=== PATIENT | female | born 1945 | race Caucasian/White ===

== ENCOUNTER 2020-03-01 09:52 | Observation (INO) | payer OTHER ==
[2020-03-01 11:25] LABS: Absolute Lymphocytes (CBC) 1.8 K/uL (0.7-4.9); Basophils % 0.6 % (0-1.3); Hematocrit 42.5 % (36.0-45.0); Lymphocytes % 27.6 % (15.3-44.8); MPV 8.3 fL (7.6-11.3); RBC Red Blood Cell Count 4.07 M/uL (3.86-4.86)
[2020-03-01 11:33] LABS: Protime INR 0.91
[2020-03-01 11:50] LABS: ALT/SGPT 24 U/L (12-78); AST/SGOT 23 U/L (15-37); Albumin 3.8 g/dL (3.4-5.0); Alkaline Phosphatase 73 U/L (45-117); BUN Blood Urea Nitrogen 18 mg/dL (7-18); Bicarbonate 21 mmol/L (21-32); Bilirubin Direct 0.1 mg/dL (0-0.2); Bilirubin Total 0.3 mg/dL (0.2-1.0); Glucose Level 109 mg/dL (74-106); Magnesium 1.9 mg/dL (1.8-2.4); NT PRO-BNP 206 pg/mL (<450); Potassium 3.4 mmol/L (3.5-5.1); Protein, Total 7.8 g/dL (6.4-8.2); Sodium Level 143 mmol/L (136-145); Troponin (Emerg Dept Use Only) < 0.02 ng/mL (0.0-0.045)
[2020-03-01] MEDS ORDERED: NA CHLORIDE 0.9% 500 ML ONE (12:22)
--- NOTE | 2020-03-01 13:18 | EDPHYS ---
Physician Documentation [facility] Name: Lina Fisher Age: 74 yrs Sex: Female : 1945 Arrival Date: 03/01/2020 Time: 09:53 Bed 16 Private MD: ED Physician Enoch Vázquez HPI: 03/01 11:00 This 74 yrs old Female presents to ER via Ambulatory with complaints of Fall snw Injury. 11:00 Details of fall: The patient fell from seated position, out of a chair. Onset: The snw symptoms/episode began/occurred suddenly, just prior to arrival. Associated injuries: The patient sustained injury to the head, contusion, hematoma, laceration, 1 cm(s), of the right side of forehead. Severity of symptoms: At their worst the symptoms were moderate. The patient has not experienced similar symptoms in the past. It is unknown whether or not the patient has recently seen a physician, sees Dr. Dolan. Syncope today. Pt states she has had a right sided headache for 3-4 days. Takes Topamax. Historical: - Allergies: 10:18 Bactrim; ll1 10:18 Codeine (Upset stomach); ll1 10:18 OPIOID ANALGESICS; ll1 - PMHx: 10:18 Arthritis; Chronic pain; Osteoporosis; Hypertension; Migraines; Seizures; ll1 - PSHx: 10:18 ear surgery; Hysterectomy; right ankle; back surgery; knee replacements; ll1 - Immunization history:: Flu vaccine is up to date. - Social history:: Smoking status: Patient denies any tobacco usage or history of. ROS: 10:58 Eyes: Negative for injury, pain, redness, and discharge, ENT: Negative for injury, snw pain, and discharge, Neck: Negative for injury, pain, and swelling, Cardiovascular: Negative for chest pain, palpitations, and edema, Respiratory: Negative for shortness of breath, cough, wheezing, and pleuritic chest pain, Abdomen/GI: Negative for abdominal pain, nausea, vomiting, diarrhea, and constipation, Back: Negative for injury and pain, : Negative for injury, bleeding, discharge, and swelling, MS/Extremity: Negative for injury and deformity, Skin: Negative for injury, rash, and discoloration. 10:58 Constitutional: Positive for fatigue. 10:58 Neuro: Positive for headache, syncope, of the right side of forehead, right temporal area, right eye and right taoism. Exam: 10:58 Constitutional: This is a well developed, well nourished patient who is awake, alert, snw and in no acute distress. 10:58 Eyes: Pupils equal round and reactive to light, extra-ocular motions intact. Lids and lashes normal. Conjunctiva and sclera are non-icteric and not injected. Cornea within normal limits. Periorbital areas with no swelling, redness, or edema. ENT: Nares patent. No nasal discharge, no septal abnormalities noted. Tympanic membranes are normal and external auditory canals are clear. Oropharynx with no redness, swelling, or masses, exudates, or evidence of obstruction, uvula midline. Mucous membranes moist. Neck: Trachea midline, no thyromegaly or masses palpated, and no cervical lymphadenopathy. Supple, full range of motion without nuchal rigidity, or vertebral point tenderness. No Meningismus. Chest/axilla: Normal chest wall appearance and motion. Nontender with no deformity. No lesions are appreciated. Cardiovascular: Regular rate and rhythm with a normal S1 and S2. No gallops, murmurs, or rubs. Normal PMI, no JVD. No pulse deficits. Respiratory: Lungs have equal breath sounds bilaterally, clear to auscultation and percussion. No rales, rhonchi or wheezes noted. No increased work of breathing, no retractions or nasal flaring. Abdomen/GI: Soft, non-tender, with normal bowel sounds. No distension or tympany. No guarding or rebound. No evidence of tenderness throughout. Back: No spinal tenderness. No costovertebral tenderness. Full range of motion. MS/ Extremity: Pulses equal, no cyanosis. Neurovascular intact. Full, normal range of motion. Neuro: Awake and alert, GCS 15, oriented to person, place, time, and situation. Cranial nerves II-XII grossly intact. Motor strength 5/5 in all extremities. Sensory grossly intact. Cerebellar exam normal. Normal gait. Psych: Awake, alert, with orientation to person, place and time. Behavior, mood, and affect are within normal limits. 10:58 Head/face: Noted is contusion, hematoma, swelling, that is moderate, of the right side of forehead. 10:58 Skin: Appearance: normal except for affected area, injury, abrasion(s), laceration(s), the wound is approximately 1 cm(s), with a depth of 1 cm(s), of the right supraorbital ridge. Vital Signs: 10:15 BP 159 / 81; Pulse 81; Resp 17; Temp 97.9; Pulse Ox 96% ; Pain 8/10; ll1 11:47 BP 160 / 95; Pulse 81; Resp 16; Pulse Ox 99% ; bp 12:49 BP 157 / 90; Pulse 85; Resp 16; Pulse Ox 100% ; bp 13:30 BP 165 / 83; Pulse 82; Resp 16; Pulse Ox 100% ; bp 14:30 BP 151 / 75; Pulse 88; Resp 16; Pulse Ox 100% ; bp 15:29 BP 132 / 79; Pulse 96; Resp 16; Temp 97.9; Pulse Ox 99% ; bp NIH Stroke Scale Scores: 13:17 NIHSS Score: 0 jr8 MDM: 10:52 Patient medically screened. snw 12:13 Data reviewed: vital signs, nurses notes. Data interpreted: Pulse oximetry: on room air snw is 99 %. Interpretation: normal. Transition of care: After a detail discussion of the patient's case, care is transferred to Edward TAYLOR. 13:11 Counseling: I had a detailed discussion with the patient and/or guardian regarding: the jr8 historical points, exam findings, and any diagnostic results supporting the discharge/admit diagnosis, lab results, radiology results, the need for further work-up and treatment in the hospital. Response to treatment: There is no appreciated change of the patient's symptoms at this time. 14:33 ED course: Talked to Dr. Dolan. Itz LONG and Ronnell consulted . jr8 03/01 10:35 Order name: Basic Metabolic Panel; Complete Time: 11:55 snw 03/01 10:35 Order name: CBC with Diff; Complete Time: 11:31 snw 03/01 10:35 Order name: LFT's; Complete Time: 11:55 snw 03/01 10:35 Order name: Magnesium; Complete Time: 11:55 snw 03/01 10:35 Order name: NT PRO-BNP; Complete Time: 11:55 snw 03/01 10:35 Order name: PT-INR; Complete Time: 11:47 snw 03/01 10:35 Order name: CT Head C Spine snw 03/01 10:35 Order name: Troponin (emerg Dept Use Only); Complete Time: 11:55 snw 03/01 10:35 Order name: XRAY Chest (1 view) snw 03/01 10:35 Order name: CT Facial Bones W/O Con snw 03/01 14:33 Order name: MRI - Brain Wo Cont jr8 03/01 10:35 Order name: EKG; Complete Time: 10:36 snw 03/01 10:35 Order name: Cardiac monitoring; Complete Time: 10:50 snw 03/01 10:35 Order name: EKG - Nurse/Tech; Complete Time: 11:07 snw 03/01 10:35 Order name: IV Saline Lock; Complete Time: 11:43 snw 03/01 10:35 Order name: Labs collected and sent; Complete Time: 11:43 snw 03/01 10:35 Order name: O2 Per Protocol; Complete Time: 10:50 snw 03/01 10:35 Order name: O2 Sat Monitoring; Complete Time: 10:50 snw 03/01 11:56 Order name: Ice pack; Complete Time: 12:01 snw 03/01 15:06 Order name: CONS Physician Consult EDMS EC:04 Rate is 78 beats/min. Rhythm is regular. QRS [place] is Normal. VT interval is normal. QRS snw interval is normal. T waves are Inverted in lead V2. Clinical impression: NSR w/ Non-specific ST/T Changes and low voltage. Administered Medications: 12:10 Drug: NS 0.9% 500 ml Route: IV; Rate: bolus; Site: left antecubital; bp 13:47 Follow up: IV Status: Completed infusion; IV Intake: 500ml bp 13:15 Drug: Ativan 0.5 mg Route: IVP; Site: left antecubital; bp 15:31 Follow up: Response: Anxiety decreased bp 13:15 Drug: hydrALAZINE 5 mg Route: IV; Rate: calculated rate; Site: left antecubital; bp 15:31 Follow up: IV Status: Completed infusion bp Disposition: 03/02 09:31 Co-signature as Attending Physician, Enoch Vázquez MD I agree with the assessment and kdr plan of care. Disposition: 03/01/20 13:17 Hospitalization ordered by Kate Dolan for Observation. Preliminary diagnosis are Hyptertensive Urgency, Syncope and collapse, Paresthesia of skin, Dysarthria and anarthria. - Bed requested for Telemetry/MedSurg (observation). - Status is Observation. bp - Condition is Stable. - Problem is new. - Symptoms are unchanged. NIH Stroke Scale - NIH Stroke Score Date: 03/01/2020 Time: 13:17 Total Score = 0 1a. Level of Consciousness (LOC) - 0(Alert) 1b. Level of Consciousness (LOC) (Year \T\ Age) - 0(Both) 1c. LOC Commands (Open \T\ Closes Eyes/Light Bulb Tester) - 0(Both) 2. Best Gaze (Lateral Gaze Paresis) - 0(Normal) 3. Visual Field Loss - 0(No visual loss) 4. Facial Palsy - 0(Normal) 5a. Left Arm: Motor (10-second hold) - 0(No drift) 5b. Right Arm: Motor (10-second hold) - 0(No drift) 6a. Left Leg: Motor (5-second hold - always test supine) - 0(No drift) 6b. Right Leg: Motor (5-second hold - always test supine) - 0(No drift) 7. Limb Ataxia (finger/nose \T\ heel/polanco - test with eyes open) - 0(Absent) 8. Sensory Loss (pinprick arms/legs/face) - 0(Normal) 9. Best Language: Aphasia (description/naming/reading) - 0(No aphasia) 10. Dysarthria (speech clarity - read or repeat words) - 0(Normal) 11. Extinction and Inattention (visual/tactile/auditory/spatial/personal) - 0(No abnormality) Initials: jr8 Signatures: Dispatcher [employer] EDMS Enoch Vázquez MD MD kdr Waters, Shelly, NETWORK CONTR[employer]PER[employer] SUPERVISOR-C [employer]PER[employer] SUPERVISOR-Edward Lee PA PA jr8 Chas Reardon RN RN ja1 Shelton Sood RN RN Logan Mccabe RN RN ll1 Corrections: (The following items were deleted from the chart) 03/01 11:02 10:58 Neuro: Positive for headache, syncope, of the left side of forehead, left snw temporal area, left eye and left taoism, snw 13:19 13:17 Hospitalization Ordered by A Magdaleno FOSTER for Observation. Preliminary jr8 diagnosis is Hyptertensive Urgency; Syncope and collapse; Paresthesia of skin; Dysphagia. Bed requested for Telemetry/MedSurg (observation). Status is Observation. Condition is Stable. Problem is new. Symptoms are unchanged. jr8 14:54 13:19 03/01/2020 13:17 Hospitalization Ordered by A Magdaleno FOSTER for Observation. ja1 Preliminary diagnosis is Hyptertensive Urgency; Syncope and collapse; Paresthesia of skin; Dysarthria and anarthria. Bed requested for Telemetry/MedSurg (observation). Status is Observation. Condition is Stable. Problem is new. Symptoms are unchanged. jr8 15:56 14:54 03/01/2020 13:17 Hospitalization Ordered by A Magdaleno FOSTER for Observation. bp Preliminary diagnosis is Hyptertensive Urgency; Syncope and collapse; Paresthesia of skin; Dysarthria and anarthria. Bed requested for Telemetry/MedSurg (observation). Status is Observation. Condition is Stable. Problem is new. Symptoms are unchanged. ja1
--- NOTE | 2020-03-01 13:18 | ER ---
Nurse's Notes [facility] Name: Lina Fisher Age: 74 yrs Sex: Female : 1945 Arrival Date: 03/01/2020 Time: 09:53 Bed 16 Private MD: Diagnosis: Hyptertensive Urgency;Syncope and collapse;Paresthesia of skin;Dysarthria and anarthria Presentation: 03/01 10:15 Chief complaint: Patient states: Syncope event today at 0730. Sat on a stool, then ll1 passed out. Hit right eye area. No active bleeding. R hip pain since. Both hands feel numb now. Coronavirus screen: Client denies travel out of the [place] in the last 14 days. At this time, the client does not indicate any symptoms associated with coronavirus-19. Ebola Screen: Patient denies travel to an Ebola-affected area in the 21 days before illness onset. Initial Sepsis Screen: Does the patient meet any 2 criteria? No. Patient's initial sepsis screen is negative. Risk Assessment: Do you want to hurt yourself or someone else? Patient reports no desire to harm self or others. Onset of symptoms was March 01, 2020. 10:15 Method Of Arrival: Ambulatory ll1 10:15 Acuity: MARQUITA 2 ll1 10:15 Initial Sepsis Screen: Does the patient have a suspected source of infection? No. bp Patient's initial sepsis screen is negative. Triage Assessment: 10:20 General: Appears in no apparent distress. uncomfortable, obese, Behavior is bp cooperative, appropriate for age, anxious. Pain: Complains of pain in right eye and right hip. EENT: No deficits noted. Neuro: Reports a syncopal episode. Cardiovascular: No deficits noted. Respiratory: No deficits noted. GI: No signs and/or symptoms were reported involving the gastrointestinal system. : No signs and/or symptoms were reported regarding the genitourinary system. Derm: No deficits noted. Musculoskeletal: No deficits noted. Historical: - Allergies: 10:18 Bactrim; ll1 10:18 Codeine (Upset stomach); ll1 10:18 OPIOID ANALGESICS; ll1 - PMHx: 10:18 Arthritis; Chronic pain; Osteoporosis; Hypertension; Migraines; Seizures; ll1 - PSHx: 10:18 ear surgery; Hysterectomy; right ankle; back surgery; knee replacements; ll1 - Immunization history:: Flu vaccine is up to date. - Social history:: Smoking status: Patient denies any tobacco usage or history of. Screenin:30 Abuse screen: Denies threats or abuse. Denies injuries from another. Nutritional bp screening: No deficits noted. Tuberculosis screening: No symptoms or risk factors identified. Fall Risk Fall in past 12 months (25 points). No secondary diagnosis (0 pts). No IV (0 pts). Ambulatory Aid- Crutches/Cane/Walker (15 pts). Gait- Normal/Bed Rest/Wheelchair (0 pts) Mental Status- Oriented to own ability (0 pts). Total Connor Fall Scale indicates Low Risk Score (25-44 pts). Fall prevention measures have been instituted. Side Rails Up X 2 Placed close to Nursing Station Frequent Obs/Assesments occuring Family Present and informed to notify staff if they need to leave bedside As available Patient and Family Educated on Fall Prevention Program and strategies. Assessment: 10:30 General: SEE TRIAGE NOTE. bp 11:47 Reassessment: PT RETURNED FROM CT. bp 12:50 Reassessment: ALL CURRENT ORDERS COMPLETED, CT RESULTS PENDING. bp Vital Signs: 10:15 BP 159 / 81; Pulse 81; Resp 17; Temp 97.9; Pulse Ox 96% ; Pain 8/10; ll1 11:47 BP 160 / 95; Pulse 81; Resp 16; Pulse Ox 99% ; bp 12:49 BP 157 / 90; Pulse 85; Resp 16; Pulse Ox 100% ; bp 13:30 BP 165 / 83; Pulse 82; Resp 16; Pulse Ox 100% ; bp 14:30 BP 151 / 75; Pulse 88; Resp 16; Pulse Ox 100% ; bp 15:29 BP 132 / 79; Pulse 96; Resp 16; Temp 97.9; Pulse Ox 99% ; bp NIH Stroke Scale Scores: 13:17 NIHSS Score: 0 jr8 ED Course: 09:53 Patient arrived in ED. ds1 10:17 Triage completed. ll1 10:17 Arm band placed on. ll1 10:19 Shelton Sood, RN is Primary Nurse. bp 10:30 Patient has correct armband on for positive identification. Bed in low position. Call bp light in reach. Side rails up X2. Adult w/ patient. 10:34 Clementine Gomez FNP-C is PHCP. snw 10:34 Enoch Vázquez MD is Attending Physician. snw 11:37 CT Head C Spine In Process Unspecified. EDMS 11:37 Inserted saline lock: 20 gauge in left antecubital area, using aseptic technique. Blood bp collected. 11:38 CT Facial Bones W/O Con In Process Unspecified. EDMS 11:44 XRAY Chest (1 view) In Process Unspecified. EDMS 12:16 PHCP role handed off by Clementine Gomez FNP-C jr8 12:16 Edward Davis PA is PHCP. jr8 13:16 Kate Dolan MD is Hospitalizing Provider. jr8 15:26 No provider procedures requiring assistance completed. Patient admitted, IV remains in bp place. Administered Medications: 12:10 Drug: NS 0.9% 500 ml Route: IV; Rate: bolus; Site: left antecubital; bp 13:47 Follow up: IV Status: Completed infusion; IV Intake: 500ml bp 13:15 Drug: Ativan 0.5 mg Route: IVP; Site: left antecubital; bp 15:31 Follow up: Response: Anxiety decreased bp 13:15 Drug: hydrALAZINE 5 mg Route: IV; Rate: calculated rate; Site: left antecubital; bp 15:31 Follow up: IV Status: Completed infusion bp Intake: 13:47 IV: 500ml; Total: 500ml. bp Outcome: 13:17 Decision to Hospitalize by Provider. jr8 15:30 Admitted to Med/surg accompanied by tech, family with patient, via stretcher, room 201, bp with chart, Report called to ALTHEA RN 15:30 Condition: stable 15:30 Instructed on the need for admit. 15:56 Patient left the ED. bp NIH Stroke Scale - NIH Stroke Score Date: 03/01/2020 Time: 13:17 Total Score = 0 1a. Level of Consciousness (LOC) - 0(Alert) 1b. Level of Consciousness (LOC) (Year \T\ Age) - 0(Both) 1c. LOC Commands (Open \T\ Closes Eyes/Packer Denture) - 0(Both) 2. Best Gaze (Lateral Gaze Paresis) - 0(Normal) 3. Visual Field Loss - 0(No visual loss) 4. Facial Palsy - 0(Normal) 5a. Left Arm: Motor (10-second hold) - 0(No drift) 5b. Right Arm: Motor (10-second hold) - 0(No drift) 6a. Left Leg: Motor (5-second hold - always test supine) - 0(No drift) 6b. Right Leg: Motor (5-second hold - always test supine) - 0(No drift) 7. Limb Ataxia (finger/nose \T\ heel/polanco - test with eyes open) - 0(Absent) 8. Sensory Loss (pinprick arms/legs/face) - 0(Normal) 9. Best Language: Aphasia (description/naming/reading) - 0(No aphasia) 10. Dysarthria (speech clarity - read or repeat words) - 0(Normal) 11. Extinction and Inattention (visual/tactile/auditory/spatial/personal) - 0(No abnormality) Initials: jrHira Signatures: Dispatcher [employer] EDMS Clementine Gomez, ORTHODONTIC BAND MAKER-C ORTHODONTIC BAND MAKER-Csnw Karuna Wilson ds1 Edward Davis PA PA jr8 Shelton Sood, RN RN bp Logan Yin RN RN ll1
[2020-03-01] MEDS ORDERED: LORazepam 2 MG/ML VIAL ONE (13:50)
[2020-03-01] MEDS ORDERED: HYDRALAZINE HCL 20 MG/ML VIAL ONE (13:51)
[2020-03-01] MEDS ORDERED: ACETAMINOPHEN 500 MG TAB PO PRN (15:55)
[2020-03-01] MEDS ORDERED: HYDRALAZINE HCL 20 MG/ML VIAL IV PRN (15:55)
[2020-03-01] MEDS ORDERED: ONDANSETRON 4 MG/2 ML VIAL IV PRN (15:55)
[2020-03-01 16:22] VITALS: BMI 32.1
[2020-03-01] MEDS: MORPHINE 2 MG/ML SYR IV PRN (17:43)
--- NOTE | 2020-03-01 23:51 | RAD REPORT ---
EXAM DESCRIPTION: MRI - Brain Wo Cont - 03/01/2020 10:22 pm CLINICAL HISTORY: Dizziness;Confused;Mental status change;Numbness Headache, drowsiness, dizziness COMPARISON: Facial Bones W/ Mpr dated 03/01/2020 TECHNIQUE: Multi-sequence, multiplanar MR imaging of the brain was performed without contrast. FINDINGS: No intracranial hemorrhage, hydrocephalus or extra-axial fluid collections.A few areas of T2 and FLAIR hyperintensity are seen in the periventricular subcortical white matter likely represent ing chronic microvascular ischemia. No edema or shift of midline structures. No findings to suspect b rain mass. DWI is negative for acute CVA. Midline structures are normally formed. Mastoid air cells and paranasal sinuses are clear. IMPRESSION: Negative for acute CVA or other acute intracranial abnormality.
[2020-03-02] MEDS: MORPHINE 2 MG/ML SYR IV PRN ×3 (00:07→15:22)
[2020-03-02] MEDS ORDERED: METOPROLOL TAR 25 MG TAB PO ONE (00:49)
[2020-03-02] MEDS ORDERED: METOPROLOL TAR 25 MG TAB ONE (01:05)
[2020-03-02 06:28] LABS: Basophils % 0.7 % (0-1.3); Hematocrit 38.1 % (36.0-45.0); Lymphocytes % 29.1 % (15.3-44.8); MPV 8.3 fL (7.6-11.3); RBC Red Blood Cell Count 3.68 M/uL (3.86-4.86)
[2020-03-02 06:40] LABS: Potassium 3.7 mmol/L (3.5-5.1)
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
--- NOTE | 2020-03-02 07:34 | RAD REPORT ---
EXAM DESCRIPTION: CT - Facial Bones W/ Mpr - 03/01/2020 10:19 pm CLINICAL HISTORY: Fall, right-sided facial trauma COMPARISON: None. TECHNIQUE: Axial 2 millimeter thick images of the facial bones were obtained with sagittal and coron al reconstruction imaging. All CT scans are performed using dose optimization technique as appropriate and may include automated exposure control or mA/KV adjustment according to patient size. FINDINGS: Mastoid air cells are clear. No skullbase fracture identified. Paranasal sinuses are also clear. No globe or orbital content abnormality. No facial bone fractures identified. Patient has righ t periorbital hematoma/contusion changes. Due to technical malfunction, the reporting system was not available at the time of the study. Images were reviewed and findings telephoned to the referring clinician at the time of the study. IMPRESSION: Right periorbital soft tissue injury. No facial bone fracture, orbital content injury or paranasal sinus abnormality.
[2020-03-02 10:19] VITALS: O2SAT 93
--- NOTE | 2020-03-02 10:19 | RAD REPORT ---
EXAM DESCRIPTION: US - Renal Ultrasound-Complete - 03/02/2020 9:38 am CLINICAL HISTORY: CKD COMPARISON: CT study August 2017 FINDINGS: The right kidney measures 7.9 x 4.8 x 4.6 cm. The left kidney measures 9.0 x 4.9 x 4.5 cm . Cortical thickness is normal. There is bilateral cortical increased echogenicity can be body habitu s affects, medical renal disease or a combination. No hydronephrosis or suspicious renal mass. No bladder wall thickening or mass. No intraluminal stone or mass. IMPRESSION: No hydronephrosis or suspicious renal mass. Increased cortical echogenicity is present likely medical renal disease.
--- NOTE | 2020-03-02 10:29 | HP ---
Date of Admission: 03/01/2020 Chief Complaint: Fainting spell, trouble with speech. History Of Present Illness: This is a 74-year-old female patient who has seen Dr. Russell, neurologist, over a long period of time and she gives a history of complicated migraine and says that she has migraine spells from time to time, and with this severe headache, she actually ends up having trouble with her speech. As she says, after evaluation neurologist, Dr. Russell, informed her that this was due to her complicated migraine. In any case in last 4 days, she is having a lot more spells where she has trouble expressing herself somewhat confusion and having bad headaches with this. Yesterday, she was sitting and as she tried to stand up, she felt extremely dizzy, so she immediately tried to sit down, and she actually ended up falling down on the floor and had a syncopal episode. She was in the bathroom on her own by herself. Her was in other part of the house. She does not know for how long she had passed out, but when she woke up she was on the bathroom floor, and she did not feel comfortable getting up on her own, so she started calling her , who came there and helped her to get up and subsequently she called my office. She was asked to come to the emergency room after she called my office, and later on, she decided to come, and after she was evaluated she was admitted to the hospital. When I saw her in the evening time, she was lying in the bed, not in any distress as far as her speech is concerned, it was clear, but I could see that she was struggling a little bit trying to communicate and explain it to me. Allergies: TO SULFA, NITROFURANTOIN, GABAPENTIN, AND LYRICA, SULFA CAUSING ITCHING, NITROFURANTOIN CAUSING DIARRHEA, GABAPENTIN CAUSING HALLUCINATION, LYRICA CAUSING FACE SWELLING. Medications: Fosamax 70 mg once a week, allopurinol 300 mg daily, Flexeril 10 mg daily at bedtime, doxycycline 50 mg daily, famotidine 40 mg at bedtime, metoprolol 25 mg daily in the evening, Lyrica 50 mg at bedtime, Crestor 5 mg daily in the evening time, tramadol 50 mg 3 times a day as needed, Topamax 100 mg daily, and Osphena 60 mg. Review of Systems: TYPEWRITER RIBBON WINDER: As mentioned above. Cardiovascular: As mentioned above. All other systems reviewed and negative. Past Medical History: Migraine, impaired fasting glucose, hypertension, mixed hyperlipidemia, gastroesophageal reflux disease, chronic kidney disease, lumbar radiculopathy, osteoarthritis at multiple sites, hyperuricemia, anemia due to chronic kidney disease, osteopenia. Past Surgical History: Cataract surgery, adenoidectomy, mastoidectomy, cholecystectomy, hysterectomy, bladder suspension, cervical spine surgery, lumbar spine surgery, wrist fracture surgery, carpal tunnel release, and bilateral knee surgery. Family History: Father had heart disease. Mother had breast cancer. Social History: Negative for smoking and alcohol use. Physical Examination: Vital Signs: Height 5 feet 1 inch, weight 170 pounds, temperature 97.9, pulse 113, respiratory rate 18, blood pressure 184/79. General: Awake, alert, oriented, not in distress. HEENT: Head; the patient has large area of bluish discoloration, contusion on the right frontal and right periorbital region and right forehead. On the right lateral forehead, she has a small laceration, there is no open wound, and this laceration is more like a skin tear more than anything else. No bleeding, no discharge. Conjunctivae nonerythematous. Sclerae white. Mouth, no thrush or edema noted. Ears/Nose, no mass, lesion, discharge noted. Neck: Supple. No JVD, lymph nodes, bruit, thyromegaly noted. Lungs: Bilateral good equal air entry. Clear to auscultation. No rhonchi. No rales. Heart: Normal heart sounds, no murmur or gallop. Abdomen: Soft, bowel sounds normal. No guarding, rigidity, tenderness, mass, hepatosplenomegaly, distention, or bruit noted. Extremities: No leg edema. No calf tenderness. Skin: No rash, ulcer, cellulitis. Lymphatics: No lymph node enlargement in neck, supraclavicular, infraclavicular region. Neuro: No focal neurological deficit. Chest: Unremarkable. External Genitalia: Deferred. Rectal: Deferred. Laboratory Data: Sodium 143, potassium 3.4, chloride 114, bicarb 21, BUN 18, creatinine 1.33, glucose 109, GFR 39. Liver function tests unremarkable. White count 6.4, hemoglobin 14, platelets 2.6. Troponin less than 0.02. ProBNP 206. Impression: 1. Syncope. 2. Complicated migraine. 3. Hypertension, uncontrolled. 4. Chronic kidney disease, stage III. 5. Mixed hyperlipidemia. 6. Osteoarthritis, multiple sites. 7. Gastroesophageal reflux disease. 8. Impaired fasting glucose. Plan: Admit the patient to hospital for further evaluation and management of this problem. The patient's CAT scan of the head was negative for any acute changes, done in the emergency room. MRI of the brain will be done. We will consult neurologist, Dr. Reynaga. The patient has these episodes of blood pressure going up all of a sudden for no reason as she describes lately and that happened actually while she was in the emergency room. We will go ahead and get a renal artery Doppler on her. We will also consult rapid extractor operator, get echo with Doppler. She will need a neurological workup. We need to make sure there is no underlying atypical seizure type of activity causing her to have these spells of dysarthria. Details and plan of treatment discussed with her. PRIYANKA/DENG Voice ID: [id number] MTDD
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
[2020-03-02 15:08] LABS: Urine Appearance CLEAR; Urine Bilirubin NEGATIVE (NEG); Urine Blood NEGATIVE (NEG); Urine Color YELLOW; Urine Glucose NEGATIVE (NEG); Urine Protein NEGATIVE (NEG); Urine pH 6.5 (5.0-7.0)
[2020-03-02 15:42] LABS: Urine Bacteria <20 /HPF (<20); Urine RBC <5 /HPF (NONE SEEN)
[2020-03-02 15:43] LABS: Urine Culture Reflex Order NOT NEEDED
[2020-03-02 17:01] VITALS: BP 126/57; TEMP 98.8
--- NOTE | 2020-03-02 18:16 | CON ---
Reason For Consultation: Syncope. History Of Present Illness: Ms. Fisher is a 74-year-old right-handed patient whom I had se en previously in clinic for complex partial seizures and migraine with aura. Her last clinic visit w as more than 7 years ago. She comes today after passing out while on a chair and she fell forward hi tting the right forehead, suffered a cut above her eye, and has significant bleeding and bruising in the right eye. She said after coming to and noting the blood, she had a difficult time getting up an d actually had to pull herself along the floor to get to her and then threw a shoe at him to wake him up. He came by and got help, but then she was brought into [facility] for evaluati on. Prior to this episode, she does admit to a long history of epilepsy from childhood and [facility]. She has been on multiple antiepileptic medications including Dilantin, Depakote and even Topa max, which was also used for headaches. Her head CT scan at [facility] showed no acute ischemic or hemorrhagic change. No fractures . No bleeding. Following day, brain MRI showed no ischemic stroke, no tumors, no fractures, no blee ding. The patient has had a fluctuating level of interaction, but is getting back towards baseline. On further questioning, does say that earlier within a week she did have an episode of going to the grocery store and as they got back out, actually did some other trips to dentist's office and one other office, but she forgot those activities and eventually, she was confused as well and eventu ally she did recall that as he prompted her. Past Medical History: Osteoporosis, hypertension, migraine with aura, complex partial seizures, and arthritis. Past Surgical History: Lumbar spinal fusion, right ankle surgery, knee replacement, hysterectomy, an d ear surgery. Allergies: BACTRIM, CODEINE, AND OPIOIDS. Social History: No alcohol, tobacco, or IV drug use. The patient lives with her . Medications: At home includes Topamax, and while hospitalized, she did receive Lopressor, apresoline , along with morphine. The patient's did note that she had some very elevated blood pressure s at times while in the emergency room. Review of Systems: As indicated, she had episodes of confusion, some difficulty of sleeping at night. Her said she may be up for 36 hours straight and may take naps during the day. She has occasional right-sided tingling and some numbness, but that is not present at this point. Otherwise negative on a 10-point systems review such as for shortness of breath, for cough, for fever, for increased urinary urgency and frequency, for diarrhea or any other issues like that. Physical Examination: Vital Signs: Blood pressure 127/59, pulse up to 110, respiratory rate 16 to 20, temperature 98.7, ox ygen saturation 95% on room air. Weight 170 pounds, height 5 feet 1 inch. General: Ms. Fisher is resting in bed, eating lunch. She is in no acute distress. HEENT: She has a cut above her right eye with some bruising around the right eye and there is a smal l cut. Otherwise, normocephalic, atraumatic. Sclerae anicteric. Oropharynx is pink and moist. Neck: Supple. Chest: Clear. Heart: Regular. Extremities: Show no clubbing, cyanosis, or edema. Neurologic: She is alert and oriented to situation, place, person, although she is slightly slow in her responses. She is appropriate, alert and oriented to place and situation, time. Cranial nerves show no focal deficits on 2 through 12. On motor exam, she does not have any focal weakness in the f josefa, arm, or leg, at least 4+/5 bilaterally. Sensation, stocking-glove loss, light touch, temperatur e, reflexes are symmetric in upper and lower extremities. Coordination intact in upper and lower ext remities. Gait, she has good stance and stride, is mildly unsteady. Laboratory Studies: Complete blood count with differential is essentially unremarkable except for sl ightly elevated MCV of 103.6. Her coagulation panel is normal. Chemistries show initially slightly low potassium 3.4, corrected now 3.7, glucose ranged from 109 to 120, calcium 9.0 on admission. Afte r hydration 8.6. Her head and C-spine, CT scan showed no evidence of any fractures in the orbits or in the cervical region. Assessment: Ms. Fisher is a 74-year-old patient with history of complex partial seizures, appears to have significant insomnia, also has hypertension, migraine with aura, chronic pain. She has had amandeep k surgery and osteoporosis, arthritis, who has a syncopal episode with a differential diagnosis that should include complex partial seizures, unlikely to be a stroke obviously because MRI is negative, s till a possibility of a transient ischemic attack. Furthermore, she may have episodes of micro burst s of sleep intruding, especially since she had episodes where she has not slept for 36 straight hours . However, the did not say that this occurred prior to the episode that led to admission. Plan: 1.She may be discharged home today. She should follow up in Dr. Reynaga's clinic. Plan to have an outpatient sleep study overnight and an outpatient ambulatory video EEG monitoring study for event c haracterization. 2.The patient and her should maintain an event diary. 3.She should work on using either melatonin such as 10 mg or trazodone 25 mg at night for more shahriar red and appropriate sleep. 4.At least maintain on aspirin daily given hypertension and risk for transient ischemic attack. 5.She may continue the Topamax for migraine frequency reduction. 6.She may use the CGRP receptor antagonist Ubrelvy for acute migraine abortive treatment. 7.She may consider using 1 of the monthly antibodies against the CGRP receptor for migraine prophyla xis. 8.She is encouraged to maintain a blood pressure diary and blood sugar diary. 9.Follow up with Dr. Reynaga in 1 month after discharge. MORRIS/DENG Voice ID: [id number] Report ID: [id number]
--- NOTE | 2020-03-02 23:04 | DS ---
Date of Discharge: 03/02/2020 Disposition: Discharged to go home. Physical Examination: HEENT: Unremarkable except contusion on the right side of the forehead and right periorbital region, better today than yesterday. Lungs: Clear to auscultation. Heart: Sounds normal. Abdomen: Soft. Bowel sounds normal. No guarding, rigidity, tenderness, or distention. Extremities: No leg edema. Discharge Medications And Instructions: 1.Continue all prior home medications. 2.Follow up at my office next week. 3.Drink 50-60 ounce of water daily. 4.Follow up with Dr. Reynaga in 2-3 weeks. Hospital Course: This is a 74-year-old female patient admitted to the hospital with syncopal episode . Please see dictated H and P for more information. After the patient was evaluated in the emergenc y room, she was admitted to the hospital. Overnight, her condition has remained stable. She was kep t on telemetry and on telemetry, she did not have any cardiac arrhythmia, but she did have sinus tach ycardia as noted. Hemodynamically, she was stable. We did obtain orthostatic vital signs today and her supine blood pressure 128/59, sitting 117/57, and standing 117/55. Urinalysis done today shows t race leukocyte esterase, 5-10 WBC, bacteria less than 20. Her BUN today 15, creatinine 1.08, sodium 142, potassium 3.7. White count 6.9, hemoglobin 12.8, platelets 212. Renal ultrasound done today wa s unremarkable. The patient was seen in consultation by neurologist, Dr. Reynaga. Her EEG that was done today was unremarkable. Echocardiogram done today, results pending. We will follow up on echo results on outpatient basis. Dr. Reynaga did talk to me and explained me that on outpatient basis, he will consider prolonged EEG monitoring for her, but he has not suggested any change in medication s or no new medication at this point. The patient started to ambulate well without any difficulty to day and from Neurology point of view, Dr. Reynaga has released her to go home. Medically, she is st able for discharge and I will see her next week for followup. Final Diagnoses: 1.Syncope. 2.Hypokalemia. 3.Complicated migraine. 4.Hypertension. 5.Chronic kidney disease stage 3. 6.Mixed hyperlipidemia. 7.Osteoarthritis, multiple sites. 8.Gastroesophageal reflux disease. 9.Impaired fasting glucose. PRIYANKA/MODL Voice ID: [id number] Report ID: [id number]
--- NOTE | 2020-03-03 08:22 | EKG ---
Test Date: 2020-03-01 Test Time: 11:06:22 Cigarette Machine Filler: JAYLIN MEASUREMENT RESULTS: Intervals: Rate: 78 MI: 150 QRSD: 74 QT: 386 QTc: 440 [place]: P: 4 MI: 150 QRS: 1 T: -2 INTERPRETIVE STATEMENTS: Normal sinus rhythm Left atrial enlargement Low voltage QRS Borderline ECG Compared to ECG 08/02/2017 10:02:39 Atrial abnormality now present Low QRS voltage now present Left ventricular hypertrophy no longer present Electronically Signed On 03-03-20 08:19:34 CDT by Elieser Topete
--- NOTE | 2020-03-05 08:58 | ECHO ---
HEIGHT: 5 ft 1 in WEIGHT: 170 lb 0 oz DATE OF STUDY: 03/02/[address]: Peter Dolan MD 2-DIMENSIONAL: YES M.MODE: YES DOPPLER: YES COLOR FLOW: YES TDS: PORTABLE: DEFINITY: BUBBLE STUDY: DIAGNOSIS: CONGESTIVE HEART FAILURE CARDIAC HISTORY: CATHERIZATION: NO SURGERY: NO PROSTHETIC VALVE: NO PACEMAKER: NO MEASUREMENTS (cm) DIASTOLIC (NORMALS) SYSTOLIC (NORMALS) IVSd 1.0 (0.6-1.2) LA Diam 3.1 (1.9-4.0) LVEF 55% LVIDd 3.0 (3.5-5.7) LVIDs 2.1 (2.0-3.5) %FS 27% LVPWd 1.2 (0.6-1.2) Ao Diam 2.8 (2.0-3.7) 2 DIMENSIONAL ASSESSMENT: RIGHT ATRIUM: NORMAL LEFT ATRIUM: NORMAL RIGHT VENTRICLE: NORMAL LEFT VENTRICLE: NORMAL TRICUSPID VALVE: NORMAL MITRAL VALVE: NORMAL PULMONIC VALVE: NORMAL AORTIC VALVE: SCLEROSIS PERICARDIAL EFFUSION: NONE AORTIC ROOT: NORMAL LEFT VENTRICULAR WALL MOTION: NORMAL DOPPLER/COLOR FLOW: NORMAL COMMENTS: NORMAL LEFT VENTRICULAR SIZE AND FUNCTION. AORTIC SCLEROSIS - NO STENOSIS. NO WALL MOTION ABNORMALITY. NO EFFUSION. TECHNOLOGIST: ANGEL CASTORENA
--- NOTE | 2020-03-05 09:18 | EEG ---
CHART: [id number] TEST ID#: [id number] DATE OF STUDY: 03/02/2020 THE EEG WAS RECORDED PORTABLE IN THE PATIENT'S ROOM ON A 17 CHANNEL MACHINE. ELECTRODES WERE APPLIED IN THE USUAL MANNER USING THE INTERNATIONAL 10-20 SYSTEM. THE WAKING BACKGROUND RHYTHM IN THIS RECORD CONSISTS OF FAIRLY WELL DEVELOPED AND FAIRLY WELL ORGANIZED WAVES OF 9.5 HZ., MAXIMAL IN THE POSTERIOR HEAD REGIONS WHICH ATTENUATE NORMALLY WITH EYE OPENING. LOW-VOLTAGE 18-22 HZ ACTIVITY IS EXPRESSED IN THE FRONTAL REGIONS. THERE ARE NO FOCAL OR LATERALIZING FEATURES. NO EPILEPTIFORM ACTIVITY APPEARS. SLEEP OCCURRED NATURALLY. HYPERVENTILATION WAS NOT PERFORMED. PHOTIC STIMULATION PRODUCED POOR DRIVING BILATERALLY. IMPRESSION: NORMAL EEG FOR THE AGE OF THE PATIENT IN [place], DROWSINESS AND SLEEP.
--- OUTSIDE RECORDS SUMMARY | 2020-03-07 15:18 | XMS REPORT | Continuity of Care Document ---
:1945 Author Organization [facility] t Address [address] [place] [address] [address]. [address] [place] [address] Care Team Providers Name Role Phone Arcelia FOSTER Primary Care Physician Drew FOSTER, Gene Attending Clinician Sloane FOSTER, T. Attending Clinician Payers Payer Name Policy Type Policy Effective Date Expiration Date Sour ce Number MEDICAREMEDICARE PART [id number] 2008 nimesh A AND 00:00:00 [employer] [id number] 2008[place] AND [id number] 2006 [place] [employer] LIFE 00:00:00 Meth odist AND [id number]/2006-PresentCommercia l Problems Condition Condition Condition Status Onset Resolution Last Treating Co mments Source Name Details Category Date Date Treatment Clinician Date Noncomplia Noncomplia Disease Active H god[place] nce with nce with 10-07 Method i medication medication 00:00: st treatment treatment 00 due to due to overuse of overuse of medication medication Lumbar Lumbar Disease Active [place] radiculopa radiculopa 2-14 Me thodi thy thy 00:00: st 00 Cervical Cervical Disease Active 2016-06 [place] radiculopa radiculopa 1-08 Me thodi thy thy 00:00: st 00 Pseudophak Pseudophak Disease Active Overview : [place] ia ia 12-16 OD Methodi 00:00: 12/16/16 st 00 ZXR00 13.0, FLACS with laser AK at 85 deg for 0.5 DOS 12/30/16 ZXR00 14.0, FLACS with laser AK Last Assessmen t & Plan: OD 12/16/16 ZXR00 13.0, FLACS with laser AK at 85 deg for 0.5 DOS 12/30/16 ZXR00 14.0, FLACS with laser AK Doing excellent . 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 Resume, ran out 3 months ago. Epiretinal Epiretinal Disease Active Last [place] membrane membrane 11-07 Assessmen Met hodi (ERM) of (ERM) of 00:00: t & Plan: st both eyes both eyes 00 Extremely trace. Follow. At low At low Disease Active Overview: Zak wakefield risk for risk for 11-07 C/D Method i open-angle open-angle 00:00: increase, st glaucoma glaucoma 00 symmetric in both in both . H/O eyes eyes normal MAR 2017.Last Assessmen t & Plan: C/D increase, symmetric . H/O normal MAR 2017. Chronic Chronic Disease Active [place] migraine migraine -20 Method i without without 00:00: st aura, aura, 00 intractabl intractabl e, without e, without status status migrainosu migrainosu s s Migraine Migraine Disease Active [place] with aura with aura 20 Meth karyna and and 00:00: st without without 00 status status migrainosu migrainosu s, not s, not intractabl intractabl e e Primary Primary Disease Active [place] insomnia insomnia -20 Method i 00:00: st 00 Depressive Depressive Disease Active [place] disorder disorder -20 Method i 00:00: st 00 Allergies, Adverse Reactions, Alerts Allergy Allergy Status Severity Reaction(s) Onset Inactive Treating Comm ents Source Name Type Date Date Clinician Codeine Propensi Active [place] ty to -20 Methodi adverse 00:00: st reaction 00 s to drug Nitrofur Propensi Active [place] antoin ty to 3-20 Methodi adverse 00:00: st reaction 00 s to drug Family History Family Member Diagnosis Comments Start Date Stop Date Source Natural father Heart disease [facility] Natural mother Dementia [facility]odist Natural mother Migraines [facility] Social History Social Habit Start Date Stop Date Quantity Comments Source Sex Assigned At [facility] ethodist Tobacco use and 2018-12-15 2018-12-15 Never used [facility] ethodist exposure 00:00:00 00:00:00 Alcohol intake 2018-12-15 2018-12-15 Current [facility] thodist 00:00:00 00:00:00 non-drinker of alcohol (finding) Smoking Status Start Date Stop Date Source Never smoker [place] Method[facility] t Medications Ordered Filled Start Stop Current Ordering Indication Dosage Frequency Signature Comments Components Source Medication Medication Date Date Medication? Clinician (SIG) Name Name cyanocobala Yes 2500ug QD Place Kristy ston min, 12-15 2,500 mcg [facility] vitamin 10:42: under the st B-12, 24 tongue (VITAMIN daily. B-12) 2,500 mcg tablet, sublingual cholecalcif Yes 1{tbl} Take 1 [place] ria, 12-15 tablet by [facility] vitamin D3, 10:42: mouth st (VITAMIN 24 daily. D3) 5,000 unit tablet fluticasone Yes 2{spray QD 2 sprays Garcia (FLONASE) 12-15 } by Each Methodi 50 10:42: Nare route st mcg/actuati 24 daily. on nasal spray cycloSPORIN Yes 1[drp] Q.5D Administer Garcia E 12-15 1 drop to Methodi (RESTASIS) 00:00: both eyes st 0.05 % 00 2 (two) ophthalmic times a emulsion day for 90 days. metoprolol Yes Migraine TAKE 1 [place] succinate 8-08 with aura TABLET BY [facility] XL 00:00: and without MOUTH st (TOPROL-XL) 00 status TWICE 25 mg 24 hr migrainosus DAILY, IN tablet , not THE intractable MORNING AND AT DINNER prochlorper Yes TAKE 1 [place] azine 6-06 TABLET BY [facility] (COMPAZINE) 00:00: MOUTH st 5 MG tablet 00 EVERY 6 TO 8 HOURS NEEDED FOR NAUSEA OR MIGRANE promethazin Yes Take 06/04- Garcia e 5-09 tablet [facility]i (PHENERGAN) 00:00: p.o. every st 12.5 MG 00 6 hours as tablet needed migraine as directed allopurinol Yes 1{tbl} 1 tablet Garcia (ZYLOPRIM) 3-15 daily. [facility] 300 MG 00:00: st tablet 00 omeprazole Yes 1{capsu 1 capsule Jose (PriLOSEC) 3-10 le} daily. Methodi 40 MG 00:00: st capsule 00 Procedures This patient has no known procedures. Plan of Care Planned Activity Planned Date Details Comments Source Future Scheduled 2019-12-31 INFLUENZA VACCINE [place] [facility] Test 00:00:00 [code = INFLUENZA VACCINE] Future Scheduled 2008-09-22 65+ PNEUMOCOCCAL [facility] Test 00:00:00 VACCINE (1 of 1 - PPSV23) [code = 65+ PNEUMOCOCCAL VACCINE (1 of 1 - PPSV23)] Future Scheduled 1993-09-22 COLONOSCOPY SCREENING Ho [facility] Test 00:00:00 [code = COLONOSCOPY SCREENING] Future Scheduled 1993-09-22 SHINGLES VACCINES (#1) [place] [facility] Test 00:00:00 [code = SHINGLES VACCINES (#1)] Encounters Start End Encounter Admission Attending Care Care Encounter Source Date/Time Date/Time Type Type Clinicians Facility Department ID 2019-10-07 2019-10-07 SULMA Hua [id number] 00:00:00 00:00:00 Teofilo Viera [id number] [facility] [id number] Irina [id number] nal 092 Building Results This patient has no known results.
--- OUTSIDE RECORDS SUMMARY | 2020-03-07 15:18 | XMS REPORT | Clinical Summary ---
:1945 Author Organization [facility] Address [address] [place] [address] Care Team Providers Name Role Phone MD Arcelia Primary Care Provider Allergies Active Allergy Reactions Severity Noted Date Comments Codeine 08/18/2016 Nitrofurantoin 08/18/2016 Medications Medication Sig Dispensed Refills Start Date End Date Status allopurinol (ZYLOPRIM) 1 tablet daily. 1 08/13/2016 Active 300 MG tablet omeprazole (PriLOSEC) 1 capsule daily. 2 08/08/2016 Active 40 MG capsule cyanocobalamin, vitamin Place 2,500 mcg 0 Active B-12, (VITAMIN B-12) under the tongue 2,500 mcg tablet, daily. sublingual cholecalciferol, Take 1 tablet by 0 Active vitamin D3, (VITAMIN mouth daily. D3) 5,000 unit tablet fluticasone (FLONASE) 2 sprays by Each 0 Active 50 mcg/actuation nasal Nare route daily. spray promethazine Take /-1 tablet 30 tablet 2 10/07/2017 Active (PHENERGAN) 12.5 MG p.o. every 6 tablet hours as needed migraine as directed prochlorperazine TAKE 1 TABLET BY 60 tablet 1 11/04/2017 Active (COMPAZINE) 5 MG tablet MOUTH EVERY 6 TO 8 HOURS NEEDED FOR NAUSEA OR MIGRANE metoprolol succinate XL TAKE 1 TABLET BY 60 tablet 0 8 Active (TOPROL-XL) 25 mg 24 hr MOUTH TWICE tabletIndications: DAILY, IN THE Chronic migraine MORNING AND AT without aura, DINNER intractable, without status migrainosus, Migraine with aura and without status migrainosus, not intractable cycloSPORINE (RESTASIS) Administer 1 drop 180 each 11 12/16/19 19 Active 0.05 % ophthalmic to both eyes 2 emulsion (two) times a day for 90 days. Active Problems Problem Noted Date Noncompliance with medication treatment due to overuse of medication 10/07/2017 Lumbar radiculopathy 07/15/2017 Cervical radiculopathy 04/08/2017 Pseudophakia 12/16/2016 Overview: OD 12/16/16 ZXR00 13.0, FLACS with laser AK at 85 deg for 0.5 D OS 12/30/16 ZXR00 14.0, FLACS with laser A K Last Assessment & Plan: OD 12/16/16 ZXR00 13.0, FLACS with laser AK at 85 deg for 0.5 D OS 12/30/16 ZXR00 14.0, FLACS with laser A K Doing excellent. Dry eye syndrome 11/07/2016 Last Assessment & Plan: Continue Restasis OU BID (attempted to d /c but worsened), ATs PRN. Resume, ran out 3 months ago. Epiretinal membrane (ERM) of both eyes 11/07/2016 Last Assessment & Plan: Extremely trace. Follow. At low risk for open-angle glaucoma in both eyes 11/07 Overview: C/D increase, symmetric. H/O normal MAR 2017. Last Assessment & Plan: C/D increase, symmetric. H/O normal MAR 2017. Chronic migraine without aura, intractable, without st atus migrainosus 08/18/2016 Migraine with aura and without status migrainosus, not intractable 08/18/2016 Primary insomnia 08/18/2016 Depressive disorder 08/18/2016 Encounters Date Type Specialty Care Team Description 09/12/2019 Telephone Ophthalmology Jaya Anton MD 06/28/2019 Telephone Ophthalmology Jaya Anton MD after 03/07/2019 Surgical History Surgery Date Site/Laterality Comments CARPAL TUNNEL RELEASE Right LAMINECTOMY BLADDER SUSPENSION TOTAL KNEE ARTHROPLASTY Bilateral ANKLE SURGERY Right HYSTERECTOMY PHACOEMULSIFICATION, CATARACT, 12/16/2016 Eye/Right P rocedure: PHACO W/ IOL WITH IOL IMPLANTATION UTILIZING LASER; Surgeon: Jaya Anton MD; Location: [facility] OR; Service: Ophthal mology; Laterality: Righ t; Medical devices from this surgery are in t he Implants section. LASER LEAD EXTRACTION FOR 12/16/2016 Eye/Right Proced ure: LASER ASSISTED SURGERY CATARACT SURGERY , RIGHT EYE; Surgeon: Chirag Anton MD; Loc ation: [facility] OR; Serv ice: Ophthalmology; Laterality: Right; Medical devices from this surgery are in t he Implants section. MASTOID SURGERY 1950 CATARACT EXTRACTION W/ 12/16/2016 Right INTRAOCULAR LENS IMPLANT CATARACT EXTRACTION W/ 12/30/[address] Anton INTRAOCULAR LENS IMPLANT PHACOEMULSIFICATION, CATARACT, 12/30/2016 Eye/Left P rocedure: PHACO W/ IOL WITH IOL IMPLANTATION UTILIZING LASER left eye; Surgeon: Jaya Anton MD; Location: [facility] OR; Service: Ophthalmology; Laterality: Left; Medical devices from this surgery are in t he Implants section. LASER LEAD EXTRACTION FOR 12/30/2016 Eye/Left Proced ure: LASER ASSISTED SURGERY CATARACT SURGERY , LEFT EYE; Surgeon: Jaya Anton MD; Location: [facility] OR; Service: Ophthalmology; Laterality: Left; Medical devices from this surgery are in t he Implants section. Medical History Medical History Date Comments Migraine Osteoarthritis Degenerative disc disease, cervical Mitral valve prolapse Diverticulitis Peptic ulcer Seizures (HCC) "shakes a little bit " Hypertension Chronic kidney disease kidney stones Family History Medical History Relation Name Comments Heart disease Father Dementia Mother Migraines Mother Relation Name Status Comments Father (Age 87) Mother Alive Social History Tobacco Use Types Packs/Day Years Used Date Never Smoker Smokeless Tobacco: Never Used Alcohol Use Drinks/Week oz/Week Comments No Sex Assigned at Date Recorded Not on file Last Filed Vital Signs Not on file Plan of Treatment Health Maintenance Due Date Last Done Comments COLONOSCOPY SCREENING 09/22/1993 SHINGLES VACCINES (#1) 09/22/1993 65+ PNEUMOCOCCAL VACCINE (1 of 1 - PPSV23) 09/22/2008 INFLUENZA VACCINE 12/31/2019 Implants Implanted Type Area Relationship Consultant Device Shelf Model / Serial Identifier Expiration Date / L ot Lens Iol [employer] Erv 13.0d - [id number] Right: HUNTER 04/29/2021 [id number] / Implanted: 12/16/2016 at [facility] (Quantity not on file) Eye [id number] / [id number] Lens Iol [employer] Erv 14.0d - [id number] N/A: N/A HUNTER 01/08/2021 [id number] / Implanted: 12/30/2016 at [facility] (Quantity not on file) [id number] / [id number] Results Not on fileafter 03/07/2019 Insurance Payer Benefit Plan / Subscriber ID Effective Phone Address T ype Group Dates MEDICARE MEDICARE PART [id number] 2008-Prese [place], [place] Medicare A AND B nt BANKERS LIFE BANKERS LIFE [id number] 2006-Prese Commercial AND CASUALTY AND CASUALTY nt Advance Directives For more information, please contact: [phone] Type Date Recorded 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
== END 2020-03-02 17:17 | disposition home or self-care (01) ==
LOC: ER 09:52 → ERHOLD 15:14 → 2ND 15:29
PROVIDERS: ADMIT Internal Medicine; ATTEND Internal Medicine
DX: R55 Syncope and collapse (principal); E87.6 Hypokalemia; G43.109 Migraine with aura, not intractable, without status migrainosus; I12.9 Hypertensive chronic kidney disease with stage 1 through stage 4 chronic kidney disease, or unspecified chronic kidney disease; N18.30 Chronic kidney disease, stage 3 unspecified; Z20.828 Contact with and (suspected) exposure to other viral communicable diseases; E78.2 Mixed hyperlipidemia; K21.9 Gastro-esophageal reflux disease without esophagitis; M15.9 Polyosteoarthritis, unspecified; R73.01 Impaired fasting glucose; S00.83XA Contusion of other part of head, initial encounter; S00.11XA Contusion of right eyelid and periocular area, initial encounter; R00.0 Tachycardia, unspecified; M81.0 Age-related osteoporosis without current pathological fracture; G40.209 Localization-related (focal) (partial) symptomatic epilepsy and epileptic syndromes with complex partial seizures, not intractable, without status epilepticus; M54.16 Radiculopathy, lumbar region; D63.1 Anemia in chronic kidney disease; W07.XXXA Fall from chair, initial encounter; Z96.659 Presence of unspecified artificial knee joint; S00.81XA Abrasion of other part of head, initial encounter
CPT/HCPCS: 36415; 70450; 70486; 70551; 71045; 72125; 76377; 76770; 80048; 80076; 81001; 83735; 83880; 84484; 85025; 85610; 87086; 87088; 93005; 93306; 95819; 96361; 96365; 96366; 96375; 97112; 97116; 97161; 99285; G0378; J0360; J2270; J7040; U0002

== ENCOUNTER 2020-11-05 17:04 | Inpatient (IN) | payer OTHER ==
--- OUTSIDE RECORDS SUMMARY | 2020-11-05 19:19 | XMS REPORT | Continuity of Care Document ---
:1945 Author Organization [facility] t Address [address] [place] [address] Care Team Providers Name Role Phone TAMARA, A Primary Care Physician Unavailable Ck Zamora DO Attending Clinician Brian Russell MD Attending Clinician Problems Condition Condition Condition Status Onset Resolution Last Treating Co mments Source Name Details Category Date Date Treatment Clinician Date Noncomplia Noncomplia Disease Active [place] nce with nce with 10-07 Method i medication medication 00:00: st treatment treatment 00 due to due to overuse of overuse of medication medication Lumbar Lumbar Disease Active [place] radiculopa radiculopa 2-14 Me thodi thy thy 00:00: st 00 Cervical Cervical Disease Active 2016-06 [place] radiculopa radiculopa 1-08 Me thodi thy thy 00:00: st 00 Pseudophak Pseudophak Disease Active Overview : [place] ia ia - Formattin Methodi 00:00: g of this note might be different from the original. OD 12/16/16 ZXR00 13.0, FLACS with laser AK at 85 deg for 0.5 DOS 12/30/16 ZXR00 14.0, FLACS with laser AK Last Assessmen t & Plan: Formattin g of this note might be different from the original. OD 12/16/16 ZXR00 13.0, FLACS with laser AK at 85 deg for 0.5 DOS 12/30/16 ZXR00 14.0, FLACS with laser AK Doing excellent . Dry eye Dry eye Disease Active Last [place] syndrome syndrome 11-07 Assessmen Met hodi 00:00: t & Plan: st 00 Formattin g of this note might be different from the original. Continue Restasis OU BID (attempte d to d/c but worsened) , ATs PRN. Resume, ran out 3 months ago. Epiretinal Epiretinal Disease Active Last [place] membrane membrane 11-07 Assessmen Met hodi (ERM) of (ERM) of 00:00: t & Plan: st both eyes both eyes 00 Formattin g of this note might be different from the original. Extremely trace. Follow. At low At low Disease Active Overview: Zak wakefield risk for risk for 11-07 Formattin Met hodi open-angle open-angle 00:00: g of this st glaucoma glaucoma 00 note in both in both might be eyes eyes different from the original. C/D increase, symmetric . H/O normal MAR 2017.Last Assessmen t & Plan: Formattin g of this note might be different from the original. C/D increase, symmetric . H/O normal MAR 2017. Chronic Chronic Disease Active [place] migraine migraine -20 Method i without without 00:00: st aura, aura, 00 intractabl intractabl e, without e, without status status migrainosu migrainosu s s Migraine Migraine Disease Active [place] with aura with aura 3-20 Meth karyna and and 00:00: st without without 00 status status migrainosu migrainosu s, not s, not intractabl intractabl e e Primary Primary Disease Active [place] insomnia insomnia -20 Method i 00:00: st 00 Depressive Depressive Disease Active [place] disorder disorder 3-20 Method i 00:00: st 00 Allergies, Adverse Reactions, Alerts Allergy Allergy Status Severity Reaction(s) Onset Inactive Treating Comm ents Source Name Type Date Date Clinician Codeine Propensi Active [place] ty to 3-20 Methodi adverse 00:00: st reaction 00 s to drug Nitrofur Propensi Active Zak n antoin ty to 3-20 Methodi adverse 00:00: st reaction 00 s to drug Family History Family Member Diagnosis Comments Start Date Stop Date Source Natural father Heart disease Jose Rastafarian Natural mother Dementia [facility] Natural mother Migraines [facility] Social History Social Habit Start Date Stop Date Quantity Comments Source Tobacco use and 2018-12-15 2018-12-15 Never used Jose sonodist exposure 00:00:00 00:00:00 Alcohol intake 2018-12-15 2018-12-15 Current Jose Cobos thodist 00:00:00 00:00:00 non-drinker of alcohol (finding) Sex [birth year] At [birth year] Jose sonodi 00:00:00 00:00:00 Smoking Status Start Date Stop Date Source Never smoker Jose Salinasis t Medications Ordered Filled Start Stop Current Ordering Indication Dosage Frequency Signature Comments Components Source Medication Medication Date Date Medication? Clinician (SIG) Name Name cyanocobala Yes 2500ug QD Place Kristy jovon [place], 12-15 2,500 mcg Methodi vitamin 10:42: under [...] nasal spray cycloSPORIN Yes 1[drp] Q.5D Administer Jose Suarez 12-15 1 drop to Methodi (RESTASIS) 00:00: [...] FOR NAUSEA OR MIGRANE promethazin Yes Take 1/4-1 Garcia e 5-09 tablet Methodi (PHENERGAN) 00:00: p.o. every st 12.5 MG 00 6 hours as tablet needed migraine as directed allopurinol 2016- Yes 1{tbl} 1 tablet Garcia (ZYLOPRIM) 3-15 daily. Methodi 300 MG 00:00: st tablet 00 omeprazole 2017- Yes 1{capsu 1 capsule Garcia (PriLOSEC) 3-10 le} daily. Methodi 40 MG 00:00: st capsule 00 Procedures This patient has no known procedures. Plan of Care Planned Activity Planned Date Details Comments Source Future Scheduled 2020-12-30 INFLUENZA VACCINE [place] [facility] Test 00:00:00 [code = INFLUENZA VACCINE] Future Scheduled 2008-09-22 65+ PNEUMOCOCCAL Garcia [facility] Test 00:00:00 VACCINE (1 of 1 - PPSV23) [code = 65+ PNEUMOCOCCAL VACCINE (1 of 1 - PPSV23)] Future Scheduled 1993-09-22 SHINGLES VACCINES (#1) H godwin [facility] Test 00:00:00 [code = SHINGLES VACCINES (#1)] Future Scheduled 1961-09-22 Hepatitis C screening [facility] Test 00:00:00 (procedure) [code = 052727699] Future Scheduled 1957 COVID-19 VACCINE (1) Kristyuriel sigala [facility] Test 00:00:00 [code = COVID-19 VACCINE (1)] Encounters Start End Encounter Admission Attending Care Care Encounter Source Date/Time Date/Time Type Type Clinicians Facility Department ID 2020-06-24 2020-06-24 Patient SULMA Zamora [id number] 00:00:00 00:00:00 Outreach Alex [facility] [id number] [facility] [id number] GOOD [id number] 2020-05-04 2020-05-04 Refill SULMA Russell [id number] 00:00:00 00:00:00 Teofilo Viera [id number] [place] [id number] Irina [id number] nal 092 Building 2019-10-07 2019-10-07 Refcullen Russell OKLA [id number] 00:00:00 00:00:00 Teofilo Viera [id number] [place] [id number] Profess [phone] [facility] Building Results This patient has no known results.
[2020-11-05 20:30] LABS: Absolute Lymphocytes (CBC) 4.1 K/uL (0.7-4.9); Basophils % 0.2 % (0-1.3); Hematocrit 46.7 % (36.0-45.0); Lymphocytes % 34.3 % (15.3-44.8); RBC Red Blood Cell Count 4.52 M/uL (3.86-4.86)
[2020-11-05 20:48] LABS: ALT/SGPT 23 U/L (12-78); AST/SGOT 17 U/L (15-37); Albumin 3.9 g/dL (3.4-5.0); Alkaline Phosphatase 68 U/L (45-117); BUN Blood Urea Nitrogen 29 mg/dL (7-18); Bicarbonate 20 mmol/L (21-32); Bilirubin Total 0.5 mg/dL (0.2-1.0); Creatine Phosphokinase 29 U/L (26-192); Glucose Level 137 mg/dL (74-106); Magnesium 2.1 mg/dL (1.8-2.4); NT PRO-BNP 543 pg/mL (<450); Potassium 3.7 mmol/L (3.5-5.1); Protein, Total 8.3 g/dL (6.4-8.2); Sodium Level 139 mmol/L (136-145); Troponin I < 0.02 ng/mL (0.0-0.045)
[2020-11-05 20:49] LABS: CKMB Creatine Kinase MB < 1.0 ng/mL (1.0-3.6)
[2020-11-05] MEDS ORDERED: ENOXAPARIN 60 MG/0.6 ML SQ ONE (22:24)
[2020-11-05] MEDS ORDERED: METOPROLOL XL 50 MG TAB PO ONE (22:25)
[2020-11-05] MEDS: FAMOTIDINE 20 MG TAB PO SCH (22:30)
[2020-11-05 22:54] VITALS: O2SAT 98
[2020-11-05] MEDS: NA CHLORIDE 0.9% 1,000 ML IV SCH (23:13)
[2020-11-06] MEDS ORDERED: ENOXAPARIN 60 MG/0.6 ML SQ SCH (09:00)
--- NOTE | 2020-11-06 11:42 | RAD REPORT ---
EXAM DESCRIPTION: CT - Chest For Pe Angio - 11/06/2020 11:26 am CLINICAL HISTORY: dyspnea, r/o PE COMPARISON: Chest Pa And Lat (2 Views) dated 11/05/2020 TECHNIQUE: Dynamically enhanced 3 mm thick images of the chest were obtained during administration o f approximately 150mL Isovue 370 IV contrast. Coronal and oblique MIP reconstruction images were gene rated and reviewed. Exam utilizes a protocol to evaluate the pulmonary arterial tree. All CT scans are performed using dose optimization technique as appropriate and may include automated exposure control or mA/KV adjustment according to patient size. FINDINGS: No pulmonary emboli are identified. The aorta as imaged shows no acute or suspicious finding. No pericardial thickening or effusion. No infiltrate or mass in the lung parenchyma. No pleural effusion or pleural thickening. Slight motio n degradation is present. No significant interstitial edema or infiltrate identifiable. Trace amount of atelectasis along the posterior right lung field. No mediastinal or hilar suspicious masses. No chest wall masses or abnormal axillary lymphadenopathy. IMPRESSION: No pulmonary emboli identified. No other significant or suspicious findings.
[2020-11-06] MEDS: METOPROLOL XL 50 MG TAB PO SCH ×2 (12:00→20:53)
--- NOTE | 2020-11-06 12:56 | HP ---
Date of Admission: 11/05/2020 Chief Complaint: Feeling weak, dizzy, tired, and short of breath. History Of Present Illness: This is a 75-year-old female patient, came into office with her today with 2 days history of feeling very weak, dizzy, tired and short of breath. The patient also f elt like her heart rate was beating faster than normal. Denies any chest pain. No vomiting. No yaneth rrhea. No bleeding. After the patient was evaluated at our office, decision was made to admit her t o the hospital. Allergies: TO SULFA CAUSING ITCHING, NITROFURANTOIN CAUSING DIARRHEA, GABAPENTIN CAUSING HALLUCINATI ON, AND LYRICA CAUSED SOME FACE SWELLING. Medications: Alendronate 70 mg once a week, allopurinol 300 mg daily, azelastine nasal spray, cyclob enzaprine 10 mg at bedtime, famotidine 40 mg at bedtime, metoprolol succinate 50 mg daily, oxycodone 5 mg, Lyrica 50 mg at bedtime which she is able to tolerate without any side effect, rosuvastatin 5 m g daily in the evening, topiramate 100 mg, and tramadol 50 mg 3 times a day as needed. Review of Systems: Constitutional: As mentioned above. Respiratory: As mentioned above. Cardiovascular: As mentioned above. All other systems reviewed and negative. Past Medical History: Significant for migraine headache, impaired fasting glucose, hypertension, mix ed hyperlipidemia, gastroesophageal reflux disease, chronic kidney disease, lumbar radiculopathy, ost eoarthritis at multiple sites, hyperuricemia, anemia due to chronic kidney disease, and osteopenia. The patient has history of paroxysmal supraventricular tachycardia and her last Holter done by her ca rdiologist, Dr. Grier was September 19, 2020 showing sinus rhythm with some paroxysmal supraventricular tachycardias. Past Surgical History: Cataract surgery, appendectomy, mastoidectomy, cholecystectomy, hysterectomy, bladder suspension, cervical spine surgery in 2000, lumbar spine surgery in 2011, wrist fracture jason marco antonio involving right wrist, carpal tunnel release from right hand, knee surgery which was arthroscopi c knee surgery in both knees. Family History: Father , had heart disease. Mother , had breast cancer. Social History: Negative for smoking, alcohol use. Physical Examination: Vital Signs: Blood pressure 135/80, pulse 128 per minute, temperature 96.9, respiratory rate 18. We ight 153.4 pounds, height 61 inches. General: Awake, alert, oriented, not in distress. HEENT: Head atraumatic, normocephalic. Conjunctivae nonerythematous. Sclerae white. Mouth, no thr ush or edema noted. Ears/Nose, no mass, lesion, discharge noted. Neck: Supple. No JVD, lymph nodes, bruit, thyromegaly noted. Lungs: Bilateral good equal air entry. Clear to auscultation. No rhonchi. No rales. Heart: Normal heart sounds, no murmur or gallop. Abdomen: Soft, bowel sounds normal. No guarding, rigidity, tenderness, mass, hepatosplenomegaly, dis tention, or bruit noted. Extremities: No leg edema. No calf tenderness. Skin: No rash, ulcer, cellulitis. Lymphatics: No lymph node enlargement in neck, supraclavicular, infraclavicular region. Neuro: No focal neurological deficit. Chest: Unremarkable. External Genitalia: Deferred. Rectal: Deferred. Laboratory Data: COVID-19 test negative. Chest x-ray, no acute cardiopulmonary changes. D-dimer el evated at 903. BNP 543. TSH 3.4. Troponin less than 0.02. Sodium 139, potassium 3.7, chloride 105 , bicarb 20, BUN 29, creatinine 1.44, glucose 133. White count 12, hemoglobin 15.4, platelets 304. Impression: 1.Palpitation. 2.Dyspnea. 3.Dizziness. 4.Paroxysmal supraventricular tachycardia. 5.Hypertension. 6.Hyperlipidemia, mixed. 7.Gastroesophageal reflux disease. 8.Impaired fasting glucose. 9.Chronic kidney disease, stage 3A. Plan: We will go ahead and admit the patient to hospital for further evaluation and management of th is problem. We will keep the patient on telemetry. EKG reviewed. We will go ahead and increase dos e of metoprolol and we will try to hydrate her with IV fluid per order, repeat blood work tomorrow mo rning, and plan is to do CAT scan tomorrow of the chest per PE protocol depending on her renal functi on and meanwhile we will start her on Lovenox. If her PE study comes back negative, we will plan to go ahead and discharge her to go home with higher dose of metoprolol. I will see her tomorrow for bev del rosario. PRIYANKA/MODOmar Voice ID: [id number]
--- NOTE | 2020-11-06 13:43 | RAD REPORT ---
EXAM DESCRIPTION: RAD - Chest Pa And Lat (2 Views) - 11/05/2020 10:00 pm CLINICAL HISTORY: Dyspnea COMPARISON: None. FINDINGS: Frontal and lateral radiographic views of the chest. Cardiomediastinal silhouette: Atherosclerotic calcification of the thoracic aorta. Heart is not enlar ged. Leads overlie the chest. Lungs: No consolidation, pneumothorax, or pleural effusion. Bones: Mild endplate spondylosis. Upper abdomen: No abnormality identified. IMPRESSION: 1. No acute pulmonary process identified. Electronically signed by: Cole Bender 11/05/2020 10:15 PM CDT Due to temporary technical issues with the PACS/Fluency reporting system, reports are being signed by the in house radiologists without review as a courtesy to insure prompt reporting. The interpreting radiologist is fully responsible for the content of the report.
[2020-11-06] MEDS: NA CHLORIDE 0.9% 1,000 ML IV SCH (14:14)
[2020-11-06] MEDS: OXYCODONE HCL 5 MG TAB PO PRN (14:25)
--- NOTE | 2020-11-06 18:35 | RAD REPORT ---
EXAM DESCRIPTION: USExtrem Venous W Compress Bil11/06/2020 6:19 pm CLINICAL HISTORY: Leg pain COMPARISON: none FINDINGS: The common femoral, superficial femoral, popliteal and posterior tibial veins bilaterally are compressible and demonstrate augmentation. Doppler demonstrates good flow. IMPRESSION: No evidence of deep venous thrombosis involving either lower extremity.
[2020-11-06] MEDS: FAMOTIDINE 20 MG TAB PO SCH (20:52)
[2020-11-06] MEDS ORDERED: ENOXAPARIN 40 MG/0.4 ML SQ SCH (21:00)
[2020-11-06 21:13] VITALS: BMI 27.3
--- NOTE | 2020-11-06 23:17 | PN ---
Date of Progress Note: 11/06/2020 Subjective: Patient was seen this morning for followup. No new complaints or problems reported by patient. Lying in bed. Not in distress. Overall, she feels better and looks better than yesterday. Objective: Vital Signs: Reviewed. HEENT: Examination unremarkable. Lungs: Clear to auscultation. Heart: Sounds normal. Abdomen: Soft, bowel sounds normal. No guarding, rigidity, tenderness, distention. Extremities: No leg edema. Laboratory Data: Labs reviewed. Impression: 1. Acute kidney injury, resolved. 2. Hypertension. Plan: We will go ahead and continue current management, patient's CT scan of the chest per PE protocol done today came back negative for pulmonary embolism, and we will get a venous Doppler of leg. Meanwhile, we will reduce dose of Lovenox from therapeutic dose to prophylactic dose. I will see her tomorrow for followup, possible discharge to go home tomorrow depending on her condition. PRIYANKA/MODL Voice ID: [id number] Report ID: [id number]
[2020-11-07] MEDS: OXYCODONE HCL 5 MG TAB PO PRN (00:32)
[2020-11-07] MEDS: NA CHLORIDE 0.9% 1,000 ML IV SCH (02:27)
[2020-11-07 04:31] LABS: Absolute Lymphocytes (CBC) 2.9 K/uL (0.7-4.9); Basophils % 0.4 % (0-1.3); Hematocrit 36.5 % (36.0-45.0); Lymphocytes % 40.6 % (15.3-44.8); RBC Red Blood Cell Count 3.54 M/uL (3.86-4.86)
[2020-11-07 04:37] LABS: Magnesium 1.9 mg/dL (1.8-2.4); Potassium 4.5 mmol/L (3.5-5.1)
--- NOTE | 2020-11-07 07:28 | EKG ---
Test Date: 2020-11-05 Test Time: 20:40:50 Medical Care Manager: BERNADETTE MEASUREMENT RESULTS: Intervals: Rate: 111 FL: 142 QRSD: 68 QT: 308 QTc: 418 [place]: P: 70 FL: 142 QRS: 35 T: 66 INTERPRETIVE STATEMENTS: Sinus tachycardia Biatrial enlargement Abnormal ECG Compared to ECG 03/01/2020 11:06:22 Sinus rhythm no longer present Electronically Signed On 11-07-20 07:26:41 CDT by Elieser Topete
[2020-11-07 08:10] VITALS: BP 157/72; TEMP 98.3
[2020-11-07] MEDS: METOPROLOL XL 50 MG TAB PO SCH (08:29)
--- NOTE | 2020-11-07 09:07 | ECHO ---
HEIGHT: 5 ft 4 in WEIGHT: 159 lb 11.2 oz DATE OF STUDY: 11/06/[address]: Peter Dolan MD 2-DIMENSIONAL: YES M.MODE: YES DOPPLER: YES COLOR FLOW: YES TDS: NO PORTABLE: NO DEFINITY: NO BUBBLE STUDY: NO DIAGNOSIS: PALPITATIONS CARDIAC HISTORY: CATHERIZATION: SURGERY: PROSTHETIC VALVE: PACEMAKER: MEASUREMENTS (cm) DIASTOLIC (NORMALS) SYSTOLIC (NORMALS) IVSd 0.9 (0.6-1.2) LA Diam (1.9-4.0) LVEF 62% LVIDd 3.7 (3.5-5.7) LVIDs 2.5 (2.0-3.5) %FS 33% LVPWd 0.8 (0.6-1.2) Ao Diam 3.0 (2.0-3.7) 2 DIMENSIONAL ASSESSMENT: RIGHT ATRIUM: NORMAL LEFT ATRIUM: NORMAL RIGHT VENTRICLE: NORMAL LEFT VENTRICLE: NORMAL TRICUSPID VALVE: NORMAL MITRAL VALVE: NORMAL PULMONIC VALVE: NORMAL AORTIC VALVE: NORMAL PERICARDIAL EFFUSION: NONE AORTIC ROOT: NORMAL LEFT VENTRICULAR WALL MOTION: NORMAL. DOPPLER/COLOR FLOW: MILD TRICUSPID REGURGITATION. COMMENTS: MILD TRICUSPID REGURGITATION. NORMAL 2D ECHO. NORMAL LEFT VENTRICULAR SIZE AND FUNCTION. NO EFFUSION. TECHNOLOGIST: ANGEL NOBLE
--- NOTE | 2020-11-08 04:42 | DS ---
Date of Discharge: 11/07/2020 Disposition: Discharged to go home. Physical Examination: HEENT: Unremarkable. Lungs: Clear to auscultation. Heart: Sounds normal. Abdomen: Soft. Bowel sounds are normal. Extremities: No leg edema. Discharge Medications And Instructions: Continue all prior home medications except change metoprolol succinate 50 mg, the patient to take 1 tablet by mouth 2 times a day. Next followup at my office next week on Thursday which is 11/13/2020 at 10 a.m. Final Diagnosis: 1. Volume depletion. 2. Palpitation. 3. Dyspnea. 4. Dizziness. 5. Paroxysmal supraventricular tachycardia. 6. Hypertension. 7. Hyperlipidemia, mixed. 8. Gastroesophageal reflux disease. 9. Impaired fasting glucose. Hospital Course: This is a 75-year-old female patient who came into office and subsequently admitted to the hospital. Please see dictated H and P for more information. After the patient was evaluated at the office, she was admitted to the hospital. Initial blood work; CBC chemistry was unremarkable, her D-dimer was elevated. BUN and creatinine were abnormal, consistent with volume depletion. The patient was started on IV fluid and repeat BUN and creatinine came back to normal after IV fluid hydration was given to her. The patient was started on Lovenox therapeutic dose because of elevated D-dimer and CAT scan of the chest was done yesterday morning, which came back negative for pulmonary embolism and venous Doppler of lower extremity was done and it was negative for DVT. The patient's condition has improved. She is feeling much better. At home, she takes metoprolol 50 mg once a day, dose was increased to twice a day, and the patient reported that with IV fluid and increasing dose of metoprolol, she is feeling much better and today she was discharged to go home in stable condition with above- mentioned medications and instructions. PRIYANKA/MODL Voice ID: [id number] Report ID: [id number]
== END 2020-11-07 10:30 | disposition home or self-care (01) | DRG 641 ==
LOC: 2ND 19:17 → OBSVTOIN 11-06 15:10
PROVIDERS: ADMIT Internal Medicine; ATTEND Internal Medicine
DX: E86.9 Volume depletion, unspecified (principal); I47.1 Supraventricular tachycardia; N17.9 Acute kidney failure, unspecified; R00.2 Palpitations; R06.00 Dyspnea, unspecified; R42 Dizziness and giddiness; E78.2 Mixed hyperlipidemia; K21.9 Gastro-esophageal reflux disease without esophagitis; I12.9 Hypertensive chronic kidney disease with stage 1 through stage 4 chronic kidney disease, or unspecified chronic kidney disease; N18.31 Chronic kidney disease, stage 3a; Z20.822 Contact with and (suspected) exposure to COVID-19
CPT/HCPCS: 36415; 71046; 71275; 80048; 80053; 82550; 82553; 83735; 83880; 84443; 84484; 85025; 85379; 93005; 93306; 93970; G0378; G0379; J1650; J7030; Q9967; U0003

== ENCOUNTER 2022-05-06 14:12 | Emergency (ER) | payer OTHER ==
--- OUTSIDE RECORDS SUMMARY | 2022-05-06 14:21 | XMS REPORT | Continuity of Care Document ---
:1945 Author Organization [facility] t Address [address] [place] [address] Care Team Providers Name Role Phone [phone] Primary Care Physician Unavailable Vaccine, Ang Db Cbc Fam Attending Clinician Unavailable Anegray TEACHER MUSIC, Carmen Attending Clinician CARMEN MANNING Attending Clinician Unavailable Doctor Unassigned, [place] Attending Clinician Unavailable Juan Tucker MD Attending Clinician JUAN TUCKER Attending Clinician Unavailable HARINDER DAIGLE Attending Clinician Unavailable Alex Zamora DO Attending Clinician Teofilo Russell MD Attending Clinician Keri PTTiera Attending Clinician Unavailable Jake Weaver MD Attending Clinician Lashonda Caceres PTA Attending Clinician Unavailable Payers Payer Name Policy Type Policy Number Effective Date Expiration Date S solo BAZZI LIFE & C1 [id number] [facility] Spi rit CASUALTY - [facility] MEDICARE MB [id number] [facility] NOVITAS [facility] Problems Condition Condition Condition Status Onset Resolution Last Treating Co mments Source Name Details Category Date Date Treatment Clinician Date Noncomplia Noncomplia Disease Active 2018-0 M ethodi nce with nce with 10-07 st medication medication 00:00: Ho spita treatment treatment 00 l due to due to overuse of overuse of medication medication Lumbar Lumbar Disease Active Methodi radiculopa radiculopa 2-14 st thy thy 00:00: Hospita 00 l Cervical Cervical Disease Active 2016-06 Metho di radiculopa radiculopa 1-08 st thy thy 00:00: Hospita 00 l Pseudophak Pseudophak Disease Active Overview : Methodi ia ia 12-[address] 00:00: g of this Hospita 00 note l might be different from the original. 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 Continue Restasis OU BID (attempte d to d/c but worsened) , ATs PRN. Resume, ran out 3 months ago. Epiretinal Epiretinal Disease Active Last M ethodi membrane membrane 11-[address] (ERM) of (ERM) of 00:00: t & Plan: Hos erich both eyes both eyes 00 Formattin l g of this note might be different from the original. Extremely trace. Follow. At low At low Disease Active Overview: Method i risk for risk for 11-[address] open-angle open-angle 00:00: g of this Hospita glaucoma glaucoma 00 note l in both in both might be eyes eyes different from the original. C/D increase, symmetric . H/O normal MAR 2017.Last Assessmen t & Plan: Formattin g of this note might be different from the original. C/D increase, symmetric . H/O normal MAR 2017. Chronic Chronic Disease Active Methodi migraine migraine 3-20 st without without 00:00: Hospita aura, aura, 00 l intractabl intractabl e, without e, without status status migrainosu migrainosu s s Migraine Migraine Disease Active Metho di with aura with aura 3 st and and 00:00: Hospita without without 00 l status status migrainosu migrainosu s, not s, not intractabl intractabl e e Primary Primary Disease Active Methodi insomnia insomnia 08-18 00:00: Hospita 00 l Depressive Depressive Disease Active M ethodi disorder disorder 08-18 00:00: Hospita 00 l Obesity Obesity Disease Active Univers (BMI (BMI 1-18 ity of 30-39.9) 30-39.9) 00:00: [place] [address] Medical Branch Persistent Persistent Disease Active U nivers vomiting vomiting 01-04 ity of 00:00: [address] History of History of Problem C ommon urinary recurrent Spirit tract UTI - CHI infection (urinary tract [facility] infection) [facility]ica [facility] [id number] Acute Problem Common cystitis [facility] with - [facility]I hematuria [facility] [id number] Suprapubic Problem Co mmon pain [facility] [id number] RLQ Problem Common abdominal Spirit pain [facility] Kidney Kidney Problem Common stone stones [facility] [id number] Incomplete Problem Co mmon emptying Spirit of bladder [facility] [id number] History of Problem Co mmon nephrolith Spirit iasis [facility] [id number] Lower Problem Common urinary [facility] tract - symptoms (LUTS) [facility] Allergies, Adverse Reactions, Alerts Allergy Allergy Status Severity Reaction(s) Onset Inactive Treating Comm ents Source Name Type Date Date Clinician Codeine Propensi Active Methodi ty to [address] st adverse 00:00: Hospita reaction 00 l s to drug Nitrofur Propensi Active Method i antoin ty to 3-20 st adverse 00:00: Hospita reaction 00 l s to drug HYDROCOD DRUG Active Med ITCHING Univers ONE-ACET 01-04 ity of AMINOPHE 00:00: [place] N [address] [place] [address] NITROFUR DRUG Active Diarrhea Univer s ANTOIN 01-04 ity of MONOHYD/ 00:00: [place] M-CRYST 00 Medical Branch Nitrofur Propensi Active Diarrhea 2015- Univ ers antoin ty to 01-04 ity of Monohyd/ adverse 00:00: [place] M-Cryst reaction 00 Medical s Branch Hydrocod Propensi Active Itching Can take Uni vers one-Acet ty to 01-04 with ity of aminophe adverse 00:00: Benadryl [place] n reaction 00 Medical s to Branch drug Nitrofur Nitrofur Active Unknown Commo n antoin antoin [facility] Hydrocod Hydrocod Active Unknown Commo n one one [facility] Family History Family Member Diagnosis Comments Start Date Stop Date Source Natural father Heart disease [facility] Natural mother Dementia [facility] Natural mother Migraines [facility] Social History Social Habit Start Date Stop Date Quantity Comments Source History of [facility] Spirit - Tobacco Use [facility] Exposure to 2021-09-30 2021-10-10 Not sure [facility] SARS-CoV-2 00:00:00 15:02:00 [facility] (event) [place] Alcohol intake 2018-12-15 2018-12-15 [facility] 00:00:00 00:00:00 non-drinker of alcohol (finding) Tobacco use and 2015-10-30 2015-10-30 Never used Universit y of exposure 00:00:00 00:00:00 [facility] Sex Ass[birth year] [facility] 00:00:00 00:00:00 Smoking Status Start Date Stop Date Source Never smoker [facility] Medications Ordered Filled Start Stop Current Ordering Indication Dosage Frequency Signature Comments Components Source Medication Medication Date Date Medication? Clinician (SIG) Name Name Cephalexin Cephalexin 2021-06- No 1{capsu TID Cephalexin 500 MG 500 MG 04-07 le} 500 MG 00:00: 00:00 00 :00 Cefuroxime Cefuroxime 2021-06- No 1{table BID Cefuroxime Axetil 250 Axetil 250 0- t} Axetil 250 MG MG 00:00: 00:00 MG 00 :00 Cefuroxime Cefuroxime 2021-06- No 1{table BID Cefuroxime Axetil 250 Axetil 250 003-31 t} Axetil 250 MG MG 00:00: 00:00 MG 00 :00 Cefuroxime Cefuroxime 2021-06- No 1{table BID Cefuroxime Axetil 250 Axetil 250 003-31 t} Axetil 250 MG MG 00:00: 00:00 MG 00 :00 Cipro 500 Cipro 500 2020-06- No 1{table BID Cipro 500 MG MG 07-22 t} MG 00:00: 00:00 00 :00 Cipro 500 Cipro 500 2020-06- No 1{table BID Cipro 500 MG MG 07-22 t} MG 00:00: 00:00 00 :00 topiramate 2020-1 Yes [id number] 100mg Take 1 Univers 100 mg 2-07 9105 tablet by ity of tablet 00:00: mouth 2 [place] (two) Medical times Branch daily. topiramate 2020-1 Yes [id number] 100mg Take 1 Univers 100 mg 2-07 9105 tablet by ity of tablet 00:00: mouth 2 [place] (two) Medical times Branch daily. topiramate 2020-1 Yes [id number] 100mg Take 1 Univers 100 mg 2-07 9105 tablet by ity of tablet 00:00: mouth 2 [place] 00 (two) Medical times Branch daily. topiramate 2020-1 Yes [id number] 100mg Take 1 Univers 100 mg 2-07 9105 tablet by ity of tablet 00:00: mouth 2 [place] 00 (two) Medical times Branch daily. topiramate 2020-1 Yes [id number] 100mg Take 1 Univers 100 mg 2-07 9105 tablet by ity of tablet 00:00: mouth 2 [place] 00 (two) Medical times Branch daily. topiramate 2020-0 Yes [id number] 100mg Take 1 Univers 100 mg 6-08 9105 tablet by ity of tablet 00:00: mouth 2 [place] 00 (two) Medical times Branch daily. topiramate 2020-0 2020- No [id number] 100mg Take 1 Univers 100 mg 6-08 12-07 9105 tablet by ity of tablet 00:00: 00:00 mouth 2 [place] 00 :00 (two) Medical times Branch daily. TOPIRAMATE 2020-0 Yes [id number] TAKE 1 Univers 100 mg 5-08 9105 TABLET BY ity of tablet 00:00: MOUTH 00 TWICE Medical DAILY Branch TOPIRAMATE 2020-0 2020- No [id number] TAKE 1 Univers 100 mg 10-06 9105 TABLET BY ity of tablet 00:00: 00:00 MOUTH [place] 00 :00 TWICE Medical DAILY Branch TOPIRAMATE 2020-0 2020- No [id number] TAKE 1 Univers 100 mg 06-09 9105 TABLET BY ity of tablet 00:00: 00:00 MOUTH [place] 00 :00 TWICE Medical DAILY Branch TOPIRAMATE 2019-0 2020- No [id number] TAKE 1 Univers 100 mg 06-09 9105 TABLET BY ity of tablet 00:00: 00:00 MOUTH [place] 00 :00 TWICE Medical DAILY Branch cycloSPORIN 2019- Yes 1[drp] Place 1 U nivers E 8-13 Drop in ity of (RESTASIS) 21:04: left eye [place] as 0.05 % 36 every 12 Medical drops (twelve) Branch hours. CALCIUM 2019- Yes 2{tbl} Take 2 Univer s CARBONATE/V 8-13 tablets by it y of ITAMIN D3 21:04: mouth. [place] (CALCIUM 36 Medical 500 + D Branch ORAL) cycloSPORIN 2018- Yes 1[drp] Place 1 U nivers E 8-13 Drop in ity of (RESTASIS) 21:04: left eye [place] as 0.05 % 36 every 12 Medical drops (twelve) Branch hours. CALCIUM 2019-0 Yes 2{tbl} Take 2 Univer s CARBONATE/V 8-13 tablets by it y of ITAMIN D3 21:04: mouth. [place] (CALCIUM 36 Medical 500 + D Branch ORAL) cycloSPORIN 2019-0 Yes 1[drp] Place 1 U nivers E 8-13 Drop in ity of (RESTASIS) 21:04: left eye [place] as 0.05 % 36 every 12 Medical drops (twelve) Branch hours. CALCIUM 2019-0 Yes 2{tbl} Take 2 Univer s CARBONATE/V 8-13 tablets by it y of ITAMIN D3 21:04: mouth. [place] (CALCIUM 36 Medical 500 + D Branch ORAL) cycloSPORIN 2019-0 Yes 1[drp] Place 1 U nivers E 8-13 Drop in ity of (RESTASIS) 21:04: left eye [place] as 0.05 % 36 every 12 Medical drops (twelve) Branch hours. CALCIUM 2019-0 Yes 2{tbl} Take 2 Univer s CARBONATE/V 8-13 tablets by it y of ITAMIN D3 21:04: mouth. [place] (CALCIUM 36 Medical 500 + D Branch ORAL) cycloSPORIN 2019-0 Yes 1[drp] Place 1 U nivers E 8-13 Drop in ity of (RESTASIS) 21:04: left eye [place] as 0.05 % 36 every 12 Medical drops (twelve) Branch hours. CALCIUM 2019-0 Yes 2{tbl} Take 2 Univer s CARBONATE/V 8-13 tablets by it y of ITAMIN D3 21:04: mouth. [place] (CALCIUM 36 Medical 500 + D Branch ORAL) cycloSPORIN 2019-0 Yes 1[drp] Place 1 U nivers E 8-13 Drop in ity of (RESTASIS) 21:04: left eye [place] as 0.05 % 36 every 12 Medical drops (twelve) Branch hours. CALCIUM 2019-0 Yes 2{tbl} Take 2 Univer s CARBONATE/V 8-13 tablets by it y of ITAMIN D3 21:04: mouth. [place] (CALCIUM 36 Medical 500 + D Branch ORAL) cycloSPORIN 2019-0 Yes 1[drp] Place 1 U nivers E 8-13 Drop in ity of (RESTASIS) 21:04: left eye [place] as 0.05 % 36 every 12 Medical drops (twelve) Branch hours. CALCIUM 2019-0 Yes 2{tbl} Take 2 Univer s CARBONATE/V 8-13 tablets by it y of ITAMIN D3 21:04: mouth. [place] (CALCIUM 36 Medical 500 + D Branch ORAL) cycloSPORIN 2019-0 Yes 1[drp] Place 1 U nivers E 8-13 Drop in ity of (RESTASIS) 21:04: left eye [place] as 0.05 % 36 every 12 Medical drops (twelve) Branch hours. CALCIUM 2019-0 Yes 2{tbl} Take 2 Univer s CARBONATE/V 8-13 tablets by it y of ITAMIN D3 21:04: mouth. [place] (CALCIUM 36 Medical 500 + D Branch ORAL) cycloSPORIN 2019-0 Yes 1[drp] Place 1 U nivers E 8-13 Drop in ity of (RESTASIS) 21:04: left eye [place] as 0.05 % 36 every 12 Medical drops (twelve) Branch hours. CALCIUM 2019-0 Yes 2{tbl} Take 2 Univer s CARBONATE/V 8-13 tablets by it y of ITAMIN D3 21:04: mouth. [place] (CALCIUM 36 Medical 500 + D Branch ORAL) cycloSPORIN 2019-0 Yes 1[drp] Place 1 U nivers E 8-13 Drop in ity of (RESTASIS) 21:04: left eye [place] 0.05 % 36 every 12 Medical drops (twelve) Branch hours. CALCIUM 2019-0 Yes 2{tbl} Take 2 Univer s CARBONATE/V 8-13 tablets by it y of ITAMIN D3 21:04: mouth. [place] (CALCIUM 36 Medical 500 + D Branch ORAL) cycloSPORIN 2019-0 Yes 1[drp] Place 1 U nivers E 8-13 Drop in ity of (RESTASIS) 21:04: left eye [place] as 0.05 % 36 every 12 Medical drops (twelve) Branch hours. CALCIUM 2019- Yes 2{tbl} Take 2 Univer s CARBONATE/V 8-13 tablets by it y of ITAMIN D3 21:04: mouth. [place] (CALCIUM 36 Medical 500 + D Branch ORAL) cycloSPORIN 2019-0 Yes 1[drp] Place 1 U nivers E 8-13 Drop in ity of (RESTASIS) 21:04: left eye [place] 0.05 % 36 every 12 Medical drops (twelve) Branch hours. CALCIUM 2019-0 Yes 2{tbl} Take 2 Univer s CARBONATE/V 8-13 tablets by it y of ITAMIN D3 21:04: mouth. [place] (CALCIUM 36 Medical 500 + D Branch ORAL) cycloSPORIN 2019-0 Yes 1[drp] Place 1 U nivers E 8-13 Drop in ity of (RESTASIS) 21:04: left eye [place] 0.05 % 36 every 12 Medical drops (twelve) Branch hours. CALCIUM 2019-0 Yes 2{tbl} Take 2 Univer s CARBONATE/V 8-13 tablets by it y of ITAMIN D3 21:04: mouth. [place] (CALCIUM 36 Medical 500 + D Branch ORAL) cycloSPORIN 2019-0 Yes 1[drp] Place 1 U nivers E 8-13 Drop in ity of (RESTASIS) 21:04: left eye [place] 0.05 % 36 every 12 Medical drops (twelve) Branch hours. CALCIUM 2019-0 Yes 2{tbl} Take 2 Univer s CARBONATE/V 8-13 tablets by it y of ITAMIN D3 21:04: mouth. [place] (CALCIUM 36 Medical 500 + D Branch ORAL) DIAZEPAM 2019- No 5mg Take 5 mg Uni vers ORAL 8- 08-13 by mouth ity of 21:04: 00:00 as needed. [place] 16 :00 [facility] Branch DIAZEPAM 2019- No 5mg Take 5 mg Uni vers ORAL 8 08-13 by mouth ity of 21:04: 00:00 as needed. [place] 16 :00 Medical Branch CYANOCOBALA 2019- No 1mL Place 1 mL Univers MIN/COBAMAM 8- 0813 under the it y of [place] (B12 21:04: 00:00 tongue [facility]) 07 :00 daily. Medical Branch CYANOCOBALA 2019- No 1mL Place 1 mL Univers MIN/COBAMAM 8- 0813 under the it y of [place] (B12 21:04: 00:00 tongue [facility]) 07 :00 daily. Medical Branch ESTROGENS, Yes 1{appli Insert 1 Univers CONJUGATED 8-13 catorfu Applicator ity of (PREMARIN 21:03: l} ful into [place] VAGINAL) 17 vagina Medical weekly. Branch Indication s: Three times weekly metoprolol Yes 25mg Take 25 mg U nivers succinate 8-13 by mouth ity of XL 25 mg 24 21:03: [place]. [place] hr tablet [address] [place] [address] Branch omeprazole Yes 40mg Take 40 mg U nivers 40 mg 8-13 by mouth ity of capsule 21:03: daily. [address] Branch alendronate 0 Yes 70mg Take 70 mg Univers 70 mg 8-13 by mouth ity of tablet 21:03: weekly. [place] [address] Medical Branch ALLOPURINOL 2018-0 Yes 300mg Take 300 U nivers ORAL 8-13 mg by ity of 21:03: mouth [place] 17 daily. Medical Branch Tramadol Yes 50mg Take 50 mg Uni vers (RYBIX ODT) 8-13 by mouth ity of 50 mg 21:03: as needed. [address] Branch FLUTICASONE 0 Yes 1{spray Use 1 Un [place] PROPIONATE 8-13 } [place] in ity o f (FLUTICASON 21:03: each [place] E NASAL) 17 nostril as Medic al needed. Branch ESTROGENS, Yes 1{appli Insert 1 Univers CONJUGATED 8-13 catorfu Applicator ity of (PREMARIN 21:03: l} ful into [place] VAGINAL) 17 vagina Medical weekly. Branch Indication s: Three times weekly metoprolol Yes 25mg Take 25 mg U nivers succinate 8-13 by mouth ity of XL 25 mg 24 21:03: daily. [place] hr tablet [address] [place] [address] omeprazole Yes 40mg Take 40 mg U nivers 40 mg 8-13 by mouth ity of capsule 21:03: daily. [address] alendronate Yes 70mg Take 70 mg Univers 70 mg 8-13 by mouth ity of tablet 21:03: weekly. [address] ALLOPURINOL Yes 300mg Take 300 U nivers ORAL 8-13 mg by ity of 21:03: mouth [place] 17 daily. [facility] Branch Tramadol Yes 50mg Take 50 mg Uni vers (RYBIX ODT) 8-13 by mouth ity of 50 mg 21:03: as needed. [address] FLUTICASONE Yes 1{spray Use 1 Un [place] PROPIONATE 8-13 } [place] in ity o f (FLUTICASON 21:03: each [place] E NASAL) 17 nostril as Medic al needed. Branch ESTROGENS, Yes 1{appli Insert 1 Univers CONJUGATED 8-13 catorfu Applicator ity of (PREMARIN 21:03: l} ful into [place] VAGINAL) 17 vagina Medical weekly. Branch Indication s: Three times weekly metoprolol Yes 25mg Take 25 mg U nivers succinate 8-13 by mouth ity of XL 25 mg 24 21:03: daily. [place] hr tablet [address] [place] [address] omeprazole Yes 40mg Take 40 mg U nivers 40 mg 8-13 by mouth ity of capsule 21:03: daily. [address] alendronate Yes 70mg Take 70 mg Univers 70 mg 8-13 by mouth ity of tablet 21:03: weekly. [address] ALLOPURINOL Yes 300mg Take 300 U nivers ORAL 8-13 mg by ity of 21:03: mouth [place] 17 daily. Medical Branch Tramadol Yes 50mg Take 50 mg Uni vers (RYBIX ODT) 8-13 by mouth ity of 50 mg 21:03: as needed. [place] tablet [address] [place] [address] FLUTICASONE Yes 1{spray Use 1 Un [place] PROPIONATE 8-13 } [place] in ity o f (FLUTICASON 21:03: each [place] E NASAL) 17 nostril as Medic al needed. [place] ESTROGENS, Yes 1{appli Insert 1 Univers CONJUGATED 8-13 catorfu Applicator ity of (PREMARIN 21:03: l} ful into [place] VAGINAL) 17 vagina Medical weekly. Branch Indication s: Three times weekly metoprolol Yes 25mg Take 25 mg U nivers succinate 8-13 by mouth ity of XL 25 mg 24 21:03: daily. [place] hr tablet [address] [place] [address] omeprazole Yes 40mg Take 40 mg U nivers 40 mg 8-13 by mouth ity of capsule 21:03: daily. [address] alendronate Yes 70mg Take 70 mg Univers 70 mg 8-13 by mouth ity of tablet 21:03: weekly. [address] ALLOPURINOL Yes 300mg Take 300 U nivers ORAL 8-13 mg by ity of 21:03: mouth [place] 17 daily. [facility] Branch Tramadol Yes 50mg Take 50 mg Uni vers (RYBIX ODT) 8-13 by mouth ity of 50 mg 21:03: as needed. [place] tablet [address] [place] [address] FLUTICASONE Yes 1{spray Use 1 Un [place] PROPIONATE 8-13 } [place] in ity o f (FLUTICASON 21:03: each [place] E NASAL) 17 nostril as Medic al needed. [place] ESTROGENS, Yes 1{appli Insert 1 Univers CONJUGATED 8-13 catorfu Applicator ity of (PREMARIN 21:03: l} ful into [place] VAGINAL) 17 vagina Medical weekly. Branch Indication s: Three times weekly metoprolol 2018-0 Yes 25mg Take 25 mg U nivers succinate 8-13 by mouth ity of XL 25 mg 24 21:03: daily. [place] hr tablet [address] [place] [address] omeprazole Yes 40mg Take 40 mg U nivers 40 mg 8-13 by mouth ity of capsule 21:03: daily. [address] alendronate 2018- Yes 70mg Take 70 mg Univers 70 mg 8-13 by mouth ity of tablet 21:03: weekly. [address] ALLOPURINOL 2018- Yes 300mg Take 300 U nivers ORAL 8-13 mg by ity of 21:03: mouth [place] 17 daily. [facility] Branch Tramadol Yes 50mg Take 50 mg Uni vers (RYBIX ODT) 8-13 by mouth ity of 50 mg 21:03: as needed. [place] tablet [address] [place] [address] FLUTICASONE Yes 1{spray Use 1 Un [place]ito PROPIONATE 8-13 } [place] in ity o f (FLUTICASON 21:03: each [place] E NASAL) 17 nostril as Medic al needed. [place] ESTROGENS, Yes 1{appli Insert 1 Univers CONJUGATED 8-13 catorfu Applicator ity of (PREMARIN 21:03: l} ful into [place] VAGINAL) 17 vagina Medical weekly. Branch Indication s: Three times weekly metoprolol Yes 25mg Take 25 mg U nivers succinate 8-13 by mouth ity of XL 25 mg 24 21:03: daily. [place] hr tablet [address] [place] [address] omeprazole Yes 40mg Take 40 mg U nivers 40 mg 8-13 by mouth ity of capsule 21:03: daily. [address] alendronate Yes 70mg Take 70 mg Univers 70 mg 8-13 by mouth ity of tablet 21:03: weekly. [address] ALLOPURINOL 2018- Yes 300mg Take 300 U nivers ORAL 8-13 mg by ity of 21:03: mouth [place] 17 daily. [facility] Branch Tramadol Yes 50mg Take 50 mg Uni vers (RYBIX ODT) 8-13 by mouth ity of 50 mg 21:03: as needed. [place] tablet [address] [place] [address] FLUTICASONE 2018- Yes 1{spray Use 1 Un [place] PROPIONATE 8-13 } [place] in ity o f (FLUTICASON 21:03: each [place] E NASAL) 17 nostril as Medic al needed. [place] ESTROGENS, Yes 1{appli Insert 1 Univers CONJUGATED 8-13 catorfu Applicator ity of (PREMARIN 21:03: l} ful into [place] VAGINAL) 17 vagina Medical weekly. Branch Indication s: Three times weekly metoprolol Yes 25mg Take 25 mg U nivers succinate 8-13 by mouth ity of XL 25 mg 24 21:03: daily. [place] hr tablet [address] [place] [address] omeprazole Yes 40mg Take 40 mg U nivers 40 mg 8-13 by mouth ity of capsule 21:03: daily. [address] alendronate Yes 70mg Take 70 mg Univers 70 mg 8-13 by mouth ity of tablet 21:03: weekly. [address] ALLOPURINOL Yes 300mg Take 300 U nivers ORAL 8-13 mg by ity of 21:03: mouth [place] 17 daily. [facility] Branch Tramadol Yes 50mg Take 50 mg Uni vers (RYBIX ODT) 8-13 by mouth ity of 50 mg 21:03: as needed. [address] FLUTICASONE Yes 1{spray Use 1 Un lobito PROPIONATE 8-13 } [place] in ity o f (FLUTICASON 21:03: each [place] E NASAL) 17 nostril as Medic al needed. Branch ESTROGENS, Yes 1{appli Insert 1 Univers CONJUGATED 8-13 catorfu Applicator ity of (PREMARIN 21:03: l} ful into [place] VAGINAL) vagina Medical weekly. Branch Indication s: Three times weekly metoprolol Yes 25mg Take 25 mg U nivers succinate 8-13 by mouth ity of XL 25 mg 24 21:03: daily. [place] hr tablet [address] [place] [address] omeprazole Yes 40mg Take 40 mg U nivers 40 mg 8-13 by mouth ity of capsule 21:03: daily. [address] alendronate Yes 70mg Take 70 mg Univers 70 mg 8-13 by mouth ity of tablet 21:03: weekly. [address] ALLOPURINOL Yes 300mg Take 300 U nivers ORAL 8-13 mg by ity of 21:03: mouth [place] 17 daily. [facility] Branch Tramadol Yes 50mg Take 50 mg Uni vers (RYBIX ODT) 8-13 by mouth ity of 50 mg 21:03: as needed. [address] FLUTICASONE Yes 1{spray Use 1 Un lobito PROPIONATE 8-13 } [place] in ity o f (FLUTICASON 21:03: each [place] E NASAL) 17 nostril as Medic al needed. Branch ESTROGENS, Yes 1{appli Insert 1 Univers CONJUGATED 8-13 catorfu Applicator ity of (PREMARIN 21:03: l} ful into [place] VAGINAL) 17 vagina Medical weekly. Branch Indication s: Three times weekly metoprolol Yes 25mg Take 25 mg U nivers succinate 8-13 by mouth ity of XL 25 mg 24 21:03: daily. [place] hr tablet [address] [place] [address] omeprazole Yes 40mg Take 40 mg U nivers 40 mg 8-13 by mouth ity of capsule 21:03: daily. [address] alendronate Yes 70mg Take 70 mg Univers 70 mg 8-13 by mouth ity of tablet 21:03: weekly. [address] ALLOPURINOL Yes 300mg Take 300 U nivers ORAL 8-13 mg by ity of 21:03: mouth [place] daily. [facility] Branch Tramadol Yes 50mg Take 50 mg Uni vers (RYBIX ODT) 8-13 by mouth ity of 50 mg 21:03: as needed. [address] FLUTICASONE Yes 1{spray Use 1 Un [place] PROPIONATE 8-13 } [place] in ity o f (FLUTICASON 21:03: each [place] E NASAL) 17 nostril as Medic al needed. Branch ESTROGENS, Yes 1{appli Insert 1 Univers CONJUGATED 8-13 catorfu Applicator ity of (PREMARIN 21:03: l} ful into [place] VAGINAL) 17 vagina Medical weekly. Branch Indication s: Three times weekly metoprolol Yes 25mg Take 25 mg U nivers succinate 8-13 by mouth ity of XL 25 mg 24 21:03: daily. [place] hr tablet [address] [place] [address] omeprazole Yes 40mg Take 40 mg U nivers 40 mg 8-13 by mouth ity of capsule 21:03: daily. [address] alendronate Yes 70mg Take 70 mg Univers 70 mg 8-13 by mouth ity of tablet 21:03: weekly. [place] 17 Medical Branch ALLOPURINOL Yes 300mg Take 300 U nivers ORAL 8-13 mg by ity of 21:03: mouth [place] 17 daily. Medical Branch Tramadol Yes 50mg Take 50 mg Uni vers (RYBIX ODT) 8-13 by mouth ity of 50 mg 21:03: as needed. [place] tablet Medical Branch FLUTICASONE Yes 1{spray Use 1 Un lobito PROPIONATE 8-13 } [place] in ity o f (FLUTICASON 21:03: each [place] E NASAL) 17 nostril as Medic al needed. Branch ESTROGENS, Yes 1{appli Insert 1 Univers CONJUGATED 8-13 catorfu Applicator ity of (PREMARIN 21:03: l} ful into [place] VAGINAL) 17 vagina Medical weekly. Branch Indication s: Three times weekly metoprolol Yes 25mg Take 25 mg U nivers succinate 8-13 by mouth ity of XL 25 mg 24 21:03: [place] [facility] omeprazole Yes 40mg Take 40 mg U nivers 40 mg 8-13 by mouth ity of capsule 21:03: daily. [address] alendronate Yes 70mg Take 70 mg [facility] 70 mg 8-13 by mouth ity of tablet 21:03: weekly. [address] Branch ALLOPURINOL Yes 300mg Take 300 U nivers ORAL 8-13 mg by ity of 21:03: mouth [place] 17 daily. Medical Branch Tramadol Yes 50mg Take 50 mg Uni vers (RYBIX ODT) 8-13 by mouth ity of 50 mg 21:03: as needed. [place] tablet [address] [place] [address] Branch FLUTICASONE Yes 1{spray Use 1 Un lobito PROPIONATE 8-13 } [place] in ity o f (FLUTICASON 21:03: each [place] E NASAL) 17 nostril as Medic al needed. Branch ESTROGENS, Yes 1{appli Insert 1 Univers CONJUGATED 8-13 catorfu Applicator ity of (PREMARIN 21:03: l} ful [place] VAGINAL) 17 vagina Medical weekly. Branch Indication s: Three times weekly metoprolol 0 Yes 25mg Take 25 mg U nivers succinate 8-13 by mouth ity of XL 25 mg 24 21:03: daily. [place] tablet [address] [place] [address] omeprazole Yes 40mg Take 40 mg U nivers 40 mg 8-13 by mouth ity of capsule 21:03: daily. [address] alendronate 2018- Yes 70mg Take 70 mg [facility] 70 mg 8-13 by mouth ity of tablet 21:03: weekly. [address] ALLOPURINOL 2018- Yes 300mg Take 300 U nivers ORAL 8-13 mg by ity of 21:03: mouth [place] 17 daily. [facility] Branch Tramadol Yes 50mg Take 50 mg Uni vers (RYBIX ODT) 8-13 by mouth ity of 50 mg 21:03: as needed. [place] tablet [address] [place] [address] FLUTICASONE Yes 1{spray Use 1 Un lobito PROPIONATE 8-13 } [place] in ity o f (FLUTICASON 21:03: each [place] E NASAL) 17 nostril as Medic al needed. Branch ESTROGENS, Yes 1{appli Insert 1 Univers CONJUGATED 8-13 catorfu Applicator ity of (PREMARIN 21:03: l} ful [place] VAGINAL) 17 vagina Medical weekly. Branch Indication s: Three times weekly metoprolol Yes 25mg Take 25 mg U nivers succinate 8-13 by mouth ity of XL 25 mg 24 21:03: daily. [place] tablet [address] [place] [address] omeprazole Yes 40mg Take 40 mg U nivers 40 mg 8-13 by mouth ity of capsule 21:03: daily. [address] alendronate 2018- Yes 70mg Take 70 mg [facility] 70 mg 8-13 by mouth ity of tablet 21:03: weekly. [address] ALLOPURINOL 2018- Yes 300mg Take 300 U nivers ORAL 8-13 mg by ity of 21:03: mouth [place] 17 daily. [facility] Branch Tramadol Yes 50mg Take 50 mg Uni vers (RYBIX ODT) 8-13 by mouth ity of 50 mg 21:03: as needed. [address] FLUTICASONE Yes 1{spray Use 1 Un lobito PROPIONATE 8-13 } [place] in ity o f (FLUTICASON 21:03: each [place] E NASAL) 17 nostril as Medic al needed. Branch ESTROGENS, Yes 1{appli Insert 1 [facility] CONJUGATED 8-13 catorfu Applicator ity of (PREMARIN 21:03: l} ful [place] VAGINAL) 17 vagina Medical weekly. Branch Indication s: Three times weekly metoprolol Yes 25mg Take 25 mg U nivers succinate 8-13 by mouth ity of XL 25 mg 24 21:03: daily. [place] tablet [address] [place] [address] Branch omeprazole Yes 40mg Take 40 mg U nivers 40 mg 8-13 by mouth ity of capsule 21:03: daily. [address] alendronate Yes 70mg Take 70 mg [facility] 70 mg 8-13 by mouth ity of tablet 21:03: weekly. [address] ALLOPURINOL Yes 300mg Take 300 U nivers ORAL 8-13 mg by ity of 21:03: mouth [place] 17 daily. Medical Branch Tramadol Yes 50mg Take 50 mg Uni vers (RYBIX ODT) 8-13 by mouth ity of 50 mg 21:03: as needed. [place] tablet [address] [place] [address] Branch FLUTICASONE Yes 1{spray Use 1 Un [place] PROPIONATE 8-13 } [place] in ity o f (FLUTICASON 21:03: each [place] E NASAL) 17 nostril as Medic al needed. Branch AMOXICILLIN 2019- No 2000mg Take 2,000 Univers ORAL 8-13 08-13 mg by ity of 21:01: 00:00 mouth as [place] 00 :00 needed Medical (Prior to Branch dentist appointmen ts). AMOXICILLIN 2018- No 2000mg Take 2,000 Univers ORAL 8-13 08-13 mg by ity of 21:01: 00:00 mouth as [place] 00 :00 needed Medical (Prior to Branch dentist appointmen ts). cycloSPORIN Yes 1[drp] Place 1 U nivers E 8-13 Drop in ity of (RESTASIS) 16:04: left eye [place] as 0.05 % 36 every 12 Medical drops (twelve) Branch hours. CALCIUM 2018- Yes 2{tbl} Take 2 Univer s CARBONATE/V 8-13 tablets by it y of ITAMIN D3 16:04: mouth. [place] (CALCIUM 36 Medical 500 + D Branch ORAL) cycloSPORIN Yes 1[drp] Place 1 U nivers E 8-13 Drop in ity of (RESTASIS) 16:04: left eye [place] 0.05 % 36 every 12 Medical drops (twelve) Branch hours. CALCIUM 2019- Yes 2{tbl} Take 2 Univer s CARBONATE/V 8-13 tablets by it y of ITAMIN D3 16:04: mouth. [place] (CALCIUM 36 Medical 500 + D Branch ORAL) cycloSPORIN 2019- Yes 1[drp] Place 1 U nivers E 8-13 Drop in ity of (RESTASIS) 16:04: left eye [place] as 0.05 % 36 every 12 Medical drops (twelve) Branch hours. CALCIUM 2019- Yes 2{tbl} Take 2 Univer s CARBONATE/V 8-13 tablets by it y of ITAMIN D3 16:04: mouth. [place] (CALCIUM 36 Medical 500 + D Branch ORAL) ALLOPURINOL 2019- Yes 300mg Take 300 U nivers ORAL 8-13 mg by ity of 16:03: mouth [place] 17 daily. Medical Branch Tramadol Yes 50mg Take 50 mg Uni vers (RYBIX ODT) 8-13 by mouth ity of 50 mg 16:03: as needed. [place] tablet [address] [place] [address] Branch FLUTICASONE 2018- Yes 1{spray Use 1 Un [place] PROPIONATE 8-13 } [place] in ity o f (FLUTICASON 16:03: each [place] E NASAL) 17 nostril as Medic al needed. Branch ESTROGENS, 2018-0 Yes 1{appli Insert 1 [facility] CONJUGATED 8-13 catorfu Applicator ity of (PREMARIN 16:03: l} ful into [place] VAGINAL) 17 vagina Medical weekly. Branch Indication s: Three times weekly metoprolol 2019-0 Yes 25mg Take 25 mg U nivers succinate 8-13 by mouth ity of XL 25 mg 24 16:03: daily. [place] hr tablet 17 [facility] Branch omeprazole 2019-0 Yes 40mg Take 40 mg U nivers 40 mg 8-13 by mouth ity of capsule 16:03: daily. [address] Branch alendronate 2019-0 Yes 70mg Take 70 mg [facility] 70 mg 8-13 by mouth ity of tablet 16:03: weekly. [address] Branch ALLOPURINOL 2019-0 Yes 300mg Take 300 U nivers ORAL 8-13 mg by ity of 16:03: mouth [place] 17 daily. Medical Branch Tramadol 0 Yes 50mg Take 50 mg Uni vers (RYBIX ODT) 8-13 by mouth ity of 50 mg 16:03: as needed. [place] tablet 17 Medical Branch FLUTICASONE 0 Yes 1{spray Use 1 Un [place] PROPIONATE 8-13 } [place] in ity o f (FLUTICASON 16:03: each [place] E NASAL) 17 nostril as Medic al needed. Branch ESTROGENS, Yes 1{appli Insert 1 [facility] CONJUGATED 8-13 catorfu Applicator ity of (PREMARIN 16:03: l} ful [place] VAGINAL) 17 vagina Medical weekly. Branch Indication s: Three times weekly metoprolol Yes 25mg Take 25 mg U nivers succinate 8-13 by mouth ity of XL 25 mg 24 16:03: daily. [place] hr tablet [place] omeprazole Yes 40mg Take 40 mg U nivers 40 mg 8-13 by mouth ity of capsule 16:03: daily. [address] alendronate 0 Yes 70mg Take 70 mg [facility] 70 mg 8-13 by mouth ity of tablet 16:03: weekly. [address] Branch ALLOPURINOL 0 Yes 300mg Take 300 U nivers ORAL 8-13 mg by ity of 16:03: mouth [place] 17 daily. Medical Branch Tramadol Yes 50mg Take 50 mg Uni vers (RYBIX ODT) 8-13 by mouth ity of 50 mg 16:03: as needed. [place] tablet 17 [facility] FLUTICASONE 2018- Yes 1{spray Use 1 Un [place] PROPIONATE 8-13 } [place] in ity o f (FLUTICASON 16:03: each [place] E NASAL) 17 nostril as Medic al needed. Branch ESTROGENS, Yes 1{appli Insert 1 [facility] CONJUGATED 8-13 catorfu Applicator ity of (PREMARIN 16:03: l} ful [place] VAGINAL) 17 vagina Medical weekly. Branch Indication s: Three times weekly metoprolol 0 Yes 25mg Take 25 mg U nivers succinate 8-13 by mouth ity of XL 25 mg 24 16:03: daily. [place] hr tablet 17 [facility] omeprazole Yes 40mg Take 40 mg U nivers 40 mg 8-13 by mouth ity of capsule 16:03: daily. [address] alendronate 2019-0 Yes 70mg Take 70 mg [facility] 70 mg 8-13 by mouth ity of tablet 16:03: weekly. [address] Branch topiramate 2019-0 Yes [id number] 100mg Take 1 [facility] 100 mg 8-13 tablet by ity of tablet 00:00: mouth [place] (two) Medical times Branch daily. topiramate 2019-0 Yes [id number] 100mg Take 1 [facility] 100 mg 8-13 tablet by ity of tablet 00:00: mouth [place] (two) Medical times Branch daily. topiramate 2019-0 Yes [id number] 100mg Take 1 [facility] 100 mg 8-13 tablet by ity of tablet 00:00: mouth [place] (two) Medical times Branch daily. topiramate 2019-0 Yes [id number] 100mg Take 1 [facility] 100 mg 8-13 tablet by ity of tablet 00:00: mouth [place] ([facility]) Medical times Branch daily. topiramate 2018-0 Yes [id number] 100mg Take 1 [facility] 100 mg 8-13 tablet by ity of tablet 00:00: mouth [place] ([facility]) Medical times Branch daily. topiramate 2019-0 Yes [id number] 100mg Take 1 [facility] 100 mg 8-13 tablet by ity of tablet 00:00: mouth [place] ([facility]) Medical times Branch daily. topiramate 2018-0 Yes [id number] 100mg Take 1 [facility] 100 mg 8-13 tablet by ity of tablet 00:00: mouth [place] ([facility]) Medical times Branch daily. topiramate 2019-0 Yes [id number] 100mg Take 1 [facility] 100 mg 8-13 tablet by ity of tablet 00:00: mouth [place] (two) Medical times Branch daily. topiramate 2019-0 Yes [id number] 100mg Take 1 [facility] 100 mg 8-13 tablet by ity of tablet 00:00: mouth [place] ([facility]) Medical times Branch daily. topiramate 2019-0 Yes [id number] 100mg Take 1 [facility] 100 mg 8-13 tablet by ity of tablet 00:00: mouth 2 [place] (two) Medical times Branch daily. LYRICA 50 2019-0 Yes TK 1 C PO Uni vers mg capsule 8 QHS. ity of 00:00: [place] [facility] LYRICA 50 0 Yes TK 1 C PO Uni vers mg capsule 8-06 QHS. ity of 00:00: [place] [facility] Branch LYRICA 50 0 Yes TK 1 C PO Uni vers mg capsule 8-06 QHS. ity of 00:00: [place] [facility] Branch LYRICA 50 0 Yes TK 1 C PO Uni vers mg capsule 8-06 QHS. ity of 00:00: [place] [facility] Branch LYRICA 50 0 Yes TK 1 C PO Uni vers mg capsule 8-06 QHS. ity of 00:00: [place] [facility] LYRICA 50 0 Yes TK 1 C PO Uni vers mg capsule 8-06 QHS. ity of 00:00: [place] [facility] LYRICA 50 Yes TK 1 C PO Uni vers mg capsule 8-06 QHS. ity of 00:00: [place] [facility] LYRICA 50 Yes TK 1 C PO Uni vers mg capsule 8-06 QHS. ity of 00:00: [place] [facility] LYRICA 50 0 Yes TK 1 C PO Uni vers mg capsule 8-06 QHS. ity of 00:00: [place] [facility] LYRICA 50 Yes TK 1 C PO Uni vers mg capsule 8-06 QHS. ity of 00:00: [place] [facility] LYRICA 50 0 Yes TK 1 C PO Uni vers mg capsule 8-06 QHS. ity of 00:00: [place] [facility] LYRICA 50 Yes TK 1 C PO Uni vers mg capsule 8-06 QHS. ity of 00:00: [place] [facility] Branch LYRICA 50 0 Yes TK 1 C PO Uni vers mg capsule 8-06 QHS. ity of 00:00: [place] [facility] Branch LYRICA 50 Yes TK 1 C PO Uni vers mg capsule 8-06 QHS. ity of 00:00: [place] [facility] LYRICA 50 0 Yes TK 1 C PO Uni vers mg capsule 8-06 QHS. ity of 00:00: [place] [facility] LYRICA 50 0 Yes TK 1 C PO Uni vers mg capsule 8-06 QHS. ity of 00:00: [place] [facility] LYRICA 50 2019-0 Yes TK 1 C PO Uni vers mg capsule 806 QHS. ity of 00:00: [place] [facility] doxycycline 2019-0 Yes Univer s 50 mg 7-27 ity of capsule 00:00: [place] [facility] doxycycline 2019-0 Yes Univer s 50 mg 7-27 ity of capsule 00:00: [place] [facility] doxycycline 2019-0 Yes Univer s 50 mg 7-27 ity of capsule 00:00: [place] [facility] doxycycline 2019-0 Yes Univer s 50 mg 7-27 ity of capsule 00:00: [place] [facility] doxycycline 2019-0 Yes Univer s 50 mg 7-27 ity of capsule 00:00: [place] [facility] doxycycline 2019-0 Yes Univer s 50 mg 7-27 ity of capsule 00:00: [place] [address] Medical Branch doxycycline 2019-0 Yes Univer s 50 mg 7-27 ity of capsule 00:00: [place] [facility] doxycycline 2019-0 Yes Univer s 50 mg 7-27 ity of capsule 00:00: [place] [facility] doxycycline 2019-0 Yes Univer s 50 mg 7-27 ity of capsule 00:00: [place] [facility] doxycycline 2019-0 Yes Univer s 50 mg 7-27 ity of capsule 00:00: [place] [facility] doxycycline 2019-0 Yes Univer s 50 mg 7-27 ity of capsule 00:00: [place] [address] Medical Branch doxycycline 2019-0 Yes Univer s 50 mg 7-27 ity of capsule 00:00: [place] [facility] doxycycline 2019-0 Yes Univer s 50 mg 7-27 ity of capsule 00:00: [place] [facility] doxycycline 2019-0 Yes Univer s 50 mg 7-27 ity of capsule 00:00: [place] [address] Medical Branch doxycycline 2019-0 Yes Univer s 50 mg 7-27 ity of capsule 00:00: [place] [address] Medical Branch doxycycline 2019-0 Yes Univer s 50 mg 7-27 ity of capsule 00:00: [place] [address] Medical Branch doxycycline 2019-0 Yes Univer s 50 mg 7-27 ity of capsule 00:00: [place] [address] Medical Branch cyanocobala 2019-[address] Met hodi min, 7-17 2,[address] vitamin 10:42: under the Hospi ta B-12, 24 tongue l (VITAMIN daily. B-12) 2,500 mcg tablet, sublingual cholecalcif Yes 1{tbl} Take 1 Me thodi ria, 7-[address] vitamin D3, 10:42: mouth Hospi ta (VITAMIN 24 daily. l D3) 5,000 unit tablet fluticasone Yes 2{spray QD 2 sprays Methodi (FLONASE) 12-15 } by Each st 50 10:42: Nare route Hospita mcg/actuati 24 daily. l on nasal spray cycloSPORIN Yes 1[drp] Q.5D Administer Methodi E 12-[address] (RESTASIS) 00:00: both eyes [facility] 0.05 % 00 2 (two) l ophthalmic times a emulsion day for 90 days. topiramate Yes 50mg Take 1 Unive rs 50 mg 5-28 tablet by ity of tablet 00:00: mouth 2 [place] 00 (two) Medical times Branch daily. topiramate 2018- No 50mg Take 1 Univ ers 50 mg 5-28 08-13 tablet by ity of tablet 00:00: 00:00 mouth 2 [place] 00 :00 (two) Medical times Branch daily. topiramate 2019- No 50mg Take 1 Univ ers 50 mg 5-28 08-13 tablet by ity of tablet 00:00: 00:00 mouth 2 [place] 00 :00 (two) Medical times Branch daily. metoprolol Yes [id number] TAKE 1 Me thodi succinate 8-[address] XL 00:00: MOUTH [facility]osp[facility] (TOPROL-XL) 00 TWICE l 25 mg 24 hr DAILY, IN tablet THE MORNING AND AT DINNER multivit-mi Yes Take by Uni vers n/FA/lycope 8-07 mouth. ity of n/lutein 19:42: [place] (COMPLETE 22 Medical 50+ ORAL) Branch vit A/vit Yes Take by Unive rs C/vit 8- mouth. ity of E/zinc/cristine 19:42: [facility] [place] (OCUVITE 22 Medical PRESERVISIO Branch N ORAL) multivit-mi Yes Take by Uni vers n/FA/lycope 8-07 mouth. ity of n/lutein 19:42: [place] (COMPLETE 22 Medical 50+ ORAL) Branch vit A/vit 2017-0 Yes Take by Unive rs C/vit 8-07 mouth. ity of E/zinc/cristine 19:42: [place] er (OCUVITE 22 Medical PRESERVISIO Branch N ORAL) multivit-mi Yes Take by Uni vers n/FA/lycope 8-07 mouth. ity of n/lutein 19:42: [place] (COMPLETE 22 Medical 50+ ORAL) Branch vit A/vit 2017- Yes Take by Univ ers C/vit 8-07 mouth. ity of E/zinc/cristine 19:42: [place] er (OCUVITE 22 Medical PRESERVISIO Branch N ORAL) multivit-mi Yes Take by Uni vers n/FA/lycope 8-07 mouth. ity of n/lutein 19:42: [place] (COMPLETE 22 Medical 50+ ORAL) Branch vit A/vit 2017-0 Yes Take by Unive rs C/vit 8-07 mouth. ity of E/zinc/cristine 19:42: [facility] [place] (OCUVITE 22 Medical PRESERVISIO Branch N ORAL) multivit-mi Yes Take by Uni vers n/FA/lycope 8-07 mouth. ity of n/lutein 19:42: [place] (COMPLETE 22 Medical 50+ ORAL) Branch vit A/vit 2017-0 Yes Take by Unive rs C/vit 8-07 mouth. ity of E/zinc/cristine 19:42: [facility] [place] (OCUVITE 22 Medical PRESERVISIO Branch N ORAL) multivit-mi Yes Take by Uni vers n/FA/lycope 8-07 mouth. ity of n/lutein 19:42: [place] (COMPLETE 22 Medical 50+ ORAL) Branch vit A/vit 2017-0 Yes Take by Unive rs C/vit 8-07 mouth. ity of E/zinc/cristine 19:42: [place] er (OCUVITE 22 Medical PRESERVISIO Branch N ORAL) multivit-mi 2017- Yes Take by Uni vers n/FA/lycope 8-07 mouth. ity of n/lutein 19:42: [place] (COMPLETE 22 Medical 50+ ORAL) Branch vit A/vit 2017-0 Yes Take by Unive rs C/vit 8-07 mouth. ity of E/zinc/cristine 19:42: [place] er (OCUVITE 22 Medical PRESERVIS Branch N ORAL) multivit-mi Yes Take by Uni vers n/FA/lycope 8-07 mouth. ity of n/lutein 19:42: [place] (COMPLETE 22 Medical 50+ ORAL) Branch vit A/vit Yes Take by Unive rs C/vit 8-07 mouth. ity of E/zinc/cristine 19:42: [place] er (OCUVITE 22 Medical PRESERVIS Branch N ORAL) alendronate Yes 70mg Take 70 mg Univers 70 mg 01-05 by mouth ity of tablet 19:42: weekly. [place] [address] Medical Branch multivit-mi Yes Take by Uni vers n/FA/lycope 8-07 mouth. ity of n/lutein 19:42: [place] (COMPLETE 22 Medical 50+ ORAL) Branch multivit-mi Yes Take by Uni vers n/FA/lycope 8-07 mouth. ity of n/lutein 19:42: [place] (COMPLETE 22 Medical 50+ ORAL) Branch vit A/vit Yes Take by Unive rs C/vit 8-07 mouth. ity of E/zinc/cristine 19:42: [facility] [place] (OCUVITE 22 Medical [facility] N [facility]) vit A/vit Yes Take by Unive rs C/vit 8-07 mouth. ity of E/zinc/cristine 19:42: [facility] [place] (OCUVITE 22 Medical [facility] N ORAL) multivit-me Yes Take by Uni vers n/FA/lycope 8-07 mouth. ity of n/lutein 19:42: [place] (COMPLETE 22 Medical 50+ ORAL) Branch vit A/vit 2017- Yes Take by Univ ers C/vit 8-07 mouth. ity of E/zinc/cristine 19:42: [facility] [place] (OCUVITE 22 Medical PRESERVIS Branch N ORAL) multivit-mi Yes Take by Uni vers n/FA/lycope 8-07 mouth. ity of n/lutein 19:42: [place] (COMPLETE 22 Medical 50+ ORAL) Branch vit A/vit 2017- Yes Take by Unive rs C/vit 8-07 mouth. ity of E/zinc/cristine 19:42: [place] er (OCUVITE 22 Medical PRESERVIS Branch N ORAL) multivit-mi Yes Take by Uni vers n/FA/lycope 8-07 mouth. ity of n/lutein 19:42: [place] (COMPLETE 22 Medical 50+ ORAL) Branch vit A/vit 0 Yes Take by Unive rs C/vit 8-07 mouth. ity of E/zinc/cristine 19:42: [place] er (OCUVITE 22 Medical PRESERVIS Branch N ORAL) multivit-mi Yes Take by Uni vers n/FA/lycope 8-07 mouth. ity of n/lutein 19:42: [place] (COMPLETE 22 Medical 50+ ORAL) Branch vit A/vit Yes Take by Unive rs C/vit 8-07 mouth. ity of E/zinc/cristine 19:42: [place] er (OCUVITE 22 Medical PRESERVIS Branch N ORAL) multivit-mi Yes Take by Uni vers n/FA/lycope 8-07 mouth. ity of n/lutein 19:42: [place] (COMPLETE 22 Medical 50+ ORAL) Branch vit A/vit Yes Take by Unive rs C/vit 8-07 mouth. ity of E/zinc/cristine 19:42: [place] er (OCUVITE 22 Medical PRESERVIS Branch N ORAL) carisoprodo Yes 350mg Take 350 U nivers l (SOMA) 8-07 mg by ity of 350 mg 19:40: mouth 4 [place] tablet 05 (four) Medical times Branch daily. venlafaxine Yes 150mg Take 150 U nivers (EFFEXOR) 8-07 mg by ity of 75 mg 19:40: mouth at [place] tablet 05 bedtime. Medical Branch ISOMETHEPT/ Yes 2{tbl} Take 2 Un [place] DICHLPHN/AC 8-07 tablets by it y of ETAMINOP 19:40: mouth as [place] (MIDRIN 05 needed (2 Medical ORAL) tablets at Branch the beginning of a migraine, then 1 tablet Q hr up to a max of 5 tablets). ISOMETHEPT/ Yes 2{tbl} Take 2 Un [place] DICHLPHN/AC 8-07 tablets by it y of ETAMINOP 19:40: mouth as [place] (MIDRIN 05 needed (2 Medical ORAL) tablets at Branch the beginning of a migraine, then 1 tablet Q hr up to a max of 5 tablets). PROCHLORPER 2018-0 Yes 5mg Take 5 mg U nivers AZINE 8-07 by mouth ity of MALEATE 19:40: [place]. [place] (COMPAZINE 05 Medical ORAL) Branch montelukast 2017-0 Yes 10mg Take 10 mg Univers (SINGULAIR) 8-07 by mouth ity of 10 mg 19:40: daily. [place] tablet 05 Medical Branch PROCHLORPER 2018-0 Yes 5mg Take 5 mg U nivers AZINE 8-07 by mouth ity of MALEATE 19:40: as [place]. [place] (COMPAZINE 05 Medical ORAL) Branch carisoprodo 0 Yes 350mg Take 350 U nivers l (SOMA) 8-07 mg by ity of 350 mg 19:40: mouth 4 [place] tablet 05 (four) Medical times Branch daily. venlafaxine 0 Yes 150mg Take 150 U nivers (EFFEXOR) 8-07 mg by ity of 75 mg 19:40: mouth at [place] tablet 05 bedtime. Medical Branch DIAZEPAM 0 Yes 5mg Take 5 mg Univ ers ORAL 8-07 by mouth ity of 19:40: as needed. [place] [address] Medical Branch ISOMETHEPT/ 2018-0 Yes 2{tbl} Take 2 Un [place] DICHLPHN/AC 8-07 tablets by it y of ETAMINOP 19:40: mouth as [place] (MIDRIN 05 needed (2 Medical ORAL) tablets at Branch the beginning of a migraine, then 1 tablet Q hr up to a max of 5 tablets). PROCHLORPER 2018-0 Yes 5mg Take 5 mg U nivers AZINE 8-07 by mouth ity of MALEATE 19:40: [place]. [place] (COMPAZINE 05 Medical ORAL) Branch montelukast 2017-0 Yes 10mg Take 10 mg Univers (SINGULAIR) 8-07 by mouth ity of 10 mg 19:40: daily. [place] tablet 05 Medical Branch ALLOPURINOL 2018-0 Yes 300mg Take 300 U nivers ORAL 8-07 mg by ity of 19:40: mouth [place] 05 daily. Medical Branch carisoprodo 2017-0 Yes 350mg Take 350 U nivers l (SOMA) 8-07 mg by ity of 350 mg 19:40: mouth 4 [place] tablet 05 (four) Medical times Branch daily. venlafaxine Yes 150mg Take 150 U nivers (EFFEXOR) 8-07 mg by ity of 75 mg 19:40: mouth at [place] tablet 05 bedtime. Medical Branch Tramadol Yes 50mg Take 50 mg Uni vers (RYBIX ODT) 8-07 by mouth ity of 50 mg 19:40: as needed. [place] tablet 05 Medical Branch ISOMETHEPT/ Yes 2{tbl} Take 2 Un [place] DICHLPHN/AC 8-07 tablets by it y of ETAMINOP 19:40: mouth as [place] (MIDRIN 05 needed (2 Medical ORAL) tablets at Branch the beginning of a migraine, then 1 tablet Q hr up to a max of 5 tablets). PROCHLORPER Yes 5mg Take 5 mg U nivers AZINE 8-07 by mouth ity of MALEATE 19:40: [place]. [place] (COMPAZINE 05 Medical ORAL) Branch montelukast Yes 10mg Take 10 mg Univers (SINGULAIR) 8-07 by mouth ity of 10 mg 19:40: daily. [place] tablet 05 Medical Branch montelukast Yes 10mg Take 10 mg Univers (SINGULAIR) 8-07 by mouth ity of 10 mg 19:40: daily. [place] tablet 05 Medical Branch carisoprodo Yes 350mg Take 350 U nivers l (SOMA) 8-07 mg by ity of 350 mg 19:40: mouth 4 [place] tablet 05 (four) Medical times Branch daily. venlafaxine Yes 150mg Take 150 U nivers (EFFEXOR) 8-07 mg by ity of 75 mg 19:40: mouth at [place] tablet 05 bedtime. Medical Branch FLUTICASONE Yes 1{spray Use 1 Un [place] PROPIONATE 8-07 } [place] in ity o f (FLUTICASON 19:40: each [place] E NASAL) 05 nostril as Medic al needed. Branch AMOXICILLIN Yes 2000mg Take 2,000 Univers ORAL 8-07 mg by ity of 19:40: mouth as [place] 05 needed Medical (Prior to Branch dentist appointmen ts). ISOMETHEPT/ Yes 2{tbl} Take 2 Un [place] DICHLPHN/AC 8-07 tablets by it y of ETAMINOP 19:40: mouth as [place] (MIDRIN 05 needed (2 Medical ORAL) tablets at Branch the beginning of a migraine, then 1 tablet Q hr up to a max of 5 tablets). PROCHLORPER 2017- Yes 5mg Take 5 mg U nivers AZINE 8-07 by mouth ity of MALEATE 19:40: [place]. [place] (COMPAZINE 05 Medical ORAL) Branch montelukast Yes 10mg Take 10 mg Univers (SINGULAIR) 8-07 by mouth ity of 10 mg 19:40: daily. [place] tablet 05 Medical Branch CYANOCOBALA Yes 1mL Place 1 mL Univers MIN/COBAMAM 01-05 under the ity of [place] (B12 19:40: tongue [place] SL) 05 daily. Medical Branch carisoprodo Yes 350mg Take 350 U nivers l (SOMA) 8-07 mg by ity of 350 mg 19:40: mouth 4 [place] tablet 05 (four) Medical times Branch daily. venlafaxine Yes 150mg Take 150 U nivers (EFFEXOR) 8-07 mg by ity of 75 mg 19:40: mouth at [place] tablet 05 bedtime. Medical Branch ISOMETHEPT/ 0 Yes 2{tbl} Take 2 Un [place] DICHLPHN/AC 8-07 tablets by it y of ETAMINOP 19:40: mouth as [place] (MIDRIN 05 needed (2 Medical ORAL) tablets at Branch the beginning of a migraine, then 1 tablet Q hr up to a max of 5 tablets). ESTROGENS, Yes 1{appli Insert 1 [facility] CONJUGATED 8-07 catorfu Applicator ity of (PREMARIN 19:40: l} ful into [place] VAGINAL) 05 vagina Medical weekly. Branch Indication s: Three times weekly PROCHLORPER 2017-0 Yes 5mg Take 5 mg U nivers AZINE 8-07 by mouth ity of MALEATE 19:40: as [place]. [place] (COMPAZINE 05 Medical ORAL) Branch montelukast Yes 10mg Take 10 mg Univers (SINGULAIR) 8-07 by mouth ity of 10 mg 19:40: daily. [place] tablet 05 Medical Branch carisoprodo Yes 350mg Take 350 U nivers l (SOMA) 8-07 mg by ity of 350 mg 19:40: mouth 4 [place] tablet 05 (four) Medical times Branch daily. cycloSPORIN 2018- Yes 1[drp] Place 1 U nivers E 8-07 Drop in ity of (RESTASIS) 19:40: left eye [place] as 0.05 % 05 every 12 Medical drops (twelve) Branch hours. venlafaxine 2017- Yes 150mg Take 150 U nivers (EFFEXOR) 8-07 mg by ity of 75 mg 19:40: mouth at [place] tablet 05 bedtime. Medical Branch CALCIUM Yes 2{tbl} Take 2 Univer s CARBONATE/V 8-07 tablets by it y of ITAMIN D3 19:40: mouth. [place] (CALCIUM 05 Medical 500 + D Branch ORAL) ISOMETHEPT/ 2017- Yes 2{tbl} Take 2 Un [place] DICHLPHN/AC 8-07 tablets by it y of ETAMINOP 19:40: mouth as [place] (MIDRIN 05 needed (2 Medical ORAL) tablets at Branch the beginning of a migraine, then 1 tablet Q hr up to a max of 5 tablets). PROCHLORPER 2017-0 Yes 5mg Take 5 mg [facility] AZINE 8-07 by mouth ity of MALEATE 19:40: [place] (COMPAZINE 05 Medical ORAL) Branch montelukast Yes 10mg Take 10 mg [facility] (SINGULAIR) 8-07 by mouth ity of 10 mg 19:40: daily. [place] tablet 05 Medical Branch carisoprodo 2017-0 Yes 350mg Take 350 U nivers l (SOMA) 8-07 mg by ity of 350 mg 19:40: mouth 4 [place] tablet 05 (four) Medical times Branch daily. carisoprodo 2018-0 Yes 350mg Take 350 U nivers l (SOMA) 8-07 mg by ity of 350 mg 19:40: mouth 4 [place] tablet 05 (four) Medical times Branch daily. venlafaxine 2017- Yes 150mg Take 150 U nivers (EFFEXOR) 8-07 mg by ity of 75 mg 19:40: mouth at [place] tablet 05 bedtime. Medical Branch venlafaxine Yes 150mg Take 150 U nivers (EFFEXOR) 8-07 mg by ity of 75 mg 19:40: mouth at [place] tablet 05 bedtime. Medical Branch ISOMETHEPT/ 2018-0 Yes 2{tbl} Take 2 Un [place] DICHLPHN/AC 8-07 tablets by it y of ETAMINOP 19:40: mouth as [place] (MIDRIN 05 needed (2 Medical ORAL) tablets at Branch the beginning of a migraine, then 1 tablet Q hr up to a max of 5 tablets). PROCHLORPER 2018-0 Yes 5mg Take 5 mg [facility] AZINE 8-07 by mouth ity of MALEATE 19:40: [place]. [place] (COMPAZINE 05 Medical ORAL) [facility] montelukast 0 Yes 10mg Take 10 mg [facility] (SINGULAIR) 8-07 by mouth ity of 10 mg 19:40: daily. [place] tablet 05 Medical Branch metoprolol Yes 25mg Take 25 mg [facility] succinate 8-07 by mouth ity of XL 25 mg 24 19:40: daily. [place] hr tablet 05 [facility] carisoprodo Yes 350mg Take 350 U nivers l (SOMA) 8-07 mg by ity of 350 mg 19:40: mouth 4 [place] tablet 05 (four) Medical times Branch daily. venlafaxine Yes 150mg Take 150 U n[facility] (EFFEXOR) 8-07 mg by ity of 75 mg 19:40: mouth at [place] tablet 05 bedtime. Medical Branch omeprazole Yes 40mg Take 40 mg [facility] 40 mg 8-07 by mouth ity of capsule 19:40: daily. [place] [id number] Medical Branch ISOMETHEPT/ 0 Yes 2{tbl} Take 2 Un [place] DICHLPHN/AC 8-07 tablets by it y of ETAMINOP 19:40: mouth as [place] (MIDRIN 05 needed (2 Medical ORAL) tablets at Branch the beginning of a migraine, then 1 tablet Q hr up to a max of 5 tablets). PROCHLORPER 2018-0 Yes 5mg Take 5 mg [facility] AZINE 8-07 by mouth ity of MALEATE 19:40: [place]. [place] (COMPAZINE 05 Medical ORAL) Branch montelukast 0 Yes 10mg Take 10 mg [facility] (SINGULAIR) 8-07 by mouth ity of 10 mg 19:40: daily. [place] tablet 05 Medical Branch carisoprodo 2018-0 Yes 350mg Take 350 U nivers l (SOMA) 8-07 mg by ity of 350 mg 19:40: mouth 4 [place] tablet 05 (four) Medical times Branch daily. venlafaxine 2018-0 Yes 150mg Take 150 U [facility]ivers (EFFEXOR) 8-07 mg by ity of 75 mg 19:40: mouth at [place] tablet 05 bedtime. Medical Branch ISOMETHEPT/ 2018-0 Yes 2{tbl} Take 2 [facility] [place] DICHLPHN/AC 8-07 tablets by it y of ETAMINOP 19:40: mouth as [place] (MIDRIN 05 needed (2 Medical ORAL) tablets at Branch the beginning of a migraine, then 1 tablet Q hr up to a max of 5 tablets). PROCHLORPER 2018-0 Yes 5mg Take 5 mg [facility] AZINE 8-07 by mouth ity of MALEATE 19:40: [place] needed. [place] (COMPAZINE 05 Medical ORAL) Branch montelukast Yes 10mg Take 10 mg [facility] (SINGULAIR) 8-07 by mouth ity of 10 mg 19:40: daily. [place] tablet 05 Medical Branch carisoprodo 0 Yes 350mg Take 350 U nivers l (SOMA) 8-07 mg by ity of 350 mg 19:40: mouth 4 [place] tablet 05 (four) Medical times [place] daily. venlafaxine 2017-0 Yes 150mg Take 150 U n[facility] (EFFEXOR) 8-07 mg by ity of 75 mg 19:40: mouth at [place] tablet 05 bedtime. Medical Branch ISOMETHEPT/ 2018-0 Yes 2{tbl} Take 2 [facility] [place] DICHLPHN/AC 8-07 tablets by it y of ETAMINOP 19:40: mouth as [place] (MIDRIN 05 needed (2 Medical ORAL) tablets at Branch the beginning of a migraine, then 1 tablet Q hr up to a max of 5 tablets). PROCHLORPER 2018-0 Yes 5mg Take 5 mg [facility] AZINE 8-07 by mouth ity of MALEATE 19:40: [place] needed. [place] (COMPAZINE 05 Medical ORAL) Branch montelukast 2017-0 Yes 10mg Take 10 mg [facility] (SINGULAIR) 8-07 by mouth ity of 10 mg 19:40: daily. [place] tablet 05 Medical Branch carisoprodo 2018-0 Yes 350mg Take 350 U nivers l (SOMA) 8-07 mg by ity of 350 mg 19:40: mouth 4 [place] tablet 05 (four) Medical times Branch daily. venlafaxine 2018-0 Yes 150mg Take 150 [facility] (EFFEXOR) 8-07 mg by ity of 75 mg 19:40: mouth at [place] tablet 05 bedtime. Medical Branch ISOMETHEPT/ 2018-0 Yes 2{tbl} Take 2 [facility] [place] DICHLPHN/AC 8-07 tablets by it y of ETAMINOP 19:40: mouth as [place] (MIDRIN 05 needed (2 Medical ORAL) tablets at Branch the beginning of a migraine, then 1 tablet Q hr up to a max of 5 tablets). ISOMETHEPT/ 2018-0 Yes 2{tbl} Take 2 [facility] [place] DICHLPHN/AC 8-07 tablets by it y of ETAMINOP 19:40: mouth as [place] (MIDRIN 05 needed (2 Medical ORAL) tablets at Branch the beginning of a migraine, then 1 tablet Q hr up to a max of 5 tablets). PROCHLORPER 2018-0 Yes 5mg Take 5 mg [facility] AZINE 8-07 by mouth ity of MALEATE 19:40: [place] needed. [place] (COMPAZINE 05 Medical ORAL) Branch montelukast 2017-0 Yes 10mg Take 10 mg [facility] (SINGULAIR) 8-07 by mouth ity of 10 mg 19:40: daily. [place] tablet 05 Medical Branch carisoprodo 2018-0 Yes 350mg Take 350 U nivers l (SOMA) 8-07 mg by ity of 350 mg 19:40: mouth 4 [place] tablet 05 (four) Medical times Branch daily. PROCHLORPER 2018-0 Yes 5mg Take 5 mg [facility] AZINE 8-07 by mouth ity of MALEATE 19:40: [place] needed. [place] (COMPAZINE 05 Medical ORAL) Branch venlafaxine 2018-0 Yes 150mg Take 150 U n[facility] (EFFEXOR) 8-07 mg by ity of 75 mg 19:40: mouth at [place] tablet 05 bedtime. Medical Branch montelukast 2018-0 Yes 10mg Take 10 mg [facility] (SINGULAIR) 8-07 by mouth ity of 10 mg 19:40: daily. [place] tablet 05 Medical Branch carisoprodo 2018-0 Yes 350mg Take 350 U n[facility] l (SOMA) 8-07 mg by ity of 350 mg 19:40: mouth 4 [place] tablet 05 (four) Medical times Branch daily. venlafaxine 2018-0 Yes 150mg Take 150 U [facility] (EFFEXOR) 8-07 mg by ity of 75 mg 19:40: mouth at [place] tablet 05 bedtime. Medical Branch ISOMETHEPT/ 2018-0 Yes 2{tbl} Take 2 [facility] [place] DICHLPHN/AC 8-07 tablets by it y of ETAMINOP 19:40: mouth as [place] (MIDRIN 05 needed (2 Medical ORAL) tablets at Branch the beginning of a migraine, then 1 tablet Q hr up to a max of 5 tablets). PROCHLORPER 2018-0 Yes 5mg Take 5 mg [facility] AZINE 8-07 by mouth ity of MALEATE 19:40: as needed. [place] (COMPAZINE 05 Medical ORAL) Branch montelukast Yes 10mg Take 10 mg [facility] (SINGULAIR) 8-07 by mouth ity of 10 mg 19:40: daily. [place] tablet 05 Medical Branch carisoprodo 0 Yes 350mg Take 350 U nivers l (SOMA) 8-07 mg by ity of 350 mg 19:40: mouth 4 [place] tablet 05 (four) Medical times [place] daily. venlafaxine 2017-0 Yes 150mg Take 150 U [facility] (EFFEXOR) 8-07 mg by ity of 75 mg 19:40: mouth at [place] tablet 05 bedtime. Medical Branch ISOMETHEPT/ 2018-0 Yes 2{tbl} Take 2 [facility] [place] DICHLPHN/AC 8-07 tablets by it y of ETAMINOP 19:40: mouth as [place] (MIDRIN 05 needed (2 Medical ORAL) tablets at Branch the beginning of a migraine, then 1 tablet Q hr up to a max of 5 tablets). PROCHLORPER 2018-0 Yes 5mg Take 5 mg [facility] AZINE 8-07 by mouth ity of MALEATE 19:40: [place] needed. [place] (COMPAZINE 05 Medical ORAL) Branch montelukast 2017-0 Yes 10mg Take 10 mg [facility] (SINGULAIR) 8-07 by mouth ity of 10 mg 19:40: daily. [place] tablet 05 Medical Branch multivit-mi Yes Take by Uni vers n/FA/lycope 8-07 mouth. ity of n/lutein 14:42: [place] (COMPLETE 22 Medical 50+ ORAL) Branch vit A/vit Yes Take by Unive rs C/vit 8-07 mouth. ity of E/zinc/cristine 14:42: [place] [facility] (OCUVITE 22 Medical PRESERVISIO Branch N ORAL) multivit-mi Yes Take by Uni vers n/FA/lycope 8-07 mouth. ity of n/lutein 14:42: [place] (COMPLETE 22 Medical 50+ ORAL) Branch vit A/vit Yes Take by Unive rs C/vit 8-07 mouth. ity of E/zinc/cristine 14:42: [place] er (OCUVITE 22 Medical PRESERVIS Branch N ORAL) multivit-mi Yes Take by Uni vers n/FA/lycope 8-07 mouth. ity of n/lutein 14:42: [place] (COMPLETE 22 Medical 50+ ORAL) Branch vit A/vit Yes Take by Unive rs C/vit 8-07 mouth. ity of E/zinc/cristine 14:42: [place] er (OCUVITE 22 Medical PRESERVIS Branch N ORAL) ISOMETHEPT/ Yes 2{tbl} Take 2 Un [place] DICHLPHN/AC 8-07 tablets by it y of ETAMINOP 14:40: mouth as [place] (MIDRIN 05 needed (2 Medical ORAL) tablets at Branch the beginning of a migraine, then 1 tablet Q hr up to a max of 5 tablets). PROCHLORPER Yes 5mg Take 5 mg [facility] AZINE 8-07 by mouth ity of MALEATE 14:40: [place] needed. [place] (COMPAZINE 05 Medical ORAL) Branch montelukast Yes 10mg Take 10 mg [facility] (SINGULAIR) 8-07 by mouth ity of 10 mg 14:40: daily. [place] tablet 05 Medical Branch carisoprodo Yes 350mg Take 350 U nivers l (SOMA) 8-07 mg by ity of 350 mg 14:40: mouth 4 [place] tablet 05 (four) Medical times Branch daily. venlafaxine 2018-0 Yes 150mg Take 150 U n[facility] (EFFEXOR) 8-07 mg by ity of 75 mg 14:40: mouth at [place] tablet 05 bedtime. Medical Branch ISOMETHEPT/ 2018-0 Yes 2{tbl} Take 2 [facility] [place] DICHLPHN/AC 8-07 tablets by it y of ETAMINOP 14:40: mouth as [place] (MIDRIN 05 needed (2 Medical ORAL) tablets at Branch the beginning of a migraine, then 1 tablet Q hr up to a max of 5 tablets). PROCHLORPER 2018-0 Yes 5mg Take 5 mg [facility] AZINE 8-07 by mouth ity of MALEATE 14:40: as needed. [place] (COMPAZINE 05 Medical ORAL) Branch montelukast 0 Yes 10mg Take 10 mg [facility] (SINGULAIR) 8-07 by mouth ity of 10 mg 14:40: daily. [place] tablet 05 Medical Branch carisoprodo 0 Yes 350mg Take 350 U nivers l (SOMA) 8-07 mg by ity of 350 mg 14:40: mouth 4 [place] tablet 05 (four) Medical times Branch daily. venlafaxine 2017-0 Yes 150mg Take 150 U n[facility] (EFFEXOR) 8-07 mg by ity of 75 mg 14:40: mouth at [place] tablet 05 bedtime. Medical Branch ISOMETHEPT/ 2018-0 Yes 2{tbl} Take 2 [facility] [place] DICHLPHN/AC 8-07 tablets by it y of ETAMINOP 14:40: mouth as [place] (MIDRIN 05 needed (2 Medical ORAL) tablets at Branch the beginning of a migraine, then 1 tablet Q hr up to a max of 5 tablets). PROCHLORPER 2018-0 Yes 5mg Take 5 mg [facility] AZINE 8-07 by mouth ity of MALEATE 14:40: as needed. [place] (COMPAZINE 05 Medical ORAL) Branch montelukast 0 Yes 10mg Take 10 mg [facility] (SINGULAIR) 8-07 by mouth ity of 10 mg 14:40: daily. [place] tablet 05 Medical Branch carisoprodo 2018-0 Yes 350mg Take 350 U nivers l (SOMA) 8-07 mg by ity of 350 mg 14:40: mouth 4 [place] tablet 05 (four) Medical times Branch daily. venlafaxine 2018-0 Yes 150mg Take 150 U [facility] (EFFEXOR) 8-07 mg by ity of 75 mg 14:40: mouth at [place] tablet 05 bedtime. Medical Branch prochlorper Yes TAKE 1 Meth karyna azine 6-[address] (COMPAZINE) 00:00: [facility]OUTH [facility] 5 MG tablet 00 EVERY 6 TO l 8 HOURS NEEDED FOR NAUSEA OR MIGRANE promethazin Yes Take 1/4-1 [facility] (PHENERGAN) 00:[facility]: [facility] 12.5 MG 00 6 hours as l tablet needed migraine as directed allopurinol Yes 1{tbl} 1 tablet [facility] (ZYLOPRIM) 3-[address] 300 MG 00:00: [facility] tablet 00 l omeprazole Yes 1{capsu 1 capsule [facility] (PriLOSEC) 3-10 le} daily. st 40 MG 00:00: [facility] capsule 00 l tolterodine Yes 4mg Take 4 mg [place] [facility] [place] (DETROL 1-18 by mouth [place]y [place]) 4 mg 24 18:49: [place]. [place] capsule 57 [facility] tolterodine Yes 4mg Take 4 mg [place] [place] (DETROL 1-18 by mouth ity [place]) 4 mg 24 18:49: daily. [place] capsule 57 [facility] tolterodine Yes 4mg Take 4 mg [facility] [place] (DETROL 1-18 by mouth ity o f [place]) 4 mg 24 18:49: daily. [place] hr capsule 57 [facility] tolterodine Yes 4mg Take 4 mg [place] [place] (DETROL 1-18 by mouth ity o [place]) 4 mg 24 18:49: daily. [place] hr capsule 57 [facility] tolterodine Yes 4mg Take 4 mg [place] [place] (DETROL 1-18 by mouth [place]y o [place]) 4 mg 24 18:49: daily. [place] hr capsule 57 [facility] tolterodine Yes 4mg Take 4 mg [place] [place] (DETROL 1-18 by mouth ity o [place]) 4 mg 24 18:49: daily. [place] hr capsule 57 [facility] tolterodine 2017-0 Yes 4mg Take 4 mg [place] [place] (DETROL 1-18 by mouth [place]y [place]) 4 mg 24 18:49: daily. [place] capsule 57 [facility] tolterodine 2017-0 Yes 4mg Take 4 mg [place] [place] (DETROL 1-18 by mouth ity o f [place]) 4 mg 24 18:49: daily. [place] hr capsule 57 [facility] tolterodine 2017-0 Yes 4mg Take 4 mg [place] [place] (DETROL 1-18 by mouth ity o f [place]) 4 mg 24 18:49: daily. [place] hr capsule 57 [facility] tolterodine 2017-0 Yes 4mg Take 4 mg [place] [place] (DETROL 1-18 by mouth ity o f [place]) 4 mg 24 18:49: daily. [place] hr capsule 57 [facility] tolterodine 2017-0 Yes 4mg Take 4 mg [place] [place] (DETROL 1-18 by mouth ity o f [place]) 4 mg 24 18:49: daily. [place] hr capsule 57 [facility] tolterodine 2017-0 Yes 4mg Take 4 mg [place] [place] (DETROL 1-18 by mouth ity o [place]) 4 mg 24 18:49: daily. [place] hr capsule 57 [facility] tolterodine 2017-0 Yes 4mg Take 4 mg [place] [place] (DETROL 1-18 by mouth ity o f [place]) 4 mg 24 18:49: daily. [place] hr capsule 57 [facility] tolterodine 2017-0 Yes 4mg Take 4 mg [place] [place] (DETROL 1-18 by mouth ity o f [place]) 4 mg 24 18:49: daily. [place] capsule 57 [facility] tolterodine 2017-0 Yes 4mg Take 4 mg [place] [place] (DETROL 1-18 by mouth ity o f [place]) 4 mg 24 18:49: daily. [place] hr capsule 57 [facility] tolterodine 2017-0 Yes 4mg Take 4 mg [place] [place] (DETROL 1-18 by mouth ity o [place]) 4 mg 24 12:49: daily. [place] hr capsule 57 [facility] tolterodine 2017-0 Yes 4mg Take 4 mg [place] [place] (DETROL 1-18 by mouth ity o f [place]) 4 mg 24 12:49: daily. [place] hr capsule 57 [facility] tolterodine 2017-0 Yes 4mg Take 4 mg [place] [place] (DETROL 1-18 by mouth ity o f [place]) 4 mg 24 12:49: daily. [place] hr capsule 57 [facility] Alendronate Alendronate No Alendronat Sodium 70 Sodium 70 e Sodium MG MG 70 MG Calcium 500 Calcium 500 No 1{table BID Calcium MG MG t_with_ 500 MG meals} Azelastine Azelastine No 1{puff_ BID Azelastine HCl 0.1 % HCl 0.1 % in_each HCl 0.1 % _nostri l} Fluticasone Fluticasone No 1{puff} BID Fluticason Propionate Propionate e HFA 44 HFA 44 Propionate MCG/ACT MCG/ACT HFA 44 MCG/ACT Montelukast Montelukast No 1{table QD Montelukas Sodium 10 Sodium 10 t} t Sodium MG MG 10 MG Famotidine Famotidine No 1{table QD Famotidine 20 MG 20 MG t_at_be 20 MG dtime_a s_neede d} Restasis Restasis No 1{drop_ BID Restasis 0.05 % 0.05 % into_af 0.05 % fected_ eye} Osphena 60 Osphena 60 No Osphena 60 mg mg mg Rosuvastati Rosuvastati No 1{table QD Rosuvastat n Calcium 5 n Calcium 5 t} in Calcium MG MG 5 MG Topiramate Topiramate No 1{table QD Topiramate 50 MG 50 MG t} 50 MG Pregabalin Pregabalin No 1{capsu QD Pregabalin 50 MG 50 MG le} 50 MG Estradiol Estradiol No Estradiol 0.1 MG/GM 0.1 MG/GM 0.1 MG/GM Metoprolol Metoprolol No 1{table QD Metoprolol Succinate Succinate t} Succinate ER 50 MG ER 50 MG ER 50 MG traMADol traMADol No 1{table QD traMADol HCl 50 MG HCl 50 MG t_as_ne HCl 50 MG eded} Vitamin D Vitamin D No 1{table QD Vitamin D 25 MCG 25 MCG t} 25 MCG (1000 UT) (1000 UT) (1000 UT) cyclobenzap cyclobenzap No cyclobenza rine rine nitza Allopurinol Allopurinol No 1{table QD Allopurino 300 MG 300 MG t} l 300 MG Alendronate Alendronate No Alendronat Sodium 70 Sodium 70 e Sodium MG MG 70 MG Calcium 500 Calcium 500 No 1{table BID Calcium MG MG t_with_ 500 MG meals} Azelastine Azelastine No 1{puff_ BID Azelastine HCl 0.1 % HCl 0.1 % in_each HCl 0.1 % _nostri l} Alendronate Alendronate No Alendronat Sodium 70 Sodium 70 e Sodium MG MG 70 MG Famotidine Famotidine No 1{table QD Famotidine 20 MG 20 MG t_at_be 20 MG dtime_a s_neede d} cyclobenzap cyclobenzap No cyclobenza rine rine nitza Rosuvastati Rosuvastati No 1{table QD Rosuvastat n Calcium 5 n Calcium 5 t} in Calcium MG MG 5 MG Metoprolol Metoprolol No 1{table QD Metoprolol Succinate Succinate t} Succinate ER 50 MG ER 50 MG ER 50 MG cyclobenzap cyclobenzap No cyclobenza rine rine nitza Rosuvastati Rosuvastati No 1{table QD Rosuvastat n Calcium 5 n Calcium 5 t} in Calcium MG MG 5 MG Alendronate Alendronate No Alendronat Sodium 70 Sodium 70 e Sodium MG MG 70 MG Famotidine Famotidine No 1{table QD Famotidine 20 MG 20 MG t_at_be 20 MG dtime_a s_neede d} Metoprolol Metoprolol No 1{table QD Metoprolol Succinate Succinate t} Succinate ER 50 MG ER 50 MG ER 50 MG cyclobenzap cyclobenzap No cyclobenza rine rine nitza Rosuvastati Rosuvastati No 1{table QD Rosuvastat n Calcium 5 n Calcium 5 t} in Calcium MG MG 5 MG Alendronate Alendronate No Alendronat Sodium 70 Sodium 70 e Sodium MG MG 70 MG Famotidine Famotidine No 1{table QD Famotidine 20 MG 20 MG t_at_be 20 MG dtime_a s_neede d} Metoprolol Metoprolol No 1{table QD Metoprolol Succinate Succinate t} Succinate ER 50 MG ER 50 MG ER 50 MG Metoprolol Metoprolol No 1{table QD Metoprolol Succinate Succinate t} Succinate ER 50 MG ER 50 MG ER 50 MG Rosuvastati Rosuvastati No 1{table QD Rosuvastat n Calcium 5 n Calcium 5 t} in Calcium MG MG 5 MG Famotidine Famotidine No 1{table QD Famotidine 20 MG 20 MG t_at_be 20 MG dtime_a s_neede d} cyclobenzap cyclobenzap No cyclobenza rine rine nitza Alendronate Alendronate No Alendronat Sodium 70 Sodium 70 e Sodium MG MG 70 MG cyclobenzap cyclobenzap No cyclobenza rine rine nitza Alendronate Alendronate No Alendronat Sodium 70 Sodium 70 e Sodium MG MG 70 MG Rosuvastati Rosuvastati No 1{table QD Rosuvastat n Calcium 5 n Calcium 5 t} in Calcium MG MG 5 MG Famotidine Famotidine No 1{table QD Famotidine 20 MG 20 MG t_at_be 20 MG dtime_a s_neede d} Metoprolol Metoprolol No 1{table QD Metoprolol Succinate Succinate t} Succinate ER 50 MG ER 50 MG ER 50 MG Fluticasone Fluticasone No 1{puff} BID Fluticason Propionate Propionate e HFA 44 HFA 44 Propionate MCG/ACT MCG/ACT HFA 44 MCG/ACT Montelukast Montelukast No 1{table QD Montelukas Sodium 10 Sodium 10 t} t Sodium MG MG 10 MG traMADol traMADol No 1{table QD traMADol HCl 50 MG HCl 50 MG t_as_ne HCl 50 MG eded} Osphena 60 Osphena 60 No Osphena 60 mg mg mg Rosuvastati Rosuvastati No 1{table QD Rosuvastat n Calcium 5 n Calcium 5 t} in Calcium MG MG 5 MG cyclobenzap cyclobenzap No cyclobenza rine rine nitza Pregabalin Pregabalin No 1{capsu QD Pregabalin 50 MG 50 MG le} 50 MG Alendronate Alendronate No Alendronat Sodium 70 Sodium 70 e Sodium MG MG 70 MG Famotidine Famotidine No 1{table QD Famotidine 20 MG 20 MG t_at_be 20 MG dtime_a s_neede d} Metoprolol Metoprolol No 1{table QD Metoprolol Succinate Succinate t} Succinate ER 50 MG ER 50 MG ER 50 MG Topiramate Topiramate No 1{table QD Topiramate 50 MG 50 MG t} 50 MG Calcium 500 Calcium 500 No 1{table BID Calcium MG MG t_with_ 500 MG meals} Restasis Restasis No 1{drop_ BID Restasis 0.05 % 0.05 % into_af 0.05 % fected_ eye} Vitamin D Vitamin D No 1{table QD Vitamin D 25 MCG 25 MCG t} 25 MCG (1000 UT) (1000 UT) (1000 UT) Estradiol Estradiol No Estradiol 0.1 MG/GM 0.1 MG/GM 0.1 MG/GM Allopurinol Allopurinol No 1{table QD Allopurino 300 MG 300 MG t} l 300 MG Azelastine Azelastine No 1{puff_ BID Azelastine HCl 0.1 % HCl 0.1 % in_each HCl 0.1 % _nostri l} Fluticasone Fluticasone No 1{puff} BID Fluticason Propionate Propionate e HFA 44 HFA 44 Propionate MCG/ACT MCG/ACT HFA 44 MCG/ACT Montelukast Montelukast No 1{table QD Montelukas Sodium 10 Sodium 10 t} t Sodium MG MG 10 MG Famotidine Famotidine No 1{table QD Famotidine 20 MG 20 MG t_at_be 20 MG dtime_a s_neede d} Restasis Restasis No 1{drop_ BID Restasis 0.05 % 0.05 % into_af 0.05 % fected_ eye} Osphena 60 Osphena 60 No Osphena 60 mg mg mg Rosuvastati Rosuvastati No 1{table QD Rosuvastat n Calcium 5 n Calcium 5 t} in Calcium MG MG 5 MG Topiramate Topiramate No 1{table QD Topiramate 50 MG 50 MG t} 50 MG Pregabalin Pregabalin No 1{capsu QD Pregabalin 50 MG 50 MG le} 50 MG Estradiol Estradiol No Estradiol 0.1 MG/GM 0.1 MG/GM 0.1 MG/GM Metoprolol Metoprolol No 1{table QD Metoprolol Succinate Succinate t} Succinate ER 50 MG ER 50 MG ER 50 MG traMADol traMADol No 1{table QD traMADol HCl 50 MG HCl 50 MG t_as_ne HCl 50 MG eded} Vitamin D Vitamin D No 1{table QD Vitamin D 25 MCG 25 MCG t} 25 MCG (1000 UT) (1000 UT) (1000 UT) cyclobenzap cyclobenzap No cyclobenza rine rine nitza Allopurinol Allopurinol No 1{table QD Allopurino 300 MG 300 MG t} l 300 MG Immunizations Ordered Filled Immunization Date Status Comments [facility] e Immunization Name Name SARS-COV-2 COVID-19 2021-10-10 Completed Unive rsity of MODERNA 0.25ML 00:00:00 [place] [facility] BOOSTER VACCINE Branch SARS-COV-2 COVID-19 2021-04-19 Completed Unive rsity of MODERNA BOOSTER 00:00:00 [place] [facility] ical VACCINE Branch SARS-COV-2 COVID-19 2021-04-19 Completed Unive rsity of MODERNA 0.25ML 00:00:00 [place] [facility] mamie BOOSTER VACCINE Branch SARS-COV-2 COVID-19 2021-04-19 Completed Unive rsity of MODERNA 0.25ML 00:00:00 [place] [facility] mamie BOOSTER VACCINE Branch SARS-COV-2 COVID-19 2020-07-25 Completed Unive rsity of MODERNA VACCINE 00:00:00 [place] [facility] SARS-COV-2 COVID-19 2020-07-25 Completed Unive rsity of MODERNA VACCINE 00:00:00 [place] [facility] SARS-COV-2 COVID-19 2020-07-25 Completed Unive rsity of MODERNA VACCINE 00:00:00 [place] [facility] SARS-COV-2 COVID-19 2020-06-27 Completed Unive rsity of MODERNA VACCINE 00:00:00 [place] [facility] SARS-COV-2 COVID-19 2020-06-27 Completed Unive rsity of MODERNA VACCINE 00:00:00 [place] [facility] SARS-COV-2 COVID-19 2020-06-27 Completed Unive rsity of MODERNA VACCINE 00:00:00 [place] [facility] Vital Signs Vital Name Observation Time Observation Value Comments Source height 2022-03-31 15:45:00 61 [in_i] Common S pirit - [facility] weight 2022-03-31 15:45:00 151.6 [lb_av] Common [facility] temperature 2022-03-31 15:45:00 97.6 [degF] Common [facility] bmi 2022-03-31 15:45:00 28.64 kg/m2 Common S [facility] oximetry 2022-03-31 15:45:00 99 % Common S [facility] respiratory rate 2022-03-31 15:45:00 18 /min Comm on [facility] blood pressure 2022-03-31 15:45:00 137 mm[Hg] Common [facility] - systolic [facility] blood pressure 2022-03-31 15:45:00 63 mm[Hg] Common [facility] - diastolic [facility] height 2021-12-12 16:30:00 61 [in_i] Common [facility] weight 2021-12-12 16:30:00 148 [lb_av] Common [facility] temperature 2021-12-12 16:30:00 97.3 [degF] Common S [facility] bmi 2021-12-12 16:30:00 27.96 kg/m2 [facility] oximetry 2021-12-12 16:30:00 98 % Common [facility] respiratory rate 2021-12-12 16:30:00 16 /min Comm on [facility] blood pressure 2021-12-12 16:30:00 126 mm[Hg] [facility] - [facility] blood pressure 2021-12-12 16:30:00 60 mm[Hg] [facility] - diastolic [facility] height 2021-05-15 10:20:00 61 [in_i] Common [facility] weight 2021-05-15 10:20:00 164 [lb_av] Common [facility] temperature 2021-05-15 10:20:00 97.2 [degF] Common [facility] bmi 2021-05-15 10:20:00 30.98 kg/m2 [facility] oximetry 2021-05-15 10:20:00 93 % Common [facility] blood pressure 2021-05-15 10:20:00 142 mm[Hg] [facility] - systolic [facility] blood pressure 2021-05-15 10:20:00 67 mm[Hg] [facility] diastolic [facility] height 2021-03-28 11:20:00 61 [in_i] [facility] weight 2021-03-28 11:20:00 164 [lb_av] [facility] temperature 2021-03-28 11:20:00 97.8 [degF] [facility] bmi 2021-03-28 11:20:00 30.98 kg/m2 [facility] oximetry 2021-03-28 11:20:00 98 % [facility] blood pressure 2021-03-28 11:20:00 144 mm[Hg] [facility] blood pressure 2021-03-28 11:20:00 84 mm[Hg] [facility] - diastolic [facility] Systolic blood 2019-01-11 21:05:00 155 mm[Hg] [facility] Diastolic blood 2019-01-11 21:05:00 99 mm[Hg] Unive rsity [facility] Heart rate 2019-01-11 20:59:00 87 /min [facility] Respiratory rate 2019-01-11 20:59:00 19 /min [facility] Body weight 2019-01-11 20:59:00 74.844 kg [facility] BMI 2019-01-11 20:59:00 31.18 kg/m2 [facility] Oxygen saturation in 2019-01-11 20:59:00 100 /min [facility] blood by [place] [facility] Pulse oximetry Branch Procedures Procedure Date / Time Performed Performing Clinician [facility] daniel SARS-COV-2 COVID-19 2021-10-10 20:56:46 Doctor Unassigned, No [facility] [place] VACCINE Name Medical Branch BOOSTER,0.25ML,IM (MODERNA) ASSIGNMENT OF BENEFITS 2021-10-10 20:03:12 Doctor Unassigned, No [facility] Name Medical Branch SARS-COV-2 COVID-19 2021-04-19 21:19:32 Doctor Unassigned, No [facility] [place] VACCINE Name Medical Branch BOOSTER,0.25ML,IM (MODERNA) ASSIGNMENT OF BENEFITS 2019-02-07 16:05:10 Doctor Unassigned, No [facility] Name Medical Branch REFERRAL- 2019-01-28 05:01:00 Doctor Unassigned, No [facility] [place] REQUEST/RESPONSE Name Medical Branch Plan of Care Planned Activity Planned Date Details Comments Source Future Scheduled 2022-04-02 HEPATITIS B VACCINES Met [facility] [place] Test 02:50:23 (1 of 3 - 3-dose series) [code = HEPATITIS B VACCINES (1 of 3 - 3-dose series)] Future Scheduled 2022-04-02 COVID-19 VACCINE (#1) [facility] Test 02:50:23 [code = COVID-19 VACCINE (#1)] Future Scheduled 2022-04-02 SHINGLES VACCINES (1 Met [facility] [place] Test 02:50:23 of 2) [code = SHINGLES VACCINES (1 of 2)] Future Scheduled 2022-04-02 65+ [facility]OCOCCAL [facility] Test 02:50:23 VACCINE (1 - PCV) [code = 65+ PNEUMOCOCCAL VACCINE (1 - PCV)] Future Scheduled 2022-04-02 INFLUENZA VACCINE Method is Hospital Test 02:50:23 [code = INFLUENZA VACCINE] Encounters Start End Encounter Admission Attending Care Care Encounter Source Date/Time Date/Time Type Type Clinicians Facility Department ID 2021-06-26 Outpatient [facility] [id number] Common 14:06:07 [id number] [facility] 2022-04-03 2022-04-03 (TEL) [facility] [id number] Co mmon 00:00:00 00:00:00 [facility] 2022-03-312022-03-31 OFFICE STLMLC STLMLC [id number] Co mmon 00:00:00 00:00:00 VISIT EST Spir it PT LEVEL 3 - [facility] 2022-03-26 2022-03-26 (TEL) STLMLC STLMLC [id number] Co mmon 00:00:00 00:00:00 [facility] 2022-03-24 2022-03-24 (NV) Nurse [facility] [id number] Common 00:00:00 00:00:00 Visit [facility] 2021-12-12 2021-12-12 OFFICE STLMLC STLC [id number] Co mmon 00:00:00 00:00:00 VISIT [facility] PT - LEVEL 4 [facility] 2021-10-10 2021-10-10 Imm/Inj Vaccine, Ang Db Cbc Fam [facility] 1. 2.840.114 [id number] Univers 15:00:00 15:10:00 Visit Carmen Manning [facility] [id number] ity [facility] [id number] Alvin as MIGNON?BLEA [phone] [address] MEDICAL OFFICE BUILDING 2021-10-10 2021-10-10 Outpatient R MARGIE [facility] [id number] Univers 15:00:00 15:00:00 CARMEN kothari [facility] 2021-10-10 2021-10-10 Orders Doctor JAGDISH 1.2.840.114 [id number] Univers 00:00:00 00:00:00 Only Unassigned, ABBIE [id number] ity of [facility] [id number] Alvin as [phone] [address] 2021-05-21 2021-05-21 (TEL) STLMLC STLC [id number] Co mmon 00:00:00 00:00:00 [facility] 2021-05-15 2021-05-15 OFFICE STLMLC STLMLC [id number] Co mmon 00:00:00 00:00:00 VISIT EST Spir it PT LEVEL 3 [facility] 2021-04-19 2021-04-19 Imm/Inj Vaccine, Ang Db Cbc Fam [facility] 1. 2.840.114 [id number] Univers 15:07:20 15:17:20 Visit Garrett Juan [facility] [id number] ity saranya HERNANDEZ [id number] Alvin as MIGNON?BLEA [phone] [address] MEDICAL OFFICE BUILDING 2021-04-19 2021-04-19 Outpatient R GARRETT [facility] [id number] Univers 15:00:00 15:00:00 JUAN [facility] 2021-03-28 2021-03-28 OFFICE [facility] [id number] Co mmon 00:00:00 00:00:00 VISIT EST Spir it PT LEVEL 3 - [facility] 2020-07-25 2020-07-25 Outpatient Chirag DAIGLE [facility] [id number] Univers 11:50:00 11:50:00 HARINDER [facility] 2020-06-27 2020-06-27 Outpatient Chirag DAIGLE [facility] [id number] Univers 11:50:00 11:50:00 HARINDER [facility] 2020-06-24 2020-06-24 [facility] 1.2.840.114 [id number] 00:00:00 00:00:00 Outreach Alex PRIMARY [id number] Ck CARE [id number] PAVILLION [id number] [id number] 2020-06-24 2020-06-24 Patient Noah [facility] 1.2.840.114 [id number] Univers 00:00:00 00:00:00 Outreach Alex PRIMARY [id number] i ty of [id number] [id number] [address] 2020-05-04 2020-05-04 Yovany Russell [facility] 1.2.840.114 [id number] Univers 00:00:00 00:00:00 Teofilo Hernandez [id number] [id number] [phone] [place] dical nal 092 [facility] 2020-05-04 2020-05-04 Refill Drew, [facility] 1.2.840.114 [id number] 00:00:00 00:00:00 Teofilo Hernandez [id number] [place] [id number] Professio [phone] [address] 2019-10-07 2019-10-07 Refill Drew, [facility] 1.2.840.114 [id number] Univers 00:00:00 00:00:00 Teofilo Hernandez [id number] [id number] [phone] [address] 2019-10-07 2019-10-07 Refill Drew, [facility] 1.2.840.114 [id number] 00:00:00 00:00:00 Teofilo [place] [id number] [place] [id number] Professio [phone] [address] 2019-02-17 2019-02-17 Ancillary Tiera Saavedra DEMB 1.2.840. 114 [id number] [facility] 15:52:45 16:46:00 Visit Jake Weaver [id number] [id number] [phone] [facility] 179 [facility] 2019-02-07 2019-02-15 Ancillary Tiera Saavedra [facility] 1.2.840. 114 [id number] [facility] 11:06:13 15:30:12 Visit Jake Weaver [id number] it[id number] [phone] [facility] 179 [facility] 2019-02-14 2019-02-14 Ancillary Tiera Saavedra [facility] 1.2.840. 114 [id number] [facility] 16:04:49 17:19:26 Visit Jkae Weaver [id number] [id number] [phone] [place] dical nal 179 [facility] 2019-02-09 2019-02-09 Ancillary Lashonda Caceres [facility] 1.2.840 .114 [id number] Univers 14:46:29 15:31:29 Visit WeaverJake [id number] it[id number] [phone] N[place] dicny nal 179 [facility] 2019-02-07 2019-02-07 Orders Doctor JAGDISH 1.2.840.114 [id number] Univers 00:00:00 00:00:00 Only Unassigned, ABBIE [id number] ity of [facility] [id number] Alvin as [phone] [address] 2019-01-28 2019-01-28 Orders Doctor DUBON 1.2.840.114 [id number] Univers 00:00:00 00:00:00 Only Unassigned, ABBIE [id number] ity of [facility] [id number] Alvin as [phone] [address] 2019-01-11 2019-01-11 Office Drew [facility] 1.2.840.114 [id number] [facility] 15:53:10 16:27:27 Visit Teofilo Hernandez [id number] [id number] [phone] [facility] 092 [facility] 2019-01-06 2019-01-06 Telephone Drew [facility] 1.2.840.114 [id number] Univers 00:00:00 00:00:00 Teofilo Hernandez [id number] [id number] [phone] [facility] 092 [facility] Results This patient has no known results.
[2022-05-06] MEDS ORDERED: MORPHINE 4 MG/ML SYR ONE (14:44)
[2022-05-06 14:49] LABS: Urine Blood Trace-intact (Negative); Urine Glucose Negative (Negative); Urine Protein Negative (Negative); Urine pH 5.5 (5.0-7.0)
--- NOTE | 2022-05-06 15:01 | RAD REPORT ---
EXAM DESCRIPTION: CT - Stone Protocol - 05/06/2022 2:50 pm CLINICAL HISTORY: Abdominal pain. COMPARISON: April 2022 TECHNIQUE: Computed axial tomography of the abdomen pelvis was obtained without oral or IV contrast. Lack of IV and oral contrast limits evaluation of solid organs, appendix, bowel, and vessels. Craft l reformatted images were obtained and reviewed. All CT scans are performed using dose optimization technique as appropriate and may include automated exposure control or mA/KV adjustment according to patient size. FINDINGS: Tiny bilateral renal calculi. No hydronephrosis. A ureteral calculus is not seen. A bladder calculus. The liver, spleen, pancreas and adrenals appear grossly normal There is no evidence of diverticulitis. A 3 centimeter duodenal diverticulum Mild to moderate anterior subluxation L4 on L5. 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 Mild posterior subluxation L5 on S1. These are chronic findings Hysterectomy IMPRESSION: Tiny bilateral nonobstructing renal calculi
[2022-05-06] MEDS ORDERED: CIPROFLOXACIN HCL 500 MG TAB ONE (15:10)
[2022-05-06 15:14] LABS: Urine WBC Clump Occasional /HPF (None Seen)
--- NOTE | 2022-05-06 15:24 | ER ---
Nurse's Notes [facility] Name: Lina Fisher Age: 76 yrs Sex: Female : 1945 Arrival Date: 05/06/2022 Time: 14:17 Bed 18 Private MD: Diagnosis: UTI/ Urinary tract infection, site not specified Presentation: 05/06 14:30 Chief complaint: Patient states: [address] scan done that showed multiple jh5 kidney stones bilaterally. Pt also had UTI, was on PO antibiotics but states her infection is back. It torres very much when she pee's and is cloudy. Coronavirus screen: Vaccine status: Patient reports receiving the 2nd dose of the covid vaccine. Client denies travel out of the [place] in the last 14 days. Ebola Screen: Patient negative for fever greater than or equal to 101.5 degrees Fahrenheit, and additional compatible Ebola Virus Disease symptoms Patient denies exposure to infectious person. Patient denies travel to an Ebola-affected area in the 21 days before illness onset. Initial Sepsis Screen: Does the patient meet any 2 criteria? No. Patient's initial sepsis screen is negative. Does the patient have a suspected source of infection? No. Patient's initial sepsis screen is negative. Risk Assessment: Do you want to hurt yourself or someone else? Patient reports no desire to harm self or others. Onset of symptoms was April 2022. 14:30 Method Of Arrival: Ambulatory [facility] 14:30 Acuity: MARQUITA 3 jh5 Triage Assessment: 14:33 General: Appears in no apparent distress. uncomfortable, Behavior is calm, cooperative, jh5 appropriate for age. Pain: Denies pain. GI: Reports. Historical: - Allergies: 14:30 Bactrim; ss 14:30 Codeine (Upset stomach); ss 14:30 OPIOID ANALGESICS; ss - PMHx: 14:30 Arthritis; Osteoporosis; Migraines; Hypertension; Chronic pain; Seizures; ss - Immunization history:: Adult Immunizations up to date. - Social history:: Smoking status: Patient denies any tobacco usage or history of. Screenin:01 Abuse screen: Denies threats or abuse. Nutritional screening: No deficits noted. vg1 Tuberculosis screening: No symptoms or risk factors identified. Fall Risk No fall in past 12 months (0 pts). No secondary diagnosis (0 pts). No IV (0 pts). Ambulatory Aid- None/Bed Rest/Nurse Assist (0 pts). Gait- Normal/Bed Rest/Wheelchair (0 pts) Mental Status- Oriented to own ability (0 pts). Total Connor Fall Scale indicates No Risk (0-24 pts). Assessment: 14:59 General: Appears in no apparent distress. uncomfortable, Behavior is calm, cooperative. vg1 Pain: Complains of pain in posterior aspect of right lateral abdomen, right lower quadrant and left lower quadrant Pain currently is 7 out of 10 on a pain scale. Neuro: Level of Consciousness is awake, alert, obeys commands, Oriented to person, place, time, situation. Cardiovascular: Patient's skin is warm and dry. Respiratory: Airway is patent Respiratory effort is even, unlabored. GI: Abdomen is flat, non-distended, Bowel sounds present X 4 quads. Abdomen is tender to palpation in right lower quadrant and left lower quadrant. : No signs and/or symptoms were reported regarding the genitourinary system. EENT: No signs and/or symptoms were reported regarding the EENT system. Derm: Skin is pink, warm \T\ dry. Musculoskeletal: Circulation, motion, and sensation intact. Vital Signs: 14:30 BP 116 / 54; Pulse 83; Resp 18; Temp 97.0; Pulse Ox 99% ; Weight 68.04 kg; Height 5 ft. jh5 1 in. (154.94 cm); Pain 7/10; 14:30 BP 115 / 69; Pulse 80; Resp 15; Pulse Ox 100% on R/A; vg1 15:30 BP 116 / 68; Pulse 75; Resp 15; Pulse Ox 99% on R/A; vg1 14:30 Body Mass Index 28.34 (68.04 kg, 154.94 cm) jh5 ED Course: 14:17 Patient arrived in ED. rg4 14:20 Clementine Gomez FNP-C is [facility]. snw 14:20 Enoch Vázquez MD is Attending Physician. snw 14:28 Rosa Love, KYE is Primary Nurse. vg1 14:33 Triage completed. jh5 14:33 Arm band placed on right wrist. jh5 14:48 Urine Microscopic Only Sent. em6 14:48 Urine Culture Sent. em6 14:52 CT Stone Protocol In Process Unspecified. EDMS 15:01 Patient has correct armband on for positive identification. Bed in low position. Call vg1 light in reach. Side rails up X 1. 15:41 No provider procedures requiring assistance completed. Patient did not have IV access vg1 during this emergency room visit. Administered Medications: 14:58 Drug: morphine 4 mg Route: IM; Site: right deltoid; vg1 15:41 Follow up: Response: No adverse reaction; Marked relief of symptoms vg1 15:12 Drug: Cipro (ciprofloxacin) 500 mg Route: PO; em6 15:41 Follow up: Response: No adverse reaction vg1 Medication: 15:02 VIS not applicable for this client. vg1 Outcome: 15:24 Discharge ordered by . snw 15:41 Discharged to home ambulatory, with family. vg1 15:41 Condition: good 15:41 Discharge instructions given to patient, family, Instructed on discharge instructions, follow up and referral plans. medication usage, Demonstrated understanding of instructions, follow-up care, medications, Prescriptions given X 1. 15:42 Patient left the ED. vg1 Signatures: Dispatcher [employer] EDMI Clementine Gomez, NICK SETTER-C NICK SETTER-Csnw Kayli Aguero RN RN Cheri Priest rg4 Rosa Love RN RN vg1 Adriana Stovall, RN RN jh5 Gilma Aly RN RN em6
--- NOTE | 2022-05-06 15:24 | EDPHYS ---
Physician Documentation [facility] Name: Lina Fisher Age: 76 yrs Sex: Female : 1945 Arrival Date: 05/06/2022 Time: 14:17 Bed 18 Private MD: ED Physician Enoch Vázquez HPI: 05/06 14:41 This 76 yrs old Female presents to ER via Ambulatory with complaints of Possible Kidney snw Stone. 14:41 The patient complains of pain in the left low back and left mid back. The pain radiates snw to the left lower quadrant. Onset: The symptoms/episode began/occurred acutely. Associated signs and symptoms: Pertinent positives: dysuria, left lower quad pain. Severity of pain: At its worst the pain was moderate. over the past [address] Dolan for check up 3 weeks ago, Dr. Arita for renal calculi two weeks ago. Historical: - Allergies: 14:30 Bactrim; ss 14:30 Codeine (Upset stomach); ss 14:30 OPIOID ANALGESICS; ss - PMHx: 14:30 Arthritis; Osteoporosis; Migraines; Hypertension; Chronic pain; Seizures; ss - Immunization history:: Adult Immunizations up to date. - Social history:: Smoking status: Patient denies any tobacco usage or history of. ROS: 14:43 Constitutional: Negative for fever, chills, and weight loss, Eyes: Negative for injury, snw pain, redness, and discharge, ENT: Negative for injury, pain, and discharge, Neck: Negative for injury, pain, and swelling, Cardiovascular: Negative for chest pain, palpitations, and edema, Respiratory: Negative for shortness of breath, cough, wheezing, and pleuritic chest pain, Back: Negative for injury and pain, : Negative for injury, bleeding, discharge, and swelling, MS/Extremity: Negative for injury and deformity, Skin: Negative for injury, rash, and discoloration, Neuro: Negative for headache, weakness, numbness, tingling, and seizure. 14:43 Abdomen/GI: Positive for abdominal pain, of the left upper quadrant and left lower quadrant. Exam: 14:44 Constitutional: This is a well developed, well nourished patient who is awake, alert, snw and in no acute distress. Head/Face: Normocephalic, atraumatic. Eyes: Pupils equal round and reactive to light, extra-ocular motions intact. Lids and lashes normal. Conjunctiva and sclera are non-icteric and not injected. Cornea within normal limits. Periorbital areas with no swelling, redness, or edema. ENT: Nares patent. No nasal discharge, no septal abnormalities noted. Tympanic membranes are normal and external auditory canals are clear. Oropharynx with no redness, swelling, or masses, exudates, or evidence of obstruction, uvula midline. Mucous membranes moist. Neck: Trachea midline, no thyromegaly or masses palpated, and no cervical lymphadenopathy. Supple, full range of motion without nuchal rigidity, or vertebral point tenderness. No Meningismus. Chest/axilla: Normal chest wall appearance and motion. Nontender with no deformity. No lesions are appreciated. Cardiovascular: Regular rate and rhythm with a normal S1 and S2. No gallops, murmurs, or rubs. Normal PMI, no JVD. No pulse deficits. Respiratory: Lungs have equal breath sounds bilaterally, clear to auscultation and percussion. No rales, rhonchi or wheezes noted. No increased work of breathing, no retractions or nasal flaring. Back: No spinal tenderness. No costovertebral tenderness. Full range of motion. Skin: Warm, dry with normal turgor. Normal color with no rashes, no lesions, and no evidence of cellulitis. MS/ Extremity: Pulses equal, no cyanosis. Neurovascular intact. Full, normal range of motion. Neuro: Awake and alert, GCS 15, oriented to person, place, time, and situation. Cranial nerves II-XII grossly intact. Motor strength 5/5 in all extremities. Sensory grossly intact. Cerebellar exam normal. Normal gait. 14:44 Abdomen/GI: Inspection: abdomen appears normal, Bowel sounds: normal, Palpation: mild abdominal tenderness, moderate abdominal tenderness, in the anterior aspect of left lateral abdomen. Vital Signs: 14:30 BP 116 / 54; Pulse 83; Resp 18; Temp 97.0; Pulse Ox 99% ; Weight 68.04 kg; Height 5 ft. jh5 1 in. (154.94 cm); Pain 7/10; 14:30 BP 115 / 69; Pulse 80; Resp 15; Pulse Ox 100% on R/A; vg1 15:30 BP 116 / 68; Pulse 75; Resp 15; Pulse Ox 99% on R/A; vg1 14:30 Body Mass Index 28.34 (68.04 kg, 154.94 cm) 5 MDM: 14:35 Patient medically screened. snw 15:25 Data reviewed: vital signs, nurses notes. Data interpreted: Pulse oximetry: on room air snw is 100 %. Interpretation: normal. Counseling: I had a detailed discussion with the patient and/or guardian regarding: the historical points, exam findings, and any diagnostic results supporting the discharge/admit diagnosis, lab results, radiology results, the need for outpatient follow up, to return to the emergency department if symptoms worsen or persist or if there are any questions or concerns that arise at home. Special discussion: Based on the patient's Hx, exam, and Dx evaluation, there is no indication for emergent surgery or inpatient Tx. It is understood by the patient/guardian that if the Sx's persist or worsen they need to return immediately for re-evaluation. Based on the history and exam findings, there is no indication for further emergent testing or inpatient evaluation. I discussed with the patient/guardian the need to see the primary care provider for further evaluation of the symptoms. I discussed with the patient/guardian the need to see the urologist for further evaluation of the symptoms. 05/06 14:21 Order name: Urine Culture snw 05/06 14:21 Order name: Urine Microscopic Only; Complete Time: 15:23 snw 05/06 14:31 Order name: CT Stone Protocol; Complete Time: 15:02 snw 05/06 14:49 Order name: Urine Dipstick-Ancillary; Complete Time: 14:59 EDMS 05/06 14:21 Order name: Urine Dipstick-Ancillary (obtain specimen); Complete Time: 14:48 snw Administered Medications: 14:58 Drug: morphine 4 mg Route: IM; Site: right deltoid; vg1 15:41 Follow up: Response: No adverse reaction; Marked relief of symptoms vg1 15:12 Drug: Cipro (ciprofloxacin) 500 mg Route: PO; em6 15:41 Follow up: Response: No adverse reaction vg1 Disposition: 18:45 Co-signature as Attending Physician, Enoch Vázquez MD I agree with the assessment and kdr plan of care. Disposition Summary: 05/06/22 15:24 Discharge Ordered Location: Home snw Condition: Stable snw Diagnosis - UTI/ Urinary tract infection, site not specified snw Followup: snw - With: Emergency Department - When: As needed - Reason: Worsening of condition Followup: snw - With: Private Physician - When: 1 - 2 days - Reason: Recheck today's complaints, Continuance of care, Re-evaluation by your physician Discharge Instructions: - Discharge Summary Sheet snw - Urinary Tract Infection, Adult snw - Rehydration, Adult snw - Form - Blood Pressure Record Sheet snw Forms: - Medication Reconciliation Form snw - Thank You Letter snw - Antibiotic Education snw - Prescription Opioid Use snw Prescriptions: - Cipro 500 mg Oral Tablet - take 1 tablet by ORAL route every 12 hours for 7 days; 14 tablet; Refills: 0, snw Product Selection Permitted Signatures: Dispatcher [employer] EDMS Enoch Vázquez MD MD kdr Waters, Shelly, GROUND DEFENCE OFFICER-C GROUND DEFENCE OFFICER-Csnw Kayli Aguero, RN KYE ss Rosa Love RN RN vg1 Adriana Stovall RN RN jh5 Gilma Aly, RN RN em6
[2022-05-06 18:49] VITALS: TEMP 97; O2SAT 99
[2022-05-06 18:50] VITALS: BP 116/68
== END 2022-05-06 15:42 | disposition home or self-care (01) ==
LOC: ER 14:12
DX: N39.0 Urinary tract infection, site not specified (principal); Z88.1 Allergy status to other antibiotic agents; Z88.5 Allergy status to narcotic agent
CPT/HCPCS: 74176; 76377; 81003; 81015; 96372; 99284

== ENCOUNTER 2022-05-24 13:20 | Emergency (ER) | payer OTHER ==
--- OUTSIDE RECORDS SUMMARY | 2022-05-24 13:40 | XMS REPORT | Continuity of Care Document ---
:1945 Author Organization [facility] t Address [address] [place] [address] Care Team Providers Name Role Phone [phone] Primary Care Physician Unavailable Vaccine, Ang Db Cbc Fam Attending Clinician Unavailable Kerri HEAVY EQUIPMENT OPERATOR APPRENTICE, Carmen Attending Clinician CARMEN MANNING Attending Clinician Unavailable Doctor Unassigned, [place] Attending Clinician Unavailable Juan Tucker MD Attending Clinician JUAN TUCKER Attending Clinician Unavailable HARINDER DAIGLE Attending Clinician Unavailable Alex Zamora DO Attending Clinician Teofilo Russell MD Attending Clinician Keri PTTiera Attending Clinician Unavailable Jake Weaver MD Attending Clinician Lashonda Caceres PTA Attending Clinician Unavailable Payers Payer Name Policy Type Policy Number Effective Date Expiration Date S solo BAZZI LIFE & C1 [id number] Common Spi rit CASUALTY - [facility] MEDICARE MB [id number] [facility] NOVITAS [facility] Problems Condition Condition Condition Status Onset Resolution [...] Active Metho di with aura with aura 08-18 st and and 00:00: Hospita without without 00 l status status migrainosu migrainosu s, not s, not intractabl intractabl e e Primary Primary Disease Active Methodi insomnia insomnia 08-18 st 00:00: Hospita 00 l 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 infection (urinary tract [facility] infection) Medica [facility] [id number] Acute Problem Common cystitis [facility] with [facility] hematuria [facility] [id number] Suprapubic Problem Co mmon pain [facility] [id number] RLQ Problem Common abdominal Spirit pain [facility] Kidney Kidney Problem Common stone stones [facility] [id number] Recurrent Problem Com mon UTI [facility] [id number] Other Problem Common urethral Spirit stricture, [facility] female [facility] [id number] Incomplete Problem Co mmon emptying Spirit of bladder [facility] [id number] History of Problem Co mmon nephrolith Spirit iasis [facility] [id number] Lower Problem Common urinary [facility] tract - [facility] symptoms (LUTS) [facility] Allergies, Adverse Reactions, Alerts Allergy Allergy Status Severity Reaction(s) Onset Inactive Treating Comm ents Source Name Type Date Date Clinician Codeine Propensi Active Methodi ty to [address] adverse 00:00: Hospita reaction 00 l s to drug Nitrofur Propensi Active Method i antoin ty to [address] adverse 00:00: Hospita reaction 00 l s to drug HYDROCOD DRUG Active Med ITCHING Univers ONE-ACET 8 ity of AMINOPHE 00:00: [place] N 00 Medical Branch NITROFUR DRUG Active Diarrhea Univer s ANTOIN 01-04 ity of MONOHYD/ 00:00: [place] M-CRYST 00 Medical Branch Nitrofur Propensi Active Diarrhea Univ ers antoin ty to 01-04 ity of Monohyd/ adverse 00:00: [place] M-Cryst reaction 00 Medical s Branch Hydrocod Propensi Active Itching Can take Uni vers one-Acet ty to 01-04 with ity of aminophe adverse 00:00: Benadryl [place] n reaction 00 Medical s to Branch drug Nitrofur Nitrofur Active Unknown Commo n antoin antoin [facility] Hydrocod Hydrocod Active Unknown Commo n one one [facility] Family History Family Member Diagnosis Comments Start Date Stop Date Source Natural father Heart disease [facility] Natural mother Dementia [facility] Natural mother Migraines [facility] Social History Social Habit Start Date Stop Date Quantity Comments Source History of Common Spirit - Tobacco Use [facility] Exposure to 2021-09-30 2021-10-10 Not sure [facility] SARS-CoV-2 00:00:00 15:02:00 [facility] (event) [place] Alcohol intake 2018-12-15 2018-12-15 Current [facility] 00:00:00 00:00:00 non-drinker of alcohol (finding) Tobacco use and 2015-10-30 2015-10-30 Never used Universit y of exposure 00:00:00 00:00:00 [facility] Sex Ass[birth year] At [birth year] [facility] [place] [facility] 00:00:00 00:00:00 Smoking Status Start Date Stop Date Source Never smoker [facility] Medications Ordered Filled Start Stop Current Ordering Indication Dosage Frequency Signature Comments Components Source Medication Medication Date Date Medication? Clinician (SIG) Name Name Clotrimazol Clotrimazol 2021-06- BID Clotrimazo e-Betametha e-Betametha 07-23 le-Betamet sone 1-0.05 sone 1-0.05 00:00: 00:00 hasone % % 00 :00 1-0.05 % Alfuzosin Alfuzosin 2021-06- No 1{table QD Alfuzosin HCl ER 10 HCl ER 10 2-15 06-13 t_immed HCl ER 10 MG MG 00:00: 00:00 iately_ MG 00 :00 after_t he_same _meal} Alfuzosin Alfuzosin 2021-06- No 1{table QD Alfuzosin HCl ER 10 HCl ER 10 07-16 t_immed HCl ER 10 MG MG 00:00: 00:00 iately_ MG 00 :00 after_t he_same _meal} Cephalexin Cephalexin 2021-06- No 1{capsu TID Cephalexin 500 MG 500 MG 07-16 le} 500 MG 00:00: 00:00 00 :00 Cephalexin Cephalexin 2021-06- No 1{capsu TID Cephalexin 500 MG 500 MG 07-16 le} 500 MG 00:00: 00:00 00 :00 Cephalexin Cephalexin 2021-06- No 1{capsu TID Cephalexin [...] 00:00: 00:00 00 :00 topiramate 2020-1 Yes [id number] 100mg Take 1 Univers 100 mg 2-07 9105 tablet by ity of tablet 00:00: mouth 2 [place] 00 (two) Medical times Branch daily. topiramate 2020-1 Yes [id number] 100mg Take 1 Univers 100 mg 2- 9105 tablet by ity of tablet 00:00: mouth 2 00 (two) Medical times Branch daily. topiramate 2020-1 Yes [id number] 100mg Take 1 Univers 100 mg 2- 9105 tablet by ity of tablet 00:00: mouth 2 [place] 00 (two) Medical times Branch daily. topiramate 2020-1 Yes [id number] 100mg Take 1 Univers 100 mg 2- 9105 tablet by ity of tablet 00:00: mouth 2 [place] 00 (two) Medical times Branch daily. topiramate 2020-1 Yes [id number] 100mg Take 1 Univers 100 mg 2- 9105 tablet by ity of tablet 00:00: mouth 2 [place] 00 (two) Medical times Branch daily. topiramate 2020-0 Yes [id number] 100mg Take 1 Univers 100 mg 6- 9105 tablet by ity of tablet 00:00: mouth 2 [place] 00 (two) Medical times Branch daily. topiramate 2019-0 2020- No [id number] 100mg Take 1 Univers 100 mg 6-01 10- 9105 tablet by ity of tablet 00:00: 00:00 mouth 2 [place] 00 :00 (two) Medical times Branch daily. TOPIRAMATE 2020-0 Yes [id number] TAKE 1 Univers 100 mg 5-08 9105 TABLET BY ity of tablet 00:00: MOUTH [place] 00 TWICE Medical DAILY Branch TOPIRAMATE 2020-0 2020- No [id number] TAKE 1 Univers 100 mg 5- 06-08 9105 TABLET BY ity of tablet 00:00: 00:00 MOUTH [place] 00 :00 TWICE Medical DAILY Branch TOPIRAMATE 2020-0 2020- No [id number] TAKE 1 Univers 100 mg 06-09-08 9105 TABLET BY ity of tablet 00:00: 00:00 MOUTH [place] 00 :00 TWICE Medical DAILY Branch TOPIRAMATE 2019-0 2020- No [id number] TAKE 1 Univers 100 mg 06-09-08 9105 TABLET BY ity of tablet 00:00: 00:00 MOUTH [place] 00 :00 TWICE Medical DAILY Branch cycloSPORIN 2019-0 Yes 1[drp] Place 1 U [...] it y of ITAMIN D3 21:04: mouth. [place] (CALCIUM 36 Medical 500 + D Branch [...] it y of ITAMIN D3 21:04: mouth. [place] (CALCIUM 36 Medical 500 + D Branch ORAL) cycloSPORIN 2019-0 Yes 1[drp] Place 1 U nivers E 8-13 Drop in ity of (RESTASIS) 21:04: left eye [place] as 0.05 % 36 every 12 Medical drops (twelve) Branch hours. CALCIUM 2019-0 Yes 2{tbl} Take 2 Univer s CARBONATE/V 8-13 tablets by it y of ITAMIN D3 21:04: mouth. [place] (CALCIUM 36 Medical 500 + D Branch ORAL) cycloSPORIN 2019-0 Yes 1[drp] Place 1 U nivers E 8-13 Drop in ity of (RESTASIS) 21:04: left eye [place] as 0.05 % 36 every 12 Medical drops (twelve) Branch hours. CALCIUM 2019-0 Yes 2{tbl} Take 2 Univer s CARBONATE/V 8-13 tablets by it y of ITAMIN D3 21:04: mouth. [place] (CALCIUM 36 Medical 500 + D Branch ORAL) cycloSPORIN 2019-0 Yes 1[drp] Place 1 U nivers E 8-13 Drop in ity of (RESTASIS) 21:04: left eye [place] as 0.05 % 36 every 12 Medical drops (twelve) Branch hours. CALCIUM 2019-0 Yes 2{tbl} Take 2 Univer s CARBONATE/V 8-13 tablets by it y of ITAMIN D3 21:04: mouth. [place] (CALCIUM 36 Medical 500 + D Branch ORAL) DIAZEPAM 2019- No 5mg Take 5 mg Uni vers ORAL 01-11 by mouth ity of 21:04: 00:00 as needed. [place] 16 :00 [facility] DIAZEPAM 2019- No 5mg Take 5 mg Uni vers ORAL 01-11 by mouth ity of 21:04: 00:00 as needed. [place] 16 :00 [facility] CYANOCOBALA 2019- No 1mL Place 1 mL Univers MIN/COBAMAM 01-11 under the it y of [place] (B12 21:04: 00:00 tongue [place] SL) 07 :00 daily. Medical Branch CYANOCOBALA 2019-0 2019- No 1mL Place 1 mL Univers MIN/COBAMAM 01-11 08 under the it y of [place] (B12 21:04: 00:00 tongue [place] SL) 07 :00 daily. Medical Branch ESTROGENS, 2018-0 Yes 1{appli Insert 1 Univers CONJUGATED 8-13 catorfu Applicator ity of (PREMARIN 21:03: l} ful into [place] V[place]AL) 17 vagina Medical weekly. Branch Indication s: Three times weekly metoprolol 2018- Yes 25mg Take 25 mg U nivers succinate 8-13 by mouth ity of XL 25 mg 24 21:03: [place]. [place] hr tablet [place] Branch omeprazole Yes 40mg Take 40 mg U nivers 40 mg 8-13 by mouth ity of capsule 21:03: daily. [address] alendronate 2018- Yes 70mg Take 70 mg Univers 70 mg 8-13 by mouth ity of tablet 21:03: weekly. [address] ALLOPURINOL 2018-0 Yes 300mg Take 300 U nivers ORAL 8-13 mg by ity of 21:03: mouth [place] [address] daily. Medical Branch Tramadol 2018-0 Yes 50mg Take 50 mg Uni vers (RYBIX ODT) 8-13 by mouth ity of 50 mg 21:03: as needed. [address] FLUTICASONE 2018-0 Yes 1{spray Use 1 Un [place] PROPIONATE -13 } [place] in ity o f (FLUTICASON 21:03: each [...] 24 21:03: [place]. [place] tablet [address] [place] [address] Branch omeprazole 2018-0 Yes 40mg Take 40 mg U nivers 40 mg 8-13 by mouth ity of capsule 21:03: daily. [address] alendronate 2018-0 Yes 70mg Take 70 mg Univers 70 mg 8-13 by mouth ity of tablet 21:03: weekly. [address] ALLOPURINOL Yes 300mg Take 300 U nivers ORAL 8-13 mg by ity of 21:03: mouth [place] 17 daily. [facility] Branch Tramadol Yes 50mg Take 50 mg Uni vers (RYBIX ODT) 8-13 by mouth ity of 50 mg 21:03: as needed. [place] tablet [address] [place] [address] FLUTICASONE Yes 1{spray Use 1 Un [place] PROPIONATE 8-13 } [place] in ity o f (FLUTICASON 21:03: each [...] 24 21:03: [place]. [place] [address] [place] [address] omeprazole Yes 40mg Take 40 mg U nivers 40 mg 8-13 by mouth ity of capsule 21:03: daily. [address] alendronate Yes 70mg Take 70 mg Univers 70 mg 8-13 by mouth ity of tablet 21:03: weekly. [address] ALLOPURINOL Yes 300mg Take 300 U nivers ORAL 8-13 mg by ity of 21:03: mouth [place] 17 daily. [facility] Branch Tramadol Yes 50mg Take 50 mg Uni vers (RYBIX ODT) 8-13 by mouth ity of 50 mg 21:03: as needed. [place] tablet [address] [place] [address] FLUTICASONE Yes 1{spray Use 1 Un [place] PROPIONATE 8-13 } [place] in ity o f (FLUTICASON 21:03: each [...] 24 21:03: daily. [place] [address] [place] [address] omeprazole Yes 40mg Take 40 mg U nivers 40 mg 8-13 by mouth ity of capsule 21:03: daily. [address] alendronate 2018-0 Yes 70mg Take 70 mg Univers 70 mg 8-13 by mouth ity of tablet 21:03: weekly. [address] ALLOPURINOL 2018-0 Yes 300mg Take 300 U nivers ORAL 8-13 mg by ity of 21:03: mouth [place] 17 daily. [facility] Branch Tramadol Yes 50mg Take 50 mg Uni vers (RYBIX ODT) 8-13 by mouth ity of 50 mg 21:03: as needed. [place] tablet [address] [place] [address] FLUTICASONE Yes 1{spray Use 1 Un [place] PROPIONATE 8-13 } [place] in ity o f (FLUTICASON 21:03: each [...] 24 21:03: daily. [place] [address] [place] [address] omeprazole Yes 40mg Take 40 mg U nivers 40 mg 8-13 by mouth ity of capsule 21:03: daily. [address] alendronate 2018- Yes 70mg Take 70 mg Univers 70 mg 8-13 by mouth ity of tablet 21:03: weekly. [address] ALLOPURINOL 2018-0 Yes 300mg Take 300 U nivers ORAL 8-13 mg by ity of 21:03: mouth [place] 17 daily. [facility] Branch Tramadol 0 Yes 50mg Take 50 mg Uni vers (RYBIX ODT) 8-13 by mouth ity of 50 mg 21:03: as needed. [address] FLUTICASONE 2018- Yes 1{spray Use 1 Un [place] PROPIONATE 8-13 } [place] in ity o f (FLUTICASON 21:03: each [...] 24 21:03: daily. [place] tablet [address] [place] [address] omeprazole Yes 40mg Take 40 mg U nivers 40 mg 8-13 by mouth ity of capsule 21:03: daily. [address] alendronate Yes 70mg Take 70 mg Univers 70 mg 8-13 by mouth ity of tablet 21:03: weekly. [address] ALLOPURINOL Yes 300mg Take 300 U nivers ORAL 8-13 mg by ity of 21:03: mouth [place] 17 daily. [facility] Tramadol Yes 50mg Take 50 mg Uni vers (RYBIX ODT) 8-13 by mouth ity of 50 mg 21:03: as needed. [address] FLUTICASONE Yes 1{spray Use 1 Un [place] PROPIONATE 8-13 } [place] in ity o f (FLUTICASON 21:03: each [place] E NASAL) 17 nostril as Medic al needed. [place] ESTROGENS, Yes 1{appli Insert 1 Univers CONJUGATED 8-13 catorfu Applicator ity of (PREMARIN 21:03: l} ful into [place] V[place]) 17 vagina Medical weekly. Branch Indication s: Three times weekly metoprolol Yes 25mg Take 25 mg U nivers succinate 8-13 by mouth ity of XL 25 mg 24 21:03: daily. [place] [address] [place] [address] omeprazole Yes 40mg Take 40 mg U nivers 40 mg 8-13 by mouth ity of capsule 21:03: daily. [address] alendronate Yes 70mg Take 70 mg Univers 70 mg 8-13 by mouth ity of tablet 21:03: weekly. [address] ALLOPURINOL Yes 300mg Take 300 U nivers ORAL 8-13 mg by ity of 21:03: mouth [place] 17 daily. [facility] Branch Tramadol 2019-0 Yes 50mg Take 50 mg Uni vers (RYBIX ODT) 8-13 by mouth ity of 50 mg 21:03: as needed. [address] FLUTICASONE 2018- Yes 1{spray Use 1 Un [place] PROPIONATE 8-13 } [place] in ity o f (FLUTICASON 21:03: each [place] E NASAL) 17 nostril as Medic al needed. Branch ESTROGENS, Yes 1{appli Insert 1 Univers CONJUGATED 8-13 catorfu Applicator ity of (PREMARIN 21:03: l} ful into [place] V[place]IN[place]) 17 vagina Medical weekly. Branch Indication s: Three times weekly metoprolol 2018- Yes 25mg Take 25 mg U nivers succinate 8-13 by mouth ity of XL 25 mg 24 21:03: daily. [place] tablet [address] [place] [address] omeprazole Yes 40mg Take 40 mg U nivers 40 mg 8-13 by mouth ity of capsule 21:03: daily. [address] alendronate 2018- Yes 70mg Take 70 mg Univers 70 mg 8-13 by mouth ity of tablet 21:03: weekly. [address] ALLOPURINOL 2018-0 Yes 300mg Take 300 U nivers ORAL 8-13 mg by ity of 21:03: mouth [place] [address] daily. [facility] Branch Tramadol Yes 50mg Take 50 mg Uni vers (RYBIX ODT) 8-13 by mouth ity of 50 mg 21:03: as needed. [address] FLUTICASONE 2018- Yes 1{spray Use 1 Un [place] PROPIONATE 8-13 } [place] in ity o f (FLUTICASON 21:03: each [...] 24 21:03: daily. [place] [address] [place] [address] omeprazole Yes 40mg Take 40 mg U nivers 40 mg 8-13 by mouth ity of capsule 21:03: daily. [address] alendronate 2018-0 Yes 70mg Take 70 mg Univers 70 mg 8-13 by mouth ity of tablet 21:03: weekly. [address] ALLOPURINOL 2018-0 Yes 300mg Take 300 U nivers ORAL 8-13 mg by ity of 21:03: mouth [place] [address] daily. [facility] Branch Tramadol Yes 50mg Take 50 mg Uni vers (RYBIX ODT) 8-13 by mouth ity of 50 mg 21:03: as needed. [place] tablet [address] [place] [address] FLUTICASONE 2018- Yes 1{spray Use 1 Un [place] PROPIONATE 8-13 } [place] in ity o f (FLUTICASON 21:03: each [...] 24 21:03: daily. [place] [address] [place] [address] omeprazole Yes 40mg Take 40 mg U nivers 40 mg 8-13 by mouth ity of capsule 21:03: daily. [address] alendronate Yes 70mg Take 70 mg Univers 70 mg 8-13 by mouth ity of tablet 21:03: weekly. [address] ALLOPURINOL 2018- Yes 300mg Take 300 U nivers ORAL 8-13 mg by ity of 21:03: mouth [place] [address] daily. [facility] Branch Tramadol Yes 50mg Take 50 mg Uni vers (RYBIX ODT) 8-13 by mouth ity of 50 mg 21:03: as needed. [place] tablet [address] [place] [address] FLUTICASONE 2018- Yes 1{spray Use 1 Un [place] PROPIONATE 8-13 } [place] in ity o f (FLUTICASON 21:03: each [...] 24 21:03: daily. [place] [address] [place] [address] omeprazole Yes 40mg Take 40 mg U nivers 40 mg 8-13 by mouth ity of capsule 21:03: daily. [address] alendronate Yes 70mg Take 70 mg Univers 70 mg 8-13 by mouth ity of tablet 21:03: weekly. [address] ALLOPURINOL Yes 300mg Take 300 U nivers ORAL 8-13 mg by ity of 21:03: mouth [place] 17 daily. [facility] Branch Tramadol Yes 50mg Take 50 mg Uni vers (RYBIX ODT) 8-13 by mouth ity of 50 mg 21:03: as needed. [address] FLUTICASONE Yes 1{spray Use 1 Un [place] PROPIONATE 8-13 } [place] in ity o f (FLUTICASON 21:03: each [...] 24 21:03: daily. [place] [address] [place] [address] omeprazole Yes 40mg Take 40 mg U nivers 40 mg 8-13 by mouth ity of capsule 21:03: daily. [address] alendronate Yes 70mg Take 70 mg Univers 70 mg 8-13 by mouth ity of tablet 21:03: weekly. [address] ALLOPURINOL Yes 300mg Take 300 U nivers ORAL 8-13 mg by ity of 21:03: mouth [place] 17 daily. [facility] Branch Tramadol Yes 50mg Take 50 mg Uni vers (RYBIX ODT) 8-13 by mouth ity of 50 mg 21:03: as needed. [place] tablet [address] [place] [address] FLUTICASONE Yes 1{spray Use 1 Un [place] PROPIONATE 8-13 } [place] in ity o f (FLUTICASON 21:03: each [...] 24 21:03: daily. [place] [address] [place] [address] omeprazole Yes 40mg Take 40 mg U nivers 40 mg 8-13 by mouth ity of capsule 21:03: daily. [address] alendronate Yes 70mg Take 70 mg Univers 70 mg 8-13 by mouth ity of tablet 21:03: weekly. [address] ALLOPURINOL Yes 300mg Take 300 U nivers ORAL 8-13 mg by ity of 21:03: mouth [place] [address] daily. [facility] Branch Tramadol Yes 50mg Take 50 mg Uni vers (RYBIX ODT) 8-13 by mouth ity of 50 mg 21:03: as needed. [address] FLUTICASONE Yes 1{spray Use 1 Un [place] PROPIONATE 8-13 } [place] in ity o f (FLUTICASON 21:03: each [...] 24 21:03: daily. [place] tablet [address] [place] [address] omeprazole Yes 40mg Take 40 mg U nivers 40 mg 8-13 by mouth ity of capsule 21:03: daily. [address] alendronate Yes 70mg Take 70 mg Univers 70 mg 8-13 by mouth ity of tablet 21:03: weekly. [address] ALLOPURINOL Yes 300mg Take 300 U nivers ORAL 8-13 mg by ity of 21:03: mouth [place] 17 daily. Medical Branch Tramadol Yes 50mg Take 50 mg Uni vers (RYBIX ODT) 8-13 by mouth ity of 50 mg 21:03: as needed. [place] tablet 17 Medical Branch FLUTICASONE Yes 1{spray Use 1 Un [place] PROPIONATE 8-13 } [place] in ity o f (FLUTICASON 21:03: each [...] 12 Medical drops (twelve) Branch hours. CALCIUM Yes 2{tbl} Take 2 Univer s CARBONATE/V 8-13 tablets by it y of ITAMIN D3 16:04: mouth. [place] (CALCIUM 36 Medical 500 + D Branch ORAL) cycloSPORIN Yes 1[drp] Place 1 U nivers E 8-13 Drop in ity of (RESTASIS) 16:04: left eye [place] as 0.05 % 36 every 12 Medical drops (twelve) Branch hours. CALCIUM 2018- Yes 2{tbl} Take 2 Univer s CARBONATE/V 8-13 tablets by it y of ITAMIN D3 16:04: mouth. [place] (CALCIUM 36 Medical 500 + D Branch ORAL) cycloSPORIN 2018- Yes 1[drp] Place 1 U nivers E 8-13 Drop in ity of (RESTASIS) 16:04: left eye [place] as 0.05 % 36 every 12 Medical drops (twelve) Branch hours. CALCIUM 2019- Yes 2{tbl} Take 2 Univer s CARBONATE/V 8-13 tablets by it y of ITAMIN D3 16:04: mouth. [place] (CALCIUM 36 Medical 500 + D Branch ORAL) ALLOPURINOL 2019-0 Yes 300mg Take 300 U nivers ORAL 8-13 mg by ity of 16:03: mouth [place] 17 daily. Medical Branch Tramadol 2019-0 Yes 50mg Take 50 mg Uni vers (RYBIX ODT) 8-13 by mouth ity of 50 mg 16:03: as needed. [place] tablet [address] [place] [address] Branch FLUTICASONE 2018-0 Yes 1{spray Use 1 Un [place] PROPIONATE 8-13 } [place] in ity o f (FLUTICASON 16:03: each [place] E NASAL) 17 nostril as Medic al needed. Branch ESTROGENS, 2018- Yes 1{appli Insert 1 Univers CONJUGATED 8-13 catorfu Applicator ity of (PREMARIN 16:03: l} ful into [place] V[place]) 17 vagina Medical weekly. Branch Indication s: Three times weekly metoprolol 2019-0 Yes 25mg Take 25 mg U nivers succinate 8-13 by mouth ity of XL 25 mg 24 16:03: daily. [place] [address] [place] [address] Branch omeprazole 2018-0 Yes 40mg Take 40 mg U nivers 40 mg 8-13 by mouth ity of capsule 16:03: daily. [address] alendronate 2018-0 Yes 70mg Take 70 mg Univers 70 mg 8-13 by mouth ity of tablet 16:03: weekly. [address] ALLOPURINOL 2019-0 Yes 300mg Take 300 U nivers ORAL 8-13 mg by ity of 16:03: mouth [place] 17 daily. [facility] Branch Tramadol 2018-0 Yes 50mg Take 50 mg Uni vers (RYBIX ODT) 8-13 by mouth ity of 50 mg 16:03: as needed. [place] tablet [address] [place] [address] FLUTICASONE 2018-0 Yes 1{spray Use 1 Un [place] PROPIONATE 8-13 } [place] in ity o f (FLUTICASON 16:03: each [...] 24 16:03: daily. [place] [address] [place] [address] omeprazole Yes 40mg Take 40 mg U nivers 40 mg 8-13 by mouth ity of capsule 16:03: daily. [address] alendronate 2018- Yes 70mg Take 70 mg Univers 70 mg 8-13 by mouth ity of tablet 16:03: weekly. [address] ALLOPURINOL 2018-0 Yes 300mg Take 300 U nivers ORAL 8-13 mg by ity of 16:03: mouth [place] 17 daily. [facility] Branch Tramadol Yes 50mg Take 50 mg Uni vers (RYBIX ODT) 8-13 by mouth ity of 50 mg 16:03: as needed. [address] FLUTICASONE Yes 1{spray Use 1 Un [place] PROPIONATE 8-13 } [place] in ity o f (FLUTICASON 16:03: each [...] 24 16:03: daily. [place] [address] [place] [address] omeprazole Yes 40mg Take 40 mg U nivers 40 mg 8-13 by mouth ity of capsule 16:03: daily. [address] alendronate Yes 70mg Take 70 mg Univers 70 mg 8-13 by mouth ity of tablet 16:03: weekly. [address] topiramate 2018- Yes [id number] 100mg Take 1 Univers 100 mg 8-13 tablet by ity of tablet 00:00: mouth 2 [place] 00 (two) Medical times Branch daily. topiramate 2018-0 Yes [id number] 100mg Take 1 Univers 100 mg 8-13 tablet by ity of tablet 00:00: mouth 2 [place] 00 (two) Medical times Branch daily. topiramate 2018- Yes [id number] 100mg Take 1 Univers 100 mg 8-13 tablet by ity of tablet 00:00: mouth 2 [place] 00 (two) Medical times Branch daily. topiramate 2019-0 Yes [id number] 100mg Take 1 Univers 100 mg 8-13 tablet by ity of tablet 00:00: mouth 2 (two) Medical times Branch daily. topiramate 2019-0 Yes [id number] 100mg Take 1 Univers 100 mg 8-13 tablet by ity of tablet 00:00: mouth 2 (two) Medical times Branch daily. topiramate 2019-0 Yes [id number] 100mg Take 1 Univers 100 mg 8-13 tablet by ity of tablet 00:00: mouth 2 (two) Medical times Branch daily. topiramate 2019-0 Yes [id number] 100mg Take 1 Univers 100 mg 8-13 tablet by ity of tablet 00:00: mouth 2 (two) Medical times Branch daily. topiramate 2019-0 Yes [id number] 100mg Take 1 Univers 100 mg 8-13 tablet by ity of tablet 00:00: mouth 2 (two) Medical times Branch daily. topiramate 2019-0 Yes [id number] 100mg Take 1 Univers 100 mg 8-13 tablet by ity of tablet 00:00: mouth 2 (two) Medical times Branch daily. topiramate 2019-0 Yes [id number] 100mg Take 1 Univers 100 mg 8-13 tablet by ity of tablet 00:00: mouth 2 [place] (two) Medical times Branch daily. LYRICA 50 0 Yes TK 1 C PO Uni vers mg capsule 8-06 QHS. ity of 00:00: Medical Branch LYRICA 50 0 Yes TK 1 C PO Uni vers mg capsule 8-06 QHS. ity of 00:00: Medical Branch LYRICA 50 2018-0 Yes TK 1 C PO Uni vers mg capsule 8-06 QHS. ity of 00:00: Medical Branch LYRICA 50 2018-0 Yes TK 1 C PO Uni vers mg capsule 8-06 QHS. ity of 00:00: Medical Branch LYRICA 50 2018-0 Yes TK 1 C PO Uni vers mg capsule 8-06 QHS. ity of 00:00: Medical Branch LYRICA 50 2018-0 Yes TK 1 C PO Uni vers mg capsule 8-06 QHS. ity of 00:00: Medical Branch LYRICA 50 0 Yes TK 1 C PO Uni vers mg capsule 8-06 QHS. ity of 00:00: [place] [facility] LYRICA 50 2018-0 Yes TK 1 C PO Uni vers mg capsule 8-06 QHS. ity of 00:00: [place] [facility] LYRICA 50 0 Yes TK 1 C PO Uni vers mg capsule 8-06 QHS. ity of 00:00: [place] [facility] LYRICA 50 2018-0 Yes TK 1 C PO Uni vers mg capsule 8-06 QHS. ity of 00:00: [place] [facility] LYRICA 50 0 Yes TK 1 C PO Uni vers mg capsule 8-06 QHS. ity of 00:00: [place] [facility] LYRICA 50 0 Yes TK 1 C PO Uni vers mg capsule 8-06 QHS. ity of 00:00: [place] [facility] LYRICA 50 0 Yes TK 1 C PO Uni vers mg capsule 8-06 QHS. ity of 00:00: [place] [facility] LYRICA 50 0 Yes TK 1 C PO Uni vers mg capsule 8-06 QHS. ity of 00:00: [place] [facility] LYRICA 50 0 Yes TK 1 C PO Uni vers mg capsule 8-06 QHS. ity of 00:00: [place] [facility] LYRICA 50 0 Yes TK 1 C PO Uni vers mg capsule 8-06 QHS. ity of 00:00: [place] [facility] LYRICA 50 0 Yes TK 1 C PO Uni vers mg capsule 8-06 QHS. ity of 00:00: [place] [facility] doxycycline 2019-0 Yes Univer s 50 mg 7-27 ity of capsule 00:00: [place] [facility] doxycycline 2019-0 Yes Univer s 50 mg 7-27 ity of capsule 00:00: [place] [facility] doxycycline 2019-0 Yes Univer s 50 mg 7-27 ity of capsule 00:00: [place] [facility] doxycycline 2019-0 Yes Univer s 50 mg 7-27 ity of capsule 00:00: [place] [facility] doxycycline 2019-0 Yes Univer s 50 mg 7-27 ity of capsule 00:00: [place] [facility] doxycycline 2019-0 Yes Univer s 50 mg 7-27 ity of capsule 00:00: [place] [facility] doxycycline 2019-0 Yes Univer s 50 mg 7-27 ity of capsule 00:00: [place] [facility] doxycycline 2019-0 Yes Univer s 50 mg 7-27 ity of capsule 00:00: [place] [facility] doxycycline 2019-0 Yes Univer s 50 mg 7-27 ity of capsule 00:00: [place] [facility] doxycycline 2019-0 Yes Univer s 50 mg 7-27 ity of capsule 00:00: [place] [facility] doxycycline 2019-0 Yes Univer s 50 mg 7-27 ity of capsule 00:00: [place] [facility] doxycycline 2019-0 Yes Univer s 50 mg 7-27 ity of capsule 00:00: [place] [facility] doxycycline 2019-0 Yes Univer s 50 mg 7-27 ity of capsule 00:00: [place] [facility] doxycycline 2019-0 Yes Univer s 50 mg 7-27 ity of capsule 00:00: [place] [facility] doxycycline 2019-0 Yes Univer s 50 mg 7-27 ity of capsule 00:00: [place] [facility] doxycycline 2019-0 Yes Univer s 50 mg 7-27 ity of capsule 00:00: [place] [facility] doxycycline 2019-0 Yes Univer s 50 mg 7-27 ity of capsule 00:00: [place] [facility] cyanocobala Yes 2500ug QD Place Met hodi min, 12-15 2,[address] vitamin 10:42: under the Hospi ta B-12, 24 tongue l (VITAMIN daily. B-12) 2,500 mcg tablet, sublingual cyanocobala Yes 2500ug QD Place [facility], 12-[facility] 2,[address] vitamin 10:42: under the Hospi ta B-12, 24 tongue l (VITAMIN daily. B-12) 2,500 mcg tablet, sublingual cholecalcif Yes 1{tbl} Take 1 Me thodi ria, 12-[address] vitamin D3, 10:42: mouth Hospi ta (VITAMIN 24 daily. l D3) 5,000 unit tablet fluticasone Yes 2{spray QD 2 sprays Methodi (FLONASE) 12-15 } by Each st 50 10:42: Nare route Hospita mcg/actuati 24 daily. l on nasal spray cholecalcif Yes 1{tbl} Take 1 Me thodi ria, 7-[address] vitamin D3, 10:42: mouth Hospi ta (VITAMIN 24 daily. l D3) 5,000 unit tablet fluticasone Yes 2{spray QD 2 sprays [facility] (FLONASE) 717 } by Each st 50 10:42: Nare route Hospita mcg/actuati 24 daily. l on nasal spray cycloSPORIN Yes 1[drp] Q.5D Administer Methodi E 7-[address] (RESTASIS) 00:00: both eyes Ho spita 0.05 % 00 2 (two) l ophthalmic times a emulsion day for 90 days. cycloSPORIN Yes 1[drp] Q.5D Administer Methodi E 7-[address] (RESTASIS) 00:00: both eyes Ho spita 0.05 % 00 2 (two) l ophthalmic times a emulsion day for 90 days. topiramate Yes 50mg Take 1 Unive rs 50 mg 5-28 tablet by ity of tablet 00:00: mouth 2 [place] 00 (two) Medical times Branch daily. topiramate 2019- No 50mg Take 1 Univ ers 50 mg 5-28 08-13 tablet by ity of tablet 00:00: 00:00 mouth 2 [place] 00 :00 (two) Medical times Branch daily. topiramate 2019- No 50mg Take 1 Univ ers 50 mg 5-28 08-13 tablet by ity of tablet 00:00: 00:00 mouth 2 [place] 00 :00 (two) Medical times Branch daily. metoprolol Yes [id number] TAKE 1 Me thodi succinate 8-[address] XL 00:00: MOUTH Hospita (TOPROL-XL) 00 TWICE l 25 mg 24 hr DAILY, IN tablet THE MORNING AND AT DINNER metoprolol Yes [id number] TAKE 1 Me thodi succinate 8-[address] XL 00:00: MOUTH Hospita (TOPROL-XL) 00 TWICE l 25 mg 24 hr DAILY, IN tablet THE MORNING AND AT DINNER multivit-mi Yes Take by Uni vers n/FA/lycope 8-07 mouth. ity of n/lutein 19:42: [place] (COMPLETE 22 Medical 50+ ORAL) Branch vit A/vit 2017-0 Yes Take by Unive rs C/vit 8-07 mouth. ity of E/zinc/cristine 19:42: [place] er (OCUVITE 22 Medical PRESERVISIO Branch N ORAL) multivit-mi Yes Take by Uni vers n/FA/lycope 8-07 mouth. ity of n/lutein 19:42: [place] (COMPLETE 22 Medical 50+ ORAL) Branch vit A/vit 2017-0 Yes Take by Unive rs C/vit 8-07 mouth. ity of E/zinc/cristine 19:42: [place] er (OCUVITE 22 Medical PRESERVISIO Branch N ORAL) multivit-mi Yes Take by Uni vers n/FA/lycope 8-07 mouth. ity of n/lutein 19:42: [place] (COMPLETE 22 Medical 50+ ORAL) Branch vit A/vit 2017- Yes Take by Unive rs C/vit 8-07 mouth. ity of E/zinc/cristine 19:42: [facility] (OCUVITE 22 Medical PRESERVISIO Branch N ORAL) multivit-mi Yes Take by Uni vers n/FA/lycope 8-07 mouth. ity of n/lutein 19:42: [place] (COMPLETE 22 Medical 50+ ORAL) Branch vit A/vit 2017-0 Yes Take by Unive rs C/vit 8-07 mouth. ity of E/zinc/cristine 19:42: [facility] (OCUVITE 22 Medical PRESERVISIO Branch N ORAL) multivit-mi Yes Take by Uni vers n/FA/lycope 8-07 mouth. ity of n/lutein 19:42: [place] (COMPLETE 22 Medical 50+ ORAL) Branch vit A/vit 2017- Yes Take by Unive rs C/vit 8-07 mouth. ity of E/zinc/cristine 19:42: [facility] (OCUVITE 22 Medical PRESERVISIO Branch N ORAL) multivit-mi Yes Take by Uni vers n/FA/lycope 8-07 mouth. ity of n/lutein 19:42: [place] (COMPLETE 22 Medical 50+ ORAL) Branch vit A/vit 2017- Yes Take by Unive rs C/vit 8-07 mouth. ity of E/zinc/cristine 19:42: [place] er (OCUVITE 22 Medical PRESERVIS Branch N ORAL) multivit-mi Yes Take by Uni vers n/FA/lycope 8-07 mouth. ity of n/lutein 19:42: [place] (COMPLETE 22 Medical 50+ ORAL) Branch vit A/vit 0 Yes Take by Unive rs C/vit 8-07 mouth. ity of E/zinc/cristine 19:42: [place] er (OCUVITE 22 Medical PRESERVIS Branch N ORAL) multivit-mi Yes Take by Uni vers n/FA/lycope 8-07 mouth. ity of n/lutein 19:42: [place] (COMPLETE 22 Medical 50+ ORAL) Branch vit A/vit 2017-0 Yes Take by Unive rs C/vit 8-07 mouth. ity of E/zinc/cristine 19:42: [facility] (OCUVITE 22 Medical [facility] N ORAL) alendronate Yes 70mg Take 70 mg Univers 70 mg 01-05 by mouth ity of tablet 19:42: weekly. [place] [id number] Medical Branch multivit-mi Yes Take by Uni vers n/FA/lycope 8-07 mouth. ity of n/lutein 19:42: [place] (COMPLETE 22 Medical 50+ ORAL) Branch multivit-mi Yes Take by Uni vers n/FA/lycope 8-07 mouth. ity of n/lutein 19:42: [place] (COMPLETE 22 Medical 50+ ORAL) Branch vit A/vit Yes Take by Unive rs C/vit 8-07 mouth. ity of E/zinc/cristine 19:42: [facility] (OCUVITE 22 Medical [facility] N [facility]) vit A/vit 2017- Yes Take by Unive rs C/vit 8-07 mouth. ity of E/zinc/cristine 19:42: [facility] (OCUVITE 22 Medical PRESERVIS Branch N ORAL) multivit-mi Yes Take by Uni vers n/FA/lycope 8-07 mouth. ity of n/lutein 19:42: [place] (COMPLETE 22 Medical 50+ ORAL) Branch vit A/vit 2017- Yes Take by Unive rs C/vit 8-07 mouth. ity of E/zinc/cristine 19:42: [place] er (OCUVITE 22 Medical PRESERVISIO Branch N ORAL) multivit-mi Yes Take by Uni vers n/FA/lycope 8-07 mouth. ity of n/lutein 19:42: [place] (COMPLETE 22 Medical 50+ ORAL) Branch vit A/vit Yes Take by Unive rs C/vit 8-07 mouth. ity of E/zinc/cristine 19:42: [place] er (OCUVITE 22 Medical PRESERVISIO Branch N ORAL) multivit-mi Yes Take by Uni vers n/FA/lycope 8-07 mouth. ity of n/lutein 19:42: [place] (COMPLETE 22 Medical 50+ ORAL) Branch vit A/vit Yes Take by Unive rs C/vit 8-07 mouth. ity of E/zinc/cristine 19:42: [facility] (OCUVITE 22 Medical PRESERVISIO Branch N ORAL) multivit-mi Yes Take by Uni vers n/FA/lycope 8-07 mouth. ity of n/lutein 19:42: [place] (COMPLETE 22 Medical 50+ ORAL) Branch vit A/vit Yes Take by Unive rs C/vit 8-07 mouth. ity of E/zinc/cristine 19:42: [facility] (OCUVITE 22 Medical PRESERVISIO Branch N ORAL) multivit-mi Yes Take by Uni vers n/FA/lycope 8-07 mouth. ity of n/lutein 19:42: [place] (COMPLETE 22 Medical 50+ ORAL) Branch vit A/vit Yes Take by Unive rs C/vit 8-07 mouth. ity of E/zinc/cristine 19:42: [place] er (OCUVITE 22 Medical PRESERVISIO Branch N ORAL) carisoprodo Yes 350mg Take [...] [place] tablet 05 bedtime. Medical Branch DIAZEPAM 2017-0 Yes 5mg Take 5 mg Univ ers ORAL 8-07 by mouth ity of 19:40: as needed. [place] 05 Medical Branch ISOMETHEPT/ 2018-0 Yes 2{tbl} Take [...] mouth [place] 05 daily. Medical Branch carisoprodo 2018-0 Yes 350mg Take 350 U nivers l (SOMA) 8-07 mg by ity of 350 mg 19:40: mouth 4 [place] tablet 05 (four) Medical times Branch daily. venlafaxine 2018-0 Yes 150mg Take 150 U nivers (EFFEXOR) 8-07 mg by ity of 75 mg 19:40: mouth at [place] tablet 05 bedtime. Medical Branch Tramadol 0 Yes 50mg Take 50 mg Uni vers (RYBIX ODT) 8-07 by mouth ity of 50 mg 19:40: as needed. [place] tablet 05 [facility] ISOMETHEPT/ 2018-0 Yes 2{tbl} Take 2 Un [...] mouth ity of MALEATE 19:40: as needed. [place] (COMPAZINE 05 Medical ORAL) Branch montelukast 0 Yes 10mg Take 10 mg Univers (SINGULAIR) 8-07 by mouth ity of 10 mg 19:40: daily. [place] tablet 05 Medical [place] montelukast [address] Yes 10mg Take 10 mg Univers (SINGULAIR) 8-07 by mouth ity of 10 mg 19:40: daily. [place] tablet 05 Medical Branch carisoprodo 2018-0 Yes 350mg Take 350 U nivers l (SOMA) 8-07 mg by ity of 350 mg 19:40: mouth 4 [place] tablet 05 (four) Medical times [place] daily. venlafaxine 2018-0 Yes 150mg Take 150 U nivers (EFFEXOR) 8-07 mg by ity of 75 mg 19:40: mouth at [place] tablet 05 bedtime. Medical Branch FLUTICASONE Yes 1{spray Use 1 Un lobito PROPIONATE 8-07 } [place] in ity o f (FLUTICASON 19:40: each [...] Yes 1mL Place 1 mL Univers MIN/COBAMAM 8-07 under the ity of [place] (B12 19:40: [...] Branch Indication s: Three times weekly PROCHLORPER 2018-0 Yes 5mg Take 5 mg [...] 05 (four) Medical times Branch daily. cycloSPORIN 2018-0 Yes 1[drp] Place 1 U nivers E 8-07 Drop in ity of (RESTASIS) 19:40: left eye [place] as 0.05 % 05 every 12 Medical drops (twelve) Branch hours. venlafaxine 2018-0 Yes 150mg Take 150 U nivers (EFFEXOR) 8-07 mg by ity of 75 mg 19:40: mouth at [place] tablet 05 bedtime. Medical Branch CALCIUM 2017-0 Yes 2{tbl} Take 2 Univer s CARBONATE/V 8-07 tablets by it y of ITAMIN D3 19:40: mouth. [place] (CALCIUM 05 Medical 500 + D Branch ORAL) ISOMETHEPT/ 2018-0 Yes 2{tbl} Take 2 Un [...] s (COMPAZINE 05 Medical ORAL) Branch montelukast [id number] Yes 10mg Take 10 mg Univers (SINGULAIR) [...] [place] tablet 05 bedtime. Medical Branch venlafaxine 2017-0 Yes 150mg Take 150 U [...] mouth ity of 10 mg 19:40: daily. [place] tablet 05 Medical Branch metoprolol 0 Yes 25mg Take 25 mg U nivers succinate 8-07 by mouth ity of XL 25 mg 24 19:40: [place]. [place] tablet 05 [facility] carisoprodo Yes 350mg Take 350 U nivers l (SOMA) 8-07 mg by ity of 350 mg 19:40: mouth 4 [place] tablet 05 (four) Medical times Branch daily. venlafaxine 2018 Yes 150mg Take 150 U nivers (EFFEXOR) 8-07 mg by ity of 75 mg 19:40: mouth at [place] tablet 05 bedtime. Medical Branch omeprazole 20180 Yes 40mg Take 40 mg U nivers 40 mg 8-07 by mouth ity of capsule 19:40: daily. [address] ISOMETHEPT/ 2017-0 Yes 2{tbl} Take 2 Un [place] DICHLPHN/AC [...] [place] (COMPAZINE 05 Medical ORAL) [facility] Yes 10[facility] Take 10 mg Univers (SINGULAIR) [...] s (COMPAZINE 05 Medical ORAL) Branch montelukast 2018-0 Yes 10mg Take 10 mg Univers (SINGULAIR) 8-07 by mouth ity of 10 mg 19:40: daily. [place] tablet 05 Medical Branch carisoprodo 2018-0 Yes 350mg Take 350 U nivers l (SOMA) 8-07 mg by ity of 350 mg 19:40: mouth 4 [place] tablet 05 (four) Medical times [place] daily. venlafaxine 2018-0 Yes 150mg Take 150 U nivers (EFFEXOR) 8-07 mg by ity of 75 mg 19:40: mouth at [place] tablet 05 bedtime. Medical Branch ISOMETHEPT/ 2018-0 [...] s (COMPAZINE 05 Medical ORAL) Branch montelukast 2018-0 Yes 10mg Take 10 mg Univers (SINGULAIR) 8-07 by mouth ity of 10 mg 19:40: daily. [place] tablet 05 Medical Branch carisoprodo 2018-0 Yes 350mg Take 350 U nivers l (SOMA) 8-07 mg by ity of 350 mg 19:40: mouth 4 [place] tablet 05 (four) Medical times [place] daily. PROCHLORPER 2018-0 Yes 5mg Take 5 mg U nivers AZINE 8-07 by mouth ity of MALEATE 19:40: as needed. [place] (COMPAZINE 05 Medical ORAL) Branch venlafaxine Yes 150mg Take 150 U nivers (EFFEXOR) 8-07 mg by ity of 75 mg 19:40: mouth at [place] tablet 05 bedtime. Medical Branch montelukast Yes 10mg Take 10 [...] daily. [place] tablet 05 Medical Branch multivit-mi 0 Yes Take by Uni vers n/FA/lycope 8-07 mouth. ity of n/lutein 14:42: [place] (COMPLETE 22 Medical 50+ ORAL) Branch vit A/vit 2017-0 Yes Take by Unive rs C/vit 8-07 mouth. ity of E/zinc/cristine 14:42: [facility] (OCUVITE 22 Medical PRESERVISIO Branch N ORAL) multivit-mi Yes Take by Uni vers n/FA/lycope 8-07 mouth. ity of n/lutein 14:42: [place] (COMPLETE 22 Medical 50+ ORAL) Branch vit A/vit 0 Yes Take by Unive rs C/vit 8-07 mouth. ity of E/zinc/cristine 14:42: [facility] (OCUVITE 22 Medical PRESERVIS Branch N ORAL) multivit-mi 0 Yes Take by Uni vers n/FA/lycope 8-07 mouth. ity of n/lutein 14:42: [place] (COMPLETE 22 Medical 50+ ORAL) Branch vit A/vit 2017-0 Yes Take by Unive rs C/vit 8-07 mouth. ity of E/zinc/cristine 14:42: [facility] (OCUVITE 22 Medical PRESERVIS Branch N ORAL) ISOMETHEPT/ [id number] Yes 2{tbl} Take 2 Un lob[place] DICHLPHN/AC [...] s (COMPAZINE 05 Medical ORAL) Branch montelukast 2018-0 Yes 10mg Take 10 [...] [place] tablet 05 bedtime. Medical Branch ISOMETHEPT/ [id number] Yes 2{tbl} Take 2 Un [place] DICHLPHN/AC [...] 8 HOURS NEEDED FOR NAUSEA OR MIGRANE prochlorper Yes TAKE 1 Meth karyna azine 6-[address] (COMPAZINE) 00:00: MOUTH Hospi ta 5 MG tablet 00 EVERY 6 TO l 8 HOURS NEEDED FOR NAUSEA OR MIGRANE promethazin Yes Take Methodi e 5-[address] (PHENERGAN) 00:00: p.o. every Hospita 12.5 MG 00 6 hours as l tablet needed migraine as directed promethazin Yes Take Methodi e 5-[address] (PHENERGAN) 00:00: p.o. every Hospita 12.5 MG 00 6 hours as l tablet needed migraine as directed allopurinol Yes 1{tbl} 1 tablet Methodi (ZYLOPRIM) 3-[address] 300 MG 00:00: Hospita tablet 00 l allopurinol Yes 1{tbl} 1 tablet [facility]i (ZYLOPRIM) 3-[address] 300 MG 00:00: Hospita tablet 00 l omeprazole Yes 1{capsu 1 capsule Methodi (PriLOSEC) 3-10 le} daily. st 40 MG 00:00: Hospita capsule 00 l omeprazole Yes 1{capsu 1 capsule Methodi (PriLOSEC) 3-10 le} daily. st 40 MG 00:00: Hospita capsule 00 l tolterodine 2017-0 Yes 4mg Take 4 mg U nivers [place] (DETROL 1-18 by mouth ity o [place]) 4 mg 24 18:49: [place] capsule 57 [facility] tolterodine 2017-0 Yes 4mg Take 4 mg [place] nivers [place] (DETROL 1-18 by mouth ity o f [place]) 4 mg 24 18:49: daily. [place] capsule 57 [facility] tolterodine 2017-0 Yes 4mg Take 4 mg [place]ivers [place] (DETROL 1-18 by mouth ity o f [place]) 4 mg 24 18:49: daily. [place] capsule 57 [facility] tolterodine 2017-0 Yes 4mg Take 4 mg [place]ivers [place] (DETROL 1-18 by mouth ity o f [place]) 4 mg 24 18:49: daily. [place] capsule 57 [facility] tolterodine 2017-0 Yes 4mg Take 4 mg [place]ivers [place] (DETROL 1-18 by mouth ity o f [place]) 4 mg 24 18:49: daily. [place] hr capsule 57 [facility] tolterodine 2016-0 Yes 4mg Take 4 mg U [place]ivers [place] (DETROL 1-18 by mouth ity o f [place]) 4 mg 24 18:49: daily. [place] hr capsule 57 [facility] tolterodine 2016-0 Yes 4mg Take 4 mg [place]ivers [place] (DETROL 1-18 by mouth ity o f [place]) 4 mg 24 18:49: daily. [place] hr capsule 57 [facility] tolterodine 2016-0 Yes 4mg Take 4 mg [place]ivers [place] (DETROL 1-18 by mouth ity o f [place]) 4 mg 24 18:49: daily. [place] capsule 57 [facility] tolterodine 2016-0 Yes 4mg Take 4 mg [place]ivers [place] (DETROL 1-18 by mouth ity o f [place]) 4 mg 24 18:49: daily. [place] capsule 57 [facility] tolterodine 2017-0 Yes 4mg Take 4 mg [place]ivers [place] (DETROL 1-18 by mouth ity o f [place]) 4 mg 24 18:49: daily. [place] capsule 57 [facility] tolterodine 2017-0 Yes 4mg Take 4 mg [place]ivers [place] (DETROL 1-18 by mouth ity o f [place]) 4 mg 24 18:49: daily. [place] capsule 57 [facility] Branch tolterodine 2017 Yes 4mg Take 4 mg U nivers [place] (DETROL 1-18 by mouth ity o f [place]) 4 mg 24 18:49: daily. [place] capsule 57 [facility] Branch tolterodine Yes 4mg Take 4 mg [place]ivers [place] (DETROL 1-18 by mouth ity o f [place]) 4 mg 24 18:49: daily. [place] capsule 57 [facility] Branch tolterodine Yes 4mg Take 4 mg [place]ivers [place] (DETROL 1-18 by mouth ity o f [place]) 4 mg 24 18:49: daily. [place] capsule 57 [facility] tolterodine Yes 4mg Take 4 mg [place]ivers [place] (DETROL 1-18 by mouth ity o f [place]) 4 mg 24 18:49: daily. [place] capsule 57 [facility] tolterodine 2017 Yes 4mg Take 4 mg U [place]ivers [place] (DETROL 1-18 by mouth ity o f [place]) 4 mg 24 12:49: daily. [place] capsule 57 [facility] tolterodine Yes 4mg Take 4 mg [place]ivers [place] (DETROL 1-18 by mouth ity o f [place]) 4 mg 24 12:49: daily. [place] capsule 57 [facility] tolterodine 0 Yes 4mg Take 4 mg [place]ivers [place] (DETROL 1-18 by mouth ity o f [place]) 4 mg 24 12:49: daily. [place] hr capsule 57 [facility] Branch Metoprolol Metoprolol No 1{table QD Metoprolol Succinate [...] cyclobenzap cyclobenzap No cyclobenza rine rine nitza Famotidine Famotidine No 1{table QD Famotidine 20 MG 20 MG t_at_be 20 MG dtime_a s_neede d} Alendronate Alendronate No Alendronat Sodium 70 Sodium 70 e Sodium MG MG 70 MG Rosuvastati Rosuvastati No 1{table QD Rosuvastat n Calcium 5 n Calcium 5 t} in Calcium MG MG 5 MG Metoprolol Metoprolol No 1{table QD Metoprolol Succinate Succinate t} Succinate ER 50 MG ER 50 MG ER 50 MG cyclobenzap cyclobenzap No cyclobenza rine rine nitza Famotidine Famotidine No 1{table QD Famotidine 20 MG 20 MG t_at_be 20 MG dtime_a s_neede d} Alendronate Alendronate No Alendronat Sodium 70 Sodium 70 e Sodium MG MG 70 MG cyclobenzap cyclobenzap No cyclobenza rine rine nitza Famotidine Famotidine No 1{table QD Famotidine 20 MG 20 MG t_at_be 20 MG dtime_a s_neede d} Metoprolol Metoprolol No 1{table QD Metoprolol Succinate Succinate t} Succinate ER 50 MG ER 50 MG ER 50 MG Alendronate Alendronate No Alendronat Sodium 70 Sodium 70 e Sodium MG MG 70 MG Rosuvastati Rosuvastati No 1{table QD Rosuvastat n Calcium 5 n Calcium 5 t} in Calcium MG MG 5 MG Fluticasone Fluticasone No 1{puff} BID Fluticason Propionate Propionate e HFA 44 HFA 44 Propionate MCG/ACT MCG/ACT HFA 44 MCG/ACT Montelukast Montelukast No 1{table QD Montelukas Sodium 10 Sodium 10 t} t Sodium MG MG 10 MG Metoprolol Metoprolol No 1{table QD Metoprolol [...] cyclobenzap cyclobenzap No cyclobenza rine rine nitza traMADol traMADol No 1{table QD traMADol HCl [...] t} in Calcium MG MG 5 MG Immunizations Ordered Filled Immunization Date Status Comments Sour e Immunization Name Name SARS-COV-2 COVID-2021-10-10 Completed Unive rsity of MODERNA 0.25ML 00:00:00 [facility] mamie BOOSTER VACCINE Branch SARS-COV-2 COVID-19 2021-04-19 Completed Unive rsity of MODERNA BOOSTER 00:00:00 [facility] ical VACCINE Branch SARS-COV-2 COVID-19 2021-04-19 Completed [...] Unive rsity of MODERNA VACCINE 00:00:00 [facility] ical Branch SARS-COV-2 COVID-19 2020-06-27 Completed Unive rsity of MODERNA VACCINE 00:00:00 [place] [facility] ical Branch SARS-COV-2 COVID-19 2020-06-27 Completed Unive rsity of MODERNA VACCINE 00:00:00 [facility] ical Branch SARS-COV-2 COVID-19 2020-06-27 Completed Unive rsity of MODERNA VACCINE 00:00:00 [facility] Vital Signs Vital Name Observation Time Observation Value Comments Source height 2022-05-22 16:45:00 61 [in_i] [facility] weight 2022-05-22 16:45:00 152 [lb_av] [facility] temperature 2022-05-22 16:45:00 97.9 [degF] [facility] bmi 2022-05-22 16:45:00 28.72 kg/m2 [facility] oximetry 2022-05-22 16:45:00 98 % [facility] respiratory rate 2022-05-22 16:45:00 18 /min Comm on [facility] blood pressure 2022-05-22 16:45:00 129 mm[Hg] Common [facility] - systolic [facility] blood pressure 2022-05-22 16:45:00 67 mm[Hg] [facility] height 2022-05-15 15:00:00 61 [in_i] Common S pirit [facility] weight 2022-05-15 15:00:00 146.2 [lb_av] [facility] temperature 2022-05-15 15:00:00 97.2 [degF] Common S pirit [facility] bmi 2022-05-15 15:00:00 27.62 kg/m2 Common S pirit - [facility] oximetry 2022-05-15 15:00:00 96 % Common S [facility] respiratory rate 2022-05-15 15:00:00 16 /min Comm on [facility] blood pressure 2022-05-15 15:00:00 159 mm[Hg] [facility] - systolic [facility] blood pressure 2022-05-15 15:00:00 86 mm[Hg] [facility] - diastolic [facility] height 2022-03-31 15:45:00 61 [in_i] Common S pirit [facility] weight 2022-03-31 15:45:00 151.6 [lb_av] [facility] temperature 2022-03-31 15:45:00 97.6 [degF] Common S pirit [facility] bmi 2022-03-31 15:45:00 28.64 kg/m2 [facility] oximetry 2022-03-31 15:45:00 99 % Common S pirit [facility] respiratory rate 2022-03-31 15:45:00 18 /min Comm on [facility] blood pressure 2022-03-31 15:45:00 137 mm[Hg] [facility] blood pressure 2022-03-31 15:45:00 63 mm[Hg] [facility] diastolic [facility] height 2021-12-12 16:30:00 61 [in_i] Common S [facility]irit [facility] weight 2021-12-12 16:30:00 148 [lb_av] [facility] - [facility] temperature 2021-12-12 16:30:00 97.3 [degF] Common [facility] - [facility] bmi 2021-12-12 16:30:00 27.96 kg/m2 Common S pirit [facility] oximetry 2021-12-12 16:30:00 98 % Common S pirit [facility] respiratory rate 2021-12-12 16:30:00 16 /min Comm on [facility] - [facility] blood pressure 2021-12-12 16:30:00 126 mm[Hg] [facility] systolic [facility] blood pressure 2021-12-12 16:30:00 60 mm[Hg] [facility] diastolic [facility] height 2021-05-15 10:20:00 61 [in_i] Common [facility] weight 2021-05-15 10:20:00 164 [lb_av] [facility] temperature 2021-05-15 10:20:00 97.2 [degF] [facility] bmi 2021-05-15 10:20:00 30.98 kg/m2 [facility] oximetry 2021-05-15 10:20:00 93 % [facility] blood pressure 2021-05-15 10:20:00 142 mm[Hg] [facility] blood pressure 2021-05-15 10:20:00 67 mm[Hg] [facility] height 2021-03-28 11:20:00 61 [in_i] [facility] weight 2021-03-28 11:20:00 164 [lb_av] [facility] temperature 2021-03-28 11:20:00 97.8 [degF] [facility] bmi 2021-03-28 11:20:00 30.98 kg/m2 [facility] oximetry 2021-03-28 11:20:00 98 % [facility] - [facility] blood pressure 2021-03-28 11:20:00 144 mm[Hg] [facility] systolic [facility] blood pressure 2021-03-28 11:20:00 84 mm[Hg] [facility] Systolic blood 2019-01-11 21:05:00 155 mm[Hg] Univer sity of pressure [facility] Diastolic blood 2019-01-11 21:05:00 99 mm[Hg] Unive rsity of [facility] Heart rate 2019-01-11 20:59:00 87 /min [facility] Respiratory rate 2019-01-11 20:59:00 19 /min [facility] Body weight 2019-01-11 20:59:00 74.844 kg [facility] BMI 2019-01-11 20:59:00 31.18 kg/m2 [facility] Oxygen saturation in 2019-01-11 20:59:00 100 /min [facility] Arterial blood by [facility] Pulse oximetry Branch Procedures Procedure Date / Time Performed Performing Clinician Sour e SARS-COV-2 COVID-19 2021-10-10 20:56:46 Doctor Un[facility]igned, [facility] [place] [facility] BOOSTER,0.25ML,IM (MODERNA) ASSIGNMENT OF BENEFITS 2021-10-10 20:03:12 Doctor Unassigned, No [facility] SARS-COV-2 COVID-19 2021-04-19 21:19:32 Doctor Unassigned, No [facility] [place] VACCINE Name Medical [facility] BOOSTER,0.25ML,IM (MODERNA) ASSIGNMENT OF BENEFITS 2019-02-07 16:05:10 Doctor Unassigned, No [facility] REFERRAL- 2019-01-28 05:01:00 Doctor Unassigned, No [facility] REQUEST/RESPONSE [facility] Plan of Care Planned Activity Planned Date Details Comments Source Future Scheduled 2022-05-14 COVID-19 VACCINE (#1) [facility] Test 02:43:16 [code = COVID-19 VACCINE (#1)] Future Scheduled 2022-05-14 SHINGLES VACCINES (1 Met [facility] Test 02:43:16 of 2) [code = SHINGLES VACCINES (1 of 2)] Future Scheduled 2022-05-14 65+ [facility] Test 02:43:16 VACCINE (1 - PCV) [code = 65+ PNEUMOCOCCAL VACCINE (1 - PCV)] Future Scheduled 2022-05-14 INFLUENZA VACCINE Method [facility] Test 02:43:16 [code = INFLUENZA VACCINE] Future Scheduled 2022-04-02 HEPATITIS B VACCINES Met [facility] Test 02:50:23 (1 of 3 - 3-dose series) [code = HEPATITIS B VACCINES (1 of 3 - 3-dose series)] Future Scheduled 2022-04-02 COVID-19 VACCINE (#1) Me [facility] Test 02:50:23 [code = COVID-19 VACCINE (#1)] Future Scheduled 2022-04-02 SHINGLES VACCINES (1 Met [facility] Test 02:50:23 of 2) [code = SHINGLES VACCINES (1 of 2)] Future Scheduled 2022-04-02 65+ [facility]OCOCCAL [facility] Test 02:50:23 VACCINE (1 - PCV) [code = 65+ PNEUMOCOCCAL VACCINE (1 - PCV)] Future Scheduled 2022-04-02 INFLUENZA VACCINE Method [facility] Test 02:50:23 [code = INFLUENZA VACCINE] Encounters Start End Encounter Admission Attending Care Care Encounter Source Date/Time Date/Time Type Type Clinicians Facility Department ID 2021-06-26 [facility] [id number] Common 14:06:07 [id number] [facility] 2022-05-22 2022-05-22 OFFICE [facility] [id number] Co mmon 00:00:00 00:00:00 VISIT EST Spir it PT LEVEL 3 - [facility] 2022-05-15 2022-05-15 OFFICE STLC STLC [id number] Co mmon 00:00:00 00:00:00 VISIT Spirit ESTAB PT - CHI LEVEL 4 [facility] 2022-05-06 2022-05-06 (TEL) STLC STLC [id number] Co mmon 00:00:00 00:00:00 Spirit [facility] 2022-05-05 2022-05-05 OFFICE STLMLC STLMLC [id number] Co mmon 00:00:00 00:00:00 VISIT Spirit ESTAB PT - CHI LEVEL 1 [facility] 2022-04-03 2022-04-03 (TEL) STLMLC STLMLC [id number] Co mmon 00:00:00 00:00:00 Spirit - [facility] 2022-03-31 2022-03-31 OFFICE STLMLC STLMLC [id number] Co mmon 00:00:00 00:00:00 VISIT EST Spir it PT LEVEL 3 - [facility] 2022-03-26 2022-03-26 (TEL) STLMLC STLMLC [id number] Co mmon 00:00:00 00:00:00 [facility] 2022-03-24 2022-03-24 ([place]) Nurse STLMLC STLMLC [id number] Common 00:00:00 00:00:00 Visit [facility] - [facility] 2021-12-12 2021-12-12 OFFICE STLMLC STLMLC [id number] Co mmon 00:00:00 00:00:00 VISIT Spirit ESTAB PT - CHI LEVEL 4 [facility] 2021-10-10 2021-10-10 Imm/Inj Vaccine, Ang Db Cbc Fam [facility] 1. 2.840.114 [id number] Univers 15:00:00 15:10:00 Visit Carmen Manning [id number] ity [facility] [id number] Alvin as MIGNON?BLEA [phone] [address] MEDICAL OFFICE BUILDING 2021-10-10 2021-10-10 Outpatient R [facility] [id number] Univers 15:00:00 15:00:00 CARMEN kothari [facility] 2021-10-10 2021-10-10 Orders Doctor JAGDISH 1.2.840.114 [id number] Univers 00:00:00 00:00:00 Only Unassigned, ABBIE [id number] ity of [place] [facility] [id number] Alvin as [phone] [address] 2021-05-21 2021-05-21 (TEL) STLMLC STLC [id number] Co mmon 00:00:00 00:00:00 Spirit - [facility] 2021-05-15 2021-05-15 OFFICE STLMLC STLC [id number] Co mmon 00:00:00 00:00:00 VISIT EST Spir it PT LEVEL 3 - [facility] 2021-04-19 2021-04-19 Imm/Inj Vaccine, Ang Db Cbc Fam [facility] 1. 2.840.114 [id number] Univers 15:07:20 15:17:20 Visit Juan Tucker [facility] [id number] [facility] [id number] Alvin as MIGNON?BLEA [phone] [address] MEDICAL OFFICE BUILDING 2021-04-19 2021-04-19 Outpatient Chirag [facility] [id number] Univers 15:00:00 15:00:00 [facility] 2021-03-28 2021-03-28 [facility] [id number] Co mmon 00:00:00 00:00:00 VISIT EST Spir it PT LEVEL 3 - [facility] 2020-07-25 2020-07-25 Outpatient Chirag [facility] [id number] Univers 11:50:00 11:50:00 HARINDER [facility] 2020-06-27 2020-06-27 Outpatient Chirag [facility] [id number] Univers 11:50:00 11:50:00 [facility] 2020-06-24 2020-06-24 [facility] 1.2.840.114 [id number] Univers 00:00:00 00:00:00 Outreach Alex PRIMARY [id number] i ty of [place] C[place] [id number] [place] [phone] [address] 2020-06-24 2020-06-24 Patient Noah [facility] 1.2.840.114 [id number] 00:00:00 00:00:00 Outreach Alex PRIMARY [id number] Ck CARE [id number] PAVILLION [phone] [facility] 2020-05-04 2020-05-04 Refcullen Russell [facility] 1.2.840.114 [id number] [facility] 00:00:00 00:00:00 Teofilo [place] [id number] [id number] [phone] [facility] 092 [facility] 2020-05-04 2020-05-04 Refcullen Russell [facility] 1.2.840.114 [id number] 00:00:00 00:00:00 Teofilo Torres Aylin [id number] [place] [id number] Professio [phone] [address] 2019-10-07 2019-10-07 Refcullen Russell [facility] 1.2.840.114 [id number] Univers 00:00:00 00:00:00 Teofilo [place] [id number] [id number] [phone] [place] [id number] [facility] 2019-10-07 2019-10-07 [facility] 1.2.840.114 [id number] 00:00:00 00:00:00 Teofilo Torres Aylin [id number] [place] [id number] Professio [phone] [address] 2019-02-17 2019-02-17 Ancillary Tiera Saavedra [facility] 1.2.840. 114 [id number] [facility] 15:52:45 16:46:00 Visit Jake Weaver [id number] [id number] [phone] [facility] 179 [facility] 2019-02-07 2019-02-15 Ancillary Tiera Saavedra [facility] 1.2.840. 114 [id number] [facility] 11:06:13 15:30:12 Visit Jake Weaver [id number] [id number] [phone] Ia dical nal 179 [facility] 2019-02-14 2019-02-14 Ancillary Tiera Saavedra [facility] 1.2.840. 114 [id number] [facility] 16:04:49 17:19:26 Visit Jake Weaver [id number] [id number] [phone] Ia dical nal 179 [facility] 2019-02-09 2019-02-09 Ancillary Lashonda Caceres [facility] 1.2.840 .114 [id number] [facility] 14:46:29 15:31:29 Visit Jake Weaver [id number] [id number] [phone] Ia [facility] 179 [facility] 2019-02-07 2019-02-07 Orders Doctor DUBON 1.2.840.114 [id number] Univers 00:00:00 00:00:00 Only Unassigned, ABBIE [id number] ity of [place] [facility] [id number] Alvin as [phone] [address] 2019-01-28 2019-01-28 Orders Doctor DUBON 1.2.840.114 [id number] Univers 00:00:00 00:00:00 Only Unassigned, ABBIE [id number] ity of [place] [facility] [id number] Alvin as [phone] [address] 2019-01-11 2019-01-11 Office [facility] 1.2.840.114 [id number] [facility] 15:53:10 16:27:27 Visit Teofilo Viera [id number] [id number] [phone] Ia dicor nal 092 [facility] 2019-01-06 2019-01-06 Telephone Drew [facility] 1.2.840.114 [id number] Univers 00:00:00 00:00:00 Teofilo Viera [id number] ity of [place] [id number] [place]icit[place] Professio [phone] Ia dical nal 092 Branch Building Results This patient has no known results.
[2022-05-24 15:03] LABS: Hematocrit 32.5 % (36.0-45.0); Lymphocytes % 21.2 % (15.3-44.8); MCV 103.5 fL (80-100); MPV 7.7 fL (7.6-11.3); RBC Red Blood Cell Count 3.14 M/uL (3.86-4.86)
[2022-05-24 15:12] LABS: Protime INR 0.93
[2022-05-24 15:21] LABS: Albumin 3.2 g/dL (3.4-5.0); Bilirubin Total 0.3 mg/dL (0.2-1.0); Potassium 4.8 mmol/L (3.5-5.1); Protein, Total 6.4 g/dL (6.4-8.2)
[2022-05-24 15:31] LABS: Urine Blood Negative (Negative); Urine Glucose Negative (Negative); Urine Protein Negative (Negative); Urine Specific Gravity 1.015 (1.005-1.030)
[2022-05-24 15:40] LABS: SARS-COV-2 RT PCR NEGATIVE (NEGATIVE)
[2022-05-24] MEDS ORDERED: NA CHLORIDE 0.9% 1,000 ML ONE (15:56)
[2022-05-24] MEDS ORDERED: ACETAMINOPHEN 325 MG TABLET ONE (15:56)
--- NOTE | 2022-05-24 17:42 | ER ---
Nurse's Notes [facility] Name: Lina Fisher Age: 76 yrs Sex: Female : 1945 Arrival Date: 05/24/2022 Time: 13:25 Bed 14 Private MD: Peter Dolan Diagnosis: Fever Presentation: 05/24 13:45 Chief complaint: Spouse and/or significant other states: Body aches, fatigue, nausea, ph chills, headache and confusion, is currently being treated for UTI and had a recent cystoscopy. Coronavirus screen: Vaccine status: Patient reports receiving the 2nd dose of the covid vaccine. Ebola Screen: No symptoms or risks identified at this time. Initial Sepsis Screen: Does the patient meet any 2 criteria? Altered Mental Status. HR > 90 bpm. Does the patient have a suspected source of infection? Yes: Dysuria/Frequency/Urgency/UTI. Risk Assessment: Do you want to hurt yourself or someone else? Patient reports no desire to harm self or others. Onset of symptoms was May 24, 2022. 13:45 Method Of Arrival: Wheelchair ph 13:45 Acuity: MARQUITA 2 ph Triage Assessment: 14:30 Headache History: Denies prior headaches. General: Appears in no apparent distress. eh3 Pain: Pain currently is 6 out of 10 on a pain scale. Pain began 4 hours ago. 14:30 General: Behavior is calm, cooperative, appropriate for age. Pain: Complains of pain in eh3 head. 14:30 Pain: Pain does not radiate. eh3 14:30 Pain: Quality of pain is described as aching, Is continuous, Alleviated by nothing. eh3 Also complains of nausea. Historical: - Allergies: 13:48 Bactrim; ph 13:48 Codeine (Upset stomach); ph 13:48 OPIOID ANALGESICS; ph - PMHx: 13:48 Arthritis; Chronic pain; Hypertension; Migraines; Osteoporosis; Seizures; ph - Immunization history:: Adult Immunizations unknown. - Social history:: Smoking status: Patient denies any tobacco usage or history of. Screenin:30 [facility] ED Fall Risk Assessment (Adult) History of falling in the last 3 months, eh3 including since admission No falls in past 3 months (0 pts) Confusion or Disorientation No (0 pts) Intoxicated or Sedated No (0 pts) Impaired Gait No (0 pts) Mobility Assist Device Used No (0 pt) Altered Elimination No (0 pt) Score/Fall Risk Level 0 - 2 = Low Risk Oriented to surroundings, Maintained a safe environment, Educated pt \T\ family on fall prevention, incl call for assistance when getting out of bed, Assessed \T\ reinforced patient's understanding of fall precautions, Hourly rounding (assess needs \T\ fall precautionary measures) done. Abuse screen: Denies threats or abuse. Denies injuries from another. Nutritional screening: No deficits noted. Tuberculosis screening: No symptoms or risk factors identified. Assessment: 14:30 General: Appears in no apparent distress. uncomfortable. Pain: Complains of pain in eh3 head Also complains of nausea. Neuro: Level of Consciousness is awake, alert, obeys commands, Oriented to person, place, time, situation. Cardiovascular: Capillary refill < 3 seconds Patient's skin is warm and dry. Respiratory: Airway is patent Respiratory effort is even, unlabored, Respiratory pattern is regular, symmetrical. GI: Abdomen is round non-distended. : No signs and/or symptoms were reported regarding the genitourinary system. EENT: No signs and/or symptoms were reported regarding the EENT system. Derm: No signs and/or symptoms reported regarding the dermatologic system. Musculoskeletal: No signs and/or symptoms reported regarding the musculoskeletal system. Circulation, motion, and sensation intact. Range of motion: intact in all extremities. 15:30 Reassessment: Patient appears in no apparent distress at this time. Patient and/or 3 family updated on plan of care and expected duration. Pain level reassessed. Patient is alert, oriented x 3, equal unlabored respirations, skin warm/dry/pink. 16:30 Reassessment: Patient appears in no apparent distress at this time. Patient and/or 3 family updated on plan of care and expected duration. Pain level reassessed. Patient is alert, oriented x 3, equal unlabored respirations, skin warm/dry/pink. 17:30 Reassessment: Patient appears in no apparent distress at this time. Patient and/or 3 family updated on plan of care and expected duration. Pain level reassessed. Patient is alert, oriented x 3, equal unlabored respirations, skin warm/dry/pink. Vital Signs: 13:45 BP 104 / 63; Pulse 91; Resp 18; Temp 97.3; Pulse Ox 94% on R/A; Weight 66.22 kg; Height ph 5 ft. 1 in. (154.94 cm); 14:30 BP 108 / 56; Pulse 87; Resp 18; Temp 99.4(O); Pulse Ox 97% on R/A; eh3 15:30 BP 104 / 55; Pulse 82; Resp 15; Pulse Ox 97% on R/A; eh3 16:30 BP 101 / 97; Pulse 77; Resp 18; Pulse Ox 99% on R/A; eh3 17:30 BP 111 / 97; Pulse 64; Resp 20; Pulse Ox 98% on R/A; eh3 13:45 Body Mass Index 27.59 (66.22 kg, 154.94 cm) ph ED Course: 13:25 Patient arrived in ED. mr 13:25 Peter Dolan MD is Private Physician. mr 13:39 Hao Hunter PA is PHCP. [facility] 13:39 Rajani Jhaveri MD is Attending Physician. [facility] 13:48 Triage completed. ph 13:48 Arm band placed on Patient placed in an exam room. ph 14:25 Maritza Dooley, KYE is Primary Nurse. eh3 14:30 Patient has correct armband on for positive identification. Bed in low position. Call [facility] light in reach. Side rails up X2. Adult w/ patient. Client placed on continuous cardiac and pulse oximetry monitoring. NIBP monitoring applied. Door closed. Noise minimized. Warm blanket given. 14:30 Inserted saline lock: 20 gauge in left antecubital area, using aseptic technique. Blood eh3 collected. 14:52 COVID-19/FLU A+B Sent. eh3 18:08 No provider procedures requiring assistance completed. IV discontinued, intact, eh3 bleeding controlled, No redness/swelling at site. Pressure dressing applied. Administered Medications: 16:00 Drug: NS 0.9% 1000 ml Route: IV; Rate: 1 bolus; Site: left antecubital; eh3 17:00 Follow up: IV Status: Completed infusion; IV Intake: 1000ml eh3 16:00 Drug: Acetaminophen 650 mg Route: PO; eh3 17:49 Follow up: Response: Pain is decreased eh3 Medication: 18:08 VIS not applicable for this client. eh3 Intake: 17:00 IV: 1000ml; Total: 1000ml. eh3 Outcome: 17:42 Discharge ordered by MD. wright 18:08 Discharged to home ambulatory, with family. eh3 18:08 Condition: stable 18:08 Discharge instructions given to patient, family, Instructed on discharge instructions, follow up and referral plans. Demonstrated understanding of instructions, follow-up care. 18:08 Patient left the ED. eh3 Signatures: Hao Hunter PA PA jmm Rivera, Mary Manda Dooley RN RN Maritza Dooley RN RN eh3 Corrections: (The following items were deleted from the chart) 17:53 17:52 General: Behavior is eh3 eh3
--- NOTE | 2022-05-24 17:42 | EDPHYS ---
Physician Documentation [facility] Name: Lina Fisher Age: 76 yrs Sex: Female : 1945 Arrival Date: 05/24/2022 Time: 13:25 Bed 14 Private MD: Peter Dolan ED Physician Rajani Jhaveri HPI: 05/24 13:51 This 76 yrs old Female presents to ER via Wheelchair with complaints of Fever, jmm Headache, Nausea. 13:51 Onset: The symptoms/episode began/occurred gradually, today. This is a 76-year-old jmm female with history of arthritis, chronic pain, hypertension, migraines and presents emerged part with complaints of fever beginning today along with headache and body aches. Patient is currently taking antibiotics for UTI and is under the care of Dr. Arita. Denies any dysuria, nausea, abdominal pain, vomiting. Patient states she did receive shingles vaccine yesterday.. Historical: - Allergies: 13:48 Bactrim; ph 13:48 Codeine (Upset stomach); ph 13:48 OPIOID ANALGESICS; ph - PMHx: 13:48 Arthritis; Chronic pain; Hypertension; Migraines; Osteoporosis; Seizures; ph - Immunization history:: Adult Immunizations unknown. - Social history:: Smoking status: Patient denies any tobacco usage or history of. ROS: 13:51 Cardiovascular: Negative for chest pain, palpitations, and edema, Respiratory: Negative jmm for shortness of breath, cough, wheezing, and pleuritic chest pain. 13:51 Constitutional: Positive for fever. 13:51 Cardiovascular: Positive for 13:51 All other systems are negative. Exam: 13:51 Constitutional: This is a well developed, well nourished patient who is awake, alert, jmm and in no acute distress. Head/Face: atraumatic. Eyes: EOMI, no conjunctival erythema appreciated ENT: Moist Mucus Membranes 13:51 Cardiovascular: Regular rate and rhythm. No edema appreciated Respiratory: Normal respirations, no respiratory distress appreciated Abdomen/GI: Non distended Back: Normal ROM Skin: General appearance color normal MS/ Extremity: Moves all extremities, no obvious deformities appreciated, no edema noted to the lower extremities Neuro: Awake and alert Psych: Behavior is normal, Mood is normal, Patient is cooperative and pleasant 13:51 Neck: ROM/movement: is normal, is supple. Vital Signs: 13:45 BP 104 / 63; Pulse 91; Resp 18; Temp 97.3; Pulse Ox 94% on R/A; Weight 66.22 kg; Height ph 5 ft. 1 in. (154.94 cm); 14:30 BP 108 / 56; Pulse 87; Resp 18; Temp 99.4(O); Pulse Ox 97% on R/A; eh3 15:30 BP 104 / 55; Pulse 82; Resp 15; Pulse Ox 97% on R/A; eh3 16:30 BP 101 / 97; Pulse 77; Resp 18; Pulse Ox 99% on R/A; eh3 17:30 BP 111 / 97; Pulse 64; Resp 20; Pulse Ox 98% on R/A; eh3 13:45 Body Mass Index 27.59 (66.22 kg, 154.94 cm) ph MDM: 14:03 Patient medically screened. [facility] 17:39 Data reviewed: vital signs, nurses notes. Counseling: I had a detailed discussion with kyle the patient and/or guardian regarding: the historical points, exam findings, and any diagnostic results supporting the discharge/admit diagnosis, lab results, the need for outpatient follow up, to return to the emergency department if symptoms worsen or persist or if there are any questions or concerns that arise at home. 18:39 ED course: Patient is alert nontoxic in appearance in the ED. Labs are unremarkable. I kyle do not currently suspect sepsis. Fever may be due to a viral illness, post immunization. I did recommend that the patient follow-up with her PCP and was also given strict return precautions. Patient understood agrees plan of care peer. 05/24 13:51 Order name: Blood Culture Adult (2) [facility] 05/24 13:51 Order name: CBC with Diff; Complete Time: 15:10 [facility] 05/24 13:51 Order name: CMP; Complete Time: 15:22 [facility] 05/24 13:51 Order name: Lactate w/ 2H reflex if indic.; Complete Time: 15:22 [facility] 05/24 13:51 Order name: Protime (+inr); Complete Time: 15:13 [facility] 05/24 13:51 Order name: Ptt, Activated; Complete Time: 15:13 [facility] 05/24 13:51 Order name: EKG; Complete Time: 13:52 [facility] 05/24 13:51 Order name: Accucheck; Complete Time: 14:52 [facility] 05/24 13:51 Order name: Cardiac monitoring; Complete Time: 14:52 [facility] 05/24 13:52 Order name: COVID-19/FLU A+B; Complete Time: 15:42 [facility] 05/24 14:44 Order name: Glucose, Ancillary Testing; Complete Time: 14:54 [facility] 05/24 15:32 Order name: Urine Dipstick-Ancillary; Complete Time: 15:33 [facility] 05/24 13:51 Order name: EKG - Nurse/Tech; Complete Time: 15:18 [facility] 05/24 13:51 Order name: IV Saline Lock - Large Bore; Complete Time: 14:52 [facility] 05/24 13:51 Order name: Labs collected and sent; Complete Time: 14:52 [facility] 05/24 13:51 Order name: O2 Per Protocol; Complete Time: 14:52 [facility] 05/24 13:51 Order name: O2 Sat Monitoring; Complete Time: 14:52 [facility] 05/24 13:51 Order name: Vital Signs; Complete Time: 14:52 [facility] Administered Medications: 16:00 Drug: NS 0.9% 1000 ml Route: IV; Rate: 1 bolus; Site: left antecubital; 3 17:00 Follow up: IV Status: Completed infusion; IV Intake: 1000ml [facility] 16:00 Drug: Acetaminophen 650 mg Route: PO; 3 17:49 Follow up: Response: Pain is decreased [facility] Disposition: 18:56 STAFF ATTESTATION STATEMENT: I was immediately available onsite in the emergency sd2 department for consultation in the care of this patient. I did not see or examine this patient. Rajani Jhaveri MD. Chart complete. Disposition Summary: 05/24/22 17:42 Discharge Ordered Location: Home jm Condition: Stable jm Diagnosis - Fever jmm Followup: jmm - With: Private Physician - When: 2 - 3 days - Reason: Recheck today's complaints, Continuance of care, Re-evaluation by your physician Discharge Instructions: - Discharge Summary Sheet jmm - Fever, Adult jmm Forms: - Medication Reconciliation Form jm - Thank You Letter jmm - Antibiotic Education jmm - Prescription Opioid Use m Signatures: Dispatcher [employer] Hao Holcomb PA PA jmm Hall, Patricia, RN RN ph DooleyMaritza RN RN 3 Rajani Jhaveri MD MD sd2
[2022-05-24 18:21] VITALS: TEMP 99.4
[2022-05-24 18:24] VITALS: BP 111/97; O2SAT 98
--- NOTE | 2022-05-25 17:02 | EKG ---
Test Date: 2022-05-24 Test Time: 15:11:17 Geothermal Technician: BERNADETTE MEASUREMENT RESULTS: Intervals: Rate: 84 NC: 140 QRSD: 68 QT: 348 QTc: 411 Burns: P: 43 NC: 140 QRS: -12 T: 0 INTERPRETIVE STATEMENTS: Normal sinus rhythm Voltage criteria for left ventricular hypertrophy Abnormal ECG Compared to ECG 11/05/2020 20:40:50 Left ventricular hypertrophy now present Sinus tachycardia no longer present Atrial abnormality no longer present Electronically Signed On 05-25-22 17:01:14 EDGE PLUGGER by Magan Mathis
== END 2022-05-24 18:08 | disposition home or self-care (01) ==
LOC: ER 13:20
DX: R50.9 Fever, unspecified (principal); R11.0 Nausea; Z20.822 Contact with and (suspected) exposure to COVID-19; I10 Essential (primary) hypertension; Z88.1 Allergy status to other antibiotic agents; Z88.5 Allergy status to narcotic agent
CPT/HCPCS: 93005; 87040; 85025; 36415; 85610; 82947; 83605; 85730; 81003; 80053; 0240U; J7030

== ENCOUNTER 2022-07-26 17:21 | Emergency (ER) | payer OTHER ==
--- OUTSIDE RECORDS SUMMARY | 2022-07-26 17:27 | XMS REPORT | Continuity of Care Document ---
:[address] [facility] t Address [address] [place] [address] Care Team Providers Name Role Phone [phone] Primary Care Physician Unavailable Vaccine, Ang Db Cbc Fam Attending Clinician Unavailable Kerri NUCLEAR REACTOR OPERATOR Carmen Attending Clinician CARMEN MANNING Attending Clinician Unavailable Doctor Unassigned, Foster Brook Attending Clinician Unavailable Juan Tucker MD Attending Clinician JUAN TUCKER Attending Clinician Unavailable HARINDER DAIGLE Attending Clinician Unavailable Alex Zamora DO Attending Clinician Teofilo Russell MD Attending Clinician Keri PTTiera Attending Clinician Unavailable Jake Weaver MD Attending Clinician Lashonda Caceres PTA Attending Clinician Unavailable Payers Payer Name Policy Type Policy Number Effective Date Expiration Date S solo [employer] & C1 [id number] Common Spi rit CASUALTY - [facility] MEDICARE MB [id number] [facility] NOVITAS - [facility] Problems Condition Condition Condition Status Onset [...] (BMI 1-18 ity of 30-39.9) 30-39.9) 00:00: [place] 00 Medical Branch Persistent Persistent Disease Active U nivers vomiting vomiting 01-04 ity of 00:00: [place] [id number] Medical Branch History of History of Problem C ommon urinary recurrent Spirit tract UTI - [facility] infection (urinary tract [facility] infection) [facility] [id number] Acute Problem Common cystitis [facility] with [facility] hematuria [facility] [id number] Suprapubic Problem Co mmon pain [facility] [id number] RLQ Problem Common abdominal Spirit pain [facility] Kidney Kidney Problem Common stone stones [facility] [id number] Recurrent Problem Com mon UTI [facility] [id number] Other Problem Common urethral Spirit stricture, [facility] female [facility] [id number] Incomplete Problem Co mmon emptying Spirit of bladder [facility] [id number] History of Problem Co mmon nephrolith Spirit iasis [facility] [id number] Lower Problem Common urinary [facility] tract - [facility] symptoms (LUTS) [facility] Allergies, Adverse Reactions, Alerts Allergy [...] Nitrofur Active Unknown Commo n antoin antoin [facility] Hydrocod Hydrocod Active Unknown Commo n one one [facility] Family History Family Member Diagnosis Comments Start Date Stop Date Source Natural father Heart disease [facility] Natural mother Dementia [facility] Natural mother Migraines [facility] Social History Social Habit Start Date Stop Date Quantity Comments Source History of [facility] - Tobacco Use [facility] Exposure to 2021-09-30 2021-10-10 Not sure [facility] SARS-CoV-2 00:00:00 15:02:00 [facility] (event) [place] Alcohol intake 2018-12-15 2018-12-15 Current [facility] 00:00:00 00:00:00 non-drinker of alcohol (finding) Tobacco use and 2015-10-30 2015-10-30 Never used [facility] exposure 00:00:00 00:00:00 [facility] Sex Ass[birth year] At [birth year] [facility] 00:00:00 00:00:00 Smoking Status Start Date Stop Date Source Never smoker [facility] Medications Ordered Filled Start Stop Current Ordering Indication Dosage Frequency Signature Comments Components Source Medication Medication Date Date Medication? Clinician (SIG) Name Name Clotrimazol Clotrimazol 2021-06- No BID Clotrimazo e-Betametha e-Betametha 07-23 le-Betamet sone 1-0.05 sone 1-0.05 00:00: 00:00 hasone % % 00 :00 1-0.05 % Clotrimazol Clotrimazol 2021-06- No BID Clotrimazo e-Betametha e-Betametha 07-23 le-Betamet sone 1-0.05 sone 1-0.05 00:00: 00:00 hasone % % 00 :00 1-0.05 % Alfuzosin Alfuzosin 2021-06- No 1{table QD Alfuzosin HCl ER 10 HCl ER 10 07-16- t_immed HCl ER 10 MG MG 00:00: 00:00 iately_ MG 00 :00 after_t he_same _meal} Alfuzosin Alfuzosin 2021-06- No 1{table QD Alfuzosin HCl ER 10 HCl ER 10 07-16- t_immed HCl ER 10 MG MG 00:00: 00:00 iately_ MG 00 :00 after_t he_same _meal} Alfuzosin Alfuzosin 2021-06- No 1{table QD Alfuzosin HCl ER 10 HCl ER 10 07-16 t_immed HCl ER 10 MG MG 00:00: 00:00 iately_ MG 00 :00 after_t he_same _meal} Cephalexin Cephalexin 2021-06- No 1{capsu TID Cephalexin 500 MG 500 MG 2-15 12-25 le} 500 MG 00:00: 00:00 00 :00 Cephalexin Cephalexin 2021-06- No 1{capsu TID Cephalexin 500 MG 500 MG 2-15 12-25 le} 500 MG 00:00: 00:00 00 :00 Cephalexin Cephalexin 2021-06- No 1{capsu TID Cephalexin 500 MG 500 MG 0-31 11-07 le} 500 MG 00:00: 00:00 00 :00 Cefuroxime Cefuroxime 2021-06- No 1{table BID Cefuroxime Axetil 250 Axetil 250 0-26 03-31 t} Axetil 250 MG MG 00:00: 00:00 MG 00 :00 Cefuroxime Cefuroxime 2021-06- No 1{table BID Cefuroxime Axetil 250 Axetil 250 0-26 -31 t} Axetil 250 MG MG 00:00: 00:00 MG 00 :00 Cefuroxime Cefuroxime 2021-06- No 1{table BID Cefuroxime Axetil 250 Axetil 250 0-03-31 t} Axetil 250 MG MG 00:00: 00:00 MG 00 :00 Cipro 500 Cipro 500 2020-06- No 1{table BID Cipro 500 MG MG 07-22 t} MG 00:00: 00:00 00 :00 Cipro 500 Cipro 500 2020-06- No 1{table BID Cipro 500 MG MG 07-22 t} MG 00:00: 00:00 00 :00 topiramate 2019- Yes [id number] 100mg Take 1 Univers 100 mg 2-07 9105 tablet by ity of tablet 00:00: mouth 2 (two) Medical times Branch daily. topiramate 2019- Yes [id number] 100mg Take 1 Univers 100 mg 2-07 9105 tablet by ity of tablet 00:00: mouth 2 00 (two) Medical times Branch daily. topiramate 2019- Yes [id number] 100mg Take 1 Univers 100 mg 2-07 9105 tablet by ity of tablet 00:00: mouth 2 00 (two) Medical times Branch daily. topiramate 2019- Yes [id number] 100mg Take 1 Univers 100 mg 2-07 9105 tablet by ity of tablet 00:00: mouth 2 [place] 00 (two) Medical times Branch daily. topiramate 2019- Yes [id number] 100mg Take 1 Univers 100 mg 2-07 9105 tablet by ity of tablet 00:00: mouth 2 [place] 00 (two) Medical times Branch daily. topiramate 2020-0 Yes [id number] 100mg Take 1 Univers 100 mg 6-08 9105 tablet by ity of tablet 00:00: mouth 2 [place] 00 (two) Medical times Branch daily. topiramate 20200 2020- No [id number] 100mg Take 1 Univers 100 mg 6-08 12-07 9105 tablet by ity of tablet 00:00: 00:00 mouth 2 [place] 00 :00 (two) Medical times Branch daily. TOPIRAMATE 2020-0 Yes [id number] TAKE 1 Univers 100 mg 5-08 9105 TABLET BY ity of tablet 00:00: MOUTH [place] 00 TWICE Medical DAILY Branch TOPIRAMATE 0 2020- No [id number] TAKE 1 Univers 100 mg 10-06 9105 TABLET BY ity of tablet 00:00: 00:00 MOUTH 00 :00 TWICE Medical DAILY Branch TOPIRAMATE 2020-0 2020- No [id number] TAKE 1 Univers 100 mg 06-09 9105 TABLET BY ity of tablet 00:00: 00:00 MOUTH 00 :00 TWICE Medical DAILY Branch TOPIRAMATE 2020-0 2020- No [id number] TAKE 1 Univers 100 mg 06-09 9105 [...] it y of ITAMIN D3 21:04: mouth. [place] (CALCIUM 36 Medical 500 + D Branch ORAL) cycloSPORIN 2019- Yes 1[drp] Place 1 U nivers E 8-13 Drop in ity of (RESTASIS) 21:04: left eye [place] 0.05 % 36 every 12 Medical drops (twelve) Branch hours. CALCIUM 2019- Yes 2{tbl} Take 2 Univer s CARBONATE/V 8-13 tablets by it y of ITAMIN D3 21:04: mouth. [place] (CALCIUM 36 Medical 500 + D Branch ORAL) cycloSPORIN 2019- Yes 1[drp] Place 1 U nivers E 8-13 Drop in ity of (RESTASIS) 21:04: left eye [place] 0.05 % 36 every 12 Medical drops (twelve) Branch hours. CALCIUM 2019- Yes 2{tbl} Take 2 Univer s CARBONATE/V 8-13 tablets by it y of ITAMIN D3 21:04: mouth. [place] (CALCIUM 36 Medical 500 + D Branch ORAL) cycloSPORIN 2019-0 Yes 1[drp] Place 1 U nivers E 8-13 Drop in ity of (RESTASIS) 21:04: left eye [place] 0.05 % 36 every 12 Medical drops (twelve) Branch hours. CALCIUM 2019-0 Yes 2{tbl} Take 2 Univer s CARBONATE/V 8-13 tablets by it y of ITAMIN D3 21:04: mouth. [place] (CALCIUM 36 Medical 500 + D Branch ORAL) cycloSPORIN 2019-0 Yes 1[drp] Place 1 U nivers E 8-13 Drop in ity of (RESTASIS) 21:04: left eye [place] 0.05 % 36 every 12 Medical drops (twelve) Branch hours. CALCIUM 2019-0 Yes 2{tbl} Take 2 Univer s CARBONATE/V 8-13 tablets by it y of ITAMIN D3 21:04: mouth. [place] (CALCIUM 36 Medical 500 + D Branch ORAL) cycloSPORIN 2019-0 Yes 1[drp] Place 1 U nivers E 8-13 Drop in ity of (RESTASIS) 21:04: left eye [place] 0.05 % 36 every 12 Medical drops (twelve) Branch hours. CALCIUM 2019-0 Yes 2{tbl} Take 2 Univer s CARBONATE/V 8-13 tablets by it y of ITAMIN D3 21:04: mouth. [place] (CALCIUM 36 Medical 500 + D Branch ORAL) cycloSPORIN 2019-0 Yes 1[drp] Place 1 U nivers E 8-13 Drop in ity of (RESTASIS) 21:04: left eye [place] 0.05 % 36 every 12 Medical drops (twelve) Branch hours. CALCIUM 2019- Yes 2{tbl} Take 2 Univer s CARBONATE/V 8-13 tablets by it y of ITAMIN D3 21:04: mouth. [place] (CALCIUM 36 Medical 500 + D Branch ORAL) cycloSPORIN 2019-0 Yes 1[drp] Place 1 U nivers E 8-13 Drop in ity of (RESTASIS) 21:04: left eye [place] 0.05 % 36 every 12 Medical drops (twelve) Branch hours. CALCIUM 2019-0 Yes 2{tbl} Take 2 Univer s CARBONATE/V 8-13 tablets by it y of ITAMIN D3 21:04: mouth. [place] (CALCIUM 36 Medical 500 + D Branch ORAL) cycloSPORIN 2019-0 Yes 1[drp] Place 1 U nivers E 8-13 Drop in ity of (RESTASIS) 21:04: left eye [place] 0.05 % 36 every 12 Medical drops (twelve) Branch hours. CALCIUM 2019-0 Yes 2{tbl} Take 2 Univer s CARBONATE/V 8-13 tablets by it y of ITAMIN D3 21:04: mouth. [place] (CALCIUM 36 Medical 500 + D Branch ORAL) cycloSPORIN 2019-0 Yes 1[drp] Place 1 U nivers E 8-13 Drop in ity of (RESTASIS) 21:04: left eye [place] 0.05 % 36 every 12 Medical drops (twelve) Branch hours. CALCIUM 2019-0 Yes 2{tbl} Take 2 Univer s CARBONATE/V 8-13 tablets by it y of ITAMIN D3 21:04: mouth. [place] (CALCIUM 36 Medical 500 + D Branch ORAL) cycloSPORIN 2019-0 Yes 1[drp] Place 1 U nivers E 8-13 Drop in ity of (RESTASIS) 21:04: left eye [place] 0.05 % 36 every 12 Medical drops (twelve) Branch hours. CALCIUM 2019-0 Yes 2{tbl} Take 2 Univer s CARBONATE/V 8-13 tablets by it y of ITAMIN D3 21:04: mouth. [place] (CALCIUM 36 Medical 500 + D Branch ORAL) cycloSPORIN 2019-0 Yes 1[drp] Place 1 U nivers E 8-13 Drop in ity of (RESTASIS) 21:04: left eye [place] 0.05 % 36 every 12 Medical drops (twelve) Branch hours. CALCIUM 2019-0 Yes 2{tbl} Take 2 Univer s CARBONATE/V 8-13 tablets by it y of ITAMIN D3 21:04: mouth. [place] (CALCIUM 36 Medical 500 + D Branch ORAL) cycloSPORIN 2019-0 Yes 1[drp] Place 1 U nivers E 8-13 Drop in ity of (RESTASIS) 21:04: left eye [place] 0.05 % 36 every 12 Medical drops (twelve) Branch hours. CALCIUM 2019-0 Yes 2{tbl} Take 2 Univer s CARBONATE/V 8-13 tablets by it y of ITAMIN D3 21:04: mouth. [place] (CALCIUM 36 Medical 500 + D Branch ORAL) cycloSPORIN 2019-0 Yes 1[drp] Place 1 U nivers E 8-13 Drop in ity of (RESTASIS) 21:04: left eye [place] 0.05 % 36 every 12 Medical drops (twelve) Branch hours. CALCIUM 2019-0 Yes 2{tbl} Take 2 Univer s CARBONATE/V 8-13 tablets by it y of ITAMIN D3 21:04: mouth. [place] (CALCIUM 36 Medical 500 + D Branch ORAL) DIAZEPAM 2019- No 5mg Take 5 mg Uni vers ORAL 01-11-13 by mouth ity of 21:04: 00:00 as needed. [place] 16 :00 [facility] Branch DIAZEPAM 2019- No 5mg Take 5 mg Uni vers ORAL 01-11-13 by mouth ity of 21:04: 00:00 as needed. [place] 16 :00 Medical Branch CYANOCOBALA 2019- No 1mL Place 1 mL Univers MIN/COBAMAM 01-11-13 under the it y of [place] (B12 21:04: 00:00 tongue [facility]) 07 :00 daily. Medical Branch CYANOCOBALA 2019- No 1mL Place 1 mL Univers MIN/COBAMAM 01-1113 under the it y of [place] (B12 21:04: 00:00 tongue [facility]) 07 :00 daily. Medical Branch ESTROGENS, Yes 1{appli Insert 1 Univers CONJUGATED 8- catorfu Applicator ity of (PREMARIN 21:03: l} ful [place] 17 vagina Medical weekly. Branch Indication s: Three times weekly metoprolol Yes 25mg Take 25 mg U nivers succinate 8-13 by mouth ity of XL 25 mg 24 21:03: [place]. [place] [address] [place] [address] Branch omeprazole Yes 40mg Take 40 mg U nivers 40 mg 8-13 by mouth ity of capsule 21:03: daily. [address] alendronate Yes 70mg Take 70 mg Univers 70 mg 8-13 by mouth ity of tablet 21:03: weekly. [address] Branch ALLOPURINOL 2018- Yes 300mg Take 300 U nivers ORAL 8-13 mg by ity of 21:03: mouth [place] 17 daily. Medical Branch Tramadol Yes 50mg Take 50 mg Uni vers (RYBIX ODT) 8-13 by mouth ity of 50 mg 21:03: as needed. [place] tablet [address] [place] [address] Branch FLUTICASONE 2018- Yes 1{spray Use 1 Un lobito PROPIONATE 8- } [place] in ity o f (FLUTICASON 21:03: each [...] 24 21:03: daily. [place] [address] [place] [address] omeprazole Yes 40mg Take 40 mg U nivers 40 mg 8-13 by mouth ity of capsule 21:03: daily. [address] alendronate Yes 70mg Take 70 mg Univers 70 mg 8-13 by mouth ity of tablet 21:03: weekly. [address] ALLOPURINOL Yes 300mg Take 300 U nivers ORAL 8-13 mg by ity of 21:03: mouth [place] 17 daily. [facility] Branch Tramadol Yes 50mg Take 50 mg Uni vers (RYBIX ODT) 8-13 by mouth ity of 50 mg 21:03: as needed. [address] FLUTICASONE Yes 1{spray Use 1 Un lobito PROPIONATE 8-13 } [place] in ity o f (FLUTICASON 21:03: each [...] 24 21:03: daily. [place] tablet [address] [place] [address] omeprazole Yes 40mg Take 40 mg U nivers 40 mg 8-13 by mouth ity of capsule 21:03: daily. [address] alendronate Yes 70mg Take 70 mg Univers 70 mg 8-13 by mouth ity of tablet 21:03: weekly. [address] ALLOPURINOL Yes 300mg Take 300 U nivers ORAL 8-13 mg by ity of 21:03: mouth [place] 17 daily. Medical Branch Tramadol Yes 50mg Take 50 mg Uni vers (RYBIX ODT) 8-13 by mouth ity of 50 mg 21:03: as needed. [place] tablet [address] [place] [address] FLUTICASONE Yes 1{spray Use 1 Un lobito PROPIONATE 8-13 } [place] in ity o f (FLUTICASON 21:03: each [place] E NASAL) 17 nostril as Medic al needed. [place] ESTROGENS, Yes 1{appli Insert 1 Univers CONJUGATED 8-13 catorfu Applicator ity of (PREMARIN 21:03: l} ful into [place]) 17 vagina Medical weekly. Branch Indication s: Three times weekly metoprolol Yes 25mg Take 25 mg U nivers succinate 8-13 by mouth ity of XL 25 mg 24 21:03: daily. [place] tablet [address] [place] [address] omeprazole Yes 40mg Take 40 mg U nivers 40 mg 8-13 by mouth ity of capsule 21:03: daily. [address] alendronate Yes 70mg Take 70 mg Univers 70 mg 8-13 by mouth ity of tablet 21:03: weekly. [address] ALLOPURINOL Yes 300mg Take 300 U nivers ORAL 8-13 mg by ity of 21:03: mouth [place] 17 daily. [facility] Branch Tramadol Yes 50mg Take 50 mg Uni vers (RYBIX ODT) 8-13 by mouth ity of 50 mg 21:03: as needed. [address] FLUTICASONE Yes 1{spray Use 1 Un [place] PROPIONATE 8-13 } [place] in ity o f (FLUTICASON 21:03: each [place] E NASAL) 17 nostril as Medic al needed. [place] ESTROGENS, Yes 1{appli Insert 1 Univers CONJUGATED 8-13 catorfu Applicator ity of (PREMARIN 21:03: l} ful into [place] V[place]) 17 vagina Medical weekly. Branch Indication s: Three times weekly metoprolol Yes 25mg Take 25 mg U nivers succinate 8-13 by mouth ity of XL 25 mg 24 21:03: daily. [place] tablet [address] [place] [address] omeprazole Yes 40mg Take 40 mg U nivers 40 mg 8-13 by mouth ity of capsule 21:03: daily. [address] alendronate Yes 70mg Take 70 mg Univers 70 mg 8-13 by mouth ity of tablet 21:03: weekly. [address] ALLOPURINOL 2018-0 Yes 300mg Take 300 U nivers ORAL 8-13 mg by ity of 21:03: mouth [place] 17 daily. Medical Branch Tramadol 2018- Yes 50mg Take 50 mg Uni vers (RYBIX ODT) 8-13 by mouth ity of 50 mg 21:03: as needed. [place] tablet [address] [place] [address] FLUTICASONE 2018- Yes 1{spray Use 1 Un lobito PROPIONATE 8-13 } [place] in ity o f (FLUTICASON 21:03: each [...] 24 21:03: daily. [place] tablet [address] [place] [address] omeprazole 2018- Yes 40mg Take 40 mg U nivers 40 mg 8-13 by mouth ity of capsule 21:03: daily. [address] alendronate 0 Yes 70mg Take 70 mg Univers 70 mg 8-13 by mouth ity of tablet 21:03: weekly. [address] ALLOPURINOL 2018-0 Yes 300mg Take 300 U nivers ORAL 8-13 mg by ity of 21:03: mouth [place] [address] daily. [facility] Branch Tramadol Yes 50mg Take 50 mg Uni vers (RYBIX ODT) 8-13 by mouth ity of 50 mg 21:03: as needed. [address] FLUTICASONE 2018- Yes 1{spray Use 1 Un lobito PROPIONATE 8-13 } [place] in ity o f (FLUTICASON 21:03: each [...] 24 21:03: daily. [place] tablet [address] [place] [address] omeprazole Yes 40mg Take 40 mg U nivers 40 mg 8-13 by mouth ity of capsule 21:03: daily. [address] alendronate Yes 70mg Take 70 mg Univers 70 mg 8-13 by mouth ity of tablet 21:03: weekly. [address] ALLOPURINOL Yes 300mg Take 300 U nivers ORAL 8-13 mg by ity of 21:03: mouth [place] 17 daily. [facility] Branch Tramadol Yes 50mg Take 50 mg Uni vers (RYBIX ODT) 8-13 by mouth ity of 50 mg 21:03: as needed. [address] FLUTICASONE Yes 1{spray Use 1 Un [place] PROPIONATE 8-13 } [place] in ity o f (FLUTICASON 21:03: each [...] 24 21:03: daily. [place] tablet [address] [place] [address] omeprazole Yes 40mg Take 40 mg U nivers 40 mg 8-13 by mouth ity of capsule 21:03: daily. [address] alendronate Yes 70mg Take 70 mg Univers 70 mg 8-13 by mouth ity of tablet 21:03: weekly. [address] ALLOPURINOL Yes 300mg Take 300 U nivers ORAL 8-13 mg by ity of 21:03: mouth [place] 17 daily. [facility] Branch Tramadol Yes 50mg Take 50 mg Uni vers (RYBIX ODT) 8-13 by mouth ity of 50 mg 21:03: as needed. [address] FLUTICASONE Yes 1{spray Use 1 Un [place] PROPIONATE 8-13 } [place] in ity o f (FLUTICASON 21:03: each [...] 24 21:03: daily. [place] tablet [address] [place] [address] omeprazole Yes 40mg Take 40 mg U nivers 40 mg 8-13 by mouth ity of capsule 21:03: daily. [address] alendronate Yes 70mg Take 70 mg Univers 70 mg 8-13 by mouth ity of tablet 21:03: weekly. [address] ALLOPURINOL Yes 300mg Take 300 U nivers ORAL 8-13 mg by ity of 21:03: mouth [place] 17 daily. [facility] Tramadol Yes 50mg Take 50 mg Uni vers (RYBIX ODT) 8-13 by mouth ity of 50 mg 21:03: as needed. [address] FLUTICASONE Yes 1{spray Use 1 Un [place] PROPIONATE 8-13 } [place] in ity o f (FLUTICASON 21:03: each [...] 24 21:03: daily. [place] tablet [address] [place] [address] omeprazole Yes 40mg Take 40 mg U nivers 40 mg 8-13 by mouth ity of capsule 21:03: daily. [address] alendronate Yes 70mg Take 70 mg Univers 70 mg 8-13 by mouth ity of tablet 21:03: weekly. [address] ALLOPURINOL Yes 300mg Take 300 U nivers ORAL 8-13 mg by ity of 21:03: mouth [place] 17 daily. Medical Branch Tramadol 2018-0 Yes 50mg Take 50 mg Uni vers (RYBIX ODT) 8-13 by mouth ity of 50 mg 21:03: as needed. [place] tablet [address] [place] [address] FLUTICASONE Yes 1{spray Use 1 Un [place]ito PROPIONATE 8-13 } [place] in ity o f (FLUTICASON 21:03: each [...] 24 21:03: daily. [place] tablet [address] [place] [address] omeprazole Yes 40mg Take 40 mg U nivers 40 mg 8-13 by mouth ity of capsule 21:03: daily. [address] alendronate Yes 70mg Take 70 mg Univers 70 mg 8-13 by mouth ity of tablet 21:03: weekly. [address] ALLOPURINOL Yes 300mg Take 300 U nivers ORAL 8-13 mg by ity of 21:03: mouth [place] 17 daily. Medical Branch Tramadol Yes 50mg Take 50 mg Uni vers (RYBIX ODT) 8-13 by mouth ity of 50 mg 21:03: as needed. [place] tablet [address] [place] [address] FLUTICASONE 2018- Yes 1{spray Use 1 Un [place] PROPIONATE 8-13 } [place] in ity o f (FLUTICASON 21:03: each [...] 24 21:03: daily. [place] tablet [address] [place] [address] omeprazole 2018- Yes 40mg Take 40 mg U nivers 40 mg 8-13 by mouth ity of capsule 21:03: daily. [address] alendronate 2018- Yes 70mg Take 70 mg Univers 70 mg 8-13 by mouth ity of tablet 21:03: weekly. [address] ALLOPURINOL 2018- Yes 300mg Take 300 U nivers ORAL 8-13 mg by ity of 21:03: mouth [place] 17 daily. [facility] Branch Tramadol Yes 50mg Take 50 mg Uni vers (RYBIX ODT) 8-13 by mouth ity of 50 mg 21:03: as needed. [place] tablet [address] [place] [address] FLUTICASONE Yes 1{spray Use 1 Un lobito PROPIONATE 8-13 } [place] in ity o f (FLUTICASON 21:03: each [place] E NASAL) 17 nostril as Medic al needed. [place] ESTROGENS, Yes 1{appli Insert 1 Univers CONJUGATED 8-13 catorfu Applicator ity of (PREMARIN 21:03: l} ful into [place]) 17 vagina Medical weekly. [place] Indication s: Three times weekly metoprolol Yes 25mg Take 25 mg U nivers succinate 8-13 by mouth ity of XL 25 mg 24 21:03: daily. [place] tablet [address] [place] [address] omeprazole Yes 40mg Take 40 mg U nivers 40 mg 8-13 by mouth ity of capsule 21:03: daily. [address] alendronate Yes 70mg Take 70 mg Univers 70 mg 8-13 by mouth ity of tablet 21:03: weekly. [address] ALLOPURINOL Yes 300mg Take 300 U nivers ORAL 8-13 mg by ity of 21:03: mouth [place] 17 daily. [facility] Branch Tramadol Yes 50mg Take 50 mg Uni vers (RYBIX ODT) 8-13 by mouth ity of 50 mg 21:03: as needed. [place] tablet [address] [place] [address] FLUTICASONE 2018- Yes 1{spray Use 1 Un lobito PROPIONATE 8-13 } [place] in ity o f (FLUTICASON 21:03: each [place] E NASAL) 17 nostril as Medic al needed. [place] ESTROGENS, Yes 1{appli Insert 1 Univers CONJUGATED 8-13 catorfu Applicator ity of (PREMARIN 21:03: l} ful into [place]) 17 vagina Medical weekly. Branch Indication s: Three times weekly metoprolol 2018- Yes 25mg Take 25 mg U nivers succinate 8-13 by mouth ity of XL 25 mg 24 21:03: daily. [place] tablet [address] [place] [address] Branch omeprazole 2019- Yes 40mg Take 40 mg U nivers 40 mg 8-13 by mouth ity of capsule 21:03: daily. [address] alendronate 2018- Yes 70mg Take 70 mg Univers 70 mg 8-13 by mouth ity of tablet 21:03: weekly. [address] Branch ALLOPURINOL 2019- Yes 300mg Take 300 U nivers ORAL 8-13 mg by ity of 21:03: mouth [place] 17 daily. Medical Branch Tramadol Yes 50mg Take 50 mg Uni vers (RYBIX ODT) 8-13 by mouth ity of 50 mg 21:03: as needed. [place] tablet 17 [facility] Branch FLUTICASONE Yes 1{spray Use 1 Un lobito PROPIONATE 8-13 } [place] in ity o f (FLUTICASON 21:03: each [place] E NASAL) 17 nostril as Medic al needed. Branch AMOXICILLIN 2019- No 2000mg Take 2,000 Univers ORAL 8-13 08-13 mg by ity of 21:01: 00:00 mouth as [place] 00 :00 needed Medical (Prior to Branch dentist appointmen ts). AMOXICILLIN 2019- No 2000mg Take 2,000 Univers ORAL 8-13 08-13 mg by ity of 21:01: 00:00 mouth as [place] 00 :00 needed Medical (Prior to Branch dentist appointmen ts). cycloSPORIN 2019- Yes 1[drp] Place 1 U nivers E 8-13 Drop in ity of (RESTASIS) 16:04: left eye [place] 0.05 % 36 every 12 Medical drops (twelve) Branch hours. CALCIUM 2019- Yes 2{tbl} Take 2 Univer s CARBONATE/V 8-13 tablets by it y of ITAMIN D3 16:04: mouth. [place] (CALCIUM 36 Medical 500 + D Branch ORAL) cycloSPORIN 2018- Yes 1[drp] Place 1 U nivers E 8-13 Drop in ity of (RESTASIS) 16:04: left eye [place] as 0.05 % 36 every 12 Medical drops (twelve) Branch hours. CALCIUM 2019- Yes 2{tbl} Take 2 Univer s CARBONATE/V 8-13 tablets by it y of ITAMIN D3 16:04: mouth. [place] (CALCIUM 36 Medical 500 + D Branch ORAL) cycloSPORIN 2018- Yes 1[drp] Place 1 U nivers E 8-13 Drop in ity of (RESTASIS) 16:04: left eye [place] as 0.05 % 36 every 12 Medical drops (twelve) Branch hours. CALCIUM 2019- Yes 2{tbl} Take 2 Univer s CARBONATE/V 8-13 tablets by it y of ITAMIN D3 16:04: mouth. [place] (CALCIUM 36 Medical 500 + D Branch ORAL) ALLOPURINOL Yes 300mg Take 300 U nivers ORAL 8-13 mg by ity of 16:03: mouth [place] 17 daily. Medical Branch Tramadol Yes 50mg Take 50 mg Uni vers (RYBIX ODT) 8-13 by mouth ity of 50 mg 16:03: as needed. [place] tablet [address] [place] [address] FLUTICASONE Yes 1{spray Use 1 Un [place] PROPIONATE 8-13 } [place] in ity o f (FLUTICASON 16:03: each [...] 16:03: [place] 17 [facility] omeprazole Yes 40mg Take 40 mg U nivers 40 mg 8-13 by mouth ity of capsule 16:03: daily. [address] alendronate Yes 70mg Take 70 mg Univers 70 mg 8-13 by mouth ity of tablet 16:03: weekly. [address] ALLOPURINOL 2018- Yes 300mg Take 300 U nivers ORAL 8-13 mg by ity of 16:03: mouth [place] 17 daily. Medical Branch Tramadol Yes 50mg Take 50 mg Uni vers (RYBIX ODT) 8-13 by mouth ity of 50 mg 16:03: as needed. [place] tablet [address] [place] [address] FLUTICASONE Yes 1{spray Use 1 Un [place] PROPIONATE 8-13 } [place] in ity o f (FLUTICASON 16:03: each [place] E NASAL) 17 nostril as Medic al needed. Branch ESTROGENS, 0 Yes 1{appli Insert 1 Univers CONJUGATED 8-13 [employer] ity of (PREMARIN 16:03: l} [place] V[place] 17 vagina Medical weekly. Branch Indication s: Three times weekly metoprolol Yes 25mg Take 25 mg U nivers succinate 8-13 by mouth ity of XL 25 mg 24 16:03: daily. [place] [address] [place] [address] omeprazole Yes 40mg Take 40 mg U nivers 40 mg 8-13 by mouth ity of capsule 16:03: daily. [address] alendronate Yes 70mg Take 70 mg Univers 70 mg 8-13 by mouth ity of tablet 16:03: weekly. [address] ALLOPURINOL Yes 300mg Take 300 U nivers ORAL 8-13 mg by ity of 16:03: mouth [place] 17 daily. [facility] Tramadol Yes 50mg Take 50 mg Uni vers (RYBIX ODT) 8-13 by mouth ity of 50 mg 16:03: as needed. [address] FLUTICASONE Yes 1{spray Use 1 Un [place] PROPIONATE 8-13 } [place] in ity o f (FLUTICASON 16:03: each [place] E NASAL) 17 nostril as Medic al needed. [place] ESTROGENS, Yes 1{appli Insert 1 Univers CONJUGATED 8-13 c[employer]fu [employer] ity of (PREMARIN 16:03: l} [place] V[place] 17 vagina Medical weekly. Branch Indication s: Three times weekly metoprolol 0 Yes 25mg Take 25 mg U nivers succinate 8-13 by mouth ity of XL 25 mg 24 16:03: daily. [place] [address] [place] [address] omeprazole 2018- Yes 40mg Take 40 mg U nivers 40 mg 8-13 by mouth ity of capsule 16:03: daily. [address] alendronate 0 Yes 70mg Take 70 mg Univers 70 mg 8-13 by mouth ity of tablet 16:03: weekly. [address] Branch topiramate 2019-0 Yes [id number] 100mg Take 1 Univers 100 mg 8-13 tablet by ity of tablet 00:00: mouth 2 [place] ([facility]) Medical times Branch daily. topiramate 2019-0 Yes [id number] 100mg Take 1 Univers 100 mg 8-13 tablet by ity of tablet 00:00: mouth 2 [place] ([facility]) Medical times Branch daily. topiramate 2019-0 Yes [id number] 100mg Take 1 Univers 100 mg 8-13 tablet by ity of tablet 00:00: mouth 2 [place] ([facility]) Medical times Branch daily. topiramate 2019-0 Yes [id number] 100mg Take 1 Univers 100 mg 8-13 tablet by ity of tablet 00:00: mouth 2 [place] ([facility]) Medical times Branch daily. topiramate 2019-0 Yes [id number] 100mg Take 1 Univers 100 mg 8-13 tablet by ity of tablet 00:00: mouth [place] ([facility]) Medical times Branch daily. topiramate 2019-0 Yes [id number] 100mg Take 1 Univers 100 mg 8-13 tablet by ity of tablet 00:00: mouth [place] ([facility]) Medical times Branch daily. topiramate 2019-0 Yes [id number] 100mg Take 1 Univers 100 mg 8-13 tablet by ity of tablet 00:00: mouth 2 [place] ([facility]) Medical times Branch daily. topiramate 2019-0 Yes [id number] 100mg Take 1 Univers 100 mg 8-13 tablet by ity of tablet 00:00: mouth [place] ([facility]) Medical times Branch daily. topiramate 2019-0 Yes [id number] 100mg Take 1 Univers 100 mg 8-13 tablet by ity of tablet 00:00: mouth 2 [place] ([facility]) Medical times Branch daily. topiramate 2019-0 Yes [id number] 100mg Take 1 Univers 100 mg 8-13 tablet by ity of tablet 00:00: mouth 2 [place] ([facility]) Medical times Branch daily. LYRICA 50 2019-0 Yes TK 1 C PO Uni vers mg capsule 8- QHS. ity of 00:00: [place] [address] Medical Branch LYRICA 50 2019-0 Yes TK 1 C PO Uni vers mg capsule 806 QHS. ity of 00:00: [place] [facility] LYRICA 50 2018-0 Yes TK 1 C PO Uni vers mg capsule 8-06 QHS. ity of 00:00: [place] [facility] LYRICA 50 0 Yes TK 1 C PO Uni vers mg capsule 8-06 QHS. ity of 00:00: [place] [facility] LYRICA 50 0 Yes TK 1 C PO Uni vers mg capsule 8-06 QHS. ity of 00:00: [place] [facility] LYRICA 50 0 Yes TK 1 C PO Uni vers mg capsule 8-06 QHS. ity of 00:00: [place] [facility] LYRICA 50 0 Yes TK 1 C PO Uni vers mg capsule 8-06 QHS. ity of 00:00: [place] [facility] LYRICA 50 0 Yes TK 1 C PO Uni vers mg capsule 8-06 QHS. ity of 00:00: [place] [facility] LYRICA 50 0 Yes TK 1 C PO Uni vers mg capsule 8-06 QHS. ity of 00:00: [place] [facility] LYRICA 50 0 Yes TK 1 C PO Uni vers mg capsule 8-06 QHS. ity of 00:00: [place] [facility] LYRICA 50 0 Yes TK 1 C PO Uni vers mg capsule 8-06 QHS. ity of 00:00: [place] [facility] LYRICA 50 0 Yes TK 1 C PO Uni vers mg capsule 8-06 QHS. ity of 00:00: [place] [facility] LYRICA 50 2018-0 Yes TK 1 C PO Uni vers mg capsule 8-06 QHS. ity of 00:00: [place] [facility] LYRICA 50 0 Yes TK 1 C PO Uni vers mg capsule 8-06 QHS. ity of 00:00: [place] [facility] LYRICA 50 0 Yes TK 1 C PO Uni vers mg capsule 8-06 QHS. ity of 00:00: [place] [facility] LYRICA 50 2018-0 Yes TK 1 C PO Uni vers mg capsule 8-06 QHS. ity of 00:00: [place] [facility] LYRICA 50 0 Yes TK 1 C PO Uni vers mg capsule 8-06 QHS. ity of 00:00: [place] 00 Medical Branch doxycycline 2019-0 Yes Univer s 50 mg 7-27 ity of capsule 00:00: [place] [facility] doxycycline 2019-0 Yes Univer s 50 mg 7-27 ity of capsule 00:00: [place] [facility] doxycycline 2019-0 Yes Univer s 50 mg 7-27 ity of capsule 00:00: [place] [address] Medical Branch doxycycline 2019-0 Yes Univer s 50 mg 7-27 ity of capsule 00:00: [place] [facility] doxycycline 2019-0 Yes Univer s 50 mg 7-27 ity of capsule 00:00: [place] [facility] doxycycline 2019-0 Yes Univer s 50 mg 7-27 ity of capsule 00:00: [place] [facility] doxycycline 2019-0 Yes Univer s 50 mg 7-27 ity of capsule 00:00: [place] [facility] doxycycline 2019-0 Yes Univer s 50 mg 7-27 ity of capsule 00:00: [place] [address] Medical Branch doxycycline 2019-0 Yes Univer s 50 mg 7-27 ity of capsule 00:00: [place] [facility] doxycycline 2019-0 Yes Univer s 50 mg 7-27 ity of capsule 00:00: [place] [facility] doxycycline 2019-0 Yes Univer s 50 mg 7-27 ity of capsule 00:00: [place] [address] Medical Branch doxycycline 2019-0 Yes Univer s 50 mg 7-27 ity of capsule 00:00: [place] [address] Medical Branch doxycycline 2019-0 Yes Univer s 50 mg 7-27 ity of capsule 00:00: [place] [address] Medical Branch doxycycline 2019-0 Yes Univer s 50 mg 7-27 ity of capsule 00:00: [place] [facility] doxycycline 2019-0 Yes Univer s 50 mg 7-27 ity of capsule 00:00: [place] [facility] doxycycline 2019-0 Yes Univer s 50 mg 7-27 ity of capsule 00:00: [place] [address] Medical Branch doxycycline 2019-0 Yes Univer s 50 mg 7-27 ity of capsule 00:00: [place] [facility] cyanocobala 2019-[address] Met hodi min, 12-15 2,[address] vitamin 10:42: under the Hospi ta B-12, 24 tongue l (VITAMIN daily. B-12) 2,500 mcg tablet, sublingual cholecalcif 2019-0 Yes 1{tbl} Take 1 Me thodi ria, 7-17 tablet by vitamin D3, 10:42: mouth Hospi ta (VITAMIN 24 daily. l D3) 5,000 unit tablet fluticasone 2019-0 Yes 2{spray QD 2 sprays Methodi (FLONASE) 7-17 } by Each st 50 10:42: Nare route Hospita mcg/actuati 24 daily. l on nasal spray cyanocobala 2019-[address] Met [facility], 12-15 2,[address] vitamin 10:42: under the Hospi ta B-12, 24 tongue l (VITAMIN daily. B-12) 2,500 mcg tablet, sublingual cholecalcif 2019-0 Yes 1{tbl} Take 1 Me thodi ria, 7-17 tablet by vitamin D3, 10:42: mouth Hospi ta (VITAMIN 24 daily. l D3) 5,000 unit tablet cyanocobala 2019-[address] [facility] 2,[address] vitamin 10:42: under the Hospi ta B-12, 24 tongue l (VITAMIN daily. B-12) 2,500 mcg tablet, sublingual cholecalcif 2019-0 Yes 1{tbl} Take 1 Me thodi ria, 7-17 tablet by vitamin D3, 10:42: mouth Hospi ta (VITAMIN 24 daily. l D3) 5,000 unit tablet fluticasone 0 Yes 2{spray QD 2 sprays [facility] (FLONASE) 7-17 } by Each st 50 10:42: Nare route Hospita mcg/actuati 24 daily. l on nasal spray fluticasone 2019-0 Yes 2{spray QD 2 sprays [facility] (FLONASE) 7-17 } by Each st 50 10:42: Nare route Hospita mcg/actuati 24 daily. l on nasal spray cycloSPORIN 2019-0 Yes 1[drp] Q.5D Administer [facility] E 7-[address] (RESTASIS) 00:00: both eyes Ho spita 0.05 % 00 2 (two) l ophthalmic times a emulsion day for 90 days. cycloSPORIN 2019-0 Yes 1[drp] Q.5D Administer [facility] E 7-17 [...] by ity of tablet 00:00: mouth 2 [place] 00 (two) Medical times Branch daily. topiramate 2019- No 50mg Take 1 Univ ers 50 mg 5-28 08-13 tablet by ity of tablet 00:00: 00:00 mouth 2 [place] 00 :00 (two) Medical times Branch daily. topiramate 2018- No 50mg Take 1 Univ ers 50 mg 5-28 08-13 tablet by ity of tablet 00:00: 00:00 mouth 2 [place] 00 :00 (two) Medical times Branch daily. metoprolol Yes [id number] TAKE 1 Me thodi succinate 8-[address] XL 00:00: MOUTH Hospita (TOPROL-XL) 00 TWICE l 25 mg 24 hr DAILY, IN tablet THE MORNING AND AT DINNER metoprolol Yes [id number] TAKE 1 Me thodi succinate 8-[address] XL 00:00: MOUTH [facility]ospita (TOPROL-XL) 00 TWICE l 25 mg 24 hr DAILY, IN tablet THE MORNING AND AT DINNER metoprolol Yes [id number] TAKE 1 Me thodi succinate 8-[address] XL 00:00: MOUTH Hospita (TOPROL-XL) 00 TWICE l 25 mg 24 hr DAILY, IN tablet THE MORNING AND AT DINNER multivit-mi Yes Take by Uni vers n/FA/lycope 8 mouth. ity of n/lutein 19:42: [place] (COMPLETE 22 Medical 50+ ORAL) Branch vit A/vit Yes Take by Unive rs C/vit 01-05 mouth. ity of E/zinc/cristine 19:42: [place] er (OCUVITE 22 Medical PRESERVISIO Branch N ORAL) multivit-mi Yes Take by Uni vers n/FA/lycope 8 mouth. ity of n/lutein 19:42: [place] (COMPLETE 22 Medical 50+ ORAL) Branch vit A/vit 2017-0 Yes Take by Unive rs C/vit 8-07 mouth. ity of E/zinc/cristine 19:42: [place] er (OCUVITE 22 Medical PRESERVISIO Branch N ORAL) multivit-mi Yes Take by Uni vers n/FA/lycope 8-07 mouth. ity of n/lutein 19:42: [place] (COMPLETE 22 Medical 50+ ORAL) Branch vit A/vit 2017-0 Yes Take by Unive rs C/vit 8-07 mouth. ity of E/zinc/cristine 19:42: [place] er (OCUVITE 22 Medical PRESERVISIO Branch N ORAL) multivit-mi Yes Take by Uni vers n/FA/lycope 8-07 mouth. ity of n/lutein 19:42: [place] (COMPLETE 22 Medical 50+ ORAL) Branch vit A/vit 2017-0 Yes Take by Unive rs C/vit 8-07 mouth. ity of E/zinc/cristine 19:42: [facility] (OCUVITE 22 Medical PRESERVISIO Branch N ORAL) multivit-mi Yes Take by Uni vers n/FA/lycope 8-07 mouth. ity of n/lutein 19:42: [place] (COMPLETE 22 Medical 50+ ORAL) Branch vit A/vit 2017-0 Yes Take by Unive rs C/vit 8-07 mouth. ity of E/zinc/cristine 19:42: [facility] (OCUVITE 22 Medical PRESERVISIO Branch N ORAL) multivit-mi Yes Take by Uni vers n/FA/lycope 8-07 mouth. ity of n/lutein 19:42: [place] (COMPLETE 22 Medical 50+ ORAL) Branch vit A/vit 2017- Yes Take by Unive rs C/vit 8-07 mouth. ity of E/zinc/cristine 19:42: [facility] (OCUVITE 22 Medical PRESERVISIO Branch N ORAL) multivit-mi 2017- Yes Take by Uni vers n/FA/lycope 8-07 mouth. ity of n/lutein 19:42: [place] (COMPLETE 22 Medical 50+ ORAL) Branch vit A/vit 2017- Yes Take by Unive rs C/vit 8-07 mouth. ity of E/zinc/cristine 19:42: [place] [facility]mi Yes Take by Uni vers n/FA/lycope 8-07 mouth. ity of n/lutein 19:42: [place] (COMPLETE 22 Medical 50+ ORAL) Branch vit A/vit Yes Take by Unive rs C/vit 8-07 mouth. ity of E/zinc/cristine 19:42: [place] er (OCUVITE 22 Medical PRESERVIS Branch N ORAL) alendronate Yes 70mg Take 70 mg Univers 70 mg 01-05 by mouth ity of tablet 19:42: weekly. [place] [address] Medical Branch multivit-mi Yes Take by Uni vers n/FA/lycope 8-07 mouth. ity of n/lutein 19:42: [place] (COMPLETE 22 Medical 50+ ORAL) Branch multivit-mi Yes Take by Uni vers n/FA/lycope 8-07 mouth. ity of n/lutein 19:42: [place] (COMPLETE 22 Medical 50+ ORAL) Branch vit A/vit Yes Take by Unive rs C/vit 8-07 mouth. ity of E/zinc/cristine 19:42: [facility]OCUVITE 22 [facility] vit A/vit 2017- Yes Take by Unive rs C/vit 8-07 mouth. ity of E/zinc/cristine 19:42: [facility]OCUVITE 22 [facility] multivit-mi Yes Take by Uni vers n/FA/lycope 8-07 mouth. ity of n/lutein 19:42: [place] (COMPLETE 22 Medical 50+ ORAL) Branch vit A/vit 2017- Yes Take by Unive rs C/vit 8-07 mouth. ity of E/zinc/cristine 19:42: [facility] (OCUVITE 22 [facility] N [facility]) multivit-mi Yes Take by Uni vers n/FA/lycope 8-07 mouth. ity of n/lutein 19:42: [place] (COMPLETE 22 Medical 50+ ORAL) Branch vit A/vit 2017- Yes Take by Unive rs C/vit 8-07 mouth. ity of E/zinc/cristine 19:42: [place] er (OCUVITE 22 Medical PRESERVISIO Branch N ORAL) multivit-mi Yes Take by Uni vers n/FA/lycope 8-07 mouth. ity of n/lutein 19:42: [place] (COMPLETE 22 Medical 50+ ORAL) Branch vit A/vit Yes Take by Unive rs C/vit 8-07 mouth. ity of E/zinc/cristine 19:42: [place] er (OCUVITE 22 Medical PRESERVISIO Branch N ORAL) multivit-mi Yes Take by Uni vers n/FA/lycope 8-07 mouth. ity of n/lutein 19:42: [place] (COMPLETE 22 Medical 50+ ORAL) Branch vit A/vit Yes Take by Unive rs C/vit 8-07 mouth. ity of E/zinc/cristine 19:42: [place] er (OCUVITE 22 Medical PRESERVIS Branch N ORAL) multivit-mi Yes Take by Uni vers n/FA/lycope 8-07 mouth. ity of n/lutein 19:42: [place] (COMPLETE 22 Medical 50+ ORAL) Branch vit A/vit Yes Take by Unive rs C/vit 8-07 mouth. ity of E/zinc/cristine 19:42: [place] er (OCUVITE 22 Medical PRESERVISIO Branch N [...] daily. [place] tablet 05 Medical Branch ALLOPURINOL 2017-0 Yes 300mg Take 300 U nivers ORAL [...] needed. [place] tablet 05 Medical Branch ISOMETHEPT/ 2018 Yes 2{tbl} Take 2 Un [place] DICHLPHN/AC [...] Use 1 Un [place] PROPIONATE 8-07 } [place] in ity o f (FLUTICASON 19:40: each [...] Yes 1mL Place 1 mL Univers MIN/COBAMAM 807 under the ity of [place] (B12 19:40: [...] Branch Indication s: Three times weekly PROCHLORPER 2017- Yes 5mg Take 5 mg [...] it y of ITAMIN D3 19:40: mouth. [place] (CALCIUM 05 Medical 500 + D Branch ORAL) ISOMETHEPT/ 2018- Yes 2{tbl} Take 2 Un [place] DICHLPHN/AC [...] [place] tablet 05 bedtime. Medical Branch venlafaxine 2018-0 Yes 150mg Take 150 [...] daily. [place] tablet 05 Medical Branch metoprolol 0 Yes 25mg Take 25 mg U nivers succinate 8-07 by mouth ity of XL 25 mg 24 19:40: daily. [place] tablet 05 Medical Branch carisoprodo [...] by mouth ity of capsule 19:40: daily. [place] 05 Medical Branch ISOMETHEPT/ 2017-0 Yes 2{tbl} Take 2 Un [...] 4 [place] tablet 05 (four) Medical times [place] daily. venlafaxine Yes 150mg Take 150 U nivers (EFFEXOR) 8-07 mg by ity of 75 mg 19:40: mouth at [place] tablet 05 bedtime. Medical Branch ISOMETHEPT/ 2017-0 Yes 2{tbl} Take 2 Un [...] s (COMPAZINE 05 Medical ORAL) Branch venlafaxine 0 Yes 150mg Take 150 U nivers (EFFEXOR) 8-07 mg by ity of 75 mg 19:40: mouth at [place] tablet 05 bedtime. Medical Branch montelukast 0 Yes 10mg Take 10 [...] 4 [place] tablet 05 (four) Medical times [place] daily. venlafaxine Yes 150mg Take 150 U nivers (EFFEXOR) 8-07 mg by ity of 75 mg 19:40: mouth at [place] tablet 05 bedtime. Medical Branch ISOMETHEPT/ 2017-0 Yes 2{tbl} Take 2 Un [...] n/FA/lycope 8-07 mouth. ity of n/lutein 14:42: [place] (COMPLETE 22 Medical 50+ ORAL) Branch vit A/vit Yes Take by Unive rs C/vit 8-07 mouth. ity of E/zinc/cristine 14:42: [place] er (OCUVITE 22 Medical PRESERVIS Branch N ORAL) multivit-mi Yes Take by Uni vers n/FA/lycope 8-07 mouth. ity of n/lutein 14:42: [place] (COMPLETE 22 Medical 50+ ORAL) Branch vit A/vit Yes Take by Unive rs C/vit 8-07 mouth. ity of E/zinc/cristine 14:42: [place] er (OCUVITE 22 [facility] N [facility]) multivit-mi Yes Take by Uni vers n/FA/lycope 8-07 mouth. ity of n/lutein 14:42: [place] (COMPLETE 22 Medical 50+ ORAL) Branch vit A/vit Yes Take by Unive rs C/vit 8-07 mouth. ity of E/zinc/cristine 14:42: [place] er (OCUVITE 22 [facility] PRESERVIS Branch N ORAL) ISOMETHEPT/ Yes 2{tbl} [...] [place] tablet 05 bedtime. Medical Branch ISOMETHEPT/ 2017-0 Yes 2{tbl} Take 2 Un [...] MG 00:00: Hospita tablet 00 l allopurinol 2016-0 Yes 1{tbl} 1 tablet [facility] (ZYLOPRIM) 3-[address] 300 MG 00:00: Hospita tablet 00 l allopurinol 2016-0 Yes 1{tbl} 1 tablet [facility] (ZYLOPRIM) 3-[address] 300 MG 00:00: Hospita tablet 00 l omeprazole 2016-0 Yes 1{capsu 1 capsule [facility] (PriLOSEC) 3-10 le} daily. st 40 MG 00:00: Hospita capsule 00 l omeprazole 2017-0 Yes 1{capsu 1 capsule [facility] (PriLOSEC) 3-10 le} daily. st 40 MG 00:00: Hospita capsule 00 l omeprazole 2017-0 Yes 1{capsu 1 capsule [facility] (PriLOSEC) 3-10 le} daily. st 40 MG 00:00: Hospita capsule 00 l tolterodine 2017-0 Yes 4mg Take 4 mg U [place]ivers [place] (DETROL 1-18 by mouth [place]y [place]) 4 mg 24 18:49: [place]. [place] 57 [facility] tolterodine 2017-0 Yes 4mg Take 4 mg [place]ivers [place] (DETROL 1-18 by mouth ity o f [place]) 4 mg 24 18:49: daily. [place] 57 [facility] tolterodine 2017-0 Yes 4mg Take 4 mg [place]ivers [place] (DETROL 1-18 by mouth ity o f [place]) 4 mg 24 18:49: daily. [place] 57 [facility] tolterodine 2017-0 Yes 4mg Take 4 mg [place]ivers [place] (DETROL 1-18 by mouth ity o f [place]) 4 mg 24 18:49: daily. [place] 57 [facility] tolterodine 2017-0 Yes 4mg Take 4 mg [place]ivers [place] (DETROL 1-18 by mouth ity o f [place]) 4 mg 24 18:49: daily. [place] 57 [facility] tolterodine 2017-0 Yes 4mg Take 4 mg [place]ivers [place] (DETROL 1-18 by mouth ity o f [place]) 4 mg 24 18:49: daily. [place] 57 [facility] tolterodine 2017-0 Yes 4mg Take 4 mg [place]ivers [place] (DETROL 1-18 by mouth ity o f [place]) 4 mg 24 18:49: daily. [place] 57 [facility] tolterodine 2017-0 Yes 4mg Take 4 mg [place]ivers [place] (DETROL 1-18 by mouth ity o f [place]) 4 mg 24 18:49: daily. [place] 57 [facility] tolterodine 2017-0 Yes 4mg Take 4 mg [place]ivers [place] (DETROL 1-18 by mouth ity o f [place]) 4 mg 24 18:49: daily. [place] capsule 57 [facility] tolterodine 2017-0 Yes 4mg Take 4 mg [place]ivers [place] (DETROL 1-18 by mouth ity o f [place]) 4 mg 24 18:49: daily. [place] 57 [facility] tolterodine 2017-0 Yes 4mg Take 4 mg [place]ivers [place] (DETROL 1-18 by mouth ity o f [place]) 4 mg 24 18:49: daily. [place] capsule 57 [facility] Branch tolterodine 2017-0 Yes 4mg Take 4 mg [place]ivers [place] (DETROL 1-18 by mouth ity o f [place]) 4 mg 24 18:49: daily. [place] capsule 57 [facility] tolterodine 2017-0 Yes 4mg Take 4 mg [place]ivers [place] (DETROL 1-18 by mouth ity o f [place]) 4 mg 24 18:49: daily. [place] capsule 57 [facility] tolterodine 2017-0 Yes 4mg Take 4 mg [place]ivers [place] (DETROL 1-18 by mouth ity o f [place]) 4 mg 24 18:49: daily. [place] capsule 57 [facility] tolterodine 2017-0 Yes 4mg Take 4 mg [place]ivers [place] (DETROL 1-18 by mouth ity o f [place]) 4 mg 24 18:49: daily. [place] capsule 57 [facility] tolterodine 2017-0 Yes 4mg Take 4 mg [place]ivers [place] (DETROL 1-18 by mouth ity o f [place]) 4 mg 24 12:49: daily. [place] 57 [facility] tolterodine 2017-0 Yes 4mg Take 4 mg [place]ivers [place] (DETROL 1-18 by mouth ity o f [place]) 4 mg 24 12:49: daily. [place] capsule 57 [facility] tolterodine 2017-0 Yes 4mg Take 4 mg [place]ivers [place] (DETROL 1-18 by mouth ity o f [place]) 4 mg 24 12:49: daily. [place] capsule 57 [facility] Metoprolol Metoprolol No 1{table QD Metoprolol Succinate [...] 60 No [place] 60 mg mg mg Metoprolol Metoprolol No 1{table QD Metoprolol Succinate [...] Comments Sour e Immunization Name Name SARS-COV-2 COVID-19 2021-10-10 [...] Unive rsity of MODERNA VACCINE 00:00:00 [place] ical Branch SARS-COV-2 COVID-19 2020-06-27 Completed Unive rsity of MODERNA VACCINE 00:00:00 [place] ical Branch Vital Signs Vital Name Observation Time Observation Value Comments Source height 2022-05-22 16:45:00 61 [in_i] Common [facility] weight 2022-05-22 16:45:00 152 [lb_av] Common [facility] temperature 2022-05-22 16:45:00 97.9 [degF] Common [facility] bmi 2022-05-22 16:45:00 28.72 kg/m2 Common [facility] oximetry 2022-05-22 16:45:00 98 % Common [facility] respiratory rate 2022-05-22 16:45:00 18 /min Comm on [facility] blood pressure 2022-05-22 16:45:00 129 mm[Hg] Common [facility] - systolic [facility] blood pressure 2022-05-22 16:45:00 67 mm[Hg] [facility] height 2022-05-15 15:00:00 61 [in_i] Common [facility] weight 2022-05-15 15:00:00 146.2 [lb_av] [facility] temperature 2022-05-15 15:00:00 97.2 [degF] [facility] bmi 2022-05-15 15:00:00 27.62 kg/m2 [facility] oximetry 2022-05-15 15:00:00 96 % Common [facility] respiratory rate 2022-05-15 15:00:00 16 /min Comm on [facility] blood pressure 2022-05-15 15:00:00 159 mm[Hg] [facility] - systolic [facility] blood pressure 2022-05-15 15:00:00 86 mm[Hg] [facility] - diastolic [facility] height 2022-03-31 15:45:00 61 [in_i] [facility]22-[facility] 15:45:00 151.6 [lb_av] [facility] temperature 2022-03-31 15:45:00 97.6 [degF] Common S [facility] bmi 2022-03-31 15:45:00 28.64 kg/m2 [facility] oximetry 2022-03-31 15:45:00 99 % [facility] 2022-03-31 15:45:00 18 /min Comm on [facility] blood pressure 2022-03-31 15:45:00 137 mm[Hg] [facility] - systolic [facility] blood pressure 2022-03-31 15:45:00 63 mm[Hg] [facility] - diastolic [facility] height 2021-12-12 16:30:00 61 [in_i] Common [facility] weight 2021-12-12 16:30:00 148 [lb_av] [facility] temperature 2021-12-12 16:30:00 97.3 [degF] Common S [facility]irit [facility] bmi 2021-12-12 16:30:00 27.96 kg/m2 Common [facility] oximetry 2021-12-12 16:30:00 98 % Common [facility] respiratory rate 2021-12-12 16:30:00 16 /min Comm on [facility] blood pressure 2021-12-12 16:30:00 126 mm[Hg] [facility] - systolic [facility] blood pressure 2021-12-12 16:30:00 60 mm[Hg] [facility] - diastolic [facility] height 2021-05-15 10:20:00 61 [in_i] Common S [facility] weight 2021-05-15 10:20:00 164 [lb_av] [facility] temperature 2021-05-15 10:20:00 97.2 [degF] Common S [facility] bmi 2021-05-15 10:20:00 30.98 kg/m2 [facility] oximetry 2021-05-15 10:20:00 93 % [facility] blood pressure 2021-05-15 10:20:00 142 mm[Hg] [facility] - systolic [facility] blood pressure 2021-05-15 10:20:00 67 mm[Hg] [facility] - diastolic [facility] height 2021-03-28 11:20:00 61 [in_i] [facility] weight 2021-03-28 11:20:00 164 [lb_av] [facility] temperature 2021-03-28 11:20:00 97.8 [degF] [facility] bmi 2021-03-28 11:20:00 30.98 kg/m2 [facility] oximetry 2021-03-28 11:20:00 98 % [facility] blood pressure 2021-03-28 11:20:00 144 mm[Hg] [facility] - systolic [facility] blood pressure 2021-03-28 11:20:00 84 mm[Hg] [facility] - diastolic [facility] Systolic blood 2019-01-11 21:05:00 155 mm[Hg] [facility] Diastolic blood 2019-01-11 21:05:00 99 mm[Hg] [facility] Heart rate 2019-01-11 20:59:00 87 /min [facility] Respiratory rate 2019-01-11 20:59:00 19 /min [facility] Body weight 2019-01-11 20:59:00 74.844 kg [facility] BMI 2019-01-11 20:59:00 31.18 kg/m2 [facility] Oxygen saturation in 2019-01-11 20:59:00 100 /min [facility] blood by [facility] Pulse oximetry Branch Procedures Procedure Date / Time Performed Performing Clinician Harvinder e SARS-COV-2 COVID-19 2021-10-10 20:56:46 Doctor Unassigned, No [facility] [place] VACCINE Name Medical Branch BOOSTER,0.25ML,IM (MODERNA) ASSIGNMENT OF BENEFITS 2021-10-10 20:03:12 Doctor Unassigned, No [facility] Branch SARS-COV-2 COVID-19 2021-04-19 21:19:32 Doctor Unassigned, No [facility] [place] VACCINE Name Medical Branch BOOSTER,0.25ML,IM (MODERNA) ASSIGNMENT OF BENEFITS 2019-02-07 16:05:10 Doctor Unassigned, No [facility] Name Medical Branch REFERRAL- 2019-01-28 05:01:00 Doctor Unassigned, No [facility] [place] REQUEST/RESPONSE Name Medical [place] Plan of Care Planned Activity Planned Date Details Comments Source Future Scheduled 2022-05-14 COVID-19 VACCINE (#1) [facility] Test 02:43:16 [code = COVID-19 VACCINE (#1)] Future Scheduled 2022-05-14 SHINGLES VACCINES (1 Met [facility] Test 02:43:16 of 2) [code = SHINGLES VACCINES (1 of 2)] Future Scheduled 2022-05-14 65+ [facility] Test 02:43:16 VACCINE (1 - PCV) [code = 65+ PNEUMOCOCCAL VACCINE (1 - PCV)] Future Scheduled 2022-05-14 INFLUENZA VACCINE [facility] Test 02:43:16 [code = INFLUENZA VACCINE] Future Scheduled 2022-05-14 COVID-19 VACCINE (#1) [facility] Test 02:43:16 [code = COVID-19 VACCINE (#1)] Future Scheduled 2022-05-14 SHINGLES VACCINES (1 Met [facility] Test 02:43:16 of 2) [code = SHINGLES VACCINES (1 of 2)] Future Scheduled 2022-05-14 65+ [facility]CCAL [facility] Test 02:43:16 VACCINE (1 - PCV) [code = 65+ PNEUMOCOCCAL VACCINE (1 - PCV)] Future Scheduled 2022-05-14 INFLUENZA VACCINE [facility] Test 02:43:16 [code = INFLUENZA VACCINE] Future Scheduled 2022-04-02 HEPATITIS B VACCINES Met [facility] Test 02:50:23 (1 of 3 - 3-dose series) [code = HEPATITIS B VACCINES (1 of 3 - 3-dose series)] Future Scheduled 2022-04-02 COVID-19 VACCINE (#1) [facility] Test 02:50:23 [code = COVID-19 VACCINE (#1)] Future Scheduled 2022-04-02 SHINGLES VACCINES (1 Met [facility] Test 02:50:23 of 2) [code = SHINGLES [...] Type Clinicians Facility Department ID 2021-06-26 Outpatient STLMLC STLC [id number] Common 14:06:07 [id number] [facility] 2022-06-11 2022-06-11 (TEL) STLMLC STLMLC [id number] Co mmon 00:00:00 00:00:00 [facility] 2022-05-22 2022-05-22 OFFICE STLMLC STLMLC [id number] Co mmon 00:00:00 00:00:00 VISIT EST Spir it PT LEVEL 3 [facility] 2022-05-15 2022-05-15 OFFICE STLMLC STLMLC [id number] Co mmon 00:00:00 00:00:00 VISIT Spirit ESTAB PT - CHI LEVEL 4 [facility] 2022-05-06 2022-05-06 (TEL) STLMLC STLMLC [id number] Co mmon 00:00:00 00:00:00 [facility] 2022-05-05 2022-05-05 OFFICE STLMLC STLMLC [id number] Co mmon 00:00:00 00:00:00 VISIT Spirit ESTAB PT - CHI LEVEL 1 [facility] 2022-04-03 2022-04-03 (TEL) STLMLC STLMLC [id number] Co mmon 00:00:00 00:00:00 [facility] 2022-03-312022-03-31 OFFICE STLMLC STLMLC [id number] Co mmon 00:00:00 00:00:00 VISIT EST Spir it PT LEVEL 3 - [facility] 2022-03-26 2022-03-26 (TEL) STLMLC STLMLC [id number] Co mmon 00:00:00 00:00:00 [facility] 2022-03-24 2022-03-24 ([place]) [facility] [id number] Common 00:00:00 00:00:00 Visit [facility] 2021-12-12 2021-12-12 OFFICE STLMLC STLC [id number] Co mmon 00:00:00 00:00:00 VISIT [facility] PT - [facility] LEVEL 4 [facility] 2021-10-10 2021-10-10 Imm/Inj Vaccine, Ang Db Cbc Fam [facility] 1. 2.840.114 [id number] Univers 15:00:00 15:10:00 Visit Carmen Manning [facility] [id number] ity [facility] [id number] Alvin as MIGNON?BLEA [phone] [address] MEDICAL OFFICE BUILDING 2021-10-10 2021-10-10 Outpatient R KERRI [facility] [id number] Univers 15:00:00 15:00:00 CARMEN kothari [facility] 2021-10-10 2021-10-10 Orders Doctor JAGDISH 1.2.840.114 [id number] Univers 00:00:00 00:00:00 Only Unassigned, ABBIE [id number] ity of [facility] [id number] Alvin as [phone] [address] 2021-05-21 2021-05-21 (TEL) STLMLC STLC [id number] Co mmon 00:00:00 00:00:00 [facility] 2021-05-15 2021-05-15 OFFICE STLMLC STLMLC [id number] Co mmon 00:00:00 00:00:00 VISIT EST Spir it PT LEVEL 3 [facility] 2021-04-19 2021-04-19 Imm/Inj Vaccine, Ang Db Cbc Fam [facility] 1. 2.840.114 [id number] Univers 15:07:20 15:17:20 Visit Juan Tucker [facility] [id number] itVictor Hugo [id number] Alvin as MIGNON?BLEA [phone] [address] MEDICAL OFFICE BUILDING 2021-04-19 2021-04-19 Outpatient R GARRETT [facility] [id number] Univers 15:00:00 15:00:00 JUAN [facility] 2021-03-28 2021-03-28 [facility]ICE [facility] [id number] Co mmon 00:00:00 00:00:00 VISIT EST Spir it PT LEVEL 3 - [facility] 2020-07-25 2020-07-25 Outpatient R OXANA [facility] [id number] Univers 11:50:00 11:50:00 HARINDER [facility] 2020-06-27 2020-06-27 Outpatient Chirag DAIGLE [facility] [id number] Univers 11:50:00 11:50:00 HARINDER [facility] 2020-06-24 2020-06-24 [facility] 1.2.840.114 [id number] Univers 00:00:00 00:00:00 Outreach [facility] [id number] i ty of [facility] [id number] [phone] [address] 2020-06-24 2020-06-24 Patient Noah [facility] 1.2.840.114 [id number] 00:00:00 00:00:00 Outreach Alex PRIMARY [id number] Ck CARE [id number] PAVILLION [phone] [id number] 2020-05-04 2020-05-04 Yovany Russell [facility] 1.2.840.114 [id number] Univers 00:00:00 00:00:00 Teofilo Viera [id number] ity saranya [id number] [phone] Nd dical nal 092 [facility] 2020-05-04 2020-05-04 Refill Drew, [facility] 1.2.840.114 [id number] 00:00:00 00:00:00 Teofilo Viera [id number] [place] [id number] Professio [phone] 2019-10-07 2019-10-07 Refill Drew, [facility] 1.2.840.114 [id number] Univers 00:00:00 00:00:00 Teofilo Viera [id number] it[id number] [phone] [address] 2019-10-07 2019-10-07 Refill Drew, [facility] 1.2.840.114 [id number] 00:00:00 00:00:00 Teofilo [place] [id number] [place] [id number] Professio [phone] [address] 2019-02-17 2019-02-17 Ancillary Tiera Saavedra [facility] 1.2.840. 114 [id number] [facility] 15:52:45 16:46:00 Visit Jake Weaver [id number] it[id number] [phone] [facility] 179 [facility] 2019-02-07 2019-02-15 Ancillary Tiera Saavedra [facility] 1.2.840. 114 [id number] [facility] 11:06:13 15:30:12 Visit Jake Weaver [id number] it[id number] [phone] [facility] 179 [facility] 2019-02-14 2019-02-14 Ancillary Tiera Saavedra [facility] 1.2.840. 114 [id number] [facility] 16:04:49 17:19:26 Visit Jake Weaver [id number] [id number] [phone] Nd dical nal 179 [facility] 2019-02-09 2019-02-09 Ancillary Lashonda Caceres [facility] 1.2.840 .114 [id number] Univers 14:46:29 15:31:29 Visit WeaverJake [id number] [id number] [phone] Nd dicok nal 179 [facility] 2019-02-07 2019-02-07 Orders Doctor JAGDISH 1.2.840.114 [id number] Univers 00:00:00 00:00:00 Only Unassigned, ABBIE [id number] ity of [facility] [id number] Alvin as [phone] [address] 2019-01-28 2019-01-28 Orders Doctor DUBON 1.2.840.114 [id number] Univers 00:00:00 00:00:00 Only Unassigned, ABBIE [id number] ity of [facility] [id number] Alvin as [phone] [address] 2019-01-11 2019-01-11 Office Drew [facility] 1.2.840.114 [id number] [facility] 15:53:10 16:27:27 Visit Teofilo Viera [id number] [id number] [phone] [facility] 092 [facility] 2019-01-06 2019-01-06 Telephone Drew [facility] 1.2.840.114 [id number] Univers 00:00:00 00:00:00 Teofilo Viera [id number] it[place] of [id number] [phone] [facility] 092 [facility] Results This patient has no known results.
[2022-07-26 18:06] LABS: Absolute Lymphocytes (CBC) 2.4 K/uL (0.7-4.9); Hematocrit 39.9 % (36.0-45.0); Lymphocytes % 34.4 % (15.3-44.8); MCV 101.2 fL (80-100); MPV 7.5 fL (7.6-11.3); RBC Red Blood Cell Count 3.94 M/uL (3.86-4.86)
[2022-07-26 18:22] LABS: Urine Blood Negative (Negative); Urine Glucose Negative (Negative); Urine Protein Trace (Negative); Urine Specific Gravity 1.025 (1.005-1.030)
[2022-07-26 18:24] LABS: Albumin 3.9 g/dL (3.4-5.0); Bilirubin Total 0.4 mg/dL (0.2-1.0); Potassium 3.7 mmol/L (3.5-5.1); Protein, Total 7.7 g/dL (6.4-8.2)
--- NOTE | 2022-07-26 18:33 | RAD REPORT ---
EXAM DESCRIPTION: RAD - Chest Single View - 07/26/2022 6:25 pm CLINICAL HISTORY: sepsis COMPARISON: Chest Pa And Lat (2 Views) dated 11/05/2020; Chest Single View dated 03/01/2020; Chest Sing le View dated 07/22/2019; Chest Single View dated 08/02/2017 FINDINGS: Lines: None. Lungs: No evidence of edema or pneumonia. Pleural: No significant pleural effusions or pneumothorax. Cardiac: The heart size is within normal limits. Mediastinum: Within normal limits. Bones: No acute fractures. Other: None IMPRESSION: No acute cardiopulmonary disease.
[2022-07-26] MEDS ORDERED: THIAMINE 200 MG/2 ML INJ ONE (18:42)
[2022-07-26 18:46] LABS: Protime INR 0.9
[2022-07-26 18:58] LABS: Urine Bacteria <20 /HPF (<20); Urine Mucus Slight /HPF (None Seen); Urine RBC <5 /HPF (None Seen)
--- NOTE | 2022-07-26 19:34 | RAD REPORT ---
EXAM DESCRIPTION: CT - Head Brain Wo Cont - 07/26/2022 7:20 pm CLINICAL HISTORY: MENTAL STATUS CHANGE COMPARISON: None TECHNIQUE: All CT scans are performed using dose optimization technique as appropriate and may inclu de automated exposure control or mA/KV adjustment according to patient size. FINDINGS: No intracranial hemorrhage, hydrocephalus or extra-axial fluid collection.No areas of brai n edema or evidence of midline shift. The paranasal sinuses and mastoids are clear. The calvarium is intact. IMPRESSION: No acute intracranial abnormality.
--- NOTE | 2022-07-26 20:02 | EDPHYS ---
Physician Documentation [facility] Name: Lina Fisher Age: 76 yrs Sex: Female : 1945 Arrival Date: 07/26/2022 Time: 17:25 Bed 7 Private MD: Peter Dolan ED Physician Sonny Ashraf HPI: 07/26 17:44 This 76 yrs old Female presents to ER via Ambulatory with complaints of Urinary snw Problem, Pain With Urination, Back Pain. 17:44 The patient presents with urinary symptoms, dysuria, frequency, hematuria, hesitancy, snw incontinence. Onset: The symptoms/episode began/occurred acutely, 4 day(s) ago, and became worse yesterday, and became persistent. Associated signs and symptoms: Pertinent positives: cramping, dysuria, AMS. Severity of symptoms: At their worst the symptoms were moderate, severe. The patient has experienced a previous episode. no, called Dr. Dolan's office, did not provide a sample as requested. Historical: - Allergies: 17:28 Bactrim; hb 17:28 Codeine (Upset stomach); hb 17:28 OPIOID ANALGESICS; hb - Home Meds: 17:43 tramadol 50 mg Oral tab 1 tab every 6 hours [Active]; allopurinol 300 mg Oral tab 1 tab iw once daily [Active]; topiramate 50 mg oral tab 1 tab 2 times per day [Active]; fluticasone propionate 50 mcg/actuation nasal spsn 2 sprays 2 times per day [Active]; azelastine 205.5 mcg (0.15 %) nasal spry 2 sprays 2 times per day [Active]; cyclobenzaprine 10 mg Oral tab nightly [Active]; alendronate 70 mg oral tab 1 tab once wkly [Active]; metoprolol succinate 50 mg oral Tb24 1 tab once daily [Active]; Restasis 0.05 % ophthalmic (eye) dpet 1 drop every 12 hours [Active]; famotidine 40 mg Oral tab nightly [Active]; Osphena 60 mg oral tab 1 tab once daily [Active]; montelukast 10 mg oral tab 1 tab once daily [Active]; PreserVision AREDS oral twice a day [Active]; rosuvastatin 5 mg oral tab 1 tab once daily [Active]; pregabalin 50 mg Oral cap nightly [Active]; Aimovig Autoinjector subcutaneous [Active]; - PMHx: 17:28 Arthritis; Chronic pain; Hypertension; Migraines; Osteoporosis; Seizures; hb 17:55 ulcers; iw - PSHx: 17:55 laminectomy; hysterectomy; vy knee; spinal fusion; carpal tunnel; iw - Immunization history:: Client reports receiving the 2nd dose of the Covid vaccine, Client reports receiving the 1st dose of the Covid vaccine. - Social history:: Smoking status: Patient denies any tobacco usage or history of. ROS: 17:41 Eyes: Negative for injury, pain, redness, and discharge, ENT: Negative for injury, snw pain, and discharge, Neck: Negative for injury, pain, and swelling, Cardiovascular: Negative for chest pain, palpitations, and edema, Respiratory: Negative for shortness of breath, cough, wheezing, and pleuritic chest pain, Abdomen/GI: Negative for abdominal pain, nausea, vomiting, diarrhea, and constipation, Back: Negative for injury and pain. 17:41 MS/Extremity: Negative for injury and deformity, Skin: Negative for injury, rash, and discoloration. 17:41 Constitutional: Positive for fatigue, malaise, poor PO intake. 17:41 : Positive for urinary symptoms, urinary frequency, small amounts, burning with urination, low back pain. 17:41 Neuro: Positive for altered mental status, confusion. Exam: 17:39 Head/Face: Normocephalic, atraumatic. Eyes: Pupils equal round and reactive to light, snw extra-ocular motions intact. Lids and lashes normal. Conjunctiva and sclera are non-icteric and not injected. Cornea within normal limits. Periorbital areas with no swelling, redness, or edema. ENT: Nares patent. No nasal discharge, no septal abnormalities noted. Tympanic membranes are normal and external auditory canals are clear. Oropharynx with no redness, swelling, or masses, exudates, or evidence of obstruction, uvula midline. Mucous membranes moist. Neck: Trachea midline, no thyromegaly or masses palpated, and no cervical lymphadenopathy. Supple, full range of motion without nuchal rigidity, or vertebral point tenderness. No Meningismus. Chest/axilla: Normal chest wall appearance and motion. Nontender with no deformity. No lesions are appreciated. 17:39 Respiratory: Lungs have equal breath sounds bilaterally, clear to auscultation and percussion. No rales, rhonchi or wheezes noted. No increased work of breathing, no retractions or nasal flaring. Abdomen/GI: Soft, non-tender, with normal bowel sounds. No distension or tympany. No guarding or rebound. No evidence of tenderness throughout. Back: No spinal tenderness. No costovertebral tenderness. Full range of motion. Skin: Warm, dry with normal turgor. Normal color with no rashes, no lesions, and no evidence of cellulitis. MS/ Extremity: Pulses equal, no cyanosis. Neurovascular intact. Full, normal range of motion. 17:39 Constitutional: The patient appears alert, anxious, restless. 17:39 Cardiovascular: Rate: tachycardic, Pulses: no pulse deficits are appreciated, Edema: is not appreciated. 17:39 Neuro: Orientation: at this time pt answers questions appropriately, Spouse gives history of confusion over the past few days. Vital Signs: 17:26 BP 164 / 81; Pulse 127; Resp 24; Temp 98.9; Pulse Ox 95% on R/A; Weight 63.5 kg; Height hb 5 ft. 1 in. (154.94 cm); Pain 5/10; 18:08 BP 146 / 79; Pulse 102; Resp 18; Pulse Ox 100% on R/A; iw 19:47 BP 149 / 85; Pulse 102; Resp 17; Pulse Ox 100% on R/A; lg3 17:26 Body Mass Index 26.45 (63.50 kg, 154.94 cm) hb MDM: 17:35 Patient medically screened. richard 17:42 Differential diagnosis: bacterial infection, sepsis, severe sepsis. Data reviewed: snw vital signs, nurses notes. Counseling: I had a detailed discussion with the patient and/or guardian regarding: the historical points, exam findings, and any diagnostic results supporting the discharge/admit diagnosis, the presence of at least one elevated blood pressure reading (>120/80) during this emergency department visit. ED course: Source = Urine, SIRS criteria HR 127, AMS, RR 24. No hypotensive episodes, will await lab results. 19:33 Response to treatment: the patient's symptoms have markedly improved after treatment. snw 19:34 Consideration of Admission/Observation Considered urosepsis upon arrival however vs are snw more stabilized, lab results are not too far out of range. Will send UDS and discuss with Dr. Dolan.. Historians other than the Patient: Spouse/Significant Other: . 19:59 Management of patient was discussed with the following: Primary Care Provider: Dr. Magdaleno cortez updated on last few days, current lab results, vital signs. Urine culture ordered. Pt is not taking Cipro that Dr. Dolan prescribed last week. Pt would like to go home. Verbal agreement with pt made that she will return to ED prn worsening, fever, vomiting, or other concerns. Pt will be discharged to home with with these discharge warnings and return precautions.. Special discussion: Based on the history and exam findings, there is no indication for further emergent testing or inpatient evaluation. I discussed with the patient/guardian the need to see the primary care provider for further evaluation of the symptoms. 07/26 17:31 Order name: Blood Culture Adult (2) [facility] 07/26 17:31 Order name: CBC with Diff [facility] 07/26 17:31 Order name: CMP w 07/26 17:31 Order name: Lactate w/ 2H reflex if indic. snw 07/26 17:31 Order name: Protime (+inr) [facility] 07/26 17:31 Order name: Ptt, Activated w 07/26 17:31 Order name: Urine Culture [facility] 07/26 17:31 Order name: Urine Microscopic Only; Complete Time: 19:01 w 07/26 17:58 Order name: CBC with Automated Diff; Complete Time: 18:08 EDNC 07/26 17:58 Order name: Comprehensive Metabolic Panel; Complete Time: 18:31 EDNC 07/26 17:58 Order name: Lactate w/ 2H reflex if indic.; Complete Time: 18:31 EDNC 07/26 17:58 Order name: Protime (+INR); Complete Time: 18:49 EDNC 07/26 17:58 Order name: PTT, Activated Partial Thromb; Complete Time: 18:49 EDNC 07/26 17:31 Order name: EKG; Complete Time: 18:30 snw 07/26 17:31 Order name: Accucheck; Complete Time: 18:09 snw 07/26 17:31 Order name: Cardiac monitoring; Complete Time: 18:09 w 07/26 17:31 Order name: Cath; Complete Time: 18:09 snw 07/26 17:31 Order name: EKG - Nurse/Tech; Complete Time: 18:09 snw 07/26 17:58 Order name: EKG Electrocardiogram; Complete Time: 19:51 [facility] 07/26 17:59 Order name: Blood Culture [facility] 07/26 17:59 Order name: Urine Culture [facility] 07/26 17:59 Order name: Chest Single View; Complete Time: 18:49 [facility] 07/26 18:22 Order name: Urine Dipstick-Ancillary; Complete Time: 18:31 ED[facility] 07/26 18:34 Order name: Urine Culture [facility] 07/26 18:35 Order name: Blood Culture [facility] 07/26 18:50 Order name: CT Head Brain wo Cont; Complete Time: 19:36 snw 07/26 17:31 Order name: IV Saline Lock - Large Bore; Complete Time: 18:09 snw 07/26 17:31 Order name: Labs collected and sent; Complete Time: 18:09 w 07/26 17:31 Order name: O2 Per Protocol; Complete Time: 18:09 snw 07/26 17:31 Order name: O2 Sat Monitoring; Complete Time: 18:09 w 07/26 17:31 Order name: Vital Signs; Complete Time: 18:09 w 07/26 18:10 Order name: Labs - recollect needed: recollect blue top/ tube short; Complete Time: eb 18:35 EC:46 Rate is 105 beats/min. Rhythm is regular. QRS [place] is Normal. ID interval is normal. snw Clinical impression: Sinus tachycardia. Administered Medications: 18:58 Drug: Thiamine 100 mg Route: IV; Rate: calculated rate; Site: right antecubital; iw 19:59 Not Given (Physician Discretion): Cyanocobalamin 1000 mcg IM once ke1 Disposition Summary: 07/26/22 20:02 Discharge Ordered Location: Home snw Condition: Stable snw Diagnosis - Volume depletion, unspecified snw Followup: snw - With: Emergency Department - When: As needed - Reason: Fever > 102 F, If symptoms return, Worsening of condition Followup: snw - With: Peter Dolan MD - When: 1 week - Reason: Recheck today's complaints, Continuance of care, Re-evaluation by your physician Discharge Instructions: - Discharge Summary Sheet snw - Dehydration, Elderly snw - Rehydration, Elderly snw Forms: - Medication Reconciliation Form snw - Thank You Letter snw - Antibiotic Education snw - Prescription Opioid Use snw Signatures: Dispatcher [employer] EDMS Sonny Ashraf MD MD cha Waters, Shelly, WINDOW TINTER-C WINDOW TINTER-Csnw Celeste Larson RN RN Madison Casarez RN RN hb Botello, Elizabeth eb Ebrottie, Kouassi RN RN ke1 Corrections: (The following items were deleted from the chart) 18:42 17:58 Urine Microscopic Only ordered. EDNC EDMS
--- NOTE | 2022-07-26 20:02 | ER ---
Nurse's Notes [facility] Name: Lina Fisher Age: 76 yrs Sex: Female : 1945 Arrival Date: 07/26/2022 Time: 17:25 Bed 7 Private MD: Peter Dolan Diagnosis: Volume depletion, unspecified Presentation: 07/26 17:26 Chief complaint: Nausea, night sweats, back pain, and pain with urination x 1 week. hb reports hallucinations x 2 days. Coronavirus screen: At this time, the client does not indicate any symptoms associated with coronavirus-19. Ebola Screen: No symptoms or risks identified at this time. Risk Assessment: Do you want to hurt yourself or someone else? Patient reports no desire to harm self or others. Onset of symptoms was July 19, 2022. 17:26 Method Of Arrival: Ambulatory 17:26 Acuity: MARQUITA 2 aa5 17:31 Initial Sepsis Screen: Does the patient meet any 2 criteria? RR > 20 per min. HR > 90 aa5 bpm. Yes Does the patient have a suspected source of infection? Yes: Dysuria/Frequency/Urgency/UTI. Historical: - Allergies: 17:28 Bactrim; hb 17:28 Codeine (Upset stomach); hb 17:28 OPIOID ANALGESICS; hb - Home Meds: 17:43 tramadol 50 mg Oral tab 1 tab every 6 hours [Active]; allopurinol 300 mg Oral tab 1 tab iw once daily [Active]; topiramate 50 mg oral tab 1 tab 2 times per day [Active]; fluticasone propionate 50 mcg/actuation nasal spsn 2 sprays 2 times per day [Active]; azelastine 205.5 mcg (0.15 %) nasal spry 2 sprays 2 times per day [Active]; cyclobenzaprine 10 mg Oral tab nightly [Active]; alendronate 70 mg oral tab 1 tab once wkly [Active]; metoprolol succinate 50 mg oral Tb24 1 tab once daily [Active]; Restasis 0.05 % ophthalmic (eye) dpet 1 drop every 12 hours [Active]; famotidine 40 mg Oral tab nightly [Active]; Osphena 60 mg oral tab 1 tab once daily [Active]; montelukast 10 mg oral tab 1 tab once daily [Active]; PreserVision AREDS oral twice a day [Active]; rosuvastatin 5 mg oral tab 1 tab once daily [Active]; pregabalin 50 mg Oral cap nightly [Active]; Aimovig Autoinjector subcutaneous [Active]; - PMHx: 17:28 Arthritis; Chronic pain; Hypertension; Migraines; Osteoporosis; Seizures; hb 17:55 ulcers; iw - PSHx: 17:55 laminectomy; hysterectomy; vy knee; spinal fusion; carpal tunnel; iw - Immunization history:: Client reports receiving the 2nd dose of the Covid vaccine, Client reports receiving the 1st dose of the Covid vaccine. - Social history:: Smoking status: Patient denies any tobacco usage or history of. Screenin:08 [facility] ED Fall Risk Assessment (Adult) Confusion or Disorientation Yes (5 pts). Abuse iw screen: Denies threats or abuse. Denies injuries from another. Nutritional screening: No deficits noted. Tuberculosis screening: No symptoms or risk factors identified. Assessment: 17:41 General: Appears in no apparent distress. Behavior is calm, cooperative. Pain: iw Complains of pain in suprapubic area. Neuro: Level of Consciousness is awake, alert, obeys commands, Oriented to person, place, time, situation, Moves all extremities. Full function. Cardiovascular: Patient's skin is warm and dry. Respiratory: Respiratory effort is even, unlabored, Respiratory pattern is regular. : Reports pain in suprapubic area with urination. Derm: Skin is intact, is healthy with good turgor. Musculoskeletal: Range of motion: intact in all extremities. 19:04 Reassessment: Patient appears in no apparent distress at this time. Patient and/or iw family updated on plan of care and expected duration. Pain level reassessed. Patient is alert, oriented x 3, equal unlabored respirations, skin warm/dry/pink. 19:47 General: Appears in no apparent distress. comfortable, Behavior is calm, cooperative. lg3 Pain: Complains of pain in suprapubic area, head. Neuro: No deficits noted. Taylor Agitation-Sedation Scale (RASS): 0 - Alert and Calm Level of Consciousness is awake, alert, obeys commands, Oriented to person, place, time, situation, Moves all extremities. Full function. Cardiovascular: No deficits noted. Denies chest pain, shortness of breath, Capillary refill < 3 seconds Clubbing of nail beds is absent JVD is absent Patient's skin is warm and dry. Respiratory: No deficits noted. Airway is patent Trachea midline Respiratory effort is even, unlabored, Respiratory pattern is regular, symmetrical. GI: No deficits noted. Abdomen is round non-distended. : Reports pain in suprapubic area. EENT: No deficits noted. No signs and/or symptoms were reported regarding the EENT system. Derm: No deficits noted. No signs and/or symptoms reported regarding the dermatologic system. Skin is intact, is healthy with good turgor, Skin is dry, Skin is normal. Musculoskeletal: No deficits noted. No signs and/or symptoms reported regarding the musculoskeletal system. Circulation, motion, and sensation intact. Range of motion: intact in all extremities. 20:12 Reassessment: Patient denies pain at this time. Patient states feeling better. Patient ke1 states symptoms have improved. Vital Signs: 17:26 BP 164 / 81; Pulse 127; Resp 24; Temp 98.9; Pulse Ox 95% on R/A; Weight 63.5 kg; Height hb 5 ft. 1 in. (154.94 cm); Pain 5/10; 18:08 BP 146 / 79; Pulse 102; Resp 18; Pulse Ox 100% on R/A; iw 19:47 BP 149 / 85; Pulse 102; Resp 17; Pulse Ox 100% on R/A; lg3 17:26 Body Mass Index 26.45 (63.50 kg, 154.94 cm) hb ED Course: 17:25 Patient arrived in ED. mr 17:25 Peter Dolan MD is Private Physician. mr 17:28 Triage completed. hb 17:28 Clementine Gomez FNP-C is PHCP. snw 17:28 Arm band placed on. hb 17:29 Sonny Ashraf MD is Attending Physician. snw 17:35 Celeste Larson, KYE is Primary Nurse. iw 18:24 No provider procedures requiring assistance completed. Urine collected: straight cath iw specimen, Amount Returned: 300mL. 18:26 Chest Single View In Process Unspecified. EDMS 19:04 Patient has correct armband on for positive identification. iw 19:27 CT Head Brain wo Cont In Process Unspecified. EDMS 19:43 Blood Culture Sent. lg3 19:43 Urine Culture Sent. lg3 19:43 Blood Culture Adult (2) Sent. lg3 19:43 CBC with Diff Sent. lg3 19:43 CMP Sent. lg3 19:43 Lactate w/ 2H reflex if indic. Sent. lg3 19:43 Protime (+inr) Sent. lg3 19:43 Ptt, Activated Sent. lg3 19:43 Urine Culture Sent. lg3 19:47 Client placed on continuous cardiac and pulse oximetry monitoring. NIBP monitoring lg3 applied. hall monitor on. Door closed. Noise minimized. Warm blanket given. Family accompanied patient. 20:01 Peter Dolan MD is Referral Physician. snw 20:11 IV discontinued. ke1 Administered Medications: 18:58 Drug: Thiamine 100 mg Route: IV; Rate: calculated rate; Site: right antecubital; iw 19:59 Not Given (Physician Discretion): Cyanocobalamin 1000 mcg IM once ke1 Medication: 18:24 VIS not applicable for this client. iw Outcome: 20:02 Discharge ordered by . snw 20:11 Discharged to home ambulatory. ke1 20:11 Condition: good 20:11 Discharge instructions given to patient. 20:12 Patient left the ED. ke1 Signatures: Dispatcher [employer] EDMS Clementine Gomez, MELY-C TECHNOLOGY SPECIALIST-Csnmarcos Riccardo Joselyn gómez Celeste Larson, RN RN iw Shakila Menjivar, RN RN aa5 Madison Mtz RN RN hb Gibson, Lacie, KYE RN lg3 Lyric Muñoz, RN RN ke1 Corrections: (The following items were deleted from the chart) 17:31 17:26 Acuity: MARQUITA 3 hb aa5 18:24 18:08 Pulse 102bpm; Resp 18bpm; Pulse Ox 100% RA; iw iw
--- NOTE | 2022-07-28 18:44 | EKG ---
Test Date: 2022-07-26 Test Time: 17:46:55 Wet Washer Machine: LAXMI MEASUREMENT RESULTS: Intervals: Rate: 105 [place]: 146 QRSD: 68 QT: 334 QTc: 441 [place]: P: 60 AZ: 146 QRS: -1 T: 45 INTERPRETIVE STATEMENTS: Sinus tachycardia Otherwise normal ECG Compared to ECG 05/24/2022 15:11:17 Sinus rhythm no longer present Left ventricular hypertrophy no longer present Electronically Signed On 07-28-22 18:40:29 ACCOUNTS COLLECTOR by Magan Mathis
== END 2022-07-26 20:12 | disposition home or self-care (01) ==
LOC: ER 17:21
DX: E86.9 Volume depletion, unspecified (principal); R30.0 Dysuria; I10 Essential (primary) hypertension; Z88.1 Allergy status to other antibiotic agents; Z88.5 Allergy status to narcotic agent
CPT/HCPCS: 93005; 87040 ×2; 87088; 85025; 87086; 36415; 85610; 83605; 85730; 80053; 70450; 71045; 96374; 99284; J3411; 81003; 81015

== ENCOUNTER 2024-08-14 08:28 | Emergency (ER) | payer OTHER ==
[2024-08-14] MEDS ORDERED: ONDANSETRON 4 MG/2 ML VIAL ONE (09:12)
[2024-08-14] MEDS ORDERED: NA CHLORIDE 0.9% 0 ML ONE (09:13)
[2024-08-14] MEDS ORDERED: ONDANSETRON 4 MG (ODT) TAB ONE (09:31)
[2024-08-14 09:43] LABS: Absolute Lymphocytes (CBC) 1.5 K/uL (0.7-4.9); Absolute Monocytes 0.7 K/uL (0.1-1.3); Absolute Neutrophil 7.4 K/uL (1.8-8.0); Basophils % 0.4 % (0-1.3); Eosinophils % 0.4 % (0-4.4); Hematocrit 39.7 % (36.0-45.0); Hemoglobin 13.4 g/dL (12.0-15.0); Lymphocytes % 15.5 % (15.3-44.8); MCH 32.2 pg (27.0-35.0); MCHC 33.6 g/dL (32.0-36.0); MCV 95.8 fL (80-100); MPV 7.7 fL (7.6-11.3); Monocytes % 6.9 % (3.3-12.3); Neutrophils % 76.8 % (41.7-73.7); Platelets 253 thou/uL (152-406); RBC Red Blood Cell Count 4.15 M/uL (3.86-4.86); Red Cell Distribution Width 15.8 % (12.1-15.2)
[2024-08-14 09:53] LABS: Specific Gravity 1.019 (1.005-1.030); Sqamous Epithelial <5 /HPF (None Seen); Transitional Epithelial <5 /HPF (None Seen); Urine Bacteria <20 /HPF (<20); Urine Bilirubin NEGATIVE (Negative); Urine Blood 1+ (Negative); Urine Clarity Extremely Turbid (Clear); Urine Color Yellow (Yellow); Urine Culture Reflex Order REFLEXED; Urine Glucose NEGATIVE (Negative); Urine Ketones NEGATIVE (Negative); Urine Microscopic Reflex YN ORDER UMIC; Urine Nitrite 2+ (Negative); Urine Protein 1+ (Negative); Urine RBC 21-50 /HPF (None Seen); Urine Urobilinogen 1+ (Normal); Urine WBC >50 /HPF (<5); Urine pH 6.5 (5.0-7.0)
[2024-08-14 09:56] LABS: Anion Gap 11.7 mEq/L (5.0-15.0); Potassium 3.7 mEq/L (3.5-5.1)
--- NOTE | 2024-08-14 10:33 | ER ---
Nurse's Notes [facility] Name: Lina Fisher Age: 78 yrs Sex: Female : 1945 Arrival Date: 08/14/2024 Time: 08:28 Bed 13 Private MD: Diagnosis: UTI/ Urinary tract infection, site not specified Presentation: 08/14 08:55 Chief complaint: Abdominal pain, nausea, chills, and pain with urination x 2 days. hb Coronavirus screen: At this time, the client does not indicate any symptoms associated with coronavirus-19. Ebola Screen: No symptoms or risks identified at this time. Initial Sepsis Screen: Does the patient meet any 2 criteria? No. Patient's initial sepsis screen is negative. Does the patient have a suspected source of infection? No. Patient's initial sepsis screen is negative. Risk Assessment: Do you want to hurt yourself or someone else? Patient reports no desire to harm self or others. Onset of symptoms was August 13, 2024. 08:55 Method Of Arrival: Wheelchair hb 08:55 Acuity: MARQUITA 3 hb Historical: - Allergies: 08:59 Bactrim; hb 08:59 Codeine (Upset stomach); hb 08:59 OPIOID ANALGESICS; hb - PMHx: 08:59 Arthritis; Chronic pain; Migraines; Hypertension; Seizures; Osteoporosis; Ulcers; hb - PSHx: 08:59 carpal tunnel; KEVIN knee; hysterectomy; laminectomy; Spinal Fusion; hb - Immunization history:: Adult Immunizations up to date. - Infectious Disease History:: Denies. - Social history:: Smoking status: Patient denies any tobacco usage or history of. Screenin:15 [facility] ED Fall Risk Assessment (Adult) History of falling in the last 3 months, ph including since admission No falls in past 3 months (0 pts) Confusion or Disorientation No (0 pts) Intoxicated or Sedated No (0 pts) Impaired Gait No (0 pts) Mobility Assist Device Used No (0 pt) Altered Elimination No (0 pt) Score/Fall Risk Level 0 - 2 = Low Risk Oriented to surroundings, Maintained a safe environment, Hourly rounding (assess needs \T\ fall precautionary measures) done. Abuse screen: Denies threats or abuse. Denies injuries from another. Nutritional screening: No deficits noted. Tuberculosis screening: No symptoms or risk factors identified. Assessment: 09:17 General: Appears in no apparent distress. Behavior is calm, cooperative, Reports chills ph for 2-3 days. Pain: Complains of pain in suprapubic area. Neuro: Level of Consciousness is awake, alert, obeys commands, Oriented to person, place, time, situation. Cardiovascular: Capillary refill < 3 seconds in bilateral fingers Patient's skin is warm and dry. Respiratory: Airway is patent Respiratory effort is even, unlabored. GI: Reports lower abdominal pain, nausea. : Reports pain in suprapubic area with urination, urinary frequency. Derm: Skin is pink, warm \T\ dry. Musculoskeletal: Circulation, motion, and sensation intact. Range of motion: intact in all extremities. 11:08 Reassessment: D/C pending completion of IV fluids and antibiotics. ph 12:17 Reassessment: Patient appears in no apparent distress at this time. Patient and/or ph family updated on plan of care and expected duration. Pain level reassessed. Patient is alert, oriented x 3, equal unlabored respirations, skin warm/dry/pink. Vital Signs: 08:55 BP 160 / 77; Pulse 89; Resp 18; Temp 98.1(O); Pulse Ox 98% on R/A; Weight 70.31 kg; hb Height 5 ft. 1 in. ; Pain 8/10; 11:08 BP 148 / 72; Pulse 79; Resp 18; Temp 98; Pulse Ox 99% on R/A; ph 12:17 BP 136 / 78; Pulse 75; Resp 18; Temp 97.9; Pulse Ox 98% on R/A; ph 08:55 Body Mass Index 29.29 (70.31 kg, 154.94 cm) hb 08:55 Pain Scale: Adult hb ED Course: 08:33 Patient arrived in ED. al6 08:54 Denzel Willis MD is Attending Physician. bo1 08:59 Manda Dooley, KYE is Primary Nurse. ph 08:59 Triage completed. hb 09:00 Arm band placed on. hb 09:16 Patient has correct armband on for positive identification. Bed in low position. Call ph light in reach. Pulse ox on. NIBP on. Door closed. Noise minimized. Warm blanket given. Pillow given. 09:39 CBC with Diff Sent. ph 09:39 Urinalysis w/ reflexes Sent. ph 09:39 BMP Sent. ph 09:39 Initial lab(s) drawn, by me, sent to lab. Urine collected: clean catch specimen, ph cloudy. Missed attempt(s): 22 gauge in left antecubital area. Bleeding controlled, band aid applied, catheter tip intact. Missed attempt(s): 22 gauge hand. antecubital area. Bleeding controlled, band aid applied, catheter tip intact. 10:41 Inserted saline lock: 24 gauge in left antecubital area, using aseptic technique. ty Flushed with 10 mL NS. 12:18 No provider procedures requiring assistance completed. IV discontinued, intact, ph bleeding controlled, No redness/swelling at site. Pressure dressing applied. Administered Medications: 09:03 CANCELLED (ALLERGY): fentanyl (pf)50 mcg IVP once bo1 10:48 Drug: Ondansetron IVP 4 mg IVP once; over 2 minutes Route: IVP; Site: left antecubital; ph 12:18 Follow up: Response: No adverse reaction ph 10:48 Drug: NS 0.9% IV 500 ml 500 ml IV at 1 bolus once; to be given as a bolus over 30 ph minutes Volume: 500 ml; Route: IV; Rate: 1 bolus; Site: left antecubital; 12:18 Follow up: Response: No adverse reaction; IV Status: Completed infusion ph 10:48 Drug: Rocephin IV 2 grams IV at bolus once; Given slow IV push per pharmarcy ph instructions Route: IV; Rate: bolus; Site: left antecubital; 12:18 Follow up: Response: No adverse reaction; IV Status: Completed infusion ph Medication: 09:16 VIS not applicable for this client. ph Outcome: 10:33 Discharge ordered by . bo1 12:18 Discharged to home ambulatory, with significant other, ph 12:18 Condition: good 12:18 Discharge instructions given to patient, significant other, Instructed on discharge instructions, follow up and referral plans. medication usage, Demonstrated understanding of instructions, follow-up care, medications, Prescriptions given X 1, 12:19 Patient left the ED. ph Signatures: Manda Dooley RN RN ph Madison Mtz RN RN hb Yandell, Tylor ty Oei, Benjamin, MD MD bo1 Emilia, Rowena al6
--- NOTE | 2024-08-14 10:33 | EDPHYS ---
Physician Documentation [facility] Name: iLna Fisher Age: 78 yrs Sex: Female : 1945 Arrival Date: 08/14/2024 Time: 08:28 Bed 13 Private MD: ED Physician Denzel Willis HPI: 08/14 09:04 This 78 yrs old Female presents to ER via Wheelchair with complaints of Urinary Problem.bo1 09:04 Typical UTI sxs. Onset: The symptoms/episode began/occurred gradually, 2 day(s) ago, On bo1 Thursday. Severity of symptoms: At their worst the symptoms were moderate Now with lower suprapubic pain, mild back pain. The patient has experienced similar episodes in the past, several times, Last was about 1 year ago in the fall. Historical: - Allergies: 08:59 Bactrim; hb 08:59 Codeine (Upset stomach); hb 08:59 OPIOID ANALGESICS; hb - PMHx: 08:59 Arthritis; Chronic pain; Migraines; Hypertension; Seizures; Osteoporosis; Ulcers; hb - PSHx: 08:59 carpal tunnel; KEVIN knee; hysterectomy; laminectomy; Spinal Fusion; hb - Immunization history:: Adult Immunizations up to date. - Infectious Disease History:: Denies. - Social history:: Smoking status: Patient denies any tobacco usage or history of. ROS: 09:06 : Positive for urinary symptoms, flank pain, urinary frequency, burning with bo1 urination, 10:27 Constitutional: Negative for fever, chills, and weight loss bo1 10:27 Neck: Negative for pain with movement, pain at rest, 10:27 Cardiovascular: Negative for chest pain, 10:27 Respiratory: Negative for cough, shortness of breath, 10:27 Abdomen/GI: Positive for abdominal pain, Negative for nausea and vomiting, 10:27 Skin: Negative for rash, Exam: 10:30 Constitutional: This is a well developed, well nourished patient who is awake, alert, bo1 and in no acute distress. 10:30 Constitutional: The patient appears in no acute distress, alert, awake, comfortable, non-toxic, 10:30 Neck: External neck: is normal, no acute changes, 10:30 Chest/axilla: Inspection: normal, no acute changes, 10:30 Cardiovascular: Rate: normal, Pulses: no pulse deficits are appreciated, Heart sounds: normal, 10:30 Respiratory: the patient does not display signs of respiratory distress, Respirations: normal, Breath sounds: are clear throughout, 10:30 Abdomen/GI: Inspection: abdomen appears normal, Palpation: soft, nontender, rebound tenderness, is not appreciated, 10:30 Skin: no rash present. Vital Signs: 08:55 BP 160 / 77; Pulse 89; Resp 18; Temp 98.1(O); Pulse Ox 98% on R/A; Weight 70.31 kg; hb Height 5 ft. 1 in. ; Pain 8/10; 11:08 BP 148 / 72; Pulse 79; Resp 18; Temp 98; Pulse Ox 99% on R/A; ph 12:17 BP 136 / 78; Pulse 75; Resp 18; Temp 97.9; Pulse Ox 98% on R/A; ph 08:55 Body Mass Index 29.29 (70.31 kg, 154.94 cm) hb 08:55 Pain Scale: Adult hb MDM: 08:54 Medical Screening Exam initiated bo1 10:28 Differential Diagnosis UTI, early pyelonephritis. Data reviewed: vital signs, lab test bo1 result(s), CBC, electrolytes, urinalysis, Urine culture: Pending. I considered the following discharge prescriptions or medication management in the emergency department Medications were administered in the Emergency Department. See MAR. ED course: Pt can be managed as an outpt on oral abx after an IV loading dose. 08/14 08:55 Order name: CBC with Diff; Complete Time: 10:09 bo1 08/14 08:55 Order name: Urinalysis w/ reflexes; Complete Time: 10:09 bo1 08/14 08:55 Order name: BMP; Complete Time: 10:09 bo1 08/14 09:58 Order name: Urine Culture EDOK 08/14 08:55 Order name: IV Saline Lock; Complete Time: 10:41 bo1 08/14 08:55 Order name: Labs collected and sent; Complete Time: 09:38 bo1 Administered Medications: 09:03 CANCELLED (ALLERGY): fentanyl (pf)50 mcg IVP once bo1 10:48 Drug: Ondansetron IVP 4 mg IVP once; over 2 minutes Route: IVP; Site: left antecubital; ph 12:18 Follow up: Response: No adverse reaction ph 10:48 Drug: NS 0.9% IV 500 ml 500 ml IV at 1 bolus once; to be given as a bolus over 30 ph minutes Volume: 500 ml; Route: IV; Rate: 1 bolus; Site: left antecubital; 12:18 Follow up: Response: No adverse reaction; IV Status: Completed infusion ph 10:48 Drug: Rocephin IV 2 grams IV at bolus once; Given slow IV push per pharmarcy ph instructions Route: IV; Rate: bolus; Site: left antecubital; 12:18 Follow up: Response: No adverse reaction; IV Status: Completed infusion ph Disposition Summary: 08/14/24 10:33 Discharge Ordered Notes: Location: Home bo1 Problem: new bo1 Symptoms: are unchanged bo1 Condition: Stable bo1 Diagnosis - UTI/ Urinary tract infection, site not specified bo1 Followup: bo1 - With: Private Physician - When: Upon discharge from the Emergency Department - Reason: Recheck today's complaints, Continuance of care Discharge Instructions: - Discharge Summary Sheet bo1 - Urinary Tract Infection, Adult, [id number] bo1 Forms: - Medication Reconciliation Form bo1 - Antibiotic Education bo1 - Prescription Opioid Use bo1 - Patient Portal Instructions bo1 - Leadership Thank You Letter bo1 Prescriptions: - Macrodantin 100 mg Oral Capsule - take 1 capsule ORAL route every 6 hours for 10 days; 40 capsule; Refills: 0, bo1 Product Selection Permitted Signatures: Dispatcher [employer] Manda Carney RN RN Madison Mtz RN RN [facility] Hospital[facility] MD MD bo1 Corrections: (The following items were deleted from the chart) 09:03 09:02 fentaNYL (PF) IVP 50 mcg IVP once ordered. bo1 bo1
[2024-08-14] MEDS ORDERED: NA CHLORIDE 0.9% 500 ML ONE (10:41)
[2024-08-14] MEDS ORDERED: CEFTRIAXONE 2000 MG/VIAL ONE (10:41)
[2024-08-14 12:26] VITALS: BP 136/78; TEMP 97.9; O2SAT 98
== END 2024-08-14 12:19 | disposition home or self-care (01) ==
LOC: ER 08:28
DX: N39.0 Urinary tract infection, site not specified (principal)
CPT/HCPCS: 96365; 87088; 85025; 81001; 87086; 80048; 36415; 96375; 99284; Q0162; J2405; J0696; J7040; 87077; 87186; J7030

== ENCOUNTER 2024-10-20 13:09 | Emergency (ER) | payer OTHER ==
[2024-10-20] MEDS ORDERED: KETOROLAC 30 MG/ML INJ ONE (14:18)
[2024-10-20 14:28] LABS: Absolute Lymphocytes (CBC) 1.8 K/uL (0.7-4.9); Absolute Monocytes 0.6 K/uL (0.1-1.3); Absolute Neutrophil 4.4 K/uL (1.8-8.0); Basophils % 0.5 % (0-1.3); Eosinophils % 0.5 % (0-4.4); Hematocrit 40.3 % (36.0-45.0); Hemoglobin 13.5 g/dL (12.0-15.0); Lymphocytes % 25.8 % (15.3-44.8); MCH 32.3 pg (27.0-35.0); MCHC 33.5 g/dL (32.0-36.0); MCV 96.6 fL (80-100); MPV 7.6 fL (7.6-11.3); Monocytes % 9.1 % (3.3-12.3); Neutrophils % 64.1 % (41.7-73.7); Platelets 250 thou/uL (152-406); RBC Red Blood Cell Count 4.18 M/uL (3.86-4.86); Red Cell Distribution Width 19.3 % (12.1-15.2)
[2024-10-20 14:39] LABS: PT Prothrombin Time 11.9 SECONDS (10-13.0); Protime INR 1.05
[2024-10-20 15:12] LABS: Albumin 3.2 g/dL (3.4-5.0); Albumin/Globulin Ratio 0.9 (1.1-1.8); Anion Gap 7.3 mEq/L (5.0-15.0); Bilirubin Direct 0.2 mg/dL (0-0.2); Bilirubin Indirect, Calculated 0.5 mg/dL (0.2-0.8); Bilirubin Total 0.7 mg/dL (0.2-1.0); Globulin 3.6 g/dL (2.3-3.5); Protein, Total 6.8 g/dL (6.4-8.2); Troponin High Sensitivity 10.4 pg/mL (<58.9)
[2024-10-20 15:13] LABS: Magnesium 1.6 mg/dL (1.6-2.4); Potassium 4.3 mEq/L (3.5-5.1)
--- NOTE | 2024-10-20 15:13 | RAD REPORT ---
EXAMINATION: CT ABDOMEN AND PELVIS WITH CONTRAST CLINICAL INDICATION: ABD PAIN TECHNIQUE: CT abdomen and pelvis was performed, after the administration of IV contrast, as per [facility] protocol. Axial, sagittal and coronal reconstructions were obtained. One or more of the following dose reduction techniques were used: Automated exposure control, adjustment of the mA and k V according to patient size, and iterative reconstruction. Unless otherwise specified, incidental findings do not require dedicated imaging follow-up. COMPARISON: No prior exam. FINDINGS: LOWER CHEST: The visualized lung bases are clear. LIVER: Normal in size and contour. No focal lesion. Grossly unremarkable gallbladder. SPLEEN: Normal size. No focal lesion. PANCREAS: No mass, ductal dilation, or ghulam-pancreatic fluid. ADRENALS: Normal; no mass. KIDNEYS: Normal size and contour. No hydronephrosis. GASTROINTESTINAL TRACT: No evidence of free air, significant intra-abdominal free fluid, bowel obstru ction or abscess. Moderate stool is present throughout the colon. APPENDIX: Appendix not visualized, but no inflammatory changes in region of appendix. LYMPH NODES: No lymphadenopathy. MUSCULOSKELETAL: Multilevel degenerative changes of the lumbar spine is seen. 7 mm degenerative anter olisthesis L4 on 5. IMPRESSION: No acute abnormalities seen in the abdomen or pelvis.
--- NOTE | 2024-10-20 15:17 | EDPHYS ---
Physician Documentation [facility] Name: Lina Fisher Age: 79 yrs Sex: Female : 1945 Arrival Date: 10/20/2024 Time: 13:09 Bed 20 Private MD: ED Physician Valery Pandey HPI: 10/20 14:04 This 79 yrs old Female presents to ER via EMS with complaints of Decreased Appetite and sp3 epigastric pain. 14:04 79-year-old female with history of chronic back pain, hypertension, seizure history, sp3 prior peptic ulcer disease, now presents with epigastric pain and decreased appetite. Patient has had cholecystectomy and appendectomy in the past. She was seen at [facility] 5 days ago where she states they did blood work but did not do any imaging. She has had an endoscopy before where she was told she had the ulcers. Patient denies any other symptoms including headache, fever, upper respiratory symptoms, neck pain, chest pain, shortness of breath, back pain that is different than her chronic back pain, syncope, near syncope, melena or any other signs or symptoms on ROS at this time.. Historical: - Allergies: 13:40 Bactrim; kc6 13:40 Codeine (Upset stomach); kc6 13:40 OPIOID ANALGESICS; kc6 - PMHx: 13:40 Ulcers; Seizures; Osteoporosis; Migraines; Hypertension; Chronic pain; Arthritis; kc6 Hypothyroidism; - PSHx: 13:40 KEVIN knee; carpal tunnel; hysterectomy; laminectomy; Spinal Fusion; kc6 - Immunization history:: Adult Immunizations up to date. - Infectious Disease History:: Denies. - Social history:: Smoking status: Patient denies any tobacco usage or history of. ROS: 14:05 Constitutional: Negative for fever, chills, and weight loss, Eyes: Negative for injury, sp3 pain, redness, and discharge, ENT: Negative for injury, pain, and discharge, Neck: Negative for injury, pain, and swelling, Cardiovascular: Negative for chest pain, palpitations, and edema, Respiratory: Negative for shortness of breath, cough, wheezing, and pleuritic chest pain, Back: Negative for injury and pain, MS/Extremity: Negative for injury and deformity, Skin: Negative for injury, rash, and discoloration, Neuro: Negative for headache, weakness, numbness, tingling, and seizure, Psych: Negative for depression, anxiety, suicide ideation, homicidal ideation, and hallucinations, Allergy/Immunology: Negative for hives, rash, and allergies, Endocrine: Negative for neck swelling, polydipsia, polyuria, polyphagia, and marked weight changes, 14:05 All other systems are negative, Exam: 14:05 Constitutional: This is a well developed, well nourished patient who is awake, alert, sp3 and in no acute distress. Head/Face: Normocephalic, atraumatic. Eyes: Pupils equal round and reactive to light, extra-ocular motions intact. Lids and lashes normal. Conjunctiva and sclera are non-icteric and not injected. Cornea within normal limits. Periorbital areas with no swelling, redness, or edema. ENT: Nares patent. No nasal discharge, no septal abnormalities noted. External auditory canals are clear. Oropharynx with no redness, swelling, or masses, exudates, or evidence of obstruction, uvula midline. Mucous membranes moist. Neck: Trachea midline, no thyromegaly or masses palpated, and no cervical lymphadenopathy. Supple, full range of motion without nuchal rigidity, or vertebral point tenderness. No Meningismus. Chest/axilla: Normal chest wall appearance and motion. Nontender with no deformity. No lesions are appreciated. Cardiovascular: Regular rate and rhythm with a normal S1 and S2. No gallops, murmurs, or rubs. Normal PMI, no JVD. No pulse deficits. Respiratory: Lungs have equal breath sounds bilaterally, clear to auscultation and percussion. No rales, rhonchi or wheezes noted. No increased work of breathing, no retractions or nasal flaring. Back: No spinal tenderness. No costovertebral tenderness. Full range of motion. Skin: Warm, dry with normal turgor. Normal color with no rashes, no lesions, and no evidence of cellulitis. MS/ Extremity: Pulses equal, no cyanosis. Neurovascular intact. Full, normal range of motion. Neuro: Awake and alert, GCS 15, oriented to person, place, time, and situation. Cranial nerves II-XII grossly intact. Motor strength 5/5 in all extremities. Sensory grossly intact. Cerebellar exam normal. Normal gait. Psych: Awake, alert, with orientation to person, place and time. Behavior, mood, and affect are within normal limits. 14:05 Abdomen/GI: Patient has epigastric pain to palpation without peritoneal signs., 14:41 ECG was reviewed by the Attending Physician. EKG demonstrates normal sinus rhythm at 90 sp3 bpm with normal intervals, normal QRS, normal axis, normal ST/T-segment's without evidence of acute ischemia. Vital Signs: 13:38 BP 145 / 68; Pulse 97; Resp 18 S; Temp 98.4(O); Pulse Ox 98% on R/A; Weight 65.77 kg kc6 (R); Height 5 ft. 4 in. (R); 14:10 BP 145 / 103; Pulse 96; Resp 18 S; Pulse Ox 100% on R/A; kc6 15:38 BP 143 / 90; Pulse 90; Resp 18 S; Pulse Ox 100% on R/A; kc6 13:38 Body Mass Index 24.89 (65.77 kg, 162.56 cm) kc6 MDM: 13:54 Medical Screening Exam initiated sp3 14:07 Data reviewed: vital signs, nurses notes, lab test result(s), radiologic studies. ED sp3 course: 79-year-old female with PMH above now with epigastric pain. Differential diagnosis peptic ulcer disease, gastritis, functional abdominal pain, constipation, colitis, among others. I am not highly suspicious of acute coronary syndrome, mesenteric ischemia, sepsis, shock, vascular pathology including aorta, or any other signs or symptoms on ROS at this time.. 15:16 ED course: Full workup negative. We will safely discharge patient home at this time.. sp3 10/20 14:09 Order name: Basic Metabolic Panel; Complete Time: 15:16 sp3 10/20 14:09 Order name: CBC with Diff; Complete Time: 15:16 sp3 10/20 14:09 Order name: LFT's; Complete Time: 15:16 sp3 10/20 14:09 Order name: Magnesium; Complete Time: 15:16 sp3 10/20 14:09 Order name: PT-INR; Complete Time: 15:16 sp3 10/20 14:09 Order name: Troponin HS; Complete Time: 15:16 sp3 10/20 14:09 Order name: Lipase; Complete Time: 15:16 sp3 10/20 14:09 Order name: CT Abd/Pelvis - IV Contrast Only; Complete Time: 15:16 sp3 10/20 14:09 Order name: EKG; Complete Time: 14:09 sp3 10/20 14:09 Order name: Cardiac monitoring; Complete Time: 14:34 sp3 10/20 14:09 Order name: EKG - Nurse/Tech; Complete Time: 14:34 sp3 10/20 14:09 Order name: IV Saline Lock; Complete Time: 14:23 sp3 10/20 14:09 Order name: Labs collected and sent; Complete Time: 14:23 sp3 10/20 14:09 Order name: O2 Per Protocol; Complete Time: 14:23 sp3 10/20 14:09 Order name: O2 Sat Monitoring; Complete Time: 14: sp3 Administered Medications: 14:34 Drug: Ketorolac IVP 15 mg IVP once Route: IVP; Site: left antecubital; kc6 15:37 Follow up: Response: No adverse reaction kc6 Disposition Summary: 10/20/24 15:17 Discharge Ordered Notes: Location: Home sp3 Condition: Stable sp3 Diagnosis - Abdominal pain sp3 Followup: sp3 - With: Private Physician - When: Upon discharge from the Emergency Department - Reason: Continuance of care Discharge Instructions: - Discharge Summary Sheet sp3 - Abdominal Pain, Adult sp3 Forms: - Medication Reconciliation Form sp3 - Antibiotic Education sp3 - Prescription Opioid Use sp3 - Patient Portal Instructions sp3 - Leadership Thank You Letter sp3 Signatures: Dispatcher [employer] Valery Sherman MD MD sp3 Charlene Araiza RN RN kc6
--- NOTE | 2024-10-20 15:17 | ER ---
Nurse's Notes [facility] Name: Lina Fisher Age: 79 yrs Sex: Female : 1945 Arrival Date: 10/20/2024 Time: 13:09 Bed 20 Private MD: Diagnosis: Abdominal pain Presentation: 10/20 13:38 Chief complaint: EMS states: decreased appetite x16 days. pt states she was seen at [address] ER and discharged recently. pt reports epigastric pain. Coronavirus screen: At this time, the client does not indicate any symptoms associated with coronavirus-19. Ebola Screen: No symptoms or risks identified at this time. Initial Sepsis Screen: Does the patient meet any 2 criteria? HR > 90 bpm. Does the patient have a suspected source of infection? No. Patient's initial sepsis screen is negative. Risk Assessment: Do you want to hurt yourself or someone else? Patient reports no desire to harm self or others. Onset of symptoms was October 20, 2024. Care prior to arrival: Medication(s) given: Normal saline infusion, 1000 mL, IV initiated. 20 GA, in the left antecubital area, Glucose check: 154. 13:38 Method Of Arrival: EMS: [facility] 13:38 Acuity: MARQUITA 3 [facility] Historical: - Allergies: 13:40 Bactrim; [facility] 13:40 Codeine (Upset stomach); kc 13:40 OPIOID ANALGESICS; [facility] - PMHx: 13:40 Ulcers; Seizures; Osteoporosis; Migraines; Hypertension; Chronic pain; Arthritis; [facility] Hypothyroidism; - PSHx: 13:40 KEVIN knee; carpal tunnel; hysterectomy; laminectomy; Spinal Fusion; [facility] - Immunization history:: Adult Immunizations up to date. - Infectious Disease History:: Denies. - Social history:: Smoking status: Patient denies any tobacco usage or history of. Screenin:42 [facility] ED Fall Risk Assessment (Adult) History of falling in the last 3 months, [facility] including since admission No falls in past 3 months (0 pts) Confusion or Disorientation No (0 pts) Intoxicated or Sedated No (0 pts) Impaired Gait No (0 pts) Mobility Assist Device Used No (0 pt) Altered Elimination No (0 pt) Score/Fall Risk Level 0 - 2 = Low Risk Oriented to surroundings. Abuse screen: Denies threats or abuse. Denies injuries from another. Nutritional screening: No deficits noted. Tuberculosis screening: No symptoms or risk factors identified. Assessment: 14:08 General: Appears in no apparent distress. comfortable, well groomed, well developed, kc6 Behavior is calm, cooperative, appropriate for age, Reports feeling ill for > 3 days. Pain: Complains of pain in epigastric area Pain does not radiate. Neuro: Level of Consciousness is awake, alert, obeys commands, Oriented to person, place, time, situation, Appropriate for age. Cardiovascular: Capillary refill < 3 seconds. Respiratory: Airway is patent Trachea midline Respiratory effort is even, unlabored, Respiratory pattern is regular, symmetrical. GI: Abdomen is flat, non-distended, Bowel sounds present X 4 quads. Abd is soft X 4 quads Abdomen is tender to palpation in epigastric area Reports upper abdominal pain, anorexia, epigastric pain, Patient currently denies diarrhea, nausea, vomiting. : No signs and/or symptoms were reported regarding the genitourinary system. EENT: No signs and/or symptoms were reported regarding the EENT system. Derm: No signs and/or symptoms reported regarding the dermatologic system. Skin is intact, is healthy with good turgor, Skin is pink, warm \T\ dry. Musculoskeletal: No signs and/or symptoms reported regarding the musculoskeletal system. Circulation, motion, and sensation intact. Range of motion: intact in all extremities. 15:37 Reassessment: Patient appears in no apparent distress at this time. No changes from kc6 previously documented assessment. Patient and/or family updated on plan of care and expected duration. Pain level reassessed. Patient is alert, oriented x 3, equal unlabored respirations, skin warm/dry/pink. Vital Signs: 13:38 BP 145 / 68; Pulse 97; Resp 18 S; Temp 98.4(O); Pulse Ox 98% on R/A; Weight 65.77 kg kc6 (R); Height 5 ft. 4 in. (R); 14:10 BP 145 / 103; Pulse 96; Resp 18 S; Pulse Ox 100% on R/A; kc6 15:38 BP 143 / 90; Pulse 90; Resp 18 S; Pulse Ox 100% on R/A; kc6 13:38 Body Mass Index 24.89 (65.77 kg, 162.56 cm) kc6 ED Course: 13:38 Patient arrived in ED. kc6 13:39 Valery Pandey MD is Attending Physician. sp3 13:40 Triage completed. kc6 13:40 Arm band placed on. kc6 13:41 Patient has correct armband on for positive identification. Bed in low position. Call kc6 light in reach. Side rails up X2. Pulse ox on. NIBP on. Door closed. Noise minimized. Lights dimmed. Warm blanket given. Pillow given. Verbal reassurance given. 13:42 Maintain EMS IV. Dressing intact. Good blood return noted. Site clean \T\ dry. Gauge \T\ swapna 6 site: 20G LAC. Flushed with 10 mL NS. Patient maintains SpO2 saturation greater than 95% on room air. 14:08 Charlene Araiza, RN is Primary Nurse. kc6 15:05 CT Abd/Pelvis - IV Contrast Only In Process Unspecified. EDMS 15:37 Diet: Patient given juice. Patient given water. Tolerated well. kc6 15:49 No provider procedures requiring assistance completed. IV discontinued, intact, kc6 bleeding controlled, No redness/swelling at site. Pressure dressing applied. Administered Medications: 14:34 Drug: Ketorolac IVP 15 mg IVP once Route: IVP; Site: left antecubital; kc6 15:37 Follow up: Response: No adverse reaction kc6 Medication: 15:49 VIS not applicable for this client. kc6 Outcome: 15:17 Discharge ordered by . sp3 15:49 Discharged to home via wheelchair, with significant other, kc6 15:49 Condition: good 15:49 Discharge instructions given to patient, significant other, Instructed on discharge instructions, follow up and referral plans. Demonstrated understanding of instructions, follow-up care, 15:49 Patient left the ED. kc6 Signatures: Dispatcher [employer] EDMS Valery Pandey MD MD sp3 Charlene Araiza, RN RN kc6
[2024-10-20 16:15] VITALS: TEMP 98.4
[2024-10-20 16:17] VITALS: O2SAT 100
[2024-10-20 16:19] VITALS: BP 143/90
--- NOTE | 2024-10-25 12:36 | EKG ---
Test Date: 2024-10-20 Test Time: 14:31:49 Sleep Lab Technologist: SHY MEASUREMENT RESULTS: Intervals: Rate: 89 GA: 146 QRSD: 78 QT: 350 QTc: 425 [place]: P: 75 GA: 146 QRS: 0 T: 38 INTERPRETIVE STATEMENTS: Normal sinus rhythm Normal ECG Compared to ECG 07/26/2022 17:46:55 Sinus tachycardia no longer present Electronically Signed On 10-25-24 12:26:55 CDT by Dc Delaney
== END 2024-10-20 15:49 | disposition home or self-care (01) ==
LOC: ER 13:09
DX: R10.13 Epigastric pain (principal); G89.29 Other chronic pain
CPT/HCPCS: 93005; 85025; 80048; 36415; 83735; 85610; 80076; 84484; 83690; 74177; 96374; 99284; Q9967